=== PATIENT | female | born 1950 | race Caucasian/White ===

== ENCOUNTER 2016-07-29 14:16 | Inpatient (IN) | payer BC, OTHER ==
[~2016-07-29] VITALS: Ht 162.6 cm; Wt 59.1 kg
[~2016-07-29 14:16] MED LIST: ALEN70TA4 PO; ASPI81TA28 PO; BUTACAP7 PO; CALC-214 PO; CALC-354 PO; CYAN10005 PO; DTRSR5 PO; ESCI1TAB10 PO; FLAX100025 PO; MULT1TAB22 PO; PRLSR20 PO
--- NOTE | 2016-07-29 16:18 | DIAGNOSTIC IMAGING REPORT ---
CHEST ONE VIEW PORTABLE CLINICAL HISTORY: Altered mental status. Syncope. Weakness. COMPARISON STUDY: 01/19/2016 FINDINGS: The cardiac and mediastinal contours are normal. There is no evidence of focal pulmonary consolidation. There is no evidence of failure. No pleural effusions are visualized.[ There is a 14 mm opacity within the left mid to lower lung zone. This is quite dense despite its small size and is therefore felt to be either postinflammatory, or related to a healing rib fracture. IMPRESSION: No active disease in the chest. Electronically signed by: Terry Iverson M.D. 07/29/2016 4:17 PM Dictated Date/Time: 07/29/2016 4:16 PM
[2016-07-29] MEDS ORDERED: DENO60SO INJ (16:23)
[2016-07-29 16:30] LABS: EOS % 1.1 %; HEMATOCRIT 36.2 % (37-47); IG% 0.5 %; LYMPH % 11.1 %; LYMPH ABS # 1.07 K/uL (1.2-3.4); MEAN CELL VOLUME 63.7 fL (80-100); MEAN CORPUSCULAR HEMOGLOBIN 19.4 pg (25-34); MEAN CORPUSCULAR HGB CONC 30.4 g/dl (32-36); MEAN PLATELET VOLUME 9.4 fL (7.4-10.4); MONO % 2.8 %; NEUT % 83.5 %; PLATELET COUNT 439 K/uL (130-400); RED BLOOD COUNT 5.68 M/uL (4.2-5.4); WHITE BLOOD COUNT 9.65 K/uL (4.8-10.8)
[2016-07-29] MEDS ORDERED: CETI10TA84 PO (16:32)
[2016-07-29] MEDS ORDERED: CALC150C PO ×2 (16:32)
[2016-07-29] MEDS ORDERED: ATV5X PO (16:32)
[2016-07-29] MEDS ORDERED: IBUP-1450 PO (16:32)
[2016-07-29] MEDS ORDERED: OXYB15TA PO (16:32)
[2016-07-29] MEDS ORDERED: CHOL100027 PO (16:32)
[2016-07-29] MEDS ORDERED: MAGN250T3 PO (16:32)
[2016-07-29 16:49] LABS: ALT/SGPT 24 U/L (12-78); AST/SGOT 20 U/L (15-37); BLOOD UREA NITROGEN 14 mg/dl (7-18); CALCIUM 8.4 mg/dl (8.5-10.1); CARBON DIOXIDE 28 mmol/L (21-32); CHLORIDE 100 mmol/L (98-107); CREATININE 0.97 mg/dl (0.60-1.20); GLUCOSE 91 mg/dl (70-99); MAGNESIUM 2.4 mg/dl (1.8-2.4); POTASSIUM 4.2 mmol/L (3.5-5.1); SODIUM 136 mmol/L (136-145)
[2016-07-29 16:51] LABS: ANISOCYTOSIS PRESENT; COMPLETE YES; GIANT PLATELETS 1+; OVALOCYTES 1+; SPHEROCYTE 1+
[2016-07-29 16:57] LABS: ALKALINE PHOSPHATASE 64 U/L (45-117)
--- NOTE | 2016-07-29 17:13 | EMERGENCY ROOM VISIT NOTE ---
History Report prepared by Pedro: Nevaeh Mcneal Under the Supervision of: Dr. Jerman White D.O. First contact with patient: 15:49 Chief Complaint: SYNCOPE (NEAR SYNCOPE) Stated Complaint: NEAR SYNCOPE, WEAKNESS, DIZZY Nursing Triage Summary: Triage note: pt ambulatory to triage. Pt reports for the past 4 weeks she has had episodes of near syncope. pt reports "i get dizzy and my heart races." History of Present Illness The patient is a 65 year old female who presents to the Emergency Room with complaints of worsening dizziness beginning a few weeks prior to arrival. The patient states that she has been on Intron A injections for a condition she has and was taken off due to having dizziness episodes. The patient states that she was recently put back on the injections and since then as been experiencing the same dizziness and lightheaded episodes. She notes that she has up to 10 of these episodes a day. The patient notes that during these episodes she feels weak, palpations, and like she is about to have a syncopal episode. Patient also notes worsening weakness with activity recently. 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 Review of Systems See HPI for pertinent positives & negatives. A total of 10 systems reviewed and were otherwise negative. Past Medical & Surgical Medical Problems: (1) Closed right hip fracture (2) Depressive disorder (3) GERD (gastroesophageal reflux disease) (4) PRESYNCOPE, HEART BLOCK (5) SYNCOPE,ANEMIA, (6) T12 compression fracture Surgical Problems: (1) History of appendectomy (2) History of fracture of right hip (3) History of hysterectomy Family History No pertinent family history Social History Smoking Status: Never Smoker Drug Use: none Marital Status: Housing Status: lives with family Occupation Status: retired Current/Historical Medications Scheduled Aspirin (Aspirin Ec), 81 MG PO DAILY Ekvrsghacv-Xowifkz-Wuharcfs (Butal/Asa/Caff), 1 TAB PO PRN UD Calcium Citrate (James-Citrate), 600 MG PO QAM Calcium Citrate (James-Citrate), 300 MG PO QPM Cholecalciferol (Vitamin D 1000 Unit), 1,000 INTER.UNIT PO DAILY Denosumab (Prolia), 60 MG INJ [id number] Escitalopram Oxalate (Lexapro), 20 MG PO QPM Flaxseed (Linseed) (Flax Seed Oil), 1 CAP PO DAILY Magnesium (Magnesium 250 mg), 250 MG PO DAILY Multiple Vitamins W/ Minerals (One Daily For Women), 1 TAB PO DAILY Omeprazole (Prilosec), 20 MG PO DAILY Oxybutynin Chloride (Oxybutynin Chloride Er), 15 MG PO DAILY Scheduled PRN Cetirizine (Zyrtec), 10 MG PO DAILY PRN for ALLERGIC REACTION Ibuprofen (Motrin), 600 MG PO Q6H PRN for Pain Lorazepam (Lorazepam), 0.5 MG PO BID PRN for Anxiety Allergies Coded Allergies: Codeine (Verified Adverse Reaction, Intermediate, nausea, 02/12/16) Erythromycin (Verified Adverse Reaction, Intermediate, nausea, 02/12/16) Physical Exam Vital Signs Date Time Temp Pulse Resp B/P Pulse Ox O2 Delivery O2 Flow Rate FiO2 07/29/16 17:22 45 18 147/65 99 Room Air 07/29/16 16:19 82 07/29/16 15:45 71 18 160/84 98 Room Air 07/29/16 15:41 98 Room Air 07/29/16 14:21 36.5 89 18 168/83 98 Room Air Physical Exam CONSTITUTIONAL/VITAL SIGNS: Reviewed / noted above. GENERAL: Non-toxic in appearance. INTEGUMENTARY: Warm, dry, and [place]. HEAD: Normocephalic. EYES: without scleral icterus or trauma. ENT/OROPHARYNX: clear and moist. LYMPHADENOPATHY/NECK: Is supple without lymphadenopathy or meningismus. RESPIRATORY: Lungs clear and equal. CARDIOVASCULAR: Regular rate and rhythm. GI/ABDOMEN: Soft and nontender. No organomegaly or pulsatile mass. No rebound or guarding. Normal bowel sounds. EXTREMITIES: Warm and well perfused. BACK: No CVA tenderness. NEUROLOGICAL: Intact without focal deficits. PSYCHIATRIC: normal affect. MUSCULOSKELETAL: Normally developed with good muscle tone. Medical Decision & Procedures ER Provider Diagnostic Interpretation: X ray results and stated below per my interpretation and radiology interpretation. CHEST ONE VIEW PORTABLE CLINICAL HISTORY: Altered mental status. Syncope. Weakness. COMPARISON STUDY: 01/19/2016 FINDINGS: The cardiac and mediastinal contours are normal. There is no evidence of focal pulmonary consolidation. There is no evidence of failure. No pleural effusions are visualized.[ There is a 14 mm opacity within the left mid to lower lung zone. This is quite dense despite its small size and is therefore felt to be either postinflammatory, or related to a healing rib fracture. IMPRESSION: No active disease in the chest. Electronically signed by: Terry Iverson M.D. 07/29/2016 4:17 PM Dictated Date/Time: 07/29/2016 4:16 PM Laboratory Results 07/29/16 16:21 Red Blood Count 5.68, Mean Corpuscular Volume 63.7, Mean Corpuscular Hemoglobin 19.4, Mean Corpuscular Hemoglobin Concent 30.4, Mean Platelet Volume 9.4, Neutrophils (%) (Auto) 83.5, Lymphocytes (%) (Auto) 11.1, Monocytes (%) (Auto) 2.8, Eosinophils (%) (Auto) 1.1, Basophils (%) (Auto) 1.0, Neutrophils # (Auto) 8.05, Lymphocytes # (Auto) 1.07, Monocytes # (Auto) 0.27, Eosinophils # (Auto) 0.11, Basophils # (Auto) 0.10 07/29/16 16:21 Test 07/29/16 16:21 07/29/16 17:04 White Blood Count 9.65 K/uL (4.8-10.8) Red Blood Count 5.68 M/uL (4.2-5.4) Hemoglobin 11.0 g/dL (12.0-16.0) Hematocrit 36.2 % (37-47) Mean Corpuscular Volume 63.7 fL (80-100) Mean Corpuscular Hemoglobin 19.4 pg (25-34) Mean Corpuscular Hemoglobin Concent 30.4 g/dl (32-36) Platelet Count 439 K/uL (130-400) Mean Platelet Volume 9.4 fL (7.4-10.4) Neutrophils (%) (Auto) 83.5 % Lymphocytes (%) (Auto) 11.1 % Monocytes (%) (Auto) 2.8 % Eosinophils (%) (Auto) 1.1 % Basophils (%) (Auto) 1.0 % Neutrophils # (Auto) 8.05 K/uL (1.4-6.5) Lymphocytes # (Auto) 1.07 K/uL (1.2-3.4) Monocytes # (Auto) 0.27 K/uL (0.11-0.59) Eosinophils # (Auto) 0.11 K/uL (0-0.5) Basophils # (Auto) 0.10 K/uL (0-0.2) RDW Standard Deviation 50.5 fL (36.4-46.3) RDW Coefficient of Variation 22.1 % (11.5-14.5) Immature Granulocyte % (Auto) 0.5 % Immature Granulocyte # (Auto) 0.05 K/uL (0.00-0.02) Giant Platelets 1+ Anisocytosis PRESENT Spherocytes 1+ Ovalocytes 1+ Anion Gap 8.0 mmol/L (3-11) Est Creatinine Clear Calc Drug Dose 49.3 ml/min Estimated GFR () 70.5 Estimated GFR (Non- 60.9 BUN/Creatinine Ratio 14.0 (10-20) Calcium Level 8.4 mg/dl (8.5-10.1) Magnesium Level 2.4 mg/dl (1.8-2.4) Total Bilirubin 0.2 mg/dl (0.2-1) Direct Bilirubin < 0.1 mg/dl (0-0.2) Aspartate Amino Transf (AST/SGOT) 20 U/L (15-37) Alanine Aminotransferase (ALT/SGPT) 24 U/L (12-78) Alkaline Phosphatase 64 U/L (45-117) Total Creatine Kinase 48 U/L (26-192) Creatine Kinase MB < 0.5 ng/ml (0.5-3.6) Creatine Kinase MB Ratio (0-3.0) Troponin I < 0.015 ng/ml (0-0.045) Total Protein 7.7 gm/dl (6.4-8.2) Albumin 3.9 gm/dl (3.4-5.0) Lipase 126 U/L (73-393) Thyroid Stimulating Hormone (TSH) 4.950 uIu/ml (0.300-4.500) Prothrombin Time 11.7 SECONDS (9.0-12.0) Prothromb Time International Ratio 1.1 (0.9-1.1) Activated Partial Thromboplast Time 30.3 SECONDS (21.0-31.0) Partial Thromboplastin Ratio 1.2 Lyme Disease IgM Antibody NEG (NEG) Laboratory results as stated above per my review. ECG Indication: other (dizziness) Rate (beats per minute): 76 Rhythm: normal sinus Findings: no acute ischemic change, no ectopy ED Course 154: Previous medical records were reviewed. The patient was evaluated in room B10. A complete history and physical examination was performed. 1617: Discussed the patient's case with Dr. Salinas. The patient will be evaluated for further treatment and disposition. []: On reevaluation, the patient is hemodynamically stable. I discussed the results and findings with her. She verbalized agreement of the treatment plan. I spoke with Dr. Salinas of the [facility]. The patient will be evaluated for further management and care. Medical Decision Differential includes acute cardiac dysrhythmia, microinfarction, CVA, TIA, dehydration, anemia, electrolyte disturbance, seizure, trauma, intracranial bleeding, acute vascular catastrophe, thoracic aortic dissection, PE, abdominal aortic aneurysm rupture, ectopic rupture. The patient is a 65 year old female who presents to the ED with complaints of dizziness. The patient has a history of polycythemia vera. She gets interferon twice a week. He reports dizziness off and on for the past couple of weeks. It is worsening for the past couple of days. Yesterday she had multiple episodes and today she had multiple episodes as well. She reports up to 8 episodes today. She had one in the emergency department. She states that she suddenly feels weak, lightheaded and feels like her breathing is difficult and her heart pounds. The patient states that her last episode was here around 154. Review of that monitor lead reveals third degree heart block/ventricular standstill for 3 seconds. There was 3 P waves without QRS complexes. The patient was symptomatic during this. She states that she had the same symptoms although this was one of the last significant episodes that she has had through the day. The patient has no other complaints. Her physical exam was normal. Vital signs are stable. Chest x-ray did not show acute disease. An EKG shows a normal sinus rhythm at a rate of 76. Complete metabolic panel was unremarkable. CBC is normal. TSH is slightly elevated. Lyme was negative. The patient's symptoms are likely related to ventricular standstill or third degree heart block. Pacer pads were placed on the patient. She had a number of episodes of arrhythmia during her stay but did not require pacing. The patient will be seen by the PCP and evaluated as an inpatient for further care. Consults Time Called: 161 Consulting Physician: Dr. Rita Gallagher Returned Call: [phone] Discussed the patient's case. The patient will be evaluated for further treatment and disposition. Impression Primary Impression: Third degree heart block Scribe Attestation The scribe's documentation has been prepared under my direction and personally reviewed by me in its entirety. I confirm that the note above accurately reflects all work, treatment, procedures, and medical decision making performed by me. Departure Information Dispostion Being Evaluated By Hospitalist Referrals Maicol Acosta M.D. (PCP)
[2016-07-29 17:25] LABS: INR 1.1 (0.9-1.1); PARTIAL THROMBOPLASTIN RATIO 1.2; PROTHROMBIN TIME (PATIENT) 11.7 SECONDS (9.0-12.0)
[2016-07-29] MEDS ORDERED: LORAZEPAM 0.5 MG TAB PO PRN (17:30)
[2016-07-29] MEDS ORDERED: CETIRIZINE HCL 10 MG TAB PO PRN (17:30)
[2016-07-29 19:50] VITALS: O2SAT 96
--- NOTE | 2016-07-29 20:34 | CARDIOLOGY CONSULTATION ---
DATE OF CONSULTATION: 07/29/2016 CHIEF COMPLAINT: Syncope. HISTORY OF PRESENT ILLNESS: Mrs. Alice Ruiz is a 65-year-old woman with a longstanding history of unexplained syncope. The patient first reported symptoms last summer which is approximately 8 months ago. Initially, these symptoms were fairly infrequent and brief in nature but did involve actual syncope. The episodes tended to occur while at rest and did not involve additional symptoms or sense of prodrome. It was unclear at that time if the patient's episodes related to institution of interferon therapy for polycythemia vera and therapy was stopped without resolution of her symptoms, more recently it was reinitiated. In the past 8 months, the patient's symptoms have become progressive in nature to the point where she now appears to have multiple episodes every day of presyncope that do not appear to be precipitated by any specific activity or position. She does note that the symptoms themselves appear to be worse with activity. When she is active, she notices a sense of presyncope, weakness and dizziness that has been progressive over the past several months. Today, she presented to the Emergency Room of [facility] and was noted to have symptoms associated with transient episodes of complete heart block. In general, the patient is an active individual. She is limited by the aforementioned symptoms, but otherwise did not describe exertional chest pain. In fact, she underwent exercise echocardiography in December of last year without inducible symptoms and had a good exercise tolerance. She denies exertional chest discomfort. She denies breathing difficulties at rest or with sleep. She denies paroxysmal nocturnal dyspnea. PAST MEDICAL HISTORY: Significant for: 1. Polycythemia vera. The patient does undergo intermittent phlebotomy. She was on hydroxyurea therapy which resulted in thrombocytopenia and now has transitioned to interferon. 2. History of osteoporosis with resultant hip fracture. 3. Anxiety. PAST SURGICAL HISTORY: Includes appendectomy, cholecystectomy, hysterectomy. MEDICATIONS: Outpatient medical therapy includes the aforementioned interferon, daily aspirin, calcium supplementation, vitamin D supplementation, escitalopram, magnesium supplementation, omeprazole, and oxybutynin. MEDICAL ALLERGIES: INCLUDE NAUSEA WITH CODEINE AND ERYTHROMYCIN. FAMILY HISTORY: The patient's brother who is 3 years older, he had coronary disease in his 60s. There is a history of atrial fibrillation. No other pertinent family history. 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 She currently lives with her locally. She denies a history of tobacco abuse. She has occasional alcoholic beverage but does not drink to excess. REVIEW OF SYSTEMS: A complete 10-system review of systems was performed and the pertinent positives are noted in the history of present illness. The patient did not report any recent symptoms of fevers or chills. She has an occasional cough associated with the episodes previously mentioned, but not otherwise. She does not have rashes, but does have pruritus on occasion associated primarily with warm showers, this has been worse while she was off interferon therapy. She does not describe any recent bleeding episode. She has not described any lower extremity edema. PHYSICAL EXAMINATION: GENERAL: The patient does not appear to be in acute distress. She is a pleasant woman who is alert and oriented. Her mood and affect appeared normal. She answered all questions appropriately. VITAL SIGNS: Currently include blood pressure 168/83 with a pulse of 89. HEENT: Her sclerae are anicteric. Pupils are equal and reactive to light and accommodation. Extraocular movements were intact. NECK: Palpation of the submandibular region did not reveal any significant lymphadenopathy. The carotids are palpable bilaterally. I do not appreciate any bruits on auscultation. There is no evidence of jugular venous distention. LUNGS: Evaluation of her lungs revealed good air movement with normal respiratory effort, no use of accessory muscles. Her lung examination did not reveal any rales, wheezes, or rhonchi. HEART: Revealed her to be in a regular rhythm. I did not appreciate any significant murmurs. S1 and S2 appeared to be normal. The PMI is not markedly displaced. ABDOMEN: Soft and nontender. EXTREMITIES: She has palpable radial pulses bilaterally, they were equal in intensity. There is no evidence of cyanosis or clubbing. Evaluation of her lower extremities not reveal any significant peripheral edema. No appreciated rashes on examination today. LABORATORY AND IMAGING STUDIES: Obtained in the Emergency Room include a white cell count of 9.6, a hemoglobin of 11 and a platelet count 439. Sodium is 136, potassium is 4.2, creatinine was 0.97. Liver function tests were normal. TSH was slightly elevated at 4.9, normal being 4.5. Lyme disease titer was also negative. Stress echocardiogram was obtained on 01/27/2016. This revealed preserved left ventricular systolic function without inducible wall motion abnormalities. The patient was able to exercise up to 12 METS without symptoms. There was evidence of mild mitral regurgitation and mild aortic regurgitation, otherwise normal study. Evaluation of the patient's telemetry and a recent EKG revealed normal sinus rhythm with a transient episode of complete heart block. QRS duration is normal. There is also an incomplete right bundle branch block. ASSESSMENT AND PLAN: 1. Complete heart block. The patient has good correlation between her conduction disorder and symptoms, is likely the etiology of her symptoms for the past several months, initially there were transient. She did have a period of outpatient ambulatory monitoring, but no symptoms during that time. The etiology of her complete heart block is unclear. I do think that the mild elevation in her TSH is likely to account for these episodes. Lyme titer was also normal. She had normal exercise tolerance previously and also normal left ventricular systolic function. Curiously, her QRS duration is normal, which makes Infra-Hisian disease less likely. Her exercise-related symptoms; however, would be concerning for Infra-Hisian disease. Based on the information collected today, I think it is reasonable to recommend a pacemaker for symptomatic nonreversible AV node disease. I did discuss the procedure with the patient in the presence of her including the risks associated with implantation and she is agreeable at this point, we will plan on proceeding tomorrow.
[2016-07-29] MEDS: ESCITALOPRAM OXALATE 20 MG TAB PO SCH (20:56)
[2016-07-29 21:41] VITALS: BP 139/79; PULSE 75; TEMP 36.5; Ht 162.6 cm; Wt 59.1 kg
--- NOTE | 2016-07-29 22:39 | HISTORY & PHYSICAL EXAMINATION ---
DATE OF ADMISSION: 07/29/2016 HISTORY OF PRESENT ILLNESS: A 65-year-old female admitted through the Emergency Room with presyncopal episodes, which have been frequently [id number] and evidence of heart block. HISTORY OF PRESENT ILLNESS: The patient, with polycythemia vera, gastroesophageal reflux, osteoporosis with history of vertebral compression fracture, has been complaining of recurrent episodes of syncope and presyncope. The first one happened in December of 2015. She has had multiple episodes, mostly presyncopal. She was hospitalized on 01/27/2016. She had a cardiac evaluation. She was on a monitor. Did not show any arrhythmias. She had a stress test and echocardiogram, which were unremarkable. She also had a neurology evaluation and no definite etiology for her episodes was determined. The patient continued to have recurrent episodes of presyncope. On many occasions, she described that her heart was pounding. Over the last couple of weeks, these episodes have become more frequent. She did not have a true syncopal episode, but she definitely did have presyncope. She felt like passing out on multiple occasions. The patient came to the Emergency Room today. While she was on the monitor, she had heart block with pauses up to 3 seconds. I saw the patient in the Emergency Room and she was admitted for further treatment. PAST MEDICAL HISTORY: 1. Polycythemia vera diagnosed about 20 years ago. She had multiple phlebotomies in the past, but she is on interferon. 2. Osteoporosis. 3. History of vertebral compression fractures. 4. Appendectomy at age 12. 5. Vaginal hysterectomy for fibroids in 1998. 6. Right hip fracture after a fall in 2016, required surgery. SOCIAL HISTORY: She is , has 2 children. No smoking. Occasional wine. Decaffeinated coffee. She is retired since 2011. 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 FAMILY HISTORY: Her mother had a stroke. Also, had atrial fibrillation. Her father at age 64, had a myocardial infarction. One brother had at age 53, had prostate cancer. She had a total of 3 brothers and 2 sisters. One daughter at age 35 of widespread metastatic breast cancer. ALLERGIES: 1. CODEINE. 2. ERYTHROMYCIN. MEDICATIONS ON ADMISSION: Were all as noted on her home medication list. REVIEW OF SYSTEMS: She denied any headache. She has been complaining of recurrent episodes of generalized weakness and feeling lightheaded, like passing out. Denied any earache, sore throat or neck pain. Denied any chest pain. She does get short of breath with these episodes that she experienced. No abdominal pain, no nausea, no vomiting. No problem with her bowel movements. She has had urinary incontinence and urgency in the past. She is on oxybutynin. She does have recurrent back pain. No ankle edema. PHYSICAL EXAMINATION: GENERAL: Well developed, in no acute distress. VITAL SIGNS: On arrival to the Emergency Room, her blood pressure was 168/83, pulse 89, respiration 18, temperature 36.5, oxygen saturation 98% on room air. SKIN: Warm and dry. No rash. HEENT: No mucosal abnormalities. NECK: Supple. No adenopathy, no thyromegaly. No JVD. Normal carotid pulses. No bruit. HEART: Regular heart sounds. No evident murmur, rub, or gallop. LUNGS: Clear. ABDOMEN: Soft, nontender. BACK: No spinal tenderness. EXTREMITIES: No edema, clubbing or cyanosis. Good pulses. Surgical scar of the right hip. NEUROLOGIC: She is alert and oriented without deficit. LABORATORY TESTS: WBC count 9650, hemoglobin 11, hematocrit 36.2, MCV 62.7, MCH 19.4, platelet count 439,000. Prothrombin time 11.7, INR 1.1, PTT 30.3. Sodium 136, potassium 4.2, chloride 100, CO2 28, BUN 14, creatinine 0.97, glucose 91, calcium 8.4, magnesium 2.4, total bilirubin 0.2, AST 20, ALT 24, alkaline phosphatase 64, total CK 48, troponin I less than 0.015, total protein 7.7, albumin 3.9, lipase 126. Her TSH was minimally elevated to 4.950. Her chest x-ray showed no evidence of any active disease in her chest. Her electrocardiogram showed a sinus rhythm. Her rhythm strip showed multiple episodes of heart block with pauses up to 3 seconds. ASSESSMENT: 1. Presyncopal episode. 2. Heart block. 3. Polycythemia vera. 4. Osteoporosis. 5. Gastroesophageal reflux. 6. Depression. 7. Anxiety. PLAN: The patient was admitted to PCU with telemetry. Resuscitation level 1. Laboratory tests were ordered. Cardiology consultation was requested. The patient will be monitored tonight. The intent is for her to have a permanent pacemaker placed tomorrow by Dr. Rodríguez. Most likely, that is the cause of her syncopal episodes and presyncopal episodes that she has been having since December.
[2016-07-29 23:08] VITALS: BP 136/70; PULSE 72; TEMP 36.6; O2SAT 95
[2016-07-30] VITALS (14 sets, daily range): BP systolic 114–166; BP diastolic 43–81; PULSE 44–99; TEMP 36.4–36.9; O2SAT 94–96
[2016-07-30] MEDS ORDERED: CEFAZOLIN 1000MG/55 ML D5W IV SCH (06:00)
[2016-07-30] MEDS: LEVOTHYROXINE 50 MCG TAB PO SCH (06:14)
--- NOTE | 2016-07-30 09:04 | Clinical Documentation Query ---
Dr. KARINA ZHENG [facility] : CLINICAL DOCUMENTATION QUERY Patient is a 65 year old female admitted for evaluation and recurrent episodes of syncope and presyncope. Documentation includes "heart block" not otherwise specified. Consider clarification as suggested below as this impacts ICD-10 code assignment. Thank you. In your clinical opinion is this patient being managed for: (x ) Complete/Third degree atrioventricular block ( ) Other explanation of clinical findings (Please Explain) ( ) Unable to determine (Please Define) ( ) Need to Discuss ( ) Not Agree The medical record reflects the following clinical findings, treatment, and risk factors. Clinical Indicators: As above Treatment: Telemetry, cardiology consultation, permanent pacemaker Risk Factors: Age Please clarify and document your clinical opinion in the progress notes and discharge summary. Terms such as "probable", "suspected", "likely", "questionable", "possible", or "still to be ruled out" are acceptable. IF IN AGREEMENT, YOU MUST DOCUMENT ABOVE DIAGNOSTIC STATEMENT IN DAILY PROGRESS NOTES AND DISCHARGE SUMMARY. This document is not part of the patient's record. Thank You, Jm Monreal, RN [phone]
[2016-07-30] MEDS ORDERED: LACTATED RINGER'S 1000ML 1,000 ML IV ONE (11:16)
--- NOTE | 2016-07-30 11:25 | Procedure Note ---
Pre-Mod Sedation Assessment General Date of Moderate Sedation: Jul 30, 2016. Vital Signs: Vital Signs Past 12 Hours Date Time Temp Pulse Resp B/P Pulse Ox O2 Delivery O2 Flow Rate FiO2 07/30/16 07:46 36.7 80 18 114/73 96 Room Air 07/30/16 04:00 Room Air 07/30/16 04:00 36.6 74 18 116/70 95 Room Air 07/30/16 00:01 Room Air Review Cardiovascular: no murmur, + bradycardia Abdomen: non tender Lungs: lungs clear Airway Class: II Pre-Sedation Airway Assessment Oral Cavity: WNL Able to Visualize Vocal Cords: No Short Thick Neck: No Hx of Sleep Apnea: No Smoking Status: Never Smoker Mallampati Classification: Class II ASA Classification: Class II Procedure Planning Contraindications-for Mod Sed: None Yes Notes The planned sedation has been discussed with the patient and consent obtained. I have identified the patient, determined the appropriateness of sedation and have assessed the patient immediately prior to the procedure. All medicine(s) and interventions are by my order.
[2016-07-30] MEDS: ACETAMINOPHEN 325 MG TAB PO PRN ×2 (12:34→20:46)
[2016-07-30] MEDS ORDERED: MIDAZOLAM HCL 5 MG/ML 1 ML VIAL ONE (14:25)
[2016-07-30] MEDS ORDERED: FENTANYL CITRATE INJ 50 MCG/1 ML 2 ML VIAL ONE ×2 (14:26→15:18)
[2016-07-30] MEDS ORDERED: BUPIVACAINE 0.5 % 5 MG/1 ML MPF 30ML VIAL ONE (14:29)
[2016-07-30] MEDS ORDERED: OXYCODONE/ACETAMINOPHEN 5-325 TAB PO PRN (16:15)
[2016-07-30] MEDS ORDERED: ACETAMINOPHEN 325 MG TAB PO PRN (16:15)
[2016-07-30] MEDS: CEROVITE ADV FORMULA TAB PO SCH (16:48)
[2016-07-30] MEDS: PANTOprazole SOD 40 MG TAB PO SCH (16:48)
[2016-07-30] MEDS: ASPIRIN 81 MG ECTAB PO SCH (16:48)
[2016-07-30] MEDS: CHOLECALCIFEROL 1000 INTER.UNIT TAB PO SCH (16:48)
[2016-07-30] MEDS: CEFAZOLIN IV 1,000 MG in DEXTROSE 5% 50ML 50 ML IV SCH (17:48)
--- NOTE | 2016-07-30 18:08 | Cardiology Procedure Brief Nt ---
Preliminary Cardiology Note Procedure Date Jul 30, 2016. Pre-Procedure Diagnosis heart block Post-Procedure Diagnosis heart block Procedure(s) Performed placement of dual chamber Medtronic pacemaker College Director Aneudy Estimated Blood Loss 10cc Medication(s) Versed 5mg, fentanyl 125 mcg Fluids (cc crystalloids) 450cc Complication(s) None Disposition PCU
--- NOTE | 2016-07-30 18:13 | Procedure Note ---
Post-Mod Sedation Assessment General Date of Moderate Sedation Jul 30, 2016. Vital Signs: Vital Signs Past 12 Hours Date Time Temp Pulse Resp B/P Pulse Ox O2 Delivery O2 Flow Rate FiO2 07/30/16 16:20 Room Air 07/30/16 16:20 36.4 75 22 135/80 94 Room Air 07/30/16 16:00 75 24 128/78 94 Room Air 07/30/16 15:50 62 24 129/80 95 Room Air 07/30/16 11:27 36.9 44 18 130/67 96 Room Air 07/30/16 08:00 Room Air 07/30/16 07:46 36.7 80 18 114/73 96 Room Air Review - Discharge Criteria Vital Signs Stable: Yes Alert/Oriented/Conversant: Yes Returned to Baseline Mental St: Yes Nausea Absent/Minimal: Yes Pain/Discomfort/Absent/Minimal: Yes Normal/Baseline Respirations: Yes Active Bleeding?: No Pt Received D/C Instructions: N/A Prescriptions Given: None
[2016-07-30] MEDS ORDERED: ONDANSETRON INJ 8 MG in DEXTROSE 5% 50ML 50 ML IV PRN (18:45)
[2016-07-30] MEDS: ESCITALOPRAM OXALATE 20 MG TAB PO SCH (20:46)
[2016-07-31] MEDS: CEFAZOLIN IV 1,000 MG in DEXTROSE 5% 50ML 50 ML IV SCH ×2 (00:14→08:40)
--- NOTE | 2016-07-31 00:51 | OPERATIVE REPORT ---
DATE OF OPERATION: 07/30/2016 PACEMAKER IMPLANTATION REPORT PROCEDURE PERFORMED: Implantation of dual chamber pacemaker. STAFF INDUCTION COORDINATION POWER ENGINEER: Dr. Nahum Amado. INDICATION: Mrs. Alice Ruiz is a 65-year-old woman who presented 1 day prior to [facility] with symptomatic heart block. The patient had been experiencing symptoms of presyncope for some time and at the time of her presentation she was noted to have evidence of complete heart block which was transient and associated with her symptoms, and as such she was felt to be a good candidate for permanent pacemaker due to symptomatic nonreversible AV node dysfunction. Dual chamber device was selected as the patient was currently in sinus rhythm and wished to maintain AV synchrony. PROCEDURE IN DETAIL: The patient was informed of risks, benefits and alternatives to the intended procedure. She understood such and wished to proceed. She was taken to the electrophysiology suite in a fasting state. A preoperative antibiotic had been administered. The patient was monitored electrocardiographically throughout today's procedure and conscious sedation was administered per protocol. The left pectoral area was prepped and draped in usual sterile fashion. This area was anesthetized using subcutaneous administration of Xylocaine and Marcaine solution. An incision was made, dissection carried down the prepectoralis fascia using sharp dissection. Electrocautery was also employed for dissection as well as for hemostasis. A device pocket was fashioned in the tissues above the pectoralis muscle. Subsequent to this, left axillary vein was accessed twice using modified Seldinger technique. Initial access was done urgently as the patient did develop complete heart block with asystole during the procedure. A second access was performed after the initial passage of the ventricular pacing lead. Leads were advanced under fluoroscopic guidance to their respective chambers, this included right atrial and left ventricular leads. Adequate sensing and threshold parameters were obtained prior to active fixation of these leads to the endocardial surface. The proximal portion of the leads was then sutured to the prepectoral fascia using nonabsorbable suture. Device pocket was irrigated with an antibiotic solution. The leads were then attached to device, device and leads were then placed in the pocket, and the pocket was closed in 3 layers of absorbable suture. Steri-Strips and sterile dressing were applied. The device was tested noninvasively prior to concluding the procedure. The patient tolerated the procedure well. There were no immediate complications. EQUIPMENT USED: New pulse generator, executive vice president of sales [email or web address], model #A2DR01, serial #[id number]. Right atrial lead, executive vice president of sales Medtronic, model #5076, serial #[id number]. Right ventricular lead, executive vice president of sales Medtronic, model #5076, serial #[id number]. MEASURED DATA: 1. Right atrial lead, P-waves measured 2.1 millivolts, pacing threshold is 0.25 volts at 0.4 milliseconds with a pacing impedance of 513 ohms. 2. Left ventricular lead, R-waves measured 8.3 millivolts, pacing threshold is 0.75 volts at 0.4 milliseconds with a pacing impedance of 627 ohms. IMPRESSION: Successful implantation of dual chamber permanent pacemaker. PLAN: The patient will be monitored in the romero overnight. Additional dose of antibiotics will be administered. A chest x-ray and re-interrogation of the device will be performed in the morning. Should all parameters be adequate and the patient is feeling well, she will be considered for discharge at that time. I attest to the content of the Intraoperative Record and any orders documented therein. Any exceptions are noted below. REFUGIO
--- NOTE | 2016-07-31 00:51 | PROGRESS NOTE ---
DATE: 07/30/2016 A 65-year-old female, admitted with multiple presyncopal episodes. Their frequency and duration have been getting worse. In the Emergency Room, she had documented complete heart block. The patient was admitted to PCU with telemetry. Cardiology consultation was requested from Dr. Rodríguez and Dr. Amado. The patient was monitored through the night. She has had multiple episodes of heart block, as long as 7 seconds. This afternoon, the patient had a pacemaker implanted by Dr. Amado. The procedure was well tolerated. After the procedure, she was feeling slight nausea. She had no headache. No dizziness. No chest pain. No shortness of breath. No abdominal pain. PHYSICAL EXAMINATION: GENERAL: Well-developed, in no distress. VITAL SIGNS: Blood pressure 145/77, pulse 77, respirations 22 and pulse oximetry is at 94% on room air. SKIN: Warm and dry. No rash. HEENT: She wears glasses. Otherwise unremarkable. NECK: No JVD. No adenopathy. HEART: Regular heart sounds. CHEST: Pacemaker in place, left side. Dressing in place. ABDOMEN: Soft and benign. EXTREMITIES: No edema, clubbing or cyanosis. ASSESSMENT: 1. Complete heart block. 2. Status post implant of pacemaker. 3. Polycythemia vera. PLAN: 1. The procedure was well tolerated. She is doing quite well. 2. Her condition will be monitored. 3. Her pacemaker will be checked in the morning. 4. If her condition is stable, there is a possibility that she may be able to go home tomorrow.
[2016-07-31] MEDS: ACETAMINOPHEN 325 MG TAB PO PRN (03:27)
[2016-07-31 03:45] VITALS: BP 133/77; PULSE 72; TEMP 36.6; O2SAT 95
[2016-07-31] MEDS: LEVOTHYROXINE 50 MCG TAB PO SCH (05:59)
[2016-07-31] MEDS ORDERED: CEFAZOLIN SOD 1000MG/55 ML D5W IV SCH (06:00)
--- NOTE | 2016-07-31 07:33 | DIAGNOSTIC IMAGING REPORT ---
CHEST 2 VIEWS ROUTINE CLINICAL HISTORY: EXACT TIME ORDERED Evaluate for pneumothorax and lead placement dyspnea COMPARISON STUDY: 07/29/2016 FINDINGS: Bipolar cardiac pacemaker with leads in good position. No evidence pneumothorax. Lungs are considered clear. Old left-sided rib fracture. IMPRESSION: Bipolar cardiac pacemaker with leads in good position. No evidence pneumothorax. Electronically signed by: Alli Ling M.D. 07/31/2016 7:32 AM Dictated Date/Time: 07/31/2016 7:31 AM
[2016-07-31 07:36] VITALS: BP 150/79; PULSE 88; TEMP 36.5; O2SAT 96
[2016-07-31] MEDS ORDERED: SYN50 PO (07:54)
--- NOTE | 2016-07-31 07:57 | Discharge Instructions ---
Discharge Instructions Admission Reason for Admission: Presyncope, Heart Block Discharge Discharge Diagnosis / Problem: COMPLETE HEART BLOCK Discharge Goals Goal(s): Improve function Activity Recommendations Activity Limitations: resume your previous activity . Instructions / Follow-Up Instructions / Follow-Up DR LEONARDO IN ONE WEEK DR BULLARD SCHEDULED Current Hospital Diet Patient's current hospital diet: Regular Diet Discharge Diet Recommended Diet: Regular Diet Pending Studies Studies pending at discharge: no Medical Emergencies . Who to Call and When: Medical Emergencies: If at any time you feel your situation is an emergency, please call 911 immediately. . Non-Emergent Contact Non-Emergency issues call your: Primary Care Provider . . "Provider Documentation" section prepared by Maicol Bullard. VTE Core Measure Inpt VTE Proph given/why not?: Treatment not indicated
[2016-07-31] MEDS: CEROVITE ADV FORMULA TAB PO SCH (09:09)
[2016-07-31] MEDS: PANTOprazole SOD 40 MG TAB PO SCH (09:09)
[2016-07-31] MEDS: CHOLECALCIFEROL 1000 INTER.UNIT TAB PO SCH (09:09)
[2016-07-31] MEDS: ASPIRIN 81 MG ECTAB PO SCH (09:09)
[2016-07-31 09:15] VITALS: BP 150/79; PULSE 88; TEMP 36.5; O2SAT 96
--- NOTE | 2016-07-31 13:48 | CARDIOLOGY PROGRESS NOTE ---
DATE: 07/31/2016 This morning Mrs. Alice Ruiz is alert and oriented. She is feeling well, sitting up in bed. She states that she overall simply feels weak and slightly anxious but has minimal discomfort at the operative site for her pacemaker implant yesterday. PHYSICAL EXAMINATION: VITAL SIGNS: Include a blood pressure 133/77 with pulse of 72. Evaluation of her pacemaker implant site revealed very minor swelling without evidence of hematoma, no drainage from the operative site. No significant erythema, only mild tenderness on palpation. Review of her chest x-ray reveals good lead placement without evidence of pneumothorax. I performed routine interrogation of her device that revealed normal parameters. No sensing of R-waves due to her heart block. ASSESSMENT AND PLAN: 1. Successful implantation of dual chamber permanent pacemaker without obvious complications. At this point, the patient will be discharged home with instructions to keep the wound dry for 1 week's time and also to follow up next week in the clinic. She is to refrain from raising her left arm above her shoulder or behind her neck for up to 6 weeks. 2. Complete heart block. The patient had complete heart block of unclear etiology. At some point, once her pacemaker has healed, it would be advisable to consider MRI scanning for possible infiltrative cardiomyopathy such as sarcoidosis. 3. Syncope, this is related to complete heart block and should be resolved currently with implantation of her pacemaker.
--- NOTE | 2016-07-31 20:28 | PROGRESS NOTE ---
DATE: 07/31/2016 A 65-year-old female, with multiple problems includin. Complete heart block. 2. Syncopal and presyncopal episodes secondary to #1. 3. Newly diagnosed hypothyroidism. 4. Polycythemia vera. 5. Dyspepsia and gastroesophageal reflux. 6. Depression. The patient was admitted. She was seen in cardiology consultation by Dr. Amado. Yesterday, she had a pacemaker implanted by Dr. Amado. The procedure was well-tolerated. Overall, she is doing well. She is still complaining of feeling tired and nervous. She denied any headache or dizziness. No chest pain, no shortness of breath. No abdominal pain, no nausea, no vomiting. No problem with her bowel movements or urination. No pain in her back or extremities. PHYSICAL EXAMINATION: GENERAL: Well-developed, in no distress. VITAL SIGNS: Blood pressure 150/79, pulse 88, respirations 18, temperature 36.5 and oxygen saturation 96% on room air. SKIN: Warm and dry. No rash. HEENT: No mucosal abnormality. NECK: No JVD, no adenopathy. HEART: Regular heart sounds. LUNGS: Clear. ABDOMEN: Soft and benign. BACK: No spinal tenderness. EXTREMITIES: No edema, clubbing or cyanosis. ASSESSMENT: 1. Complete heart block. 2. Recurrent syncope and presyncope secondary to #1. 3. Polycythemia vera. 4. Newly diagnosed hypothyroidism. 5. Depression. 6. Gastroesophageal reflux. 7. Fatigue. PLAN: 1. Overall, her condition has improved. Her pacemaker was checked this morning by Dr. Amado and everything is functioning well. 2. The patient was discharged home today. She will follow up in cardiology in one week. She already had an appointment scheduled with me in the office and will maintain the same appointment.
--- NOTE | 2016-08-10 18:00 | DISCHARGE SUMMARY ---
DISCHARGE DIAGNOSES: 1. Complete heart block. 2. Multiple presyncopal episodes. 3. Polycythemia vera. 4. Dyspepsia. 5. Anxiety and depression. 6. Osteoporosis. 7. Newly detected mild hypothyroidism. DISCHARGE MEDICATIONS: Included: 1. Levothyroxine 50 mcg daily. 2. Aspirin 81 mg daily. 3. Fiorinal 1 tablet as needed for her migraines. 4. Calcium citrate 600 mg daily. 5. Zyrtec 10 mg daily when needed. 6. Vitamin D 1000 international units daily. 7. Prolia 60 mg injection every 6 months. 8. Lexapro 20 mg daily. 9. Flaxseed 1 capsule daily. 10. Ibuprofen 600 mg every 6 hours as needed. 11. Lorazepam 0.5 mg twice a day as needed for anxiety. 12. Magnesium 250 mg daily. 13. Multivitamin 1 daily. 14. Omeprazole 20 mg daily. 15. Oxybutynin chloride 15 mg daily. CONSULTATIONS: Dr. Nahum Amado in cardiology. PROCEDURE: Placement of bipolar permanent pacemaker. HISTORY OF PRESENT ILLNESS: Mrs. Ruiz is a 65-year-old female admitted through the Emergency Room with presyncopal episode and documented episodes of heart block. The patient with multiple medical problems as noted above. She has had a syncopal episode requiring admission in December of 2015. All her workup was completely unremarkable from a cardiac and neurological status. She never manifested any rhythm issues. She was continued to have presyncopal episodes. She was brought to the Emergency Room. While being evaluated, she presented with multiple episodes of heart block in the Emergency Room. She was admitted for further treatment. PAST MEDICAL HISTORY, SOCIAL HISTORY AND FAMILY HISTORY: Were all as noted. ALLERGIES: 1. CODEINE. 2. ERYTHROMYCIN. MEDICATIONS ON ADMISSION: Were all as noted on her home medication list. PHYSICAL EXAMINATION AND ADMISSION LABORATORY TESTS: Were all as noted. HOSPITAL COURSE: The patient was admitted to PCU with telemetry. Resuscitation level 1. Laboratory tests were ordered. Cardiology consultation was requested. She was seen by Dr. Amado and Dr. Rodríguez. The plan was to proceed with a pacemaker. The patient was admitted. During the night she did present with multiple episodes of heart block, some of them lasted about 7 seconds. She did not have any syncope, but with these episodes of heart block she did become symptomatic with lightheadedness and dizziness and presyncope. On 07/30/2016 the patient had implantation of dual chamber pacemaker by Dr. Amado. The procedure was well tolerated. Postoperatively, she was completely asymptomatic. On 07/31/2016 the patient was discharged home. Medications as noted above. She was to follow up with Dr. Amado. She already had an appointment scheduled with me in the office and she was to maintain the same appointment. REFUGIO
== END 2016-07-31 09:43 | disposition home or self-care (01) | DRG 244 ==
LOC: ENRESERVDT → ENRESERVTM → C.EDB 14:19 → C.2T 17:29
PROVIDERS: ADMIT Internal Medicine; ATTEND Internal Medicine
PROC: 02HK3JZ Insertion of Pacemaker Lead into Right Ventricle, Percutaneous Approach (ICD-10-PCS; 2016-07-30)
PROC: 02H63JZ Insertion of Pacemaker Lead into Right Atrium, Percutaneous Approach (ICD-10-PCS; 2016-07-30)
PROC: 0JH606Z Insertion of Pacemaker, Dual Chamber into Chest Subcutaneous Tissue and Fascia, Open Approach (ICD-10-PCS; principal; 2016-07-30 14:28)
DX: I44.2 Atrioventricular block, complete (principal); D45 Polycythemia vera; K21.9 Gastro-esophageal reflux disease without esophagitis; M81.0 Age-related osteoporosis without current pathological fracture; Z90.49 Acquired absence of other specified parts of digestive tract; Z90.710 Acquired absence of both cervix and uterus; Z82.49 Family history of ischemic heart disease and other diseases of the circulatory system; Z82.3 Family history of stroke; Z80.42 Family history of malignant neoplasm of prostate; Z80.3 Family history of malignant neoplasm of breast; Z88.5 Allergy status to narcotic agent; Z88.1 Allergy status to other antibiotic agents; F32.9 Major depressive disorder, single episode, unspecified; F41.9 Anxiety disorder, unspecified; R00.1 Bradycardia, unspecified; E03.9 Hypothyroidism, unspecified; R55 Syncope and collapse

== ENCOUNTER 2016-11-02 06:16 | Emergency (ER) | payer BC, OTHER ==
[~2016-11-02] VITALS: Ht 162.6 cm; Wt 62.2 kg
[~2016-11-02 06:16] MED LIST changes: -ALEN70TA4 PO; +ATV5X PO; -CALC-214 PO; -CALC-354 PO; +CALC150C PO; +CETI10TA84 PO; +CHOL100027 PO; -CYAN10005 PO; +DENO60SO INJ; -DTRSR5 PO; +IBUP-1450 PO; +MAGN250T3 PO; +OXYB15TA PO; +SYN50 PO
[2016-11-02 06:22] VITALS: TEMP 36.7; Ht 162.6 cm; Wt 62.2 kg
[2016-11-02] MEDS ORDERED: KETOROLAC TROMETHAMINE 30 MG/ML VIAL IV STA (06:38)
[2016-11-02] MEDS ORDERED: SODIUM CHLORIDE 0.9% 500ML 500 ML IV STA (06:38)
[2016-11-02] MEDS ORDERED: ATR25 PO (06:52)
[2016-11-02 07:04] LABS: BASO % 0.6 %; BASO ABS # 0.07 K/uL (0-0.2); EOS % 1.2 %; HEMATOCRIT 33.2 % (37-47); IG% 0.5 %; LYMPH % 6.7 %; LYMPH ABS # 0.83 K/uL (1.2-3.4); MEAN CORPUSCULAR HEMOGLOBIN 18.4 pg (25-34); MEAN CORPUSCULAR HGB CONC 30.7 g/dl (32-36); MONO % 5.2 %; NEUT % 85.8 %; PLATELET COUNT 410 K/uL (130-400); RED BLOOD COUNT 5.53 M/uL (4.2-5.4); WHITE BLOOD COUNT 12.32 K/uL (4.8-10.8)
[2016-11-02 07:22] LABS: BLOOD UREA NITROGEN 12 mg/dl (7-18); BUN/CREATININE RATIO 15.5 (10-20); CARBON DIOXIDE 27 mmol/L (21-32); CHLORIDE 96 mmol/L (98-107); GLUCOSE 85 mg/dl (70-99); POTASSIUM 3.8 mmol/L (3.5-5.1); SODIUM 131 mmol/L (136-145)
[2016-11-02 07:27] LABS: ANISOCYTOSIS PRESENT; COMPLETE YES; HYPOCHROMIA PRESENT; MICROCYTOSIS PRESENT; OVALOCYTES 1+
--- NOTE | 2016-11-02 08:03 | DIAGNOSTIC IMAGING REPORT ---
SINGLE VIEW CHEST CLINICAL HISTORY: Atypical chest pain. FINDINGS: An AP, portable, upright chest radiograph is compared to study dated 07/31/2016 and correlated with chest CT dated 01/27/2016. The examination is degraded by portable technique and patient rotation. A 2-lead cardiac pacemaker is unchanged in position and partially obscures the left upper chest. The heart is top normal for projection. The pulmonary vasculature is noncongested. Chronic interstitial thickening is unchanged. No airspace consolidation or large pleural effusion is identified. No pneumothorax is seen. The skeletal structures are osteopenic. There is a healed left-sided rib fracture. IMPRESSION: 1. Cardiac pacemaker. There is no radiographic evidence of congestive failure. 2. No airspace consolidation or pleural effusion is identified. Electronically signed by: Ty Demarco M.D. 11/02/2016 8:01 AM Dictated Date/Time: 11/02/2016 8:00 AM
--- NOTE | 2016-11-02 08:34 | DIAGNOSTIC IMAGING REPORT ---
THORACIC SPINE 3 VIEWS CLINICAL HISTORY: Thoracic back pain. FINDINGS: AP, lateral, and swimmer's views of the thoracic spine are correlated with chest CT dated 01/19/2016. The skeletal structures are osteopenic. There is no radiographic evidence of acute fracture or malalignment. Vertebral body height and alignment are maintained throughout the thoracic spine. A moderate chronic compression deformity of L1 is similar to previous. The transverse processes and pedicles are grossly intact on the frontal view. There is mild S-shaped thoracolumbar scoliosis. Mild degenerative disc space narrowing is seen at several levels. The imaged lung parenchyma appears clear. Cardiomegaly and cardiac pacemaker are observed. IMPRESSION: 1. No acute bony abnormality is seen involving the thoracic spine. 2. Osteopenia, a chronic compression deformity of L1, and mild scoliosis as above. Electronically signed by: Ty Demarco M.D. 11/02/2016 8:32 AM Dictated Date/Time: 11/02/2016 8:30 AM
[2016-11-02 08:50] VITALS: BP 129/63; PULSE 73; O2SAT 97
--- NOTE | 2016-11-02 10:02 | EMERGENCY ROOM VISIT NOTE ---
History Report prepared by Pedro: Conrado Lawrence Under the Supervision of: Dr. José Luis Batres D.O. First contact with patient: 06:30 Chief Complaint: BACK PAIN Stated Complaint: MIDDLE BACK PAIN,SHARP PAIN WHEN BREATHING,PACE MA History of Present Illness The patient is a 66 year old female who presents to the Emergency Room with complaints of persistent back pain with breathing that started 2 days ago. She says that the pain is more towards the left side of her back, and it has started to radiate into under her left breast which has been present greater than 8 hours. She says that without breathing, twisting, turning, or bending, the pain is not present. The patient describes the pain as sharp. She says that she has never had back pain this bad before, but did have similar pain a couple years ago when she had a stress fracture. She denies any recent falls or trauma. The patient also denies nausea, vomiting, new shortness of breath, coughing up blood, pain or burning with urination, or calf swelling. She is not on any blood thinners. The patient denies any recent trips or recent surgeries outside pacemaker. She is a non-smoker. The patient notes that she has a pacemaker for heart block. Denies any hypertension, hyperlipidemia, CAD, or smoking. Source of History: patient Onset: 2 days ago Position: back Quality: sharp Timing: other (persistent) Modifying Factors (Worsening): breathing, movement Associated Symptoms: + chest pain (under left breast), No cough, No SOB (new ), No nausea, No vomiting, No urinary symptoms Note: Associated symptoms; Denies calf swelling. Review of Systems See HPI for pertinent positives & negatives. A total of 10 systems reviewed and were otherwise negative. Past Medical & Surgical Medical Problems: (1) Closed right hip fracture (2) Depressive disorder (3) GERD (gastroesophageal reflux disease) (4) PRESYNCOPE, HEART BLOCK (5) SYNCOPE,ANEMIA, (6) T12 compression fracture Surgical Problems: (1) History of appendectomy (2) History of fracture of right hip (3) History of hysterectomy Family History No pertinent family history Social History Smoking Status: Never Smoker Drug Use: none Marital Status: Housing Status: lives with family Occupation Status: retired Current/Historical Medications Scheduled Aspirin (Aspirin Ec), 81 MG PO DAILY Ybgwwdfoer-Fcyxldh-Wxndziqx (Butal/Asa/Caff), 1 TAB PO PRN UD Calcium Citrate (James-Citrate), 600 MG PO QAM Cetirizine (Zyrtec), 20 MG PO DAILY Cholecalciferol (Vitamin D 1000 Unit), 1,000 INTER.UNIT PO DAILY Denosumab (Prolia), 60 MG INJ [id number] Escitalopram Oxalate (Lexapro), 20 MG PO QPM Flaxseed (Linseed) (Flax Seed Oil), 1 CAP PO DAILY Hydroxyzine HCl (Hydroxyzine HCl), 25 MG PO HS Levothyroxine Sodium (Synthroid), 50 MCG PO DAILYBB Magnesium (Magnesium 250 mg), 250 MG PO DAILY Multiple Vitamins W/ Minerals (One Daily For Women), 1 TAB PO DAILY Omeprazole (Prilosec), 20 MG PO DAILY Oxybutynin Chloride (Oxybutynin Chloride Er), 15 MG PO DAILY Scheduled PRN Ibuprofen (Motrin), 600 MG PO Q6H PRN for Pain Lorazepam (Lorazepam), 0.5 MG PO BID PRN for Anxiety Allergies Coded Allergies: Codeine (Verified Adverse Reaction, Intermediate, nausea, 11/02/16) Erythromycin (Verified Adverse Reaction, Intermediate, nausea, 11/02/16) Physical Exam Vital Signs Date Time Temp Pulse Resp B/P (MAP) Pulse Ox O2 Delivery O2 Flow Rate FiO2 11/02/16 08:50 73 18 129/63 97 11/02/16 07:45 73 18 124/67 93 Room Air 11/02/16 06:22 36.7 88 18 122/65 95 Room Air Physical Exam GENERAL: sitting up in bed, alert, well appearing, well nourished, no distress, non-toxic EYE EXAM: normal conjunctiva OROPHARYNX: no exudate, no erythema, lips, buccal mucosa, and tongue normal and mucous membranes are moist NECK: supple, no nuchal rigidity, no adenopathy, non-tender LUNGS: Clear to auscultation. Normal chest wall mechanics HEART: Systolic ejection murmur. S1 normal and S2 normal CHEST: Slight reproducible tenderness along left axilla, ribs 5 through 4. Pacemaker located in left upper chest. ABDOMEN: abdomen soft, non-tender, normo-active bowel sounds, no masses, no rebound or guarding. BACK: Mild acute reproducible tenderness in left upper thoracic region. SKIN: no rashes and no bruising UPPER EXTREMITIES: upper extremities are grossly normal. LOWER EXTREMITIES: No pitting edema. NEURO EXAM: Normal sensorium, cranial nerves II-XII grossly intact, normal speech, no gross weakness of arms, no gross weakness of legs. Medical Decision & Procedures ER Provider Diagnostic Interpretation: X-ray results as stated below per my review and the radiologist's interpretation : SINGLE VIEW CHEST CLINICAL HISTORY: Atypical chest pain. FINDINGS: An AP, portable, upright chest radiograph is compared to study dated 07/31/2016 and correlated with chest CT dated 01/27/2016. The examination is degraded by portable technique and patient rotation. A 2-lead cardiac pacemaker is unchanged in position and partially obscures the left upper chest. The heart is top normal for projection. The pulmonary vasculature is noncongested. Chronic interstitial thickening is unchanged. No airspace consolidation or large pleural effusion is identified. No pneumothorax is seen. The skeletal structures are osteopenic. There is a healed left-sided rib fracture. IMPRESSION: 1. Cardiac pacemaker. There is no radiographic evidence of congestive failure. 2. No airspace consolidation or pleural effusion is identified. Electronically signed by: Ty Demarco M.D. 11/02/2016 8:01 AM Dictated Date/Time: 11/02/2016 8:00 AM THORACIC SPINE 3 VIEWS CLINICAL HISTORY: Thoracic back pain. FINDINGS: AP, lateral, and swimmer's views of the thoracic spine are correlated with chest CT dated 01/19/2016. The skeletal structures are osteopenic. There is no radiographic evidence of acute fracture or malalignment. Vertebral body height and alignment are maintained throughout the thoracic spine. A moderate chronic compression deformity of L1 is similar to previous. The transverse processes and pedicles are grossly intact on the frontal view. There is mild S-shaped thoracolumbar scoliosis. Mild degenerative disc space narrowing is seen at several levels. The imaged lung parenchyma appears clear. Cardiomegaly and cardiac pacemaker are observed. IMPRESSION: 1. No acute bony abnormality is seen involving the thoracic spine. 2. Osteopenia, a chronic compression deformity of L1, and mild scoliosis as above. Electronically signed by: Ty Demarco M.D. 11/02/2016 8:32 AM Dictated Date/Time: 11/02/2016 8:30 AM Laboratory Results 11/02/16 06:45 Red Blood Count 5.53, Mean Corpuscular Volume 60.0, Mean Corpuscular Hemoglobin 18.4, Mean Corpuscular Hemoglobin Concent 30.7, Neutrophils (%) (Auto) 85.8, Lymphocytes (%) (Auto) 6.7, Monocytes (%) (Auto) 5.2, Eosinophils (%) (Auto) 1.2 , Basophils (%) (Auto) 0.6, Neutrophils # (Auto) 10.57, Lymphocytes # (Auto) 0.83, Monocytes # (Auto) 0.64, Eosinophils # (Auto) 0.15, Basophils # (Auto) 0.07 11/02/16 06:45 Test 11/02/16 06:45 White Blood Count 12.32 K/uL (4.8-10.8) Red Blood Count 5.53 M/uL (4.2-5.4) Hemoglobin 10.2 g/dL (12.0-16.0) Hematocrit 33.2 % (37-47) Mean Corpuscular Volume 60.0 fL (80-100) Mean Corpuscular Hemoglobin 18.4 pg (25-34) Mean Corpuscular Hemoglobin Concent 30.7 g/dl (32-36) Platelet Count 410 K/uL (130-400) Neutrophils (%) (Auto) 85.8 % Lymphocytes (%) (Auto) 6.7 % Monocytes (%) (Auto) 5.2 % Eosinophils (%) (Auto) 1.2 % Basophils (%) (Auto) 0.6 % Neutrophils # (Auto) 10.57 K/uL (1.4-6.5) Lymphocytes # (Auto) 0.83 K/uL (1.2-3.4) Monocytes # (Auto) 0.64 K/uL (0.11-0.59) Eosinophils # (Auto) 0.15 K/uL (0-0.5) Basophils # (Auto) 0.07 K/uL (0-0.2) RDW Standard Deviation 42.4 fL (36.4-46.3) RDW Coefficient of Variation 19.8 % (11.5-14.5) Immature Granulocyte % (Auto) 0.5 % Immature Granulocyte # (Auto) 0.06 K/uL (0.00-0.02) Hypochromasia PRESENT Anisocytosis PRESENT Microcytosis PRESENT Ovalocytes 1+ D-Dimer 410 ug/L FEU (0-500) Anion Gap 8.0 mmol/L (3-11) Est Creatinine Clear Calc Drug Dose 59.0 ml/min Estimated GFR () 88.4 Estimated GFR (Non- 76.3 BUN/Creatinine Ratio 15.5 (10-20) Calcium Level 8.0 mg/dl (8.5-10.1) Troponin I < 0.015 ng/ml (0-0.045) Laboratory results per my review. Medications Administered Medications (Trade) Dose Ordered Sig/[facility] Route Start Time Stop Time Status Last Admin Dose Admin Ketorolac Tromethamine (Toradol Inj) 30 mg NOW STAT IV 11/02/16 06:38 11/02/16 06:40 DC 11/02/16 07:01 30 MG Sodium Chloride 500 ml @ 999 mls/hr Q31M STAT IV 11/02/16 06:38 11/02/16 07:08 DC 11/02/16 07:01 999 MLS/HR ED Course ED COURSE: Vital signs were reviewed and showed normal vitals. The patients medical record was reviewed The above diagnostic studies were performed and reviewed. ED treatments and interventions as stated above. 0632: The patient was evaluated in room A12B. A complete history and physical examination was performed. 0638: Ordered NSS 500 ml @ 999 mls/hr IV, Toradol Inj 30 mg IV. 0755: I reevaluated the patient and she is feeling better with the Toradol. 0837: Upon reevaluation, the patient is resting comfortably. She told me that she was doing exercises the night before for her shoulders. I discussed my findings with the patient and she understands and agrees with the treatment plan. Based on the patients age, coexisting illnesses, exam and lab findings the decision to treat as an outpatient was made. The patient remained stable while under my care. The patient appeared well at the time of discharge. Medical Decision Differential diagnoses includes but is not limited to acute coronary syndrome, myocardial infarction, pericarditis, pulmonary embolus, aortic dissection, pneumonia, pneumothorax, musculoskeletal, shingles, esophageal. Medication Reconciliation: I attest that I have personally reviewed the patient' s current medication list. Blood pressure screening: Patient was found to have normal blood pressure on screening and does not require follow-up. Patient is a 66-year-old female who presents the ER for a pleuritic back pain located just left of midline. She notes that the pain is now wrapping around to under her left breast. Pain is only present with breathing, twisting turning and bending. It is reproducible on exam. She denies any shortness of breath, arm or jaw pain, diaphoresis or exertional symptoms. Chest x-ray was unremarkable. EKG shows no obvious ischemia. Troponin was negative with pain that has been greater than 8 hours. D-dimer was negative as well. I do favor this is muscle skeletal based on her exam. She had a slight leukocytosis 12, 000. She does not have a productive cough and nothing to suggest that this is infectious. I favor that this is likely secondary to pain. Just prior to his pain starting she was stretching and was pushing both arms against a doorway favor that this is likely a muscle sprain secondary to this. Recommended Tylenol and Motrin and following up with her primary care doctor. Discussed with Pt concerning signs and symptoms to watch out for. Pt was instructed to follow up with their PCP and discussed with the patient their option to return to the ED at anytime for persistent or worsening symptoms. The appropriate anticipatory guidance and out-patient management, including indications for return to the emergency department, were explained at length to the patient and understood. Impression Primary Impression: Chest pain Scribe Attestation The scribe's documentation has been prepared under my direction and personally reviewed by me in its entirety. I confirm that the note above accurately reflects all work, treatment, procedures, and medical decision making performed by me. Departure Information Dispostion Home / Self-Care Referrals Maicol Acosta M.D. (PCP) Forms HOME CARE DOCUMENTATION FORM, IMPORTANT VISIT INFORMATION Patient Instructions ED Chest Pain Atypical Unkn Cause, My [facility] Additional Instructions Please follow up with your primary care doctor with in the next 24 hours. Any worsening of your symptoms, please return to the ED immediately. This includes shortness of breath, arm pain, jaw pain, passing out, worsening of pain, or any other concerning signs or symptoms from your standpoint. Please take Motrin or Tylenol as needed for pain. Problem Qualifiers Primary Impression: Chest pain Chest pain type: chest pain on breathing Qualified Codes: R07.1 - Chest pain on breathing
[2016-11-14] MEDS ORDERED: TPRSR25 PO (08:02)
[2016-11-14] MEDS ORDERED: CZR25 PO (08:02)
[2016-11-14] MEDS ORDERED: AMOX500T PO (08:05)
[2016-11-14] MEDS ORDERED: FURO20TA PO (08:05)
[2016-11-14] MEDS ORDERED: POTA10CA28 PO (08:05)
== END 2016-11-02 08:51 | disposition home or self-care (01) ==
LOC: C.EDB 06:17 → C.EDA 08:51
DX: R07.1 Chest pain on breathing (principal); M54.9 Dorsalgia, unspecified; R01.1 Cardiac murmur, unspecified; F32.9 Major depressive disorder, single episode, unspecified; K21.9 Gastro-esophageal reflux disease without esophagitis; Z79.82 Long term (current) use of aspirin; Z79.899 Other long term (current) drug therapy; Z87.828 Personal history of other (healed) physical injury and trauma; Z95.0 Presence of cardiac pacemaker

== ENCOUNTER 2016-11-07 11:01 | Inpatient (IN) | payer BC, OTHER ==
[~2016-11-07] VITALS: Ht 165.1 cm; Wt 59.7 kg
[~2016-11-07 11:01] MED LIST changes: +ATR25 PO
[2016-11-07] MEDS ORDERED: SODIUM CHLORIDE 0.9% 1000ML 1,000 ML IV ONE (12:06)
[2016-11-07] MEDS ORDERED: SODIUM CHLORIDE 0.9% 1000ML 1,000 ML IV STA (12:06)
--- NOTE | 2016-11-07 12:14 | EMERGENCY ROOM VISIT NOTE ---
History Report prepared by Pedro: Liane Sandoval Under the Supervision of: Dr. Jm Perez M.D. 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 She currently rates her discomfort as a 3/10 in severity. The patient's notes that the patient has been increasingly confused over the last four days. He reports that the patient has tried leaving their house several times and was always unsure where she was going. The patient's notes that the patient has been increasingly fatigued and has been quick to doze off. He reports that the patient has had persistent diarrhea over the last several days. The patient associates shortness of breath with her symptoms today. She denies any chest pain, abdominal pain, urinary symptoms, hematochezia, or melena. The patient's reports that the patient has had a decrease in her motor skills and has been weak. The patient denies any recent fall or head trauma. She notes a history of anemia and denies being on any blood thinners. The patient's reports that the patient was evaluated in the emergency department Thursday for pain under her left breast, but attributes that to her physical therapy. The patient denies any tobacco or alcohol use. Source of History: patient, spouse/significant other () Onset: four days Position: other (global) Symptom Intensity: 3/10 Quality: other (confusion) Timing: other (persistent) Associated Symptoms: + SOB, + diarrhea, + fatigue, + weakness, No chest pain , No abdominal pain, No melena, No hematochezia, No urinary symptoms Review of Systems See HPI for pertinent positives & negatives. A total of 10 systems reviewed and were otherwise negative. Past Medical & Surgical Medical Problems: (1) Closed right hip fracture (2) Depressive disorder (3) GERD (gastroesophageal reflux disease) (4) PNEUMONIA. ELEV.TROPO (5) PRESYNCOPE, HEART BLOCK (6) SYNCOPE,ANEMIA, (7) T12 compression fracture Surgical Problems: (1) History of appendectomy (2) History of fracture of right hip (3) History of hysterectomy Old medical records were reviewed. Nurse's notes were reviewed and I agree with. Family History No pertinent family history Social History Smoking Status: Never Smoker Drug Use: none Marital Status: Housing Status: lives with family Occupation Status: retired Current/Historical Medications Scheduled Aspirin (Aspirin Ec), 81 MG PO DAILY Cjrczkfjbl-Ahgkudd-Igzbasbm (Butal/Asa/Caff), 1 TAB PO PRN UD Calcium Citrate (James-Citrate), 600 MG PO QAM Cetirizine (Zyrtec), 20 MG PO DAILY Cholecalciferol (Vitamin D 1000 Unit), 1,000 INTER.UNIT PO DAILY Denosumab (Prolia), 60 MG INJ [id number] Escitalopram Oxalate (Lexapro), 20 MG PO QPM Flaxseed (Linseed) (Flax Seed Oil), 1 CAP PO DAILY Hydroxyzine HCl (Hydroxyzine HCl), 25 MG PO HS Ketorolac Tromethamine (Ketorolac Tromethamine), 10 MG PO Q6 Levothyroxine Sodium (Synthroid), 50 MCG PO DAILYBB Magnesium (Magnesium 250 mg), 250 MG PO DAILY Multiple Vitamins W/ Minerals (One Daily For Women), 1 TAB PO DAILY Omeprazole (Prilosec), 20 MG PO DAILY Oxybutynin Chloride (Oxybutynin Chloride Er), 15 MG PO DAILY Scheduled PRN Ibuprofen (Motrin), 600 MG PO Q6H PRN for Pain Lorazepam (Lorazepam), 0.5 MG PO BID PRN for Anxiety Allergies Coded Allergies: Codeine (Verified Adverse Reaction, Intermediate, nausea, 11/07/16) Erythromycin (Verified Adverse Reaction, Intermediate, nausea, 11/07/16) Physical Exam Vital Signs Date Time Temp Pulse Resp B/P (MAP) Pulse Ox O2 Delivery O2 Flow Rate FiO2 11/07/16 14:02 98 24 133/78 11/07/16 12:54 101 20 118/62 91 Nasal Cannula 2.0 11/07/16 12:08 93 11/07/16 12:01 91 Nasal Cannula 2.0 11/07/16 11:53 95 28 134/64 88 Room Air 11/07/16 11:15 36.3 98 18 130/67 93 Room Air Physical Exam General: Well developed well nourished non-ill appearing older female, in no acute distress, breathing comfortably on room air. Normal speech HEENT: Normal cephalic atraumatic. Pupils are equal round and reactive to light. Extraocular movements are intact. Oropharynx is pink with moist mucous membranes. No swelling of the mouth lips or tongue. Neck: Supple with a midline trachea. No meningeal signs or stiffness, no JVD or bruits. No Stridor. Chest: Clear to auscultation bilaterally. No wheezes or rhonchi. No increased work of breathing. Heart: regular rate and rhythm. Abdomen: Soft nontender, nondistended without rebound guarding or rigidity. Extremities: No cyanosis clubbing or edema. No calf tenderness or assymetry Spine/Back. Non tender to palpation. No CVA tenderness Skin: Good turgor without rashes. Neurologic exam: Patient is alert to person and place, but not date. Answers questions appropriately, but somewhat slow. Motor and sensation are intact and symmetrical throughout. Medical Decision & Procedures ER Provider Diagnostic Interpretation: Radiology results as stated below per my review and radiologist interpretation: CHEST ONE VIEW PORTABLE CLINICAL HISTORY: Chest pain. Confusion. COMPARISON STUDY: Chest radiograph November 02, 2016. FINDINGS: A dual lead left pacemaker is unchanged in position. Cardiomegaly is noted. There is no pneumothorax. There are small bilateral pleural effusions which have developed since prior exam. Diffuse interstitial thickening has developed. Multifocal left lung airspace opacity has also developed. There is mild right lower lung opacity. IMPRESSION: 1. Interval development of interstitial thickening consistent with pulmonary edema with small bilateral pleural effusions. 2. Interval development of multifocal left lung consolidation and right basilar opacity. This favors pneumonia although asymmetric edema could appear similar. Electronically signed by: Phan Ram M.D. 11/07/2016 1:02 PM Dictated Date/Time: 11/07/2016 1:[address] SCAN OF THE BRAIN WITHOUT IV CONTRAST CLINICAL HISTORY: Change in mental status. COMPARISON STUDY: CT of the brain dated 01/27/2016. TECHNIQUE: Unenhanced axial CT scan of the brain is performed from the vertex to the skull base. The skull base was scanned twice due to motion artifact. CT DOSE: 992.15 mGy.cm FINDINGS: Brain parenchyma: There are age-related involutional changes noting mild subcortical and periventricular microangiopathic change. There is no hemorrhage, mass effect, or evidence of acute territorial ischemia by CT criteria. Tavarez-white matter is preserved. No extra-axial fluid collection is seen. Ventricles, sulci, cisterns: Prominent secondary to involutional change. Intracranial vasculature: There is atherosclerotic calcification of the cavernous carotid and vertebral arteries. Calvarium: Unremarkable. Sinuses and mastoids: The visualized paranasal sinuses are clear. The mastoid air cells are well pneumatized. Orbits: The bony orbits are grossly intact. IMPRESSION: There is no hemorrhage, mass effect, or evidence of acute territorial ischemia by CT criteria. Electronically signed by: Ty Demarco M.D. 11/07/2016 1:51 PM Dictated Date/Time: 11/07/2016 1:49 PM Laboratory Results 11/07/16 12:25 Red Blood Count 4.99, Mean Corpuscular Volume 57.1, Mean Corpuscular Hemoglobin 17.8, Mean Corpuscular Hemoglobin Concent 31.2, Neutrophils (%) (Auto) 91.2, Lymphocytes (%) (Auto) 2.6, Monocytes (%) (Auto) 5.2, Eosinophils (%) (Auto) 0.1 , Basophils (%) (Auto) 0.1, Neutrophils # (Auto) 13.97, Lymphocytes # (Auto) 0.40, Monocytes # (Auto) 0.80, Eosinophils # (Auto) 0.01, Basophils # (Auto) 0.01 11/07/16 12:25 Test 11/07/16 12:25 11/07/16 12:40 11/07/16 12:46 11/07/16 14:05 White Blood Count 15.31 K/uL (4.8-10.8) Red Blood Count 4.99 M/uL (4.2-5.4) Hemoglobin 8.9 g/dL (12.0-16.0) Hematocrit 28.5 % (37-47) Mean Corpuscular Volume 57.1 fL (80-100) Mean Corpuscular Hemoglobin 17.8 pg (25-34) Mean Corpuscular Hemoglobin Concent 31.2 g/dl (32-36) Platelet Count 403 K/uL (130-400) Neutrophils (%) (Auto) 91.2 % Lymphocytes (%) (Auto) 2.6 % Monocytes (%) (Auto) 5.2 % Eosinophils (%) (Auto) 0.1 % Basophils (%) (Auto) 0.1 % Neutrophils # (Auto) 13.97 K/uL (1.4-6.5) Lymphocytes # (Auto) 0.40 K/uL (1.2-3.4) Monocytes # (Auto) 0.80 K/uL (0.11-0.59) Eosinophils # (Auto) 0.01 K/uL (0-0.5) Basophils # (Auto) 0.01 K/uL (0-0.2) RDW Standard Deviation 41.4 fL (36.4-46.3) RDW Coefficient of Variation 20.2 % (11.5-14.5) Immature Granulocyte % (Auto) 0.8 % Immature Granulocyte # (Auto) 0.12 K/uL (0.00-0.02) Large Platelets 2+ Ovalocytes 1+ Anion Gap 13.0 mmol/L (3-11) Est Creatinine Clear Calc Drug Dose 58.5 ml/min Estimated GFR () 83.4 Estimated GFR (Non- 71.9 BUN/Creatinine Ratio 15.8 (10-20) Osmolality 253 mOsm/kg (280-300) Calcium Level 7.9 mg/dl (8.5-10.1) Total Bilirubin 0.6 mg/dl (0.2-1) Direct Bilirubin 0.1 mg/dl (0-0.2) Aspartate Amino Transf (AST/SGOT) 37 U/L (15-37) Alanine Aminotransferase (ALT/SGPT) 36 U/L (12-78) Alkaline Phosphatase 93 U/L (45-117) Total Protein 7.5 gm/dl (6.4-8.2) Albumin 3.0 gm/dl (3.4-5.0) Lipase 71 U/L (73-393) Thyroid Stimulating Hormone (TSH) 1.480 uIu/ml (0.300-4.500) Thyroxine (T4) 6.6 mcg/dl (4.5-10.9) Bedside Lactic Acid Venous 1.48 mmol/L (0.90-1.70) Bedside Troponin I 0.050 ng/ml (0-0.045) Urine Color DK YELLOW Urine Appearance TURBID (CLEAR) Urine pH 6.0 (4.5-7.5) Urine Specific Norman 1.028 (1.000-1.030) Urine Protein 3+ (NEG) Urine Glucose (UA) NEG (NEG) Urine Ketones 1+ (NEG) Urine Occult Blood 1+ (NEG) Urine Nitrite NEG (NEG) Urine Bilirubin NEG (NEG) Urine Urobilinogen NEG (NEG) Urine Leukocyte Esterase TRACE (NEG) Urine WBC (Auto) 5-10 /hpf (0-5) Urine RBC (Auto) 5-10 /hpf (0-4) Urine Hyaline Casts (Auto) 10-30 /lpf (0-5) Urine Epithelial Cells (Auto) >30 /lpf (0-5) Urine Bacteria (Auto) 2+ (NEG) Urine Renal Epithelial Cells 5-10 /lpf (0-5) Urine Osmolality 674 mOms/kg (500-800) Urine Random Sodium 7 mEq/L Laboratory studies as stated above per my review. Medications Administered Medications (Trade) Dose Ordered Sig/Camila Route Start Time Stop Time Status Last Admin Dose Admin Sodium Chloride 1,000 ml @ 999 mls/hr Q1H1M STAT IV 11/07/16 12:06 11/07/16 13:06 DC 11/07/16 12:54 999 MLS/HR Sodium Chloride 1,000 ml @ 150 mls/hr Q6H40M ONCE IV 11/07/16 12:06 11/07/16 16:10 DC 11/07/16 14:02 150 MLS/HR Cefepime HCl 2000 mg/Dextrose 112.5 ml @ 225 mls/hr NOW STAT IV 11/07/16 13:23 11/07/16 13:52 DC 11/07/16 14:01 225 MLS/HR ECG Indication: altered mental status Rate (beats per minute): 93 Rhythm: other (ventricular paced) Findings: no acute ischemic change, no ectopy Comparison ECG Date: 11/02/16 Change: no significant change ED Course 1156: Past medical records reviewed. The patient was evaluated in room C1B, and a complete history and physical examination were performed. 1206: Ordered Sodium Chloride 1000 ml @ 150 mls/hr IV, Sodium Chloride 1000 ml @ 999 mls/hr IV. 1323: Ordered Cefepime HCl 2000 mg/Dextrose 112.5 ml @ 225 mls/hr IV. 1411: I discussed the patients case with Dr. Salinas, Internal Medicine. He is going to evaluate the patient for further treatment. 1433: I reevaluated the patient and she is doing well. I discussed the treatment plan with the patient and I discussed the exam findings. She verbalized complete understanding and agreement. She is going to be evaluated for further treatment. Medical Decision Differentials include, but are not limited to; sepsis, intracranial process, electrolyte or metabolic abnormality, anemia, pulmonary process, UTI. Medication Reconciliation: I attest that I have personally reviewed the patient' s current medication list. Blood pressure Screening: Patient was found to have normal blood pressure on screening and does not require follow-up. This patient comes in as described above. She was placed room C1. She has been feeling weak and has had some confusion and just not acting like herself for the last several days. She was seen here or some rib pain several days ago as well. On exam, she sleepy but arousable and answers questions appropriately. She is alert to person place but not date. She is afebrile here. She has had a little bit of a cough. IV access established and she was gently hydrated with a IV liter normal saline while she was here. Chest x-ray suggests that she could have some congestive changes as well as pneumonia. In light of this, I did stop her hourly rate and I do not want to get too much fluid. Her white count was also elevated at 15. Her urinalysis is possibly suggestive of a UTI as well. Blood and urine cultures have been ordered. EKG shows a paced rhythm but no definite ischemic changes. Her troponin is mildly elevated. CAT scan of her head is unremarkable. I think she does have a pneumonia with congestive heart failure component. She has been normotensive but could also have him sepsis component as well. I have discussed with our emergency department pharmacist who recommended we give her IV cefepime. This was ordered. MRSA nasal swab was also ordered. I did discuss case Dr. Luh Carpenter, her primary care physician he is going to admit her for further treatment and evaluation. Consults Time Called: 1405 Consulting Physician: Dr. Salinas, Internal Medicine Returned Call: [phone] I discussed the patients case with Dr. Salinas, Internal Medicine. He is going to evaluate the patient for further treatment. Impression Primary Impression: Pneumonia Additional Impressions: CHF (congestive heart failure) Altered mental status Scribe Attestation The scribe's documentation has been prepared under my direction and personally reviewed by me in its entirety. I confirm that the note above accurately reflects all work, treatment, procedures, and medical decision making performed by me. Departure Information Dispostion Being Evaluated By Hospitalist Referrals Maicol Acosta M.D. (PCP) Problem Qualifiers
[2016-11-07] MEDS ORDERED: TRD10 PO (12:16)
[2016-11-07 12:48] LABS: BASO % 0.1 %; BASO ABS # 0.01 K/uL (0-0.2); EOS % 0.1 %; HEMATOCRIT 28.5 % (37-47); IG% 0.8 %; LYMPH % 2.6 %; MEAN CELL VOLUME 57.1 fL (80-100); MEAN CORPUSCULAR HEMOGLOBIN 17.8 pg (25-34); MEAN CORPUSCULAR HGB CONC 31.2 g/dl (32-36); MONO % 5.2 %; NEUT % 91.2 %; PLATELET COUNT 403 K/uL (130-400); RED BLOOD COUNT 4.99 M/uL (4.2-5.4); WHITE BLOOD COUNT 15.31 K/uL (4.8-10.8)
--- NOTE | 2016-11-07 13:04 | DIAGNOSTIC IMAGING REPORT ---
CHEST ONE VIEW PORTABLE CLINICAL HISTORY: Chest pain. Confusion. COMPARISON STUDY: Chest radiograph November 02, 2016. FINDINGS: A dual lead left pacemaker is unchanged in position. Cardiomegaly is noted. There is no pneumothorax. There are small bilateral pleural effusions which have developed since prior exam. Diffuse interstitial thickening has developed. Multifocal left lung airspace opacity has also developed. There is mild right lower lung opacity. IMPRESSION: 1. Interval development of interstitial thickening consistent with pulmonary edema with small bilateral pleural effusions. 2. Interval development of multifocal left lung consolidation and right basilar opacity. This favors pneumonia although asymmetric edema could appear similar. Electronically signed by: Phan Ram M.D. 11/07/2016 1:02 PM Dictated Date/Time: 11/07/2016 1:00 PM
[2016-11-07 13:12] LABS: COMPLETE YES; LARGE PLATELETS 2+; OVALOCYTES 1+
[2016-11-07 13:17] LABS: CKMB/CK RATIO 1.5 (0-3.0); THYROID STIMULATING HORMONE 1.48 uIu/ml (0.300-4.500)
[2016-11-07] MEDS ORDERED: CEFEPIME IV 2000 MG in DEXTROSE 5% 100ML IV STA (13:23)
[2016-11-07 13:42] LABS: BUN/CREATININE RATIO 15.8 (10-20); CALCIUM 7.9 mg/dl (8.5-10.1); CREATININE 0.84 mg/dl (0.60-1.20); POTASSIUM 3.7 mmol/L (3.5-5.1)
--- NOTE | 2016-11-07 13:53 | DIAGNOSTIC IMAGING REPORT ---
CT SCAN OF THE BRAIN WITHOUT IV CONTRAST CLINICAL HISTORY: Change in mental status. COMPARISON STUDY: CT of the brain dated 01/27/2016. TECHNIQUE: Unenhanced axial CT scan of the brain is performed from the vertex to the skull base. The skull base was scanned twice due to motion artifact. CT DOSE: 992.15 mGy.cm FINDINGS: Brain parenchyma: There are age-related involutional changes noting mild subcortical and periventricular microangiopathic change. There is no hemorrhage, mass effect, or evidence of acute territorial ischemia by CT criteria. Tavarez-white matter is preserved. No extra-axial fluid collection is seen. Ventricles, sulci, cisterns: Prominent secondary to involutional change. Intracranial vasculature: There is atherosclerotic calcification of the cavernous carotid and vertebral arteries. Calvarium: Unremarkable. Sinuses and mastoids: The visualized paranasal sinuses are clear. The mastoid air cells are well pneumatized. Orbits: The bony orbits are grossly intact. IMPRESSION: There is no hemorrhage, mass effect, or evidence of acute territorial ischemia by CT criteria. Electronically signed by: Ty Demarco M.D. 11/07/2016 1:51 PM Dictated Date/Time: 11/07/2016 1:49 PM
[2016-11-07] MEDS ORDERED: CEFTRIAXONE SOD INJ 2,000 MG in DEXTROSE 5% 50ML 50 ML IV SCH (16:00)
[2016-11-07] MEDS: SODIUM CHLORIDE 0.9% 1000ML 1,000 ML IV SCH (16:37)
[2016-11-07] MEDS: AZITHROMYCIN IV 500 MG in DEXTROSE 5% 250ML 250 ML IV SCH (16:39)
[2016-11-07 16:52] VITALS: BP 123/71; PULSE 93; TEMP 37.7; O2SAT 91; Ht 165.1 cm; Wt 59.7 kg
[2016-11-07 17:26] LABS: URINE APPEARANCE TURBID (CLEAR); URINE BILIRUBIN NEG (NEG); URINE COLOR DK YELLOW; URINE EPITHELIAL CELL AUTO >30 /lpf (0-5); URINE NITRITE NEG (NEG); URINE SPECIFIC GRAVITY 1.028 (1.000-1.030); UROBILINOGEN NEG (NEG)
[2016-11-07 17:28] LABS: MANUAL MICROSCOPIC REQUIRED? NO; REVIEW REQ? YES
[2016-11-07 18:24] LABS: CKMB/CK RATIO 1.3 (0-3.0)
[2016-11-07 19:19] VITALS: BP 116/71; PULSE 93; TEMP 38.2; O2SAT 92
[2016-11-07] MEDS: LEVALBUTEROL 1.25MG/3ML NEB INH SCH (19:26)
[2016-11-07 19:27] VITALS: PULSE 88; O2SAT 92
[2016-11-07] MEDS: ACETAMINOPHEN 325 MG TAB PO PRN (19:38)
[2016-11-07] MEDS: ESCITALOPRAM OXALATE 20 MG TAB PO SCH (19:39)
[2016-11-07 21:01] VITALS: TEMP 36.8
[2016-11-07 23:55] VITALS: BP 99/63; PULSE 88; TEMP 36.6; O2SAT 91
[2016-11-08] VITALS (15 sets, daily range): BP systolic 106–129; BP diastolic 66–76; PULSE 70–92; TEMP 36.4–37.3; O2SAT 91–95
[2016-11-08] MEDS: ACETAMINOPHEN 325 MG TAB PO PRN ×2 (00:54→16:22)
[2016-11-08 01:17] LABS: CKMB/CK RATIO 1.8 (0-3.0)
[2016-11-08] MEDS: LEVALBUTEROL 1.25MG/3ML NEB INH SCH ×4 (01:52→19:23)
--- NOTE | 2016-11-08 02:49 | HISTORY & PHYSICAL EXAMINATION ---
DATE OF ADMISSION: 11/07/2016 CHIEF COMPLAINT: A 66-year-old female admitted with bilateral pneumonia. HISTORY OF PRESENT ILLNESS: The patient with multiple medical problems including history of complete heart block requiring permanent pacemaker in July of this year, polycythemia vera, gastroesophageal reflux, osteoporosis, history of compression fracture of L1, anxiety and depression. The patient was evaluated in the Emergency Room by Dr. Perez today. She has had multiple problems including feeling weak and tired. Her thought that she was getting forgetful. She was complaining of headache. Denied any fever. She does have what she calls cold spells. Denied any dizziness. No lightheadedness. Denied any chest pain. She has been complaining of shortness of breath. Complaining of cough for about a week. No sputum, no hemoptysis. She has been feeling nauseous. She had an episode of vomiting yesterday. She has had recurrent diarrhea. No blood in her stool. Denied any urinary problem. She was complaining of pain in her upper back. No pain in her extremities. The patient was evaluated in the Emergency Room on 11/02/2016. She was complaining of pain in her chest and back. All her evaluation was unremarkable. Her chest x-ray at that time was completely unremarkable. She was sent home. As noted, the patient was evaluated in the Emergency Room. Her chest x-ray was markedly abnormal. She was hypoxic. She was admitted for further treatment. PAST MEDICAL HISTORY: 1. Complete heart block. She presented in July 2016 with recurrent presyncopal episode. She had a dual-chamber pacemaker placed. 2. Polycythemia vera. Diagnosed approximately 20 years ago. She has had multiple phlebotomies in the past. She also had treatment with interferon for many years. She has not been taking any medication for her polycythemia vera for many months now, since about December 2015. She is anemic. Her workup has been unremarkable for any evidence of GI bleed. When she was hospitalized in 2016 she had GI evaluation. She has had a colonoscopy and an EGD. There has been no evidence of any source of bleeding. 3. Osteoporosis. Longstanding. 4. History of vertebral compression fracture of L1. 5. Appendectomy at age 12. 6. Vaginal hysterectomy for fibroids in 1998. 7. Fracture, right hip in 2016 after a fall requiring surgery. 8. Anxiety and depression. Longstanding. SOCIAL HISTORY: She is . She has 2 children. No smoking. Very occasional wine. No excessive coffee, tea or soft drinks. 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 FAMILY HISTORY: Her mother is 94. She is living with her. She had a stroke in the past. She also had atrial fibrillation. Her father at age 64, had a myocardial infarction. One brother at age 63, had prostate cancer. She had a total of 3 brothers and 2 sisters. Her daughter at age 35 of widespread metastatic breast cancer. ALLERGIES: 1. CODEINE (GI INTOLERANCE). 2. ERYTHROMYCIN (GI INTOLERANCE). REVIEW OF SYSTEMS: Mostly as noted above. PHYSICAL EXAMINATION: GENERAL: Well developed, in no acute distress. Her recorded weight is 62.8 kg, height 165.1 cm, BMI 23. VITAL SIGNS: On arrival to the Emergency Room, her temperature was 36.3, blood pressure 130/67, pulse 96, respirations 18, temperature 93% on room air. Another time her oxygen saturation was 88% on room air. SKIN: Warm and dry. No rash. HEENT: No mucosal abnormality in her nose, mouth or throat. Ears were normal. NECK: Supple. Nontender. No lymph node or thyroid enlargement. No JVD. Normal carotid pulses. No carotid bruit. CHEST: Pacemaker chamber in place. HEART: Regular heart sounds without any murmur, rub or gallop. LUNGS: She does have evidence of bilateral wheezing. Rales both sides, more pronounced on the left side. AXILLA: No adenopathy. ABDOMEN: Soft, nontender. No organomegaly. No masses. BACK: No spinal or CVA tenderness. EXTREMITIES: No edema, clubbing, or cyanosis. No joint or muscle tenderness. hip scar from prior surgery. Good pulses. NEUROLOGIC: She is alert and oriented. There is no evidence of any lateralized deficit. LABORATORY TESTS: WBC count 15,310, hemoglobin 8.9, hematocrit 28.5, platelet count 403,000. Sodium 123, potassium 3.9, chloride 87, CO2 of 23, BUN 13, creatinine 0.84, glucose 135, calcium 7.9, total bilirubin 0.6, direct bilirubin 0.1, AST 37, ALT 36, alkaline phosphatase 93, total CK 219, MB fraction 3.3, troponin 0.050. Total protein 7.5, albumin 3.0. Lipase 71. TSH 1.48, T4 of 6.6. Her urinalysis showed a specific gravity of 1.028, total protein 3+, ketones 1+, blood 1+, trace leukocyte esterase, 5-10 WBCs, 5-10 RBCs, 10-30 hyaline casts, over 30 epithelial cells. Her chest x-ray compared to the prior chest x-ray from 11/02/2016 showed interval development of interstitial thickening with bilateral pleural effusions. Also, she developed multifocal left lung consolidation. Her electrocardiogram showed paced rhythm. ASSESSMENT: 1. Bilateral pneumonia. 2. Hyponatremia. 3. Anemia. 4. Polycythemia vera. 5. Permanent pacemaker. 6. Dyspepsia. 7. Osteoporosis. 8. Anxiety and depression. 9. Gastroesophageal reflux. 10. Elevated troponin I. PLAN: The patient was admitted to PCU with telemetry. Resuscitation level 1. Laboratory tests were ordered. Cardiac isoenzymes and serial electrocardiograms were ordered. An echocardiogram was ordered. The patient was started on IV fluids with normal saline solution. Started on IV Rocephin and Zithromax. All her cultures were done in the Emergency Room. Additional evaluation will be undertaken regarding her anemia. She has not been taking any medication for her polycythemia vera for many months now. She remains anemic. She denied any evidence of bleeding. She has had a GI evaluation with EGD and colonoscopy. The plan at this time is to complete her lab tests. Check her echocardiogram. Continue IV antibiotics. Monitor her chest x-ray and her respiratory status. She was also given Xopenex high flow treatments.
[2016-11-08] MEDS: SODIUM CHLORIDE 0.9% 1000ML 1,000 ML IV SCH (04:38)
[2016-11-08] MEDS: LEVOTHYROXINE 50 MCG TAB PO SCH (05:55)
[2016-11-08] MEDS ORDERED: COSYNTROPIN INJ 0.25 MCG in SYRINGE 4 ML IV SCH (06:00)
[2016-11-08] MEDS ORDERED: PERFLUTREN LIPID MICROSPHERE (DEFINITY) IV ONE (06:59)
[2016-11-08] MEDS: ASPIRIN 81 MG ECTAB PO SCH (07:41)
[2016-11-08] MEDS: CHOLECALCIFEROL 1000 INTER.UNIT TAB PO SCH (07:41)
[2016-11-08 07:55] LABS: BASO % 0.1 %; BASO ABS # 0.01 K/uL (0-0.2); IG% 0.6 %; LYMPH % 5.7 %; LYMPH ABS # 0.61 K/uL (1.2-3.4); MEAN CELL VOLUME 57.9 fL (80-100); MEAN CORPUSCULAR HEMOGLOBIN 18.2 pg (25-34); MEAN CORPUSCULAR HGB CONC 31.4 g/dl (32-36); NEUT % 88.6 %; PLATELET COUNT 351 K/uL (130-400); RED BLOOD COUNT 4.84 M/uL (4.2-5.4); WHITE BLOOD COUNT 10.79 K/uL (4.8-10.8)
[2016-11-08 08:22] LABS: CREATININE 0.7 mg/dl (0.60-1.20); MAGNESIUM 2.1 mg/dl (1.8-2.4); POTASSIUM 3.5 mmol/L (3.5-5.1)
[2016-11-08 08:36] LABS: COMPLETE YES; ECHINOCYTES 1+; OVALOCYTES 1+
[2016-11-08 08:38] LABS: CKMB/CK RATIO 1.8 (0-3.0)
[2016-11-08 09:02] LABS: CALCIUM 7.7 mg/dl (8.5-10.1)
[2016-11-08] MEDS ORDERED: POTASSIUM CHLORIDE 10 MEQ TABCR PO STA (10:33)
[2016-11-08] MEDS ORDERED: FUROSEMIDE INJ 20 MG in SYRINGE 0 ML IV ONE (10:34)
--- NOTE | 2016-11-08 11:17 | DIAGNOSTIC IMAGING REPORT ---
CHEST 2 VIEWS ROUTINE CLINICAL HISTORY: Pneumonia. COMPARISON STUDY: Chest radiograph November 07, 2016. FINDINGS: A dual lead left subclavian pacemaker is unchanged in position. There are small bilateral pleural effusions. Asymmetric left lung airspace opacity has slightly improved. There is pulmonary vascular congestion with suspected mild pulmonary edema. There are several old left rib fractures. IMPRESSION: 1. Persistent, but slightly improved, asymmetric left upper lobe airspace opacity which favors pneumonia. Asymmetric pulmonary edema is considered less likely. 2. Pulmonary vascular congestion with suspected mild pulmonary edema. 3. Small bilateral pleural effusions. Electronically signed by: Phan Ram M.D. 11/08/2016 11:16 AM Dictated Date/Time: 11/08/2016 11:14 AM
[2016-11-08 12:13] LABS: IMMATURE RETIC FRACTION 10.7 % (3.0-15.9); RETHE 16.8 PG (28.2-36.6)
[2016-11-08 12:56] LABS: FERRITIN 226.8 ng/ml (8.0-388.0)
--- NOTE | 2016-11-08 13:30 | ECHOCARDIOGRAM REPORT ---
*NOTICE TO RECEIVING [employer] [employer] This information is strictly Confidential and protected under [place] law. [place] law prohibits you from making any further disclosure of this information unless further disclosure is expressly permitted by the written consent of the person to whom it pertains or is authorized by law. A general authorization for the release of medical or other information is not sufficient for this purpose. Hospital accepts no responsibility if the information is made available to any other person, INCLUDING THE PATIENT. Interpretation Summary * Name: HAI JYO Study Date: 11/08/2016 06:25 AM BP: 107/68 mmHg * Patient Location: [facility]\S\N286\S\2 HR: 77 * : 1950 (M/d/yyyy) Gender: Female Height: 65 in * Age: 66 yrs Ethnicity: CA Weight: 138 lb * Ordering Physician: Maicol Acosta * Referring Physician: Self, Referred * Performed By: Elin Rouse RDCS * * Reason For Study: Troponin elevation * BSA: 1.7 m2 * -- Conclusions -- * Left ventricular systolic function is normal. * No regional wall motion abnormalities noted. * There is mild to moderate mitral regurgitation. * There is moderate tricuspid regurgitation. * Right ventricular systolic pressure is normal. * Compared to a study from 2016, there is minimal change Procedure Details * A complete two-dimensional transthoracic echocardiogram was performed (2D, M-mode, Doppler and color flow Doppler). * A contrast injection of Definity was performed to improve assessment of LV function. * Contrast was injected into an intravenous site in the left arm. * One vial of Definity ultrasound contrast was diluted in normal saline to a total volume of 10 ml. A total of '2' ml of solution was administered during imaging. * Lot # [id number] of Definity utilized for procedure. * Expiration date DEC 16. * The attending nurse who injected the contrast agent was Rafael Bazzi RN. Left Ventricle * The left ventricle is normal in size. * There is normal left ventricular wall thickness. * Ejection Fraction = 55-60%. * Left ventricular systolic function is normal. * Normal diastolic function * No regional wall motion abnormalities noted. Right Ventricle * The right ventricle is normal in size and function. * There is a pacemaker lead in the right ventricle. Atria * The left atrial size is normal. * Right atrial size is normal. * There is a catheter/pacemaker lead seen in the right atrium. Mitral Valve * The mitral valve is grossly normal. * There is mild to moderate mitral regurgitation. Tricuspid Valve * The tricuspid valve is not well visualized, but is grossly normal. * There is moderate tricuspid regurgitation. * Right ventricular systolic pressure is normal. Aortic Valve * Aortic valve sclerosis mild, without significant aortic valvular stenosis. * No hemodynamically significant valvular aortic stenosis. * There is no significant aortic regurgitation. Pericardium/Pleural * There is no pericardial effusion. Great Vessels * The inferior vena cava is mildly dilated. MMode 2D Measurements and Calculations IVSd 0.96 cm LVIDd 4.4 cm LVIDs 2.9 cm LVPWd 0.82 cm IVS/LVPW 1.2 FS 32.9 % EDV(Teich) 86.6 ml ESV(Teich) 33.3 ml EF(Teich) 61.6 % EDV(cubed) 83.9 ml ESV(cubed) 25.4 ml EF(cubed) 69.7 % LV mass(C)d 125.5 grams LV mass(C)dI 74.3 grams/m\S\2 CO(Teich) 4.3 l/min CI(Teich) 2.6 l/min/m\S\2 SV(Teich) 53.3 ml SI(Teich) 31.6 ml/m\S\2 CO(cubed) 4.7 l/min CI(cubed) 2.8 l/min/m\S\2 SV(cubed) 58.5 ml SI(cubed) 34.6 ml/m\S\2 Ao root diam 3.1 cm Ao root area 7.5 cm\S\2 ACS 1.5 cm LA dimension 3.2 cm asc Aorta Diam 3.5 cm LA/Ao 1.0 LVOT diam 1.7 cm LVOT area 2.2 cm\S\2 LVAd ap4 26.2 cm\S\2 LVLd ap4 7.2 cm EDV(MOD-sp4) 78.0 ml LVAs ap4 14.9 cm\S\2 LVLs ap4 5.9 cm ESV(MOD-sp4) 30.5 ml EF(MOD-sp4) 60.9 % LVAd ap2 26.9 cm\S\2 LVLd ap2 6.5 cm EDV(MOD-sp2) 90.3 ml LVAs ap2 14.3 cm\S\2 LVLs ap2 5.6 cm ESV(MOD-sp2) 29.7 ml EF(MOD-sp2) 67.1 % CO(MOD-sp4) 3.8 l/min CI(MOD-sp4) 2.3 l/min/m\S\2 SV(MOD-sp4) 47.5 ml SI(MOD-sp4) 28.1 ml/m\S\2 CO(MOD-sp2) 4.9 l/min CI(MOD-sp2) 2.9 l/min/m\S\2 SV(MOD-sp2) 60.6 ml SI(MOD-sp2) 35.9 ml/m\S\2 Doppler Measurements and Calculations MV E max eugenio 108.2 cm/sec MV A max eugenio 96.0 cm/sec MV E/A 1.1 MV dec time 0.18 sec Ao V2 max 128.6 cm/sec Ao max PG 6.6 mmHg Ao max PG (full) 1.3 mmHg MEY(V,A) 1.9 cm\S\2 MEY(V,D) 1.9 cm\S\2 LV V1 max PG 5.3 mmHg LV V1 max 115.4 cm/sec MR max eugenio 496.2 cm/sec MR max PG 98.5 mmHg MR mean eugenio 381.6 cm/sec MR mean PG 66.2 mmHg MR VTI 153.2 cm PA V2 max 88.2 cm/sec PA max PG 3.1 mmHg PA acc slope 1289.9 cm/sec\S\2 PA acc time 0.04 sec TR max eugenio 229.7 cm/sec PA pr(Accel) 61.6 mmHg
[2016-11-08] MEDS: CEFTRIAXONE SOD INJ 2,000 MG in DEXTROSE 5% 50ML 50 ML IV SCH (16:14)
[2016-11-08] MEDS: AZITHROMYCIN IV 500 MG in DEXTROSE 5% 250ML 250 ML IV SCH (16:14)
[2016-11-08] MEDS ORDERED: NURSING VERBAL MED ORDER ONE (16:15)
[2016-11-08] MEDS ORDERED: COUGH DROP (SUGAR FREE) LOZ 24 LOZ/1 BOX PO PRN (16:30)
[2016-11-08 18:27] LABS: BASO % 0.1 %; BASO ABS # 0.01 K/uL (0-0.2); IG% 0.5 %; LYMPH % 5.1 %; LYMPH ABS # 0.59 K/uL (1.2-3.4); MEAN CELL VOLUME 56.6 fL (80-100); MEAN CORPUSCULAR HEMOGLOBIN 17.9 pg (25-34); MEAN CORPUSCULAR HGB CONC 31.6 g/dl (32-36); MONO % 4.9 %; NEUT % 89.4 %; PLATELET COUNT 335 K/uL (130-400); RED BLOOD COUNT 4.42 M/uL (4.2-5.4); WHITE BLOOD COUNT 11.49 K/uL (4.8-10.8)
[2016-11-08 18:45] LABS: BUN/CREATININE RATIO 15.9 (10-20); CALCIUM 6.7 mg/dl (8.5-10.1); CREATININE 0.79 mg/dl (0.60-1.20); POTASSIUM 3.7 mmol/L (3.5-5.1)
--- NOTE | 2016-11-08 19:04 | PROGRESS NOTE ---
DATE: 11/08/2016 PROBLEMS: A 66-year-old female admitted with multiple problems includin. Pneumonia. 2. History of heart block requiring permanent pacemaker. 3. Polycythemia vera, which has been treated for over 20 years, but has not received any treatment for the last 10 months approximately 4. Progressive anemia with microcytic hypochromic indices without evidence of blood loss. 5. Prior GI evaluation for her anemia including EGD and colonoscopy which were negative. 6. Anxiety and depression. 7. Osteoporosis. 8. Dyspepsia. SUBJECTIVE: The patient was admitted. Cultures were done. She was started on IV antibiotics with Rocephin and Zithromax. She was given high flow treatments with Xopenex. The patient remains afebrile. She denied any headache. No dizziness, no lightheadedness. Denied any chest pain. She is dyspneic, especially with activity when she got out of bed to go to the bathroom and come back. Minimal cough. No production of any sputum. No hemoptysis. Denied any abdominal pain, no nausea, no vomiting. She has had multiple bowel movements. Her stool is loose. Also having some diarrhea. Did not notice any blood in her stool. No urinary problem. She does have recurrent back pain. No ankle edema. PHYSICAL EXAMINATION: GENERAL: Well developed in no distress. VITAL SIGNS: Blood pressure 110/66, pulse 84, respirations 20, temperature 36.8, oxygen saturation 93% on 4 liter oxygen by nasal cannula. SKIN: Warm and dry. No rash. HEENT: No evidence of any mucosal abnormalities. NECK: No adenopathy, no thyromegaly. She does have prominent jugular veins while she is in bed elevated to 30 degrees. HEART: Regular heart sounds. LUNGS: Minimal wheezing bilaterally. Rales both lung reynolds. ABDOMEN: Soft, nontender. BACK: No spinal tenderness. EXTREMITIES: No edema, clubbing, or cyanosis. TODAYS LABORATORY TESTS: WBC count 10,790, hemoglobin 8.8, hematocrit 28%, platelet count 351,000. Sodium 123, potassium 3.5, chloride 90, CO2 of 23, BUN 11, creatinine 0.7, glucose 110, calcium 7.7, magnesium 2.1, total CK 272, MB fraction 4.9, troponin I 0.066. Because of her anemia, additional blood tests were obtained today including serum iron which was 16. Her ferritin level was 226.8. Her TIBC was 240. B12 of 1237 and folate 23.23. Other tests are still pending. ASSESSMENT: 1. Bilateral pneumonia. 2. Suspected congestive heart failure. 3. Progressive microcytic hypochromic anemia without evidence of any GI blood loss or any source of blood loss. 4. Hyponatremia. 5. Polycythemia vera. Not receiving any treatment. 6. Osteoporosis. 7. Permanent pacemaker for heart block. 8. Anxiety and depression. PLAN: 1. Discontinued her IV fluid. 2. Gave her 1 dose of Lasix 20 mg IV. 3. Continue evaluation for her anemia. 4. Continue the same IV antibiotics. 5. The main concern is about her progressive anemia even though she is not receiving any treatment for her polycythemia vera for a long time now. Her hemoglobin is down to 8.8. She does have significant microcytic hypochromic indices but without any evidence of any blood loss. Obviously with a longstanding history of polycythemia vera and the long-term treatment the possibility of myelofibrosis needs to be considered. 6. I will request a hematology consultation. The patient does see Dr. Bernard Hall for her hematology followup. I expect that she may very well need a bone marrow aspiration and biopsy. EDUARDD
[2016-11-08] MEDS ORDERED: FUROSEMIDE INJ 20 MG in SYRINGE 0 ML IV SCH (19:45)
[2016-11-08 20:45] LABS: COMPLETE YES; DOHLE BODIES OCCASIONAL; MICROCYTOSIS PRESENT; OVALOCYTES 1+; VACUOLIZATION 1+
[2016-11-08] MEDS: POTASSIUM CHLORIDE 20 MEQ TABCR PO SCH (20:48)
[2016-11-08] MEDS: ESCITALOPRAM OXALATE 20 MG TAB PO SCH (20:48)
[2016-11-09] VITALS (41 sets, daily range): BP systolic 86–171; BP diastolic 61–97; PULSE 73–109; TEMP 36.5–37; O2SAT 79–96
[2016-11-09] MEDS: LEVALBUTEROL 1.25MG/3ML NEB INH SCH ×4 (02:10→19:33)
[2016-11-09] MEDS: LEVOTHYROXINE 50 MCG TAB PO SCH (06:30)
[2016-11-09 06:54] LABS: HEMATOCRIT 31.3 % (37-47); MEAN CORPUSCULAR HEMOGLOBIN 20.5 pg (25-34); MEAN CORPUSCULAR HGB CONC 33.5 g/dl (32-36); PLATELET COUNT 367 K/uL (130-400); RED BLOOD COUNT 5.13 M/uL (4.2-5.4); WHITE BLOOD COUNT 10.31 K/uL (4.8-10.8)
[2016-11-09 06:56] LABS: MICROCYTOSIS PRESENT
[2016-11-09 06:57] LABS: HYPOCHROMIA PRESENT
[2016-11-09 06:58] LABS: ANISOCYTOSIS PRESENT; BASO % 0.3 %; BASO ABS # 0.03 K/uL (0-0.2); COMPLETE YES; EOS % 0.5 %; HYPOCHROMIA PRESENT; IG% 0.8 %; LYMPH % 5.9 %; LYMPH ABS # 0.61 K/uL (1.2-3.4); MICROCYTOSIS PRESENT; NEUT % 87.5 %; POIKILOCYTOSIS PRESENT; VACUOLIZATION 1+
[2016-11-09 07:07] LABS: BUN/CREATININE RATIO 18.7 (10-20); CALCIUM 6.8 mg/dl (8.5-10.1); CREATININE 0.54 mg/dl (0.60-1.20); POTASSIUM 3.6 mmol/L (3.5-5.1)
[2016-11-09] MEDS: ASPIRIN 81 MG ECTAB PO SCH (08:01)
[2016-11-09] MEDS: CHOLECALCIFEROL 1000 INTER.UNIT TAB PO SCH (08:01)
[2016-11-09] MEDS: POTASSIUM CHLORIDE 20 MEQ TABCR PO SCH ×2 (08:02→21:34)
[2016-11-09] MEDS ORDERED: ALUMINUM/MAGNESIUM/SIMETH (MAALOX MAX) 30 ML UDC PO PRN (08:15)
[2016-11-09] MEDS: ONDANSETRON INJ 2 MG/ML 2 ML VIAL IV PRN (08:16)
[2016-11-09] MEDS ORDERED: ALUMINUM/MAGNESIUM SUSP 30 ML UDC ONE (09:07)
[2016-11-09] MEDS: PANTOprazole SOD 40 MG TAB PO SCH ×2 (09:11→09:22)
[2016-11-09] MEDS ORDERED: ZOLPIDEM TARTRATE 5 MG TAB PO PRN (09:15)
[2016-11-09] MEDS ORDERED: BENZONATATE 100MG CAP PO PRN (09:15)
[2016-11-09] MEDS: LORAZEPAM 0.5 MG TAB PO PRN ×2 (09:20→17:14)
[2016-11-09] MEDS: DIPHENOXYLATE/ATROPINE 2.5/0.025MG TAB PO PRN (09:37)
[2016-11-09] MEDS ORDERED: OPTIRAY 320 IV PRN (10:45)
[2016-11-09] MEDS ORDERED: FUROSEMIDE 40 MG/4 ML VIAL ONE (10:57)
[2016-11-09] MEDS ORDERED: NURSING VERBAL MED ORDER ONE (11:00)
--- NOTE | 2016-11-09 11:21 | DIAGNOSTIC IMAGING REPORT ---
CHEST ONE VIEW PORTABLE CLINICAL HISTORY: SOB COMPARISON STUDY: 11/08/2016 FINDINGS: The cardiac and mediastinal contours remain stable. There is persistent pulmonary edema with asymmetric left lung airspace opacities. While likely representing asymmetric edema, a superimposed pneumonia cannot be excluded with certainty. There are small bilateral pleural effusions. There is a left subclavian dual-chamber central pacemaker present.[ IMPRESSION: Persistent asymmetric pulmonary edema pattern. Persistent small bilateral pleural effusions. Electronically signed by: Terry Iverson M.D. 11/09/2016 11:19 AM Dictated Date/Time: 11/09/2016 11:18 AM
[2016-11-09] MEDS ORDERED: FUROSEMIDE 10 MG/ML 10 ML VIAL ONE (11:45)
[2016-11-09 12:13] LABS: INR 1.2 (0.9-1.1); PARTIAL THROMBOPLASTIN RATIO 1.2; PROTHROMBIN TIME (PATIENT) 13.3 SECONDS (9.0-12.0)
[2016-11-09 12:18] LABS: ANISOCYTOSIS PRESENT; BASO % 0.3 %; BASO ABS # 0.09 K/uL (0-0.2); COMPLETE YES; EOS % 0.5 %; HEMATOCRIT 39.1 % (37-47); HYPOCHROMIA PRESENT; IG% 1.9 %; LYMPH ABS # 1.58 K/uL (1.2-3.4); MEAN CELL VOLUME 61.3 fL (80-100); MEAN CORPUSCULAR HEMOGLOBIN 19.4 pg (25-34); MEAN CORPUSCULAR HGB CONC 31.7 g/dl (32-36); MICROCYTOSIS PRESENT; MONO % 5.4 %; NEUT % 85.9 %; PLATELET COUNT 690 K/uL (130-400); POIKILOCYTOSIS PRESENT; RED BLOOD COUNT 6.38 M/uL (4.2-5.4); VACUOLIZATION 1+; WHITE BLOOD COUNT 26.31 K/uL (4.8-10.8)
[2016-11-09 12:26] LABS: BUN/CREATININE RATIO 14.7 (10-20); CALCIUM 7.2 mg/dl (8.5-10.1); CREATININE 0.69 mg/dl (0.60-1.20); MAGNESIUM 2.6 mg/dl (1.8-2.4); POTASSIUM 3.7 mmol/L (3.5-5.1)
[2016-11-09 12:30] LABS: ALB/GLOB RATIO 0.6 (0.9-2); CKMB/CK RATIO 2.1 (0-3.0)
--- NOTE | 2016-11-09 12:58 | Critical Care Consultation ---
Critical Care Consultation Date of Consultation: Nov 09, 2016. Attending Physician: Maicol Acosta M.D. Reason for Consultation: Flash pulmonary edema History of Present Illness Patient is a 66-year-old female who presented yesterday to the emergency department for feeling weak and confused with a sat last several days. It was noted she was a alert to person but not to date, chest x-ray at that time was reported to have congestive changes as well as pneumonia per the emergency department read. She was admitted to the hospital the primary diagnosis of pneumonia. She was started on Rocephin and Zithromax. Cardiac enzymes EKG and echocardiogram were ordered. I reviewed yesterday's echocardiography report. Of note there were no regional wall abnormalities mild to moderate mitral regurg moderate tricuspid regurg right ventricular systolic pressure was normal. She was doing well until approximately 11:00 this morning when she became profoundly hypoxic requiring nonrebreather to maintain an oxygen saturation of 90%. She was transferred to the ICU for further evaluation and stabilization. Performed a limited bedside echo which revealed a type the profile of her bilateral chest, and revealed global hypokinesis of the mid and inferior segments globally with preservation of the wall motion of the basilar segments, most consistent with stress-induced cardiomyopathy. She was placed on noninvasive ventilation and had immediate improvement in her oxygen saturation and improvement in her wall motion abnormalities of the mid and inferior segments globally of the left ventricle. Globally Past Medical/Surgical History PAST MEDICAL HISTORY: 1. Complete heart block. She presented in July 2016 with recurrent presyncopal episode. She had a dual-chamber pacemaker placed. 2. Polycythemia vera. Diagnosed approximately 20 years ago. She has had multiple phlebotomies in the past. She also had treatment with interferon for many years. She has not been taking any medication for her polycythemia vera for many months now, since about December 2015. She is anemic. Her workup has been unremarkable for any evidence of GI bleed. When she was hospitalized in 2016 she had GI evaluation. She has had a colonoscopy and an EGD. There has been no evidence of any source of bleeding. 3. Osteoporosis. Longstanding. 4. History of vertebral compression fracture of L1. 5. Appendectomy at age 12. 6. Vaginal hysterectomy for fibroids in 1998. 7. Fracture, right hip in 2016 after a fall requiring surgery. 8. Anxiety and depression. Longstanding. Family History No pertinent family history Social History Smoking Status: Never Smoker Drug Use: none Marital Status: Housing Status: lives with family Occupation Status: retired Allergies Coded Allergies: Codeine (Verified Adverse Reaction, Intermediate, nausea, 11/07/16) Erythromycin (Verified Adverse Reaction, Intermediate, nausea, 11/07/16) Home Medications Scheduled Aspirin (Aspirin Ec), 81 MG PO DAILY Pxpvnlsaej-Oaakjts-Rrelthdw (Butal/Asa/Caff), 1 TAB PO PRN UD Calcium Citrate (James-Citrate), 600 MG PO QAM Cetirizine (Zyrtec), 20 MG PO DAILY Cholecalciferol (Vitamin D 1000 Unit), 1,000 INTER.UNIT PO DAILY Denosumab (Prolia), 60 MG INJ [id number] Escitalopram Oxalate (Lexapro), 20 MG PO QPM Flaxseed (Linseed) (Flax Seed Oil), 1 CAP PO DAILY Hydroxyzine HCl (Hydroxyzine HCl), 25 MG PO HS Ketorolac Tromethamine (Ketorolac Tromethamine), 10 MG PO Q6 Levothyroxine Sodium (Synthroid), 50 MCG PO DAILYBB Magnesium (Magnesium 250 mg), 250 MG PO DAILY Multiple Vitamins W/ Minerals (One Daily For Women), 1 TAB PO DAILY Omeprazole (Prilosec), 20 MG PO DAILY Oxybutynin Chloride (Oxybutynin Chloride Er), 15 MG PO DAILY Scheduled PRN Ibuprofen (Motrin), 600 MG PO Q6H PRN for Pain Lorazepam (Lorazepam), 0.5 MG PO BID PRN for Anxiety Current Inpatient Medications Current Inpatient Medications Medications (Trade) Dose Ordered Sig/Camila Route Start Time Stop Time Status Last Admin Dose Admin Acetaminophen (Tylenol Tab) 650 mg Q4H PRN PO 11/07/16 14:45 12/07/16 14:44 11/08/16 16:22 650 MG Ondansetron HCl (Zofran Inj) 4 mg Q6H PRN IV 11/07/16 14:45 12/07/16 14:44 11/09/16 08:16 4 MG Aspirin (Ecotrin Tab) 81 mg DAILY PO 11/08/16 09:00 12/08/16 08:59 11/09/16 08:01 81 MG Cholecalciferol (Vitamin D Tab) 1,000 inter.unit DAILY PO 11/08/16 09:00 12/08/16 08:59 11/09/16 08:01 1,000 INTER.UNIT Escitalopram Oxalate (Lexapro Tab) 20 mg QPM PO 11/07/16 21:00 12/07/16 20:59 11/08/16 20:48 20 MG Levothyroxine Sodium (Synthroid Tab) 50 mcg DAILYBB PO 11/08/16 06:30 12/08/16 06:59 11/08/16 05:55 50 MCG Ceftriaxone Sodium 2000 mg/ Dextrose 70 ml @ 100 mls/hr Q24H IV 11/08/16 16:00 11/14/16 15:59 11/08/16 16:14 100 MLS/HR Azithromycin 500 mg/Dextrose 255 ml @ 125 mls/hr Q24H IV 11/07/16 17:00 11/14/16 16:59 11/08/16 16:14 125 MLS/HR Levalbuterol (Xopenex 1.25MG/ 3ML Neb) 1.25 mg Q6R INH 11/07/16 21:00 12/07/16 20:59 11/09/16 07:01 1.25 MG Potassium Chloride (Klor-Con Tab) 20 meq BID PO 11/08/16 21:00 12/08/16 20:59 11/09/16 08:02 20 MEQ Menthol (Nice Tobias) 1 tobias PRN PRN PO 11/08/16 16:30 12/08/16 16:29 11/08/16 16:22 24 TOBIAS Pantoprazole Sodium (Protonix Tab) 40 mg QAM PO 11/09/16 09:00 12/09/16 08:59 11/09/16 09:22 40 MG Al Hydrox/Mg Hydrox/Simethicone (Maalox Max Susp) 30 ml Q6H PRN PO 11/09/16 08:15 12/09/16 08:14 Diphenoxylate HCl/ Atropine (Lomotil Tab) 1 tab Q4H PRN PO 11/09/16 09:15 12/09/16 09:14 11/09/16 09:37 1 TAB Lorazepam (Ativan Tab) 0.5 mg Q6H PRN PO 11/09/16 09:15 12/09/16 09:14 11/09/16 09:20 0.5 MG Zolpidem Tartrate (Ambien Tab) 5 mg HS PRN PO 11/09/16 09:15 12/09/16 09:14 Benzonatate (Tessalon Perles Cap) 100 mg Q6H PRN PO 11/09/16 09:15 12/09/16 09:14 11/09/16 09:37 100 MG Ioversol (Optiray 320) 125 ml UD PRN IV 11/09/16 10:45 11/13/16 10:44 Review of Systems Review of systems is limited to the acuity of the patient's medical condition. Respiratory: + shortness of breath, + dyspnea on exertion, No cough, No sputum , No wheezing, No dyspnea at rest Cardiovascular: No chest pain, No orthopnea, No PND, No edema, No claudication , No palpitations Physical Exam Date Time Temp Pulse Resp B/P (MAP) Pulse Ox O2 Delivery O2 Flow Rate FiO2 11/09/16 12:07 85 92 65 11/09/16 11:38 36.7 100 20 88 15.0 11/09/16 11:03 88 Non-Rebreather 15.0 11/09/16 11:02 36.7 100 20 171/96 (121) 79 Nasal Cannula 6.0 11/09/16 08:21 36.7 90 20 132/74 (93) 90 11/09/16 08:00 Nasal Cannula 3.0 11/09/16 07:01 81 16 92 Nasal Cannula 2.5 11/09/16 04:01 Nasal Cannula 3.0 11/09/16 04:00 37.0 82 20 127/72 (90) 91 Nasal Cannula 3.0 11/09/16 03:00 37.0 82 20 127/72 91 3.0 11/09/16 02:10 80 16 95 Nasal Cannula 3.0 11/09/16 01:59 79 20 129/79 95 11/09/16 00:53 74 16 118/73 95 3.0 11/09/16 00:24 37.0 77 20 115/73 96 11/09/16 00:17 36.7 78 20 114/71 (85) 95 3.0 11/09/16 00:08 36.5 73 20 115/74 94 3.0 11/09/16 00:02 Nasal Cannula 3.0 11/08/16 23:14 37.0 77 18 118/74 95 3.0 11/08/16 22:15 36.8 83 18 112/72 94 11/08/16 21:15 36.7 80 20 106/68 95 3.0 11/08/16 20:45 36.4 70 20 115/71 93 3.0 11/08/16 20:30 36.6 84 20 129/76 94 3.0 11/08/16 20:22 36.5 82 18 122/76 (91) 93 Nasal Cannula 3.0 11/08/16 20:10 36.5 91 18 122/76 93 2.0 11/08/16 20:00 Nasal Cannula 4.0 11/08/16 19:23 84 16 92 Nasal Cannula 3.0 11/08/16 16:00 Nasal Cannula 4.0 11/08/16 15:31 36.9 84 18 115/71 (86) 92 Nasal Cannula 3.0 11/08/16 13:55 92 18 91 Nasal Cannula 3.0 General Appearance: uncomfortable, severe distress Head: normocephalic, atraumatic Eyes: PERRLA, EOMI Respiratory: accessory muscle use, rales, rhonchi Cardiovasular: regular rate/rhythm, normal peripheral pulses, ectopy noted ( occasional extrasystoles) Abdomen: non tender Genitourinary - Female: external genitalia normal (Fraga present) Upper Extremities: no edema Neuro: alert, oriented x 3 Laboratory Results Last 24 Hours Test 11/08/16 18:12 11/08/16 20:41 11/09/16 06:08 11/09/16 11:34 White Blood Count 11.49 K/uL 10.31 K/uL Red Blood Count 4.42 M/uL 5.13 M/uL Hemoglobin 7.9 g/dL 10.5 g/dL Hematocrit 25.0 % 31.3 % Mean Corpuscular Volume 56.6 fL 61.0 fL Mean Corpuscular Hemoglobin 17.9 pg 20.5 pg Mean Corpuscular Hemoglobin Concent 31.6 g/dl 33.5 g/dl Platelet Count 335 K/uL 367 K/uL Neutrophils (%) (Auto) 89.4 % 87.5 % Lymphocytes (%) (Auto) 5.1 % 5.9 % Monocytes (%) (Auto) 4.9 % 5.0 % Eosinophils (%) (Auto) 0.0 % 0.5 % Basophils (%) (Auto) 0.1 % 0.3 % Neutrophils # (Auto) 10.27 K/uL 9.02 K/uL Lymphocytes # (Auto) 0.59 K/uL 0.61 K/uL Monocytes # (Auto) 0.56 K/uL 0.52 K/uL Eosinophils # (Auto) 0.00 K/uL 0.05 K/uL Basophils # (Auto) 0.01 K/uL 0.03 K/uL RDW Standard Deviation 42.2 fL 54.9 fL RDW Coefficient of Variation 20.6 % 25.4 % Immature Granulocyte % (Auto) 0.5 % 0.8 % Immature Granulocyte # (Auto) 0.06 K/uL 0.08 K/uL Toxic Vacuolation 1+ 1+ Dohle Bodies OCCASIONAL Microcytosis PRESENT PRESENT Ovalocytes 1+ Sodium Level 126 mmol/L 127 mmol/L Potassium Level 3.7 mmol/L 3.6 mmol/L Chloride Level 93 mmol/L 92 mmol/L Carbon Dioxide Level 21 mmol/L 23 mmol/L Anion Gap 12.0 mmol/L 12.0 mmol/L Blood Urea Nitrogen 13 mg/dl 10 mg/dl Creatinine 0.79 mg/dl 0.54 mg/dl Est Creatinine Clear Calc Drug Dose 62.2 ml/min 91.0 ml/min Estimated GFR () 89.8 113.2 Estimated GFR (Non- 77.5 97.6 BUN/Creatinine Ratio 15.9 18.7 Random Glucose 132 mg/dl 107 mg/dl Calcium Level 6.7 mg/dl 6.8 mg/dl Lactate Dehydrogenase 328 U/L Hypochromasia PRESENT Poikilocytosis PRESENT Anisocytosis PRESENT Creatine Kinase MB Ratio Test 11/09/16 11:53 Diagnostic Results I have reviewed the echocardiography report I reviewed the chest x-ray images as well as the report for and and . I reviewed an EKG dated 11/07/2016: Atrial sensed ventricular paced rhythm abnormal EKG. I have reviewed her laboratory data: Hyponatremia hypocalcemia Osmolality initially decreased, hypoalbuminemia Thyroid function is within normal limits, normal Court results to him test Urine osmolality was 674, random sodium was 7, 2+ bacteria and UA stool occult blood negative Assessment & Plan (1) Hyponatremia with decreased serum osmolality (2) Volume overload (3) Stress-induced cardiomyopathy (4) Pneumonia (5) CHF (congestive heart failure) Neuro: Altered mental status appears to have resolved Cardiovascular: Stress-induced cardiomyopathy * Noninvasive positive pressure ventilation * [place] diuretic use * Limited echo ordered Complete heart block * Status post dual-chamber pacemaker Respiratory: * Acute hypoxic respiratory failure * Continue noninvasive ventilation * Pneumonia, community-acquired * Continue antibiotics Abdomen: * Nothing by mouth while on noninvasive ventilation * Takes Prilosec, on Protonix due to formulary * Transaminitis, acute * I suspect this is likely secondary to acute congestive heart failure * Given polycythemia vera and theoretical concern for thrombosis will order complete abdominal ultrasound * Will also check acute hepatitis panel, * This may warrant additional testing in 3-6 months given recent blood transfusion. Renal: * Hyponatremia * Appears to be hypervolemic hyponatremia * Cortisol stim test and thyroid functions normal * Goal diuresis 1-2 L negative Infectious disease: * Will convert Zithromax to Levaquin for synergism against strep pneumoniae, ordered to start this evening at 1707 normal a Zithromax dose, will do 5 more days of Levaquin therapy. * I have reviewed the urine culture results, 3 types of organisms present, currently on antibiotics and Levaquin cover will cover most urinary pathogens * Stool cultures remain negative for pulmonary pathogens as well as a negative C. difficile toxin * Blood cultures no growth to date versus screen negative * Unable to obtain respiratory sputum culture at this time Endocrine: * Random blood sugars within normal limits. Hematology: * Polycythemia vera * Now with the anemia has not been treated with hydroxyurea for the past 8 month per report from Dr. Manuel Koch, concern for myelofibrosis * Reticulocyte count below normal * Would not transfuse unless hemoglobin below 7 * Will order transfusion reaction panel * Platelets within normal limits, will start Lovenox prophylaxis 40 daily in the morning with additional dose today CODE STATUS: Full code Surrogate decision maker: Patient's I have personally spent 50 minutes of critical care time in the direct management of this patient. This is a life/limb threatening event. This includes time spent evaluating patient, direct bedside care, chart review, placing orders, interpretation of diagnostic studies, discussion with consultants, patient, and family members, as well as other required patient management activities. This time is exclusive of all separately billable procedures, and teaching time and separate from and in addition to any other critical care service time.
[2016-11-09] MEDS ORDERED: POTASSIUM CHLORIDE 10 MEQ TABCR PO STA (13:14)
--- NOTE | 2016-11-09 13:14 | Procedure Note ---
Procedure Note Date of Service Nov 09, 2016. Procedure Note Critical Care Medicine Point of Care Bedside Ultrasound Procedure: Limited Bedside Lung Ultrasound Procedure Date: 11/09/2016 Indication: Flash pulmonary edema Attending: Jose De Jesus Alvarez DO Resident/Physician [place]: None Organs Examined: Lung BLUE point (upper), BLUE point (lower), Phrenic Point (axillary), PLAPS point ( posterior) A lines visualized: n, Hemithorax: bi B lines visualized: y, Hemithorax:bi Lung Sliding: y, Hemithorax: bi Impression: Flash pulmonary edema Plan: Diuretics and noninvasive ventilation Images obtained are saved for permanent record Procedure: Limited Transthoracic Echocardiogram Indication: Flash pulmonary edema Organs Examined: Heart Pericardial fluid: Absent Right ventricle size: Normal LV Contractility: Hypokinesis of the apex and mid segments globally, preservation of contractility of nasal or segments globally RV Contractility: Normal Mechanically ventilated breaths: No Hemodynamic Status: 120/80, hr 80's Impression: Apical hypokinesis consistent with Stress induced cardiomyopathy Plan: Formal echocardiography in consultation with Dr. Amado Images obtained are saved for permanent record
[2016-11-09] MEDS ORDERED: ENOXAPARIN 40 MG/0.4 ML SYR SQ ONE (13:30)
--- NOTE | 2016-11-09 13:40 | PROGRESS NOTE ---
DATE: 11/09/2016 A 66-year-old female, admitted with multiple medical problems includin. Bilateral pneumonia. 2. Congestive heart failure. 3. History of heart block requiring permanent pacemaker. 4. Polycythemia vera. 5. Suspected myelofibrosis. 6. Severe anemia, microcytic, hypochromic without evidence of any blood loss. 7. Osteoporosis. 8. Gastroesophageal reflux. 9. Anxiety and depression. The patient was admitted. Cultures were done. She was started on IV antibiotics. Rocephin and Zithromax. She was given high-flow treatments. Yesterday her hemoglobin was down to 7.9. She received 2 units of packed RBCs during the night. The patient is acutely ill. She was feeling weak and tired. I saw her early this morning. She was resting. She had no headache. No dizziness. She had no chest pain. She was not dyspneic. She was on oxygen by nasal cannula. She was feeling nauseous. She did receive Zofran. She denied any vomiting. She was having diarrhea. Her C. diff was negative. Her stool culture is still pending. She was feeling anxious. She denied any pain in her back or extremities. Shortly after I left her this morning, the nurse called stating that she acutely decompensated. She was markedly congested. She was having severe dyspnea and tachypnea. Her oxygen flow had to be increased and she was placed on a non-rebreather mask. Her oxygen saturation dropped prior to that the upper 70%. A chest x-ray was done showing acute interstitial edema. She was given one dose of IV Lasix. I came back and saw the patient. She was acutely ill. She was markedly dyspneic, tachypneic and diaphoretic. She already has received IV Lasix. The patient was transferred to ICU. PHYSICAL EXAMINATION: GENERAL: Well-developed, in acute distress. VITAL SIGNS: Her blood pressure at the time of the decompensation was 171/96 with a pulse of 100, respirations 20, temperature 36.6 and oxygen saturation was 79% on 6 liters by nasal cannula; then 88% on 15% non-rebreather mask. SKIN: Warm and dry. Markedly diaphoretic. HEENT: No mucosal abnormality. NECK: Prominent jugular veins. No adenopathy, no thyromegaly. HEART: Heart sounds were masked by severe, loud respiratory sounds with wheezing, rhonchi and rales. ABDOMEN: Soft, nontender. EXTREMITIES: No edema, clubbing or cyanosis. LABORATORY TESTS: Which were done early this morning at 6:08 showed sodium of 127, potassium 3.6, chloride 92, CO2 23, BUN 10, creatinine 0.54, glucose 107 and calcium 6.8. WBC count 10,310, hemoglobin 10.5, hematocrit 31.3. Her indices remain microcytic, hypochromic. Platelet count was 367,000. As noted, all her cultures so far have been negative including the blood culture. The urine culture is showing 3 types of organisms. Her MRSA screen was negative. Her stool culture was negative. Her C. diff was negative. Chest x-ray was repeated at the time she was having decompensation and did show evidence of diffuse bilateral interstitial edema. ASSESSMENT: 1. Acute respiratory failure. 2. Acute pulmonary edema. 3. Pneumonia. 4. Polycythemia vera. 5. Anemia. 6. Suspected myelofibrosis. 7. Permanent pacemaker for complete heart block. PLAN: 1. As noted, patient was transferred to ICU. I spoke with . He saw the patient immediately when she arrived to ICU. He did an echocardiogram. Even though she had an echocardiogram done yesterday and was quite unremarkable with normal left ventricular and right ventricular function, but the echocardiogram that he did on an emergency basis at bedside showed evidence of significant hypokinesis. He suspected that she developed acute cardiomyopathy related to her infection and possibly sepsis, but as he was doing the test at bedside he started noticing improvement once her condition started to improve. He changed her to BiPAP. The patient became much more comfortable. Her oxygen saturations increased to 94%. She received one dose of IV Lasix prior to her transfer to the ICU. A Fraga catheter was placed. Drain 150 mL. I gave her a second dose of IV Lasix 80 mg once she arrived to the intensive care unit. 2. As noted, her condition started to improve rapidly. Multiple laboratory tests were repeated after transfer. Her WBC count was 26,310, hemoglobin 12.4, hematocrit 39.1 and platelet count 690,000. Sodium 127, potassium 3.7, chloride 92, CO2 21, BUN 10, creatinine 0.69, glucose 192, calcium 7.2, magnesium 2.6, total bilirubin 0.6. Her AST was up to 106, ALT 114, alkaline phosphatase 149. Total CK 351, MB fraction 7.2, troponin I 0.12, total protein 7.5 and albumin 2.7. 3. As noted, she is on BiPAP. She is saturating adequately. Her condition will be closely monitored. 4. A stat echocardiogram was ordered. 5. I spoke with Dr. Amado. He will see her in cardiology consultation. 6. We will continue her medications. Her condition will be closely monitored. We will be repeating her chest x-ray in the morning. Also, we will continue monitoring her laboratory tests. 7. I did speak with her who came in and explained to him her situation.
--- NOTE | 2016-11-09 14:36 | DIAGNOSTIC IMAGING REPORT ---
ABDOMEN COMPLETE (US) CLINICAL HISTORY: Transaminitis. Evaluate for Budd-Chiari. COMPARISON STUDY: 08/14/2015 FINDINGS: The pancreas appears sonographically normal. There is a right pleural effusion. No focal hepatic masses are visualized. There is no ductal dilatation. There is trace ascites. Common bile duct measures 3 mm. The gallbladder appears sonographically normal. There is mild splenomegaly. Spleen measures 14.6 cm. No splenic masses are visualized. The right kidney measures 10.4 cm in length. The left kidney measures 10.4 cm in length. No renal masses are visualized. There is no hydronephrosis. A left pleural effusion is also visualized. There is no evidence of abdominal aortic dilatation. The IVC appears patent. The portal vein appears patent. IMPRESSION: 1. Ultrasonographically normal liver, gallbladder, pancreas, and kidneys 2. Mild splenomegaly 3. Bilateral pleural effusions 4. Trace ascites 5. No evidence of IVC or portal vein thrombus. Electronically signed by: Terry Iverson M.D. 11/09/2016 2:34 PM Dictated Date/Time: 11/09/2016 2:31 PM
--- NOTE | 2016-11-09 14:41 | ECHOCARDIOGRAM REPORT ---
*NOTICE TO RECEIVING REPUBLICAN AGENCY This information is strictly Confidential and protected under [place] law. [place] law prohibits you from making any further disclosure of this information unless further disclosure is expressly permitted by the written consent of the person to whom it pertains or is authorized by law. A general authorization for the release of medical or other information is not sufficient for this purpose. Hospital accepts no responsibility if the information is made available to any other person, INCLUDING THE PATIENT. Interpretation Summary * Name: HAI JOY Study Date: 11/09/2016 12:29 PM BP: 171/96 mmHg * Patient Location: [facility] HR: 85 * : 1950 (M/d/yyyy) Gender: Female Height: 65 in * Age: 66 yrs Ethnicity: [place] Weight: 144 lb * Ordering Physician: Jm Alvarez DO * Performed By: Elin Rouse RDCS * * Reason For Study: Stress induced cardiomyopathy * BSA: 1.7 m2 * -- Conclusions -- * Limited views were obtained. * Left ventricular systolic function is moderately reduced. * There are regional wall motion abnormalities as specified. * Wall motion is consistent with stress-cardiomyopathy (Takotsubo) * Compared to a study performed one day ago, there has been a notable change in the LV function and wall motion. Procedure Details * A two-dimensional transthoracic echocardiogram with pulsed and continuous Doppler was performed. * A contrast injection of Definity was performed to improve assessment of LV function. * Contrast was injected into an intravenous site in the left arm. * One vial of Definity ultrasound contrast was diluted in normal saline to a total volume of 10 ml. A total of '3' ml of solution was administered during imaging. * Lot # [id number] of Definity utilized for procedure. * Expiration date 1 NOV 16. * The attending nurse who injected the contrast agent was Carina Holley RN. * Limited views were obtained. Left Ventricle * Ejection Fraction = 35-40%. * Left ventricular systolic function is moderately reduced. * There are regional wall motion abnormalities as specified. * Wall motion is consistent with stress-cardiomyopathy (Takotsubo) Right Ventricle * There is a pacemaker lead in the right ventricle. MMode 2D Measurements and Calculations IVSd 0.72 cm LVIDd 4.1 cm LVIDs 2.0 cm LVPWd 0.63 cm IVS/LVPW 1.1 FS 51.3 % EDV(Teich) 76.1 ml ESV(Teich) 13.0 ml EF(Teich) 82.9 % EDV(cubed) 71.2 ml ESV(cubed) 8.2 ml EF(cubed) 88.4 % LV mass(C)d 78.9 grams LV mass(C)dI 45.9 grams/m\S\2 SV(Teich) 63.1 ml SI(Teich) 36.7 ml/m\S\2 SV(cubed) 63.0 ml SI(cubed) 36.6 ml/m\S\2 LVAd ap4 28.2 cm\S\2 LVLd ap4 7.6 cm EDV(MOD-sp4) 84.8 ml EDV(sp4-el) 89.5 ml LVAs ap4 18.5 cm\S\2 LVLs ap4 6.5 cm ESV(MOD-sp4) 42.6 ml ESV(sp4-el) 44.9 ml EF(MOD-sp4) 49.8 % EF(sp4-el) 49.8 % LVAd ap2 28.4 cm\S\2 LVLd ap2 7.2 cm EDV(MOD-sp2) 93.9 ml EDV(sp2-el) 95.4 ml LVAs ap2 17.4 cm\S\2 LVLs ap2 5.8 cm ESV(MOD-sp2) 43.0 ml ESV(sp2-el) 44.3 ml EF(MOD-sp2) 54.2 % EF(sp2-el) 53.5 % LVLd %diff -5.19 % EDV(MOD-bp) 92.5 ml LVLs %diff -12.32 % ESV(MOD-bp) 45.1 ml EF(MOD-bp) 51.2 % SV(MOD-sp4) 42.2 ml SI(MOD-sp4) 24.5 ml/m\S\2 SV(MOD-sp2) 50.9 ml SI(MOD-sp2) 29.6 ml/m\S\2 SV(MOD-bp) 47.4 ml SI(MOD-bp) 27.5 ml/m\S\2 SV(sp4-el) 44.6 ml SI(sp4-el) 25.9 ml/m\S\2 SV(sp2-el) 51.0 ml SI(sp2-el) 29.7 ml/m\S\2 Doppler Measurements and Calculations TR max eugenio 285.0 cm/sec
[2016-11-09] MEDS: CEFTRIAXONE SOD INJ 2,000 MG in DEXTROSE 5% 50ML 50 ML IV SCH (15:35)
--- NOTE | 2016-11-09 16:08 | CARDIOLOGY CONSULTATION ---
DATE OF CONSULTATION: 11/09/2016 REFERRING PHYSICIAN: Dr. Velasquez. CHIEF COMPLAINT: Dyspnea. HISTORY OF PRESENT ILLNESS: Mrs. Alice Ruiz is a 66-year-old woman known to me previously for episodes of presyncope in the setting of complete heart block. On prior admission, the patient did undergo dual chamber pacemaker implantation for the symptoms. According to the patient, her and the other physicians positions as well as her medical record, she primarily was having some symptoms of confusion over several days leading up to her admission. She does report some progressive dyspnea in that period of time. The patient was evaluated in the Emergency Room twice over the past week, initially her evaluation was unremarkable, but on her second presentation, there was evidence of pulmonary vascular congestion as well as a possible pneumonia. The patient was subsequently admitted to [facility] for treatment. Based on her symptoms of dyspnea and notable anemia, the patient underwent a transfusion this morning and subsequent to the transfusion developed acute shortness of breath. The patient was noted by the nursing staff to be tachypneic and hypoxic in this setting. The patient was transferred urgently to the intensive care unit where bypass therapy and diuresis was initiated, this resulted in stabilization of the patient. Leading up to her admission, the patient did complain of rare and fleeting episodes of less chest discomfort. These were not sustained in duration and did not radiate to other portions of the body. The patient in the hospital, has been feeling somewhat weak and fatigued. These symptoms are present prior to admission. At the time of the interview, the patient states that she still has an element of mild dyspnea but improved. She did not any symptoms of chest discomfort associated with her acute episode today and she has no chest discomfort currently. She denies any sense of palpitations. She has not been experiencing episodes of dizziness, presyncope or syncope recently. PAST MEDICAL HISTORY: Significant for: 1. The aforementioned complete heart block status post dual-chamber [employer] pacemaker implantation. 2. Polycythemia vera, currently without treatment. 3. Anemia of unclear etiology. 4. Compression fractures. 5. Anxiety and depression. PAST SURGICAL HISTORY: Significant for appendectomy, hysterectomy, and right hip fracture. OUTPATIENT MEDICAL REGIMEN: Consisted of aspirin, escitalopram, denosumab, hydroxyzine, levothyroxine, omeprazole, oxybutynin and some supplements. MEDICAL ALLERGIES: INCLUDE CODEINE AND ERYTHROMYCIN. SOCIAL HISTORY: The patient currently lives with her locally. She denies any history of smoking or significant alcohol use. 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 FAMILY HISTORY: Not significant for premature coronary artery disease. There is a history of cancer in the family. REVIEW OF SYSTEMS: A complete review of systems was performed and the pertinent positives noted in the history of present illness. The remainder being negative. Being into the admission, the patient denied symptoms of fevers, but she did report chills, no rigors per se. She has a cough that appears to be nonproductive and infrequent. PHYSICAL EXAMINATION: GENERAL: The patient does not appear to be in any acute distress, although somewhat retired. She was alert. She was oriented. She was using BIPAP. She answered all questions appropriately. CURRENT VITAL SIGNS: Include a blood pressure of 171/96 with a pulse of 100. HEENT: Sclerae are anicteric. Pupils equal, reactive to light and accommodation. Extraocular movements were intact. NECK: Palpation of submandibular region did not reveal any significant lymphadenopathy. The carotids are palpable bilaterally. I do not appreciate any bruits on auscultation. There was approximately 1 cm jugular venous distention. Thyroid was not enlarged. LUNGS: Auscultation of her lungs revealed diffuse crackles throughout both lung reynolds. CARDIAC: Revealed her to be in a regular rhythm. There was a holosystolic murmur appreciated. PMI did not appear to be markedly displaced on palpation. The patient had a well-healed pacemaker implant on the left upper chest area. ABDOMEN: Soft and nontender. EXTREMITIES: Evaluation of both wrists revealed radial pulses that were equal in intensity without evidence of cyanosis or clubbing. Evaluation of her lower extremities did not reveal any significant peripheral edema. SKIN: I do not appreciate any rashes on exam today. NEUROLOGIC: Revealed cranial managed to be intact. LABORATORY STUDIES: Obtained recently include a white cell count of 26,000, a hemoglobin of 12, a platelet count of 690. Chemistry profile revealed sodium 127, potassium of 3.7, BUN was 10 and creatinine was 0.69. Serial cardiac biomarkers have been obtained since patient's admission which were generally in the 0.09 to 0.13 range, total creatinine kinase has been measured at approximately 300 throughout her admission. IMAGING DATA: An echocardiogram was performed yesterday which revealed the patient had preserved left ventricular systolic function. There was mild to moderate mitral regurgitation with normal pulmonary pressures. This is appeared to be unchanged from examination performed in 2016. The patient initially had an EKG the time of admission which revealed sinus rhythm with a paced ventricular rhythm. Currently, EKG revealed sinus rhythm with a normal conduction. She has confuse T-wave inversions throughout the precordium and a prolonged QT interval. ASSESSMENT AND PLAN: 1. Acute decompensated left ventricular systolic failure: I reviewed the patient's bedside echo just performed suggests a stress-induced cardiomyopathy, based primarily on the appearance of the left ventricle. The patient did have an echocardiogram performed yesterday and today's evaluation is markedly different. This coincides with her acute decompensation. The patient at this point is being treated for supportively with diuresis and bypass therapy. She did have a flash pulmonary edema and will need to undergo supportive treatment in this fashion, in the short term. 2. Stress-induced cardiomyopathy: The patient did not have symptoms of chest discomfort associated with her acute decompensation, but does have echocardiogram findings, EKG findings and a clinical syndrome consistent with a development of stress-induced cardiomyopathy. In the short term, diuresis with bypass therapy should effective in reducing of pulmonary vascular congestion. Otherwise, once again treatment is supportive with standard use LEX inhibition and beta blockade to affect recovery of the left ventricle. Given the absence of chest discomfort, I do not feel that urgent coronary angiography is warranted. We will monitor her biomarkers; however, this is a fairly characteristic case of stress cardiomyopathy and at this point, I would not plan on coronary angiography. Since the mechanism of her cardiomyopathy does not involve in acute coronary syndrome, there is no role for heparinization, currently. 3. Complete heart block: The patient has normally functioning dual chamber permanent pacemaker, currently conducting 1:1 fashion from the atrium to the ventricle. 4. Valvular heart disease: The patient has an element of mitral regurgitation which should not have contributed to today's current episode. This can be followed longitudinally. 5. Possible pneumonia: Patient currently being treated for pneumonia as well as pulmonary vascular congestion. 6. Confusion: The patient has an element of hyponatremia which may be contributing to some of her recent mental status changes. This will need to be watched cautiously in the setting of aggressive diuresis.
[2016-11-09] MEDS: LEVOFLOXACIN / D5W 750 MG in PREMIXED IN D5W 150 ML IV SCH (16:27)
[2016-11-09] MEDS ORDERED: DEXTROSE 50% 50 ML SYR IV PRN (16:30)
[2016-11-09] MEDS ORDERED: GLUCOSE 10 TABS/TUBE PO PRN (16:30)
[2016-11-09] MEDS ORDERED: GLUCAGON FOR INJ 1 MG VIAL SQ PRN (16:30)
[2016-11-09] MEDS ORDERED: BUMETANIDE IV 10 MG in DEXTROSE 5% 50ML 10 ML IV SCH (16:30)
[2016-11-09] MEDS ORDERED: GLUCOSE 40% GEL 15 GM TUBE PO PRN (16:30)
--- NOTE | 2016-11-09 18:19 | Hematology/Oncology Prog Note ---
Hematology/Onc Progress Note Date of Service Nov 09, 2016. Subjective 66-year-old female who has longstanding history of polycythemia vera (diagnosed in 1997), earlier she could not tolerate hydroxyurea therapy (she had significant drop in the platelet count over 2 weeks duration of hydroxyurea therapy at that time in 1999), was on interferon therapy and doing phlebotomy if she complained of increasing itching related to the polycythemia vera. For the last 8 to 10 months she is off the interferon therapy. Bone marrow examination done in July, showed hypercellular bone marrow with increased bone marrow fibrosis, no increased plasma cells noted, SPEP was negative for monoclonal protein. Other medical problem: -complete heart block, S/P permanent pacemaker placement in July,. -GERD, osteoporosis, history of L1 compression fracture. -anxiety and depression. Blood workup done earlier this year: -WBC 8700, H&H of 12.7/41, MCV 61, Platelet count of for 21,000 (06/09/2016). -Ferritin level--> 8.5 (06/09/2016) -WBC 6800, H&H of 12.6/40, MCV 60, Platelet count of 385,000 (07/10/2016) She complained of increasing itching, she had a phlebotomy x1 on 07/15/2016. -WBC 8900, H&H of 10.5/35, MCV 62, Platelet count of 417,000. (09/10/2016) She continue to have some itching, she was seen by crna started her on Zyrtec and the hydroxyzine with improvement of the itching noted. She came to [facility] ER on 11/07/2016 for some increasing shortness of breath, coughing for the last one week, some forgetfulness noted by her , headache present, nausea present, vomited, no bleeding from any sites. When she came to the ER, she was hypoxic, chest x-ray done on 11/07/2016 showed interval development of interstitial thickening consistent pulmonary edema with bilateral pleural effusions interval development of multifocal left lung consultation and right basilar opacity favoring pneumonia. Blood workup as follows: -WBC 98953, H&H of 8.9/28.5, MCV 57, Platelet count of 403,000. (11/07/2016). -hemoglobin level dropped down to around 7.9 g/dL on the following day, did not have any new bleeding from any sites. -she received 2 units of PRBC on 11/08/2017 and she completed last blood transfusion on 11/09/2016 in clothes model around 3:00 a.m. - hemoglobin improved to around 10.5 g/dL after 2 units of PRBC. Normal white blood cell count, normal platelet count. - Reticulocyte hemoglobin content--> 16.8 which is on the lower side. - BUN/Creat: 13/0.8, normal liver function test on admission (11/07/2016). - CPK level was slightly on the higher side around 2018 on admission, increased to around 351 over the 2 days with slightly elevated troponin level noted - Vitamin B12--> 1237, Folic acid--> 23.3, serum iron 16, TIBC 240, Ferritin level 226 (11/08/2016) - AST 107, ALT 114, alkaline phosphatase 149, Total bilirubin: 0.6 (11/09/2016) -Pro-BNP--> 19,663 (11/09/2016) -Normal PT and PTT. -SPEP--> pending. -stool for occult blood were negative (11/08/2016) About 8 hours after the blood transfusion, she had increasing shortness of breath, she was found to have acute pulmonary edema and then transferred to ICU , I saw her in the ICU. She received 40 mg of Lasix earlier and then 80 mg of Lasix around noontime today, receiving BiPAP, O2 saturation around 92-95%, receiving Levaquin and cefuroxime antibiotic, -ultrasound of the abdomen done for evaluation of elevated liver function test on 11/09/2016 showed mild splenomegaly but normal liver, no IVC of portal vein thrombosis noted. On exam: - Alert and oriented x3, thin build woman, slightly in distress, receiving oxygen therapy. - HEENT: no icterus, mild pallor noted, Throat: Normal. - Neck: No palpable cervical lymphadenopathy. - Chest: clear to auscultation. - Abdomen: soft, nontender, no hepatomegaly, no splenomegaly. - No focal neuro deficit. - Extremities: no finger clubbing, no leg edema. -WBC 99315, H&H of 10.2/33, Platelet count of 410,000 (11/02/2016). -WBC 53839, H&H of 12.4/39, MCV 61, Platelet count of 609,000 (11/09/2016). ASSESSMENT AND PLAN: 66-year-old female, who has longstanding history of polycythemia vera, she had significant thrombocytopenia when she was on hydroxyurea therapy which she received for about 2 weeks only, then she received interferon therapy but it was discontinued about 8 to 10 months back, required a permanent pacemaker placement in July, for complete heart block, having intermittent phlebotomy for the symptomatic treatment of itching, last phlebotomy was done in July,. Her blood workup before that showed hemoglobin level around 12 g/dL, microcytosis noted at that time. After phlebotomy blood workup done in August, showed hemoglobin level was around 10.5 g/dL. Now she is admitted Hospital for increasing shortness of breath, cough some confusion status, found to have bilateral pneumonia and early signs of congestive heart failure, hemoglobin level dropped down to around 7.9 g/dL, received 2 units of PRBC, about 8 hours after the completion of the blood transfusion, she had pulmonary edema and then transferred to ICU, hemoglobin level increased on 10.5--> 12.4 g/dL before the development of pulmonary edema, received vigorous diuretic therapy with improvement of the pulmonary symptoms, hemodynamically she has remained stable. Persistent microcytosis noted. No bleeding from any sites. When she was seen at [facility] ER on 11/02/2016 for pulmonary symptoms, hemoglobin level was around 10.2 g/dL, within 1 week dropped down to around 8 g/dL the absence of bleeding from any sites, I think that could be because of some dilutional effect (she had possible signs of congestive heart failure when she came to ER on 11/07/2016) and now with sudden rise in the hematocrit, may have pushed her in congestive heart failure. No evidence of iron deficiency noted in the recent the blood workup, normal B12 level, normal Folic acid level noted. Would like to continue with the current medical management for congestive heart failure and pneumonia. Would like to consider for bone marrow examination in the near future once she is stabilized well. Thanks for the consultation. Dr. Bernard Hall Hem/Onc (This note was completed using the dictation program Fluency Direct. As such, there may be misspellings, word substitutions, or other variations that should not change the essence of the clinical content of this encounter note. If there is need for further clarification, please direct questions to the provider listed above.) Vital Signs Vital Signs Past 12 Hours Date Time Temp Pulse Resp B/P (MAP) Pulse Ox O2 Delivery O2 Flow Rate FiO2 11/09/16 18:00 96 20 112/72 (85) 95 BiPAP 60 11/09/16 16:00 92 BiPAP 60 11/09/16 16:00 97 22 140/97 (111) 92 BiPAP 60 11/09/16 14:24 60 11/09/16 14:14 97 24 95 BiPAP/CPAP 65 11/09/16 14:00 109 24 118/78 (91) 95 BiPAP 60 11/09/16 12:07 85 92 65 11/09/16 12:00 BiPAP 65 11/09/16 11:38 36.7 100 20 88 15.0 11/09/16 11:03 88 Non-Rebreather 15.0 11/09/16 11:02 36.7 100 20 171/96 (121) 79 Nasal Cannula 6.0 11/09/16 08:21 36.7 90 20 132/74 (93) 90 11/09/16 08:00 Nasal Cannula 3.0 11/09/16 07:01 81 16 92 Nasal Cannula 2.5
[2016-11-09 18:44] LABS: BASO % 0.1 %; BASO ABS # 0.02 K/uL (0-0.2); EOS % 0.1 %; IG% 1.3 %; LYMPH % 3.5 %; MEAN CELL VOLUME 60.8 fL (80-100); MEAN CORPUSCULAR HEMOGLOBIN 20.2 pg (25-34); MEAN CORPUSCULAR HGB CONC 33.2 g/dl (32-36); MONO % 4.8 %; NEUT % 90.2 %; PLATELET COUNT 410 K/uL (130-400); RED BLOOD COUNT 5.59 M/uL (4.2-5.4); WHITE BLOOD COUNT 17.19 K/uL (4.8-10.8)
[2016-11-09 19:05] LABS: BUN/CREATININE RATIO 13.9 (10-20); CALCIUM 6.8 mg/dl (8.5-10.1); CREATININE 0.72 mg/dl (0.60-1.20); POTASSIUM 4.2 mmol/L (3.5-5.1)
[2016-11-09 19:14] LABS: ACANTHOCYTES 1+; ANISOCYTOSIS PRESENT; COMPLETE YES; OVALOCYTES 1+; POIKILOCYTOSIS PRESENT; POLYCHROMASIA 1+; SCHISTOCYTES 1+; SPHEROCYTE 1+
[2016-11-09 19:17] LABS: IMMUNOGLOBULN M 85.5 mg/dL (40-230)
[2016-11-09] MEDS ORDERED: DexMEDEtomidine IV DRIP IV STA (19:35)
[2016-11-09] MEDS ORDERED: DexMEDEtomidine HCL IV 200 MCG in SODIUM CHLORIDE 0.9% 50ML 48 ML IV PRN (20:00)
[2016-11-09] MEDS: INSULIN ASPART 100 UNITS/ML 3 ML PEN SC SCH (21:00)
[2016-11-09] MEDS: ESCITALOPRAM OXALATE 20 MG TAB PO SCH (21:35)
[2016-11-09] MEDS: MAGNESIUM OXIDE 400 MG TAB PO SCH (21:35)
[2016-11-09] MEDS: LISINOPRIL 2.5 MG TAB PO SCH (21:36)
[2016-11-10] VITALS (40 sets, daily range): BP systolic 79–118; BP diastolic 50–75; PULSE 68–148; TEMP 36.4–36.6; O2SAT 90–97
[2016-11-10] MEDS ORDERED: BUMETANIDE IV 10 MG in DEXTROSE 5% 50ML 10 ML IV PRN (02:15)
[2016-11-10] MEDS: LEVALBUTEROL 1.25MG/3ML NEB INH SCH ×4 (02:19→19:15)
[2016-11-10 05:55] LABS: BASO % 0.2 %; BASO ABS # 0.02 K/uL (0-0.2); EOS % 0.4 %; HEMATOCRIT 30.9 % (37-47); IG% 0.7 %; LYMPH % 7.7 %; LYMPH ABS # 0.88 K/uL (1.2-3.4); MEAN CELL VOLUME 62.3 fL (80-100); MEAN CORPUSCULAR HEMOGLOBIN 21.2 pg (25-34); PLATELET COUNT 342 K/uL (130-400); RED BLOOD COUNT 4.96 M/uL (4.2-5.4); WHITE BLOOD COUNT 11.39 K/uL (4.8-10.8)
[2016-11-10] MEDS: LEVOTHYROXINE 50 MCG TAB PO SCH (06:00)
[2016-11-10 06:25] LABS: ANISOCYTOSIS PRESENT; COMPLETE YES; MICROCYTOSIS PRESENT; OVALOCYTES 1+; POIKILOCYTOSIS PRESENT; SCHISTOCYTES OCCASIONAL; VACUOLIZATION 1+
[2016-11-10 06:32] LABS: BUN/CREATININE RATIO 15.6 (10-20); CALCIUM 6.3 mg/dl (8.5-10.1); CREATININE 0.81 mg/dl (0.60-1.20); MAGNESIUM 2.3 mg/dl (1.8-2.4)
[2016-11-10] MEDS: INSULIN ASPART 100 UNITS/ML 3 ML PEN SC SCH ×4 (06:45→20:01)
[2016-11-10 07:05] LABS: ESTIMATED AVERAGE GLUCOSE 123 mg/dl; HA1C FLAG Normal (Normal)
--- NOTE | 2016-11-10 07:10 | DIAGNOSTIC IMAGING REPORT ---
CHEST ONE VIEW PORTABLE CLINICAL HISTORY: flash pulm edema dyspnea COMPARISON STUDY: 11/09/2016 FINDINGS: Findings of persistent pulmonary edema. Small bilateral pleural effusions unchanged. Prominent bipolar cardiac pacemaker. IMPRESSION: Pulmonary edema unchanged from the prior study. Electronically signed by: Alli Ling M.D. 11/10/2016 7:09 AM Dictated Date/Time: 11/10/2016 7:08 AM
[2016-11-10 08:08] LABS: CKMB/CK RATIO 2.2 (0-3.0)
[2016-11-10] MEDS: LISINOPRIL 2.5 MG TAB PO SCH (09:00)
[2016-11-10] MEDS ORDERED: BISACODYL 10 MG SUPP PR STA (09:34)
[2016-11-10] MEDS: DIPHENOXYLATE/ATROPINE 2.5/0.025MG TAB PO PRN (09:37)
[2016-11-10] MEDS: POTASSIUM CHLORIDE 20 MEQ TABCR PO SCH ×2 (09:38→22:19)
[2016-11-10] MEDS: ASPIRIN 81 MG ECTAB PO SCH (09:38)
[2016-11-10] MEDS: CHOLECALCIFEROL 1000 INTER.UNIT TAB PO SCH (09:39)
[2016-11-10] MEDS: ENOXAPARIN 40 MG/0.4 ML SYR SQ SCH (09:40)
[2016-11-10] MEDS: PANTOprazole SOD 40 MG TAB PO SCH (09:42)
[2016-11-10] MEDS ORDERED: POLYETHYLENE (MIRALAX) 17 GM PACK PO PRN (09:55)
--- NOTE | 2016-11-10 10:06 | Critical Care Progress Note ---
Critical Care Progress Note Date of Service Nov 10, 2016. ICU Day ICU Day Number: [address] Pretty Cordoba Subjective Notes that "I feel tayler of crappy" Notes some generalized aches a this time Was on BiPAP overnight, was getting slightly distress on it, but tolerated otherwise No other acute issues overnight Objective Constitutional: Vital signs as above were reviewed. Eyes: Pupils equal, round, and reactive to light. Extraocular muscles are intact. No proptosis. No photophobia. ENT: Mucous membranes are moist. Oropharynx is clear. No sinus tenderness. TMs are clear bilaterally. Cardiovascular: Heart with a regular rate and rhythm. Pulses are palpable and symmetric in all 4 extremities. No pedal edema appreciated. Respiratory: Lungs clear to auscultation bilaterally. No wheezes present. Bibasilar crackles along posterior lung reynolds GI: Abdomen soft, nontender, nondistended. Normal active bowel sounds. No abdominal hernias appreciated. No rebound. No guarding. : No CVA tenderness appreciated. Musculoskeletal: No midline cervical or vertebral tenderness. No gross deformities. No bony tenderness. No calf swelling or tenderness. Integumentary: Warm, dry, no rashes appreciated. Neurological: Patient awake, alert, and oriented x 3. Cranial nerves two through 12 grossly intact. Motor 5 out of 5 strength bilateral upper and lower extremities. Lymph: No cervical lymphadenopathy appreciated. Current SOFA Score SOFA Score Response (Comments) Value Platelets (x10) > 150 0 Bilirubin (mg/dL) < 1.2 0 Covina Coma Score 15 0 Level of Hypotension MAP less than 70 1 Creatinine (mg/dL) < 1.2 0 Total 1 Assessment & Plan (1) Altered mental status (2) Stress-induced cardiomyopathy (3) Elevated troponin (4) Complete heart block (5) Community acquired pneumonia (6) Depressive disorder (7) Osteoporosis (8) Hyponatremia (9) Hypophosphatemia (10) Hypothyroidism (11) GERD (gastroesophageal reflux disease) (12) T12 compression fracture Our plan for her is as follows: NEUROLOGICAL - GCS: 15 - RASS: 0 Discontinued Precedex this morning Altered Mental Status - Likely 2/2 Hypoxia from CHF vs Pneumonia - Will hold D/C Ambien and Ativan to prevent medication-related delirium Depression - Continue Lexapro - Pain regimen: Tylenol CARDIAC - BP: Maintaining borderline MAP 65-70, without vasopressor support History of Complete Heart Block - Dual Chamber pacemaker in place - Stable Stress-Induced Cardiomyopathy/Takatsubo Cardiomyopathy - EF 55-60 on admission 10/09 --> Decreased to 35-40% on repeat echo 11/09 - [place] [address] [place] [address] today; follow daily Needs intermitted BiPAP during the day - Continue Bumex infusion Goal net negative today Diuresed yesterday for net - 900 ml - Continue I/O and daily weights - Fluid restrict to 1500 ml daily in the acute setting - Repeat Echocardiogram per cardiology - ACEi and Beta-brian contra-indicated due to hypotension; Lisinopril will be placed on hold - Cardiology recommendations appreciated Elevated Troponin - Elevated between 0.1 and 0.2; no complaints suggestive of active ischemia - Likely 2/2 supply-demand mismatch in the setting of hypoxia +/- superimposing pneumonia - Trend daily RESPIRATORY - Need for BiPAP to help with forward flow - No known Hx of chronic pulmonary disease Goal oxygen saturation > 94% Will require intermitted BiPAP during the day; BiPAP can be taken off at meals - Incentive Spirometry Community Acquired PNA - As noted in ID GASTROINTESTINAL - Diet: Patient off Precedex and mentating well Will attempt to feed today, regular diet with 1500 ml fluid restriction - GI Prophylaxis: Protonix 40 mg PO daily - Bowel regimen: Nursing notes multiple episodes of diarrhea Reviewed EMR, no BMs charted; will hold off on bowel regimen at this time Lomotil for diarrhea C.diff on 11/08 was negative RENAL//ENDOCRINE - Fluid Balance Cumulative down -300 ml 24 hour total - 900 ml - 24-hour UO: maintaining adequate UO > 0.5 ml/kg/hr - Cr: 0.81 - Electrolytes: Hyponatremia: 128 today, improved from 123 on admission; patient appears to be autocorrecting IVF administration contra-indicated at this time due to volume overloaded status Will start PO NeutraPhos 250 QID; follow daily BMP Hypophosphatemia: NeutraPhos 250 - BSG: No history of DM; HbA1c 10/07; will do AC/HS checks SSI HEMATOLOGY/INFECTIOUS DISEASE - Tmax: 37.0, afebrile WBC: 11 today, trending down - Hb/Hct 10/30 Improved from Hb 8 on admission Community Acquired Pneumonia - Antibiotics: Rocephin and Levaquin Day 4 Abx started on 11/07/2016 - Negative blood cultures from 11/07/2016 - DVT Prophylaxis: Lovenox SCD LINES/IV ACCESS - 20 G in left arm - 20 G in left wrist CODE STATUS - Full Code DISPOSITION - OT/PT: ordered - Continued ICU monitoring for acute hypoxia Resident Physician Supervision Note: I interviewed and examined the patient. Discussed with Dr. Conklin and agree with findings and plan as documented in the note. Any exceptions or clarifications are listed here: The patient's care was discussed in detail on multidisciplinary rounds and I have also reviewed the VS, I/O, notes, meds, labs, micro, imaging and other reports. She is improving on the bumex gtt and is tolerating time off the bipap. Her appetite is poor and I have added nutritional supplements. Continue antibiotics and replete phos. ICS when not on bipap. PT/OT. Documented By: Pretty Cordoba Consults & Procedures Consultants: Cardiology Procedures: Echocardiograms on: 11/08 11/09 Data Medications: Current Inpatient Medications Medications (Trade) Dose Ordered Sig/Camila Route Start Time Stop Time Status Last Admin Dose Admin Acetaminophen (Tylenol Tab) 650 mg Q4H PRN PO 11/07/16 14:45 12/07/16 14:44 11/08/16 16:22 650 MG Ondansetron HCl (Zofran Inj) 4 mg Q6H PRN IV 11/07/16 14:45 12/07/16 14:44 11/09/16 08:16 4 MG Aspirin (Ecotrin Tab) 81 mg DAILY PO 11/08/16 09:00 12/08/16 08:59 11/09/16 08:01 81 MG Cholecalciferol (Vitamin D Tab) 1,000 inter.unit DAILY PO 11/08/16 09:00 12/08/16 08:59 11/09/16 08:01 1,000 INTER.UNIT Escitalopram Oxalate (Lexapro Tab) 20 mg QPM PO 11/07/16 21:00 12/07/16 20:59 11/09/16 21:35 20 MG Levothyroxine Sodium (Synthroid Tab) 50 mcg DAILYBB PO 11/08/16 06:30 12/08/16 06:59 11/08/16 05:55 50 MCG Ceftriaxone Sodium 2000 mg/ Dextrose 70 ml @ 100 mls/hr Q24H IV 11/08/16 16:00 11/14/16 15:59 11/09/16 15:35 100 MLS/HR Levalbuterol (Xopenex 1.25MG/ 3ML Neb) 1.25 mg Q6R INH 11/07/16 21:00 12/07/16 20:59 11/10/16 07:07 1.25 MG Potassium Chloride (Klor-Con Tab) 20 meq BID PO 11/08/16 21:00 12/08/16 20:59 11/09/16 21:34 20 MEQ Menthol (Nice Tobias) 1 tobias PRN PRN PO 11/08/16 16:30 12/08/16 16:29 11/08/16 16:22 24 TOBIAS Pantoprazole Sodium (Protonix Tab) 40 mg QAM PO 11/09/16 09:00 12/09/16 08:59 11/09/16 09:22 40 MG Al Hydrox/Mg Hydrox/Simethicone (Maalox Max Susp) 30 ml Q6H PRN PO 11/09/16 08:15 12/09/16 08:14 Diphenoxylate HCl/ Atropine (Lomotil Tab) 1 tab Q4H PRN PO 11/09/16 09:15 12/09/16 09:14 11/09/16 09:37 1 TAB Lorazepam (Ativan Tab) 0.5 mg Q6H PRN PO 11/09/16 09:15 12/09/16 09:14 11/09/16 17:14 0.5 MG Zolpidem Tartrate (Ambien Tab) 5 mg HS PRN PO 11/09/16 09:15 12/09/16 09:14 Benzonatate (Tessalon Perles Cap) 100 mg Q6H PRN PO 11/09/16 09:15 12/09/16 09:14 11/09/16 09:37 100 MG Ioversol (Optiray 320) 125 ml UD PRN IV 11/09/16 10:45 11/13/16 10:44 Levofloxacin 750 mg/Prmx 150 ml @ 100 mls/hr Q24H IV 11/09/16 17:00 11/13/16 18:29 11/09/16 16:27 100 MLS/HR Magnesium Oxide (Mag-Ox Tab) 400 mg QPM PO 11/09/16 21:00 12/09/16 20:59 11/09/16 21:35 400 MG Enoxaparin Sodium (Lovenox Inj) 40 mg QAM SQ 11/10/16 09:00 12/10/16 08:59 Insulin Aspart (novoLOG ASPART) SLIDING SCALE If C... ACHS SC 11/09/16 21:00 12/09/16 20:59 Glucose (Glucose 40% Gel) 15-30 GRAMS 15 GRAMS... UD PRN PO 11/09/16 16:30 12/09/16 16:29 Glucose (Glucose Chew Tab) 4-8 Tablets 4 Tabl... UD PRN PO 11/09/16 16:30 12/09/16 16:29 Dextrose (Dextrose 50% 50ML Syringe) 25-50ML OF 50% DW IV FOR... UD PRN IV 11/09/16 16:30 12/09/16 16:29 Glucagon (Glucagon Inj) 1 mg UD PRN SQ 11/09/16 16:30 12/09/16 16:29 Lisinopril (Zestril Tab) 2.5 mg BID PO 11/09/16 21:00 12/09/16 20:59 11/09/16 21:36 2.5 MG Dexmedetomidine HCl 200 mcg/ Sodium Chloride 50 ml @ 0 mls/hr Q0M PRN IV 11/09/16 20:00 11/13/16 19:59 11/09/16 20:19 0.4 MLS/HR Bumetanide 10 mg/ Dextrose 50 ml @ 0 mls/hr Q0M PRN IV 11/10/16 02:15 12/10/16 02:14 Vital Signs: Date Time Temp Pulse Resp B/P (MAP) Pulse Ox O2 Delivery O2 Flow Rate FiO2 11/10/16 08:00 Nasal Cannula 3.0 11/10/16 08:00 36.4 81 20 97/63 (74) 94 Nasal Cannula 3.0 11/10/16 07:09 71 97 40 11/10/16 07:07 71 17 97 BiPAP/CPAP 40 11/10/16 04:58 70 97 50 11/10/16 04:52 93 BiPAP 15.0 55 11/10/16 04:46 72 19 92/54 (67) 11/10/16 04:31 68 18 89/58 (68) 95 11/10/16 04:16 72 18 85/56 (66) 95 11/10/16 04:01 73 18 85/56 (66) 11/10/16 03:46 78 19 87/57 (67) 11/10/16 03:31 75 18 86/50 (62) 95 11/10/16 03:16 82 22 83/61 (68) 11/10/16 03:01 77 17 79/50 (60) 11/10/16 02:31 76 19 85/59 (68) 11/10/16 02:20 72 96 55 11/10/16 02:16 75 17 90/62 (71) 11/10/16 02:01 80 21 93/65 (74) 11/10/16 01:46 144 18 84/61 (69) 11/10/16 01:31 77 20 83/58 (66) 11/10/16 01:16 148 18 87/56 (66) 11/10/16 01:01 78 17 79/60 (66) 94 11/10/16 00:56 93 BiPAP 15.0 55 11/10/16 00:46 78 18 82/58 (66) 11/10/16 00:31 74 19 83/59 (67) 11/10/16 00:16 74 18 87/58 (68) 11/10/16 00:01 77 19 87/60 (69) 96 11/09/16 23:46 80 20 90/65 (73) 11/09/16 23:31 78 19 86/61 (69) 11/09/16 23:16 79 19 93/62 (72) 94 11/09/16 23:01 80 19 92/65 (74) 95 11/09/16 22:56 88 94 55 11/09/16 22:46 93 18 100/72 (81) 92 11/09/16 22:31 81 18 92/63 (73) 93 11/09/16 22:16 84 18 90/62 (71) 11/09/16 21:46 85 20 98/65 (76) 11/09/16 21:31 87 18 97/62 (74) 11/09/16 21:16 94 19 101/68 (79) 96 11/09/16 21:01 93 21 99/70 (80) 95 11/09/16 20:46 80 21 92/63 (73) 11/09/16 20:31 76 20 100/70 (80) 11/09/16 20:16 73 21 99/72 (81) 82 11/09/16 20:09 93 BiPAP 15.0 55 11/09/16 20:01 99 21 115/81 (92) 96 11/09/16 19:46 105 23 126/83 (97) 90 11/09/16 19:34 109 93 55 11/09/16 19:33 109 28 93 BiPAP/CPAP 55 11/09/16 19:31 100 18 127/80 (96) 94 11/09/16 19:16 101 20 114/81 (92) 91 11/09/16 19:01 91 20 104/69 (81) 11/09/16 18:00 96 20 112/72 (85) 95 BiPAP 60 11/09/16 16:00 92 BiPAP 60 11/09/16 16:00 97 22 140/97 (111) 92 BiPAP 60 11/09/16 14:24 60 11/09/16 14:14 97 24 95 BiPAP/CPAP 65 11/09/16 14:00 109 24 118/78 (91) 95 BiPAP 60 11/09/16 12:07 85 92 65 11/09/16 12:00 BiPAP 65 11/09/16 11:38 36.7 100 20 88 15.0 11/09/16 11:03 88 Non-Rebreather 15.0 11/09/16 11:02 36.7 100 20 171/96 (121) 79 Nasal Cannula 6.0 Laboratory Results: Last 24 Hours Test 11/09/16 11:53 11/09/16 13:00 11/09/16 13:36 11/09/16 18:28 White Blood Count 26.31 K/uL 17.19 K/uL Red Blood Count 6.38 M/uL 5.59 M/uL Hemoglobin 12.4 g/dL 11.3 g/dL Hematocrit 39.1 % 34.0 % Mean Corpuscular Volume 61.3 fL 60.8 fL Mean Corpuscular Hemoglobin 19.4 pg 20.2 pg Mean Corpuscular Hemoglobin Concent 31.7 g/dl 33.2 g/dl Platelet Count 690 K/uL 410 K/uL Neutrophils (%) (Auto) 85.9 % 90.2 % Lymphocytes (%) (Auto) 6.0 % 3.5 % Monocytes (%) (Auto) 5.4 % 4.8 % Eosinophils (%) (Auto) 0.5 % 0.1 % Basophils (%) (Auto) 0.3 % 0.1 % Neutrophils # (Auto) 22.58 K/uL 15.50 K/uL Lymphocytes # (Auto) 1.58 K/uL 0.60 K/uL Monocytes # (Auto) 1.43 K/uL 0.83 K/uL Eosinophils # (Auto) 0.14 K/uL 0.01 K/uL Basophils # (Auto) 0.09 K/uL 0.02 K/uL RDW Standard Deviation 55.9 fL 54.1 fL RDW Coefficient of Variation 25.7 % 25.2 % Immature Granulocyte % (Auto) 1.9 % 1.3 % Immature Granulocyte # (Auto) 0.49 K/uL 0.23 K/uL Toxic Vacuolation 1+ Hypochromasia PRESENT Poikilocytosis PRESENT PRESENT Anisocytosis PRESENT PRESENT Microcytosis PRESENT Prothrombin Time 13.3 SECONDS Prothromb Time International Ratio 1.2 Activated Partial Thromboplast Time 29.9 SECONDS Partial Thromboplastin Ratio 1.2 Sodium Level 127 mmol/L 125 mmol/L Potassium Level 3.7 mmol/L 4.2 mmol/L Chloride Level 92 mmol/L 91 mmol/L Carbon Dioxide Level 21 mmol/L 25 mmol/L Anion Gap 14.0 mmol/L 9.0 mmol/L Blood Urea Nitrogen 10 mg/dl 10 mg/dl Creatinine 0.69 mg/dl 0.72 mg/dl Est Creatinine Clear Calc Drug Dose 71.2 ml/min 68.2 ml/min Estimated GFR () 104.4 100.4 Estimated GFR (Non- 90.1 86.7 BUN/Creatinine Ratio 14.7 13.9 Random Glucose 192 mg/dl 126 mg/dl Calcium Level 7.2 mg/dl 6.8 mg/dl Magnesium Level 2.6 mg/dl Total Bilirubin 0.6 mg/dl Aspartate Amino Transf (AST/SGOT) 107 U/L Alanine Aminotransferase (ALT/SGPT) 114 U/L Alkaline Phosphatase 149 U/L Total Creatine Kinase 351 U/L Creatine Kinase MB 7.2 ng/ml Creatine Kinase MB Ratio 2.1 Troponin I 0.122 ng/ml Total Protein 7.5 gm/dl Albumin 2.7 gm/dl Globulin 4.8 gm/dl Albumin/Globulin Ratio 0.6 Urine Occult Blood 1+ Urine RBC (Auto) 0-4 /hpf Pro-B-Type Natriuretic Peptide 84012 pg/ml Hepatitis B Surface Antigen NEG Hepatitis C Antibody NEG Polychromasia 1+ Spherocytes 1+ Ovalocytes 1+ Acanthocytes 1+ Schistocytes 1+ Immunoglobulin G 1040.0 mg/dL Immunoglobulin A 373.0 mg/dL Immunoglobulin M 85.5 mg/dL Test 11/09/16 21:32 11/10/16 05:29 Bedside Glucose 113 mg/dl White Blood Count 11.39 K/uL Red Blood Count 4.96 M/uL Hemoglobin 10.5 g/dL Hematocrit 30.9 % Mean Corpuscular Volume 62.3 fL Mean Corpuscular Hemoglobin 21.2 pg Mean Corpuscular Hemoglobin Concent 34.0 g/dl Platelet Count 342 K/uL Neutrophils (%) (Auto) 86.0 % Lymphocytes (%) (Auto) 7.7 % Monocytes (%) (Auto) 5.0 % Eosinophils (%) (Auto) 0.4 % Basophils (%) (Auto) 0.2 % Neutrophils # (Auto) 9.79 K/uL Lymphocytes # (Auto) 0.88 K/uL Monocytes # (Auto) 0.57 K/uL Eosinophils # (Auto) 0.05 K/uL Basophils # (Auto) 0.02 K/uL RDW Standard Deviation 56.3 fL RDW Coefficient of Variation 25.5 % Immature Granulocyte % (Auto) 0.7 % Immature Granulocyte # (Auto) 0.08 K/uL Toxic Vacuolation 1+ Poikilocytosis PRESENT Anisocytosis PRESENT Microcytosis PRESENT Ovalocytes 1+ Schistocytes OCCASIONAL Sodium Level 128 mmol/L Potassium Level 4.0 mmol/L Chloride Level 91 mmol/L Carbon Dioxide Level 30 mmol/L Anion Gap 7.0 mmol/L Blood Urea Nitrogen 13 mg/dl Creatinine 0.81 mg/dl Est Creatinine Clear Calc Drug Dose 60.6 ml/min Estimated GFR () 87.1 Estimated GFR (Non- 75.2 BUN/Creatinine Ratio 15.6 Random Glucose 96 mg/dl Estimated Average Glucose 123 mg/dl Hemoglobin A1c 5.9 % Calcium Level 6.3 mg/dl Phosphorus Level 2.0 mg/dl Magnesium Level 2.3 mg/dl Total Bilirubin 0.4 mg/dl Direct Bilirubin 0.2 mg/dl Aspartate Amino Transf (AST/SGOT) 43 U/L Alanine Aminotransferase (ALT/SGPT) 75 U/L Alkaline Phosphatase 107 U/L Total Creatine Kinase 219 U/L Creatine Kinase MB 4.8 ng/ml Creatine Kinase MB Ratio 2.2 Troponin I 0.206 ng/ml Pro-B-Type Natriuretic Peptide 53389 pg/ml Total Protein 6.4 gm/dl Albumin 2.3 gm/dl
--- NOTE | 2016-11-10 10:58 | CARDIOLOGY PROGRESS NOTE ---
DATE: 11/10/2016 SUBJECTIVE: This morning, Ms. Ruiz claims to be feeling somewhat better. She is lying in bed with some supplemental oxygen but claims to be feeling comfortable with respective breathing. She has an occasional cough. She has some overall body aches that she believes is due to some mobility, but no specific pain. PHYSICAL EXAMINATION: GENERAL: She was alert and oriented. Mood and affect appeared normal. She answered all questions appropriately. VITAL SIGNS: Include blood pressure of 97/63 with pulse of 81. LUNGS: Auscultation of her lungs revealed diffuse crackles primarily in the left upper lung field with reduced breath sounds in the bases bilaterally. CARDIAC: Revealed her to be in a regular rhythm, but I did not appreciate any murmurs on exam. LABORATORY STUDIES: Today included a sodium 128, potassium of 4.0, BUN was 13, creatinine was 0.81. Cardiac troponin was drawn this morning, which was 0.2. Total CK was 219. N-terminal ProBNP was 25,000. Albumin was 2.3. White cell count was 11, hemoglobin was 10, and platelet count was 342. ASSESSMENT AND PLAN: 1. Acute decompensated left ventricular systolic failure: The patient diuresed somewhat yesterday, but not in a dramatic fashion based on her I's and O's. She was started on Bumex infusion, which appears to be produced more robust diuresis. This should be continued as she is likely still has an element of significant pulmonary vascular congestion. In some circumstances nitroglycerin infusion could also be used to reduce pulmonary vascular congestion but given her hypotension, this is currently contraindicated. In the setting of hypotension and tachycardia, use of Phenylephrine is also of efficacious for stress cardiomyopathy, as occasional the patients will developed an element of dynamic outflow tract instructions. I think Phenylephrine will be the drug of choice should she require some form of pressure support. 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 Generally speaking, treatment is supportive only. LEX inhibition would be optimal; however, given her current hypotension, it is contraindicated. Beta blockers also play a role, but are currently contraindicated. We will need to monitor her progress and have medical therapy as she tolerates. 3. Complete heart block: The patient has normally functioning dual-chamber permanent pacemaker. She occasionally conducts on her own, so her heart block is transient.
[2016-11-10] MEDS: BOOST PLUS VANILLA PO SCH ×4 (12:12→17:21)
[2016-11-10] MEDS: POT PHOSPHATE MONOBASIC W/ SOD TAB PO SCH ×3 (12:13→22:19)
[2016-11-10] MEDS: CEFTRIAXONE SOD INJ 2,000 MG in DEXTROSE 5% 50ML 50 ML IV SCH (17:19)
[2016-11-10] MEDS: LEVOFLOXACIN / D5W 750 MG in PREMIXED IN D5W 150 ML IV SCH (18:13)
[2016-11-10 18:35] LABS: BUN/CREATININE RATIO 18.1 (10-20); CALCIUM 6.6 mg/dl (8.5-10.1); CREATININE 0.94 mg/dl (0.60-1.20); POTASSIUM 3.1 mmol/L (3.5-5.1)
[2016-11-10] MEDS: ONDANSETRON INJ 2 MG/ML 2 ML VIAL IV PRN (18:54)
[2016-11-10] MEDS ORDERED: POTASSIUM CHLR 20 MEQ / WTR 20 MEQ in PREMIXED WATER 100 ML IV SCH (19:00)
[2016-11-10] MEDS: POTASSIUM CHLR 10MEQ / WTR IV SCH ×3 (20:02→23:48)
[2016-11-10] MEDS ORDERED: NURSING VERBAL MED ORDER ONE (21:30)
[2016-11-10] MEDS: ESCITALOPRAM OXALATE 20 MG TAB PO SCH (22:19)
[2016-11-10] MEDS: LORAZEPAM 0.5 MG TAB PO PRN (22:19)
[2016-11-10] MEDS: MAGNESIUM OXIDE 400 MG TAB PO SCH (22:19)
--- NOTE | 2016-11-10 23:48 | PROGRESS NOTE ---
DATE: 11/10/2016 A 66-year-old female, admitted with bilateral pneumonia. She also had congestive heart failure. The patient has polycythemia vera, which has been treated for over 20 years. She was also markedly anemic with her hemoglobin down as far as 7.9. She did receive 2 units of packed RBCs. The patient presented with acute pulmonary edema. Her initial evaluation showed evidence of a stress cardiomyopathy which was thought to be the etiology of her decompensation. She does have pneumonia. She also has had multiple other medical problems and that is most likely what precipitated the event. The patient was transferred to ICU because of her respiratory failure. She was placed on a BiPAP. She was also diuresed; initially with IV Lasix, then she was placed on continuous infusion of Bumex. Her condition has markedly improved. Her dyspnea has resolved. Her vital signs remain stable. She was diuresing very well. She was changed and taken off the BiPAP. She is on nasal cannula and she seems to be tolerating that very well. She is feeling weak and tired. She has no headache. No dizziness. No chest pain, no shortness of breath. She is resting comfortably. No abdominal pain, no nausea, no vomiting. She does have a Fraga catheter in place. She is complaining of generalized aches and pains. PHYSICAL EXAMINATION: GENERAL: Well-developed, in no acute distress. She seems to be resting quite comfortably this afternoon. VITAL SIGNS: Blood pressure 115/66, pulse 87, respirations 20, temperature 36.5 and oxygen saturation 92% on 5 liters oxygen by nasal cannula. SKIN: Warm and dry. No rash. HEENT: Oxygen cannula is in place. NECK: No JVD. No adenopathy. HEART: Regular heart sounds. LUNGS: Scattered rales. ABDOMEN: Soft and nontender. EXTREMITIES: No edema, clubbing or cyanosis. TODAY'S LABORATORY TESTS: WBC count 11,390. Her hemoglobin was 10.5, which has remained stable since the transfusion of 2 units of packed RBCs, hematocrit 30.9. She continues to have microcytic hypochromic indices. Her platelet count was 342,000. Sodium 128, potassium 4.0, chloride 91, CO2 30, BUN 13, creatinine 0.81, glucose 96, calcium 6.3, phosphorus 2.0, magnesium 2.3, total bilirubin 0.4, AST 43, ALT 75, alkaline phosphatase 107. Her ProBNP was 25,372, total protein 6.4 and albumin 2.3. Her chest x-ray continued to show changes consistent with her pulmonary edema, but clinically she is much improved. ASSESSMENT: 1. Stress cardiomyopathy with acute pulmonary edema. 2. Bilateral pneumonia. 3. Polycythemia vera. 4. Anemia. 5. Suspected myelofibrosis. 6. Hyponatremia. PLAN: 1. Continuing her diuresis. 2. As noted, her oxygenation has much improved and she is more tolerating her nasal cannula. 3. Continue monitoring her electrolytes and correct what needs to be corrected. 4. The patient is continued to be seen in cardiology by Dr. Amado. 5. I spoke with Dr. Hall this morning. He did see Mrs. Ruiz yesterday evening. Once her condition is stable, he is planning on doing a bone marrow aspiration and biopsy, possibly after her discharge to try to delineate exactly what is happening as far as her polycythemia vera and the etiology of her severe anemia.
[2016-11-11] VITALS (15 sets, daily range): BP systolic 101–137; BP diastolic 65–74; PULSE 82–91; TEMP 36.3–36.8; O2SAT 95–98
[2016-11-11] MEDS: POTASSIUM CHLR 10MEQ / WTR IV SCH ×3 (01:54→06:18)
[2016-11-11] MEDS: LEVALBUTEROL 1.25MG/3ML NEB INH SCH ×4 (02:13→19:05)
[2016-11-11] MEDS: LEVOTHYROXINE 50 MCG TAB PO SCH (05:39)
[2016-11-11 06:05] LABS: BASO % 0.5 %; BASO ABS # 0.05 K/uL (0-0.2); EOS % 1.5 %; IG% 0.9 %; LYMPH % 10.7 %; LYMPH ABS # 1.09 K/uL (1.2-3.4); MEAN CELL VOLUME 62.7 fL (80-100); MEAN CORPUSCULAR HEMOGLOBIN 20.5 pg (25-34); MEAN CORPUSCULAR HGB CONC 32.6 g/dl (32-36); MONO % 5.7 %; NEUT % 80.7 %; PLATELET COUNT 441 K/uL (130-400); RED BLOOD COUNT 5.42 M/uL (4.2-5.4); WHITE BLOOD COUNT 10.22 K/uL (4.8-10.8)
[2016-11-11 06:29] LABS: ANISOCYTOSIS PRESENT; COMPLETE YES; MICROCYTOSIS PRESENT; OVALOCYTES 1+
[2016-11-11 06:33] LABS: BUN/CREATININE RATIO 24.5 (10-20); CREATININE 0.7 mg/dl (0.60-1.20); MAGNESIUM 2.2 mg/dl (1.8-2.4); POTASSIUM 3.9 mmol/L (3.5-5.1)
[2016-11-11 06:41] LABS: ALB/GLOB RATIO 0.5 (0.9-2); PHOSPHORUS 1.7 mg/dl (2.5-4.9)
[2016-11-11] MEDS: INSULIN ASPART 100 UNITS/ML 3 ML PEN SC SCH ×4 (06:45→20:59)
--- NOTE | 2016-11-11 07:21 | DIAGNOSTIC IMAGING REPORT ---
CHEST ONE VIEW PORTABLE CLINICAL HISTORY: monitor CHF progression pulmonary edema COMPARISON STUDY: 11/10/2016 FINDINGS: Stable to slightly improved components of congestive failure and/or pulmonary edema. Slight improvement in visibility of the left lateral cardiac margin. Persistent small left pleural effusion. IMPRESSION: Stable to slightly improved components of pulmonary edema and/or congestive failure. Electronically signed by: Alli Ling M.D. 11/11/2016 7:19 AM Dictated Date/Time: 11/11/2016 7:17 AM
[2016-11-11] MEDS: ASPIRIN 81 MG ECTAB PO SCH (08:17)
[2016-11-11] MEDS: BOOST PLUS VANILLA PO SCH ×4 (08:18→11:27)
[2016-11-11] MEDS: POTASSIUM CHLORIDE PWD 20 MEQ PACK PO SCH ×2 (08:18→21:11)
[2016-11-11] MEDS: DIPHENOXYLATE/ATROPINE 2.5/0.025MG TAB PO PRN (08:19)
[2016-11-11] MEDS: ENOXAPARIN 40 MG/0.4 ML SYR SQ SCH (08:19)
[2016-11-11] MEDS: CHOLECALCIFEROL 1000 INTER.UNIT TAB PO SCH (08:19)
[2016-11-11] MEDS: PANTOprazole SOD 40 MG TAB PO SCH (08:19)
[2016-11-11] MEDS: POT PHOSPHATE MONOBASIC W/ SOD TAB PO SCH ×4 (08:20→21:06)
[2016-11-11] MEDS ORDERED: SODIUM PHOSPHATE 3 MMOL/1 ML INFUSION IV STA (08:51)
[2016-11-11] MEDS ORDERED: POLYETHYLENE (MIRALAX) 17 GM PACK PO SCH (09:00)
[2016-11-11] MEDS: LORAZEPAM 0.5 MG TAB PO PRN (09:26)
[2016-11-11] MEDS: LISINOPRIL 2.5 MG TAB PO SCH (09:27)
[2016-11-11] MEDS ORDERED: BUMETANIDE IV 2 MG in SYRINGE 0 ML IV ONE ×2 (09:30→19:00)
[2016-11-11] MEDS ORDERED: SODIUM PHOSPHATE INJ 21 MMOL in SODIUM CHLORIDE 0.9% 500ML 500 ML IV ONE (09:30)
--- NOTE | 2016-11-11 09:48 | Critical Care Progress Note ---
Critical Care Progress Note Date of Service Nov 11, 2016. ICU Day ICU Day Number: [address] Pretty Cordoba Subjective Notes that she still feel "crappy" Denies any pain overnight Feels breathing is slightly improved. Denies coughing or feeling wheezy. No chest pain overnight. No palpitations, no lightheadedness or dizziness Wondering if she can have maurer catheter removed Objective Constitutional: Vital signs as above were reviewed. Eyes: Pupils equal, round, and reactive to light. Extraocular muscles are intact. No proptosis. No photophobia. ENT: Mucous membranes are moist. Oropharynx is clear. No sinus tenderness. TMs are clear bilaterally. No appreciable JVD Cardiovascular: Heart with a regular rate and rhythm. Pulses are palpable and symmetric in all 4 extremities. No pedal edema appreciated. Respiratory: Lungs clear to auscultation bilaterally. No wheezes present. Bibasilar crackles along posterior lung reynolds. Unchanged from prior examination GI: Abdomen soft, nontender, nondistended. Normal active bowel sounds. No abdominal hernias appreciated. No rebound. No guarding. : No CVA tenderness appreciated. Musculoskeletal: No midline cervical or vertebral tenderness. No gross deformities. No bony tenderness. No calf swelling or tenderness. Integumentary: Warm, dry, no rashes appreciated. Neurological: Patient awake, alert, and oriented x 3. GCS 15 CAM-ICU negative Lymph: No cervical lymphadenopathy appreciated. Current SOFA Score SOFA Score Response (Comments) Value Platelets (x10) > 150 0 Bilirubin (mg/dL) < 1.2 0 Bradley Coma Score 15 0 Level of Hypotension No Hypotension 0 Creatinine (mg/dL) < 1.2 0 Total 0 Previous SOFA Scores 1 on 11/10/2016 Assessment & Plan (1) Altered mental status (2) Stress-induced cardiomyopathy (3) Elevated troponin (4) Complete heart block (5) Community acquired pneumonia (6) Depressive disorder (7) Osteoporosis (8) Hyponatremia (9) Hypophosphatemia (10) Hypothyroidism (11) GERD (gastroesophageal reflux disease) (12) T12 compression fracture (13) Polycythemia vera Our plan for her is as follows: NEUROLOGICAL - GCS: 15 - CAM-ICU negative Altered Mental Status - Resolved, currently mentating at baseline Depression - Continue Lexapro Anxiety: Ativan 0.5 mg PRN started overnight; no anxiety currently Pain regimen: Tylenol CARDIAC - BP: MAP 80s Improved yesterday to 110-120s systolic History of Complete Heart Block - Dual Chamber pacemaker in place - Stable Stress-Induced Cardiomyopathy/Takatsubo Cardiomyopathy - EF 55-60 on admission 10/09 --> Decreased to 35-40% on repeat echo 11/09 [place] [address] [address] today; can stop monitoring - 3 L diuresis yesterday; Bumex infusion discontinued - Patient remains congested on clinical examination and repeat chest x-ray Bumex 2 mg IV this morning; re-evaluate fluid balance in the afternoon to determine if she needs additional diuresis today Goal balance: Negative 1L over the next 24 hours - Fluid restrict 1500 ml - Strict I/O and daily weights - Repeat Echocardiogram at discretion of cardiology - Start Lisinopril 2.5 today; if BP stable, can try low dose Beta Amaya tomorrow - Cardiology recommendations appreciated Elevated Troponin - Downtrending to 0.068 today; no complaints suggestive of active ischemia - Due to supply/demand mismatch RESPIRATORY - BiPAP yesterday; on NC since overnight period - - No known Hx of chronic pulmonary disease Goal oxygen saturation > 94% Will require intermitted BiPAP during the day; BiPAP can be taken off at meals - Incentive Spirometry Community Acquired PNA - As noted in ID - Xopenex PRN GASTROINTESTINAL - Diet: Regular diet, 1500 ml fluid restriction - GI Prophylaxis: Protonix 40 mg PO daily - Bowel regimen: 2 BM yesterday RENAL//ENDOCRINE - Fluid Balance Cumulatively - 1.7 L 24 hour balance - 3.0 L - Pending diuresis volume this morning; will aim to D/C Maurer catheter this afternoon if patient can ambulate well to bedside commode - Cr: 0.7, stable - Electrolytes: Hyponatremia: 129 today and stable, improved from 123 on admission Continue NeutraPhos 250 QID; follow daily BMP 21 mmol NaPhos IV today Hypophosphatemia: NeutraPhos 250 1.7 21 mmol NaPhos IV today Hypocalcemia: Ionized calcium with afternoon BMP 20 mEq KPhos ordered by primary team; will help offset hypokalemia from diuresis Repeat BMP in the afternoon given ongoing diuresis and electrolyte abnormalities above - BSG: No history of DM; HbA1c 5.9; will do AC/HS checks SSI HEMATOLOGY/INFECTIOUS DISEASE - Tmax: 36.8 afebrile overnight WBC: 10, slightly improved today - Hb/Hct 11/34 Improved from Hb 8 on admission History of Polycythemia Vera - Seen by hematology at this admission; recommendations appreciated; recommend continuing to treat acute cardiopulmonary issues Community Acquired Pneumonia - Antibiotics: Rocephin and Levaquin Day 5 Patient will require today 7 day course of IV Abx - Negative blood cultures from 11/07/2016 - DVT Prophylaxis: Lovenox SCD LINES/IV ACCESS - 20 G in left arm - 20 G in left wrist CODE STATUS - Full Code DISPOSITION - OT/PT: ordered - Stable for transfer to Telemetry unit; will discuss and signout to primary team. Resident Physician Supervision Note/Pet Adoption Counselor I interviewed and examined the patient. VS, I/O, notes, meds, labs, micro, imaging and other reports reviewed and her care was discussed in detail on multidisciplinary rounds today. Care also Discussed with Dr. Conklin and agree with findings and plan as documented in the note. Any exceptions or clarifications are listed here: She feels a little better today and has been off Bipap since last night, tolerating 2LNC, and doing 1liter on incentive spirometry. Lung sounds improved and CXR with ongoing pulmonary edema. Acute hypoxemic respiratory failure is improved. She can use Bipap PRN and will continue Bumex intermittently. May be able to D/C maurer later today depending on her diuresis. BP improved and Lisinopril started for stress induced cardiomyopathy. Continue abx for total of 7 days for CAP. Poor appetite and vomited the Boost last night - dietary will work with her to try to find a suitable alternative for low volume nutritional support. Heme/Onc plan for BM biopsy once recovered from this illness. Labs pending. Many thanks to all services for assistance in her care. She is stable for transfer to telemetry. Please call with any questions or concerns. Documented By: Pretty Cordoba Consults & Procedures Consultants: Cardiology Procedures: Echocardiograms on: 11/08 11/09 Data Medications: Current Inpatient Medications Medications (Trade) Dose Ordered Sig/Camila Route Start Time Stop Time Status Last Admin Dose Admin Acetaminophen (Tylenol Tab) 650 mg Q4H PRN PO 11/07/16 14:45 12/07/16 14:44 11/08/16 16:22 650 MG Ondansetron HCl (Zofran Inj) 4 mg Q6H PRN IV 11/07/16 14:45 12/07/16 14:44 11/10/16 18:54 4 MG Aspirin (Ecotrin Tab) 81 mg DAILY PO 11/08/16 09:00 12/08/16 08:59 11/11/16 08:17 81 MG Cholecalciferol (Vitamin D Tab) 1,000 inter.unit DAILY PO 11/08/16 09:00 12/08/16 08:59 11/11/16 08:19 1,000 INTER.UNIT Escitalopram Oxalate (Lexapro Tab) 20 mg QPM PO 11/07/16 21:00 12/07/16 20:59 11/10/16 22:19 20 MG Levothyroxine Sodium (Synthroid Tab) 50 mcg DAILYBB PO 11/08/16 06:30 12/08/16 06:59 11/08/16 05:55 50 MCG Ceftriaxone Sodium 2000 mg/ Dextrose 70 ml @ 100 mls/hr Q24H IV 11/08/16 16:00 11/14/16 15:59 11/10/16 17:19 100 MLS/HR Levalbuterol (Xopenex 1.25MG/ 3ML Neb) 1.25 mg Q6R INH 11/07/16 21:00 12/07/16 20:59 11/11/16 07:11 1.25 MG Menthol (Nice Tobias) 1 tobias PRN PRN PO 11/08/16 16:30 12/08/16 16:29 11/08/16 16:22 24 TOBIAS Pantoprazole Sodium (Protonix Tab) 40 mg QAM PO 11/09/16 09:00 12/09/16 08:59 11/11/16 08:19 40 MG Al Hydrox/Mg Hydrox/Simethicone (Maalox Max Susp) 30 ml Q6H PRN PO 11/09/16 08:15 12/09/16 08:14 Diphenoxylate HCl/ Atropine (Lomotil Tab) 1 tab Q4H PRN PO 11/09/16 09:15 12/09/16 09:14 11/11/16 08:19 1 TAB Benzonatate (Tessalon Perles Cap) 100 mg Q6H PRN PO 11/09/16 09:15 12/09/16 09:14 11/09/16 09:37 100 MG Ioversol (Optiray 320) 125 ml UD PRN IV 11/09/16 10:45 11/13/16 10:44 Levofloxacin 750 mg/Prmx 150 ml @ 100 mls/hr Q24H IV 11/09/16 17:00 11/13/16 18:29 11/10/16 18:13 100 MLS/HR Magnesium Oxide (Mag-Ox Tab) 400 mg QPM PO 11/09/16 21:00 12/09/16 20:59 11/10/16 22:19 400 MG Enoxaparin Sodium (Lovenox Inj) 40 mg QAM SQ 11/10/16 09:00 12/10/16 08:59 11/11/16 08:19 40 MG Insulin Aspart (novoLOG ASPART) SLIDING SCALE If C... ACHS SC 11/09/16 21:00 12/09/16 20:59 Glucose (Glucose 40% Gel) 15-30 GRAMS 15 GRAMS... UD PRN PO 11/09/16 16:30 12/09/16 16:29 Glucose (Glucose Chew Tab) 4-8 Tablets 4 Tabl... UD PRN PO 11/09/16 16:30 12/09/16 16:29 Dextrose (Dextrose 50% 50ML Syringe) 25-50ML OF 50% DW IV FOR... UD PRN IV 11/09/16 16:30 12/09/16 16:29 Glucagon (Glucagon Inj) 1 mg UD PRN SQ 11/09/16 16:30 12/09/16 16:29 Polyethylene (Miralax Powder Packet) 17 gm DAILY PRN PO 11/10/16 09:55 12/11/16 08:59 Potassium/ Phosphorus/Sodium (Phospha 250 Neutral 155-852-130 Mg) 1 tab QID PO 11/10/16 13:00 12/10/16 12:59 11/11/16 08:20 1 TAB Enteral Nutritional Formula (Boost Plus Vanilla) 1 can TIDM PO 11/10/16 11:30 12/10/16 11:29 11/11/16 08:18 1 CAN Lorazepam (Ativan Tab) 0.5 mg BID PRN PO 11/10/16 21:30 12/10/16 21:29 11/11/16 09:26 0.5 MG Potassium Chloride (Klor-Con Pwd) 20 meq BID PO 11/11/16 09:00 12/11/16 08:59 11/11/16 08:18 20 MEQ Bumetanide 2 mg/ Syringe 8 ml @ 4 mls/min NOW ONCE IV 11/11/16 09:30 11/11/16 09:31 Lisinopril (Zestril Tab) 2.5 mg DAILY PO 11/11/16 09:15 12/09/16 09:14 11/11/16 09:27 2.5 MG Sodium Phosphate 21 mmol/Sodium Chloride 507 ml @ 140 mls/hr TODAY@0930 ONCE IV 11/11/16 09:30 11/11/16 13:07 Vital Signs: Date Time Temp Pulse Resp B/P (MAP) Pulse Ox O2 Delivery O2 Flow Rate FiO2 11/11/16 08:00 Nasal Cannula 2.0 11/11/16 08:00 36.8 91 23 125/71 (89) 97 Nasal Cannula 2.0 11/11/16 07:11 84 20 95 Nasal Cannula 4.0 11/11/16 06:00 84 18 120/73 (89) 96 Nasal Cannula 2.0 11/11/16 04:00 Nasal Cannula 3.0 11/11/16 04:00 36.8 82 17 110/70 (83) 95 Nasal Cannula 3.0 11/11/16 02:13 86 20 97 Nasal Cannula 4.0 11/11/16 02:00 83 16 106/65 (79) 97 Nasal Cannula 3.0 11/10/16 23:59 36.6 84 20 113/75 (88) 96 Nasal Cannula 4.0 11/10/16 23:59 Nasal Cannula 4.0 11/10/16 22:01 87 19 112/68 (83) 94 11/10/16 22:00 84 16 90 11/10/16 21:01 88 23 113/69 (84) 93 11/10/16 21:00 88 22 94 11/10/16 20:01 98 27 118/68 (85) 92 11/10/16 20:00 36.5 87 20 110/54 (72) 93 Nasal Cannula 5.0 11/10/16 20:00 98 27 91 11/10/16 20:00 Nasal Cannula 5.0 11/10/16 19:15 88 16 94 Nasal Cannula 5.0 11/10/16 19:01 90 24 110/67 (81) 11/10/16 19:00 89 17 92 11/10/16 16:00 Nasal Cannula 5.0 11/10/16 16:00 36.5 87 20 115/66 (82) 92 Nasal Cannula 5.0 11/10/16 14:12 88 24 96 BiPAP/CPAP 40 11/10/16 13:44 86 92 40 11/10/16 12:00 Nasal Cannula 5.0 11/10/16 12:00 36.5 94 26 113/69 (84) 94 Nasal Cannula 5.0 Laboratory Results: Last 24 Hours Test 11/10/16 11:12 11/10/16 16:32 11/10/16 18:00 11/10/16 20:00 Bedside Glucose 96 mg/dl 103 mg/dl 136 mg/dl Sodium Level 129 mmol/L Potassium Level 3.1 mmol/L Chloride Level 87 mmol/L Carbon Dioxide Level 30 mmol/L Anion Gap 12.0 mmol/L Blood Urea Nitrogen 17 mg/dl Creatinine 0.94 mg/dl Est Creatinine Clear Calc Drug Dose 52.3 ml/min Estimated GFR () 72.8 Estimated GFR (Non- 62.8 BUN/Creatinine Ratio 18.1 Random Glucose 137 mg/dl Calcium Level 6.6 mg/dl Test 11/11/16 05:22 11/11/16 06:20 11/11/16 08:09 White Blood Count 10.22 K/uL Red Blood Count 5.42 M/uL Hemoglobin 11.1 g/dL Hematocrit 34.0 % Mean Corpuscular Volume 62.7 fL Mean Corpuscular Hemoglobin 20.5 pg Mean Corpuscular Hemoglobin Concent 32.6 g/dl Platelet Count 441 K/uL Neutrophils (%) (Auto) 80.7 % Lymphocytes (%) (Auto) 10.7 % Monocytes (%) (Auto) 5.7 % Eosinophils (%) (Auto) 1.5 % Basophils (%) (Auto) 0.5 % Neutrophils # (Auto) 8.26 K/uL Lymphocytes # (Auto) 1.09 K/uL Monocytes # (Auto) 0.58 K/uL Eosinophils # (Auto) 0.15 K/uL Basophils # (Auto) 0.05 K/uL RDW Standard Deviation 58.3 fL RDW Coefficient of Variation 26.3 % Immature Granulocyte % (Auto) 0.9 % Immature Granulocyte # (Auto) 0.09 K/uL Anisocytosis PRESENT Microcytosis PRESENT Ovalocytes 1+ Sodium Level 129 mmol/L Potassium Level 3.9 mmol/L Chloride Level 90 mmol/L Carbon Dioxide Level 31 mmol/L Anion Gap 8.0 mmol/L Blood Urea Nitrogen 17 mg/dl Creatinine 0.70 mg/dl Est Creatinine Clear Calc Drug Dose 70.2 ml/min Estimated GFR () 103.9 Estimated GFR (Non- 89.7 BUN/Creatinine Ratio 24.5 Random Glucose 98 mg/dl Calcium Level 6.0 mg/dl Phosphorus Level 1.7 mg/dl Magnesium Level 2.2 mg/dl Total Bilirubin 0.4 mg/dl Aspartate Amino Transf (AST/SGOT) 85 U/L Alanine Aminotransferase (ALT/SGPT) 114 U/L Alkaline Phosphatase 118 U/L Troponin I 0.068 ng/ml Pro-B-Type Natriuretic Peptide 36757 pg/ml Total Protein 6.5 gm/dl Albumin 2.3 gm/dl Globulin 4.2 gm/dl Albumin/Globulin Ratio 0.5 Bedside Glucose 109 mg/dl
--- NOTE | 2016-11-11 09:53 | CARDIOLOGY PROGRESS NOTE ---
DATE: 11/11/2016 DATE: 11/11/2016. SUBJECTIVE: This morning Mrs. Ruiz claims to be feeling much better. She states that her breathing is much improved. She is quite comfortable sitting in a chair. She has not ambulated around the room much, but feels good out of bed. She denies significant pain. She denies any sense of palpitations. She has not had any dizziness. PHYSICAL EXAMINATION: GENERAL: She was alert and oriented, mood and affect appeared normal. She answered all questions appropriately. CURRENT VITAL SIGNS: Include blood pressure 125/71 with pulse 91. LUNGS: Auscultation of her lungs revealed reduced breath sounds in the bases bilaterally and more so on the right but the apices appear to be clear and I do not appreciate any rales on exam. There was no expiratory wheezing. CARDIAC EXAMINATION: Revealed her to be in a regular rhythm without murmur. EXTREMITIES: Evaluation of lower extremities did not reveal any significant peripheral edema. LABORATORY STUDIES: Today included a white cell count of 10, hemoglobin of 11.1 and a platelet count of 441. Sodium is 129, potassium is 3.9, BUN was 17, creatinine was 0.7 and N-terminal ProBNP was 11,631. Single view chest x-ray was also obtained which revealed some interval improvement in the pulmonary edema pattern. IMPRESSIONS: 1. Acute decompensated left ventricular systolic failure: The patient has stress cardiomyopathy and flash pulmonary edema. She diuresed quite aggressively yesterday on Bumex infusion. Symptomatically and clinically she is much improved. The intention is to discontinue the infusion and continue intravenous administration of bumetanide for continued effect. 2. Stress cardiomyopathy: The patient did not have significant chest pain and her cardiac biomarkers do not rise significantly during this episode. However, her echocardiogram and EKG findings are all consistent with this diagnosis. At this point the care is supportive and primary objective was reduction in her pulmonary vascular congestion which is being affected by her diuresis. Low dose lisinopril and initiation of beta blockade would be indicated when she is hemodynamically stable. 3. Complete heart block: The patient had a dual chamber permanent pacemaker implanted for complete heart block. She occasionally manifests 1:1 conduction. Normal device function at this point. [facility]
[2016-11-11] MEDS: ONDANSETRON INJ 2 MG/ML 2 ML VIAL IV PRN (10:16)
[2016-11-11] MEDS: CEFTRIAXONE SOD INJ 2,000 MG in DEXTROSE 5% 50ML 50 ML IV SCH (15:53)
[2016-11-11 16:37] LABS: BUN/CREATININE RATIO 18.1 (10-20); CALCIUM 6.2 mg/dl (8.5-10.1); CREATININE 0.77 mg/dl (0.60-1.20); MAGNESIUM 2.3 mg/dl (1.8-2.4); POTASSIUM 3.9 mmol/L (3.5-5.1)
[2016-11-11] MEDS: BOOST VANILLA PUDDING CUP PO SCH (16:45)
[2016-11-11] MEDS: LEVOFLOXACIN / D5W 750 MG in PREMIXED IN D5W 150 ML IV SCH (16:57)
[2016-11-11] MEDS ORDERED: POTASSIUM CHLR 10 MEQ / WTR 10 MEQ in PREMIXED WATER 100 ML IV ONE (17:00)
[2016-11-11] MEDS ORDERED: POTASSIUM CHLORIDE 10 MEQ TABCR PO ONE (17:00)
[2016-11-11 17:07] LABS: PHOSPHORUS 3.5 mg/dl (2.5-4.9)
[2016-11-11] MEDS: ESCITALOPRAM OXALATE 20 MG TAB PO SCH (21:06)
[2016-11-11] MEDS: MAGNESIUM OXIDE 400 MG TAB PO SCH (21:06)
[2016-11-11 21:53] LABS: ALBUMIN 2.8 G/DL (3.8-4.8); TOTAL PROTEIN 6.3 G/DL (6.2-8.3)
--- NOTE | 2016-11-11 22:55 | Hematology/Oncology Prog Note ---
Hematology/Onc Progress Note Date of Service Nov 11, 2016. Subjective I saw her bedside at about 6:00 p.m., she was sitting quite comfortably in the bed, receiving nasal cannula supplemental oxygen at 2 L/min, hemodynamically has remained stable, significant improvement of the shortness of breath noted, no new increasing chest pain, no new itching, no bleeding from any sites. No fever. Reviewed her blood workup done in the last 48 hours, stable hemoglobin level noted around 11 g/dL, white blood cell count around 10,000, platelet count is around 441,000. Stable kidney function test with serum creatinine level is around 0.7. Pro-BNP dropped down to around 11,000. For hematological point of view, she is stable, will see her as an outpatient following discharge and then will decide about further workup in the form of bone marrow in the next few weeks. Vital Signs Vital Signs Past 12 Hours Date Time Temp Pulse Resp B/P (MAP) Pulse Ox O2 Delivery O2 Flow Rate FiO2 11/11/16 20:12 36.5 84 18 106/68 (81) 96 Nasal Cannula 2.0 Humidified Oxygen 11/11/16 19:06 87 16 96 Nasal Cannula 2.0 11/11/16 16:21 36.8 87 18 101/67 (78) 98 Nasal Cannula 2.0 Mask 11/11/16 16:00 Room Air 11/11/16 15:46 82 96 11/11/16 14:29 82 20 95 Nasal Cannula 4.0 11/11/16 13:30 36.3 87 19 102/66 (78) 95 Nasal Cannula 2.0 11/11/16 12:00 90 27 115/68 (84) 97 Nasal Cannula 2.0 11/11/16 12:00 Nasal Cannula 2.0
--- NOTE | 2016-11-11 23:47 | PROGRESS NOTE ---
DATE: 11/11/2016 A 66-year-old female, admitted with bilateral pneumonia; more pronounced on the left side. Her medical problems also include polycythemia vera, treated for about 20 years. She was also markedly anemic, her hemoglobin came down as low as 7.9 and she required two units of packed RBCs transfusion. The patient presented with an acute respiratory failure and flash pulmonary edema. She was transferred to ICU. She was placed on a BiPAP. She was diuresed first with Lasix and then with Bumex. She had good response. An echocardiogram was done at bedside and subsequently a complete echo was done which showed evidence of stress cardiomyopathy. The patient remains afebrile. All her cultures have been negative. Her condition improved. Her oxygenation also improved. Her acute congestive heart failure is resolving. She denied any headache. No dizziness. She is feeling weak and tired. No chest pain, no shortness of breath. No abdominal pain, no nausea, no vomiting. She had a Fraga catheter, that was removed today. She is voiding without any problem. PHYSICAL EXAMINATION: GENERAL: Well-developed, in no distress. VITAL SIGNS: Blood pressure 125/71, pulse 91, respirations 23, temperature 36.8 and oxygen saturation 97% on two liters oxygen by nasal cannula. SKIN: Warm and dry. No rash. HEENT: Oxygen cannula in place. No mucosal abnormality. NECK: No JVD. No adenopathy. HEART: Regular heart sounds. LUNGS: Bilateral rales, markedly improved though. ABDOMEN: Soft and nontender. BACK: No spinal tenderness. EXTREMITIES: No edema, clubbing or cyanosis. TODAY'S LABORATORY TESTS: WBC count 10,220, hemoglobin 11.1, hematocrit 34% and platelet count 441,000. Sodium 129, potassium 3.9, chloride 90, CO2 31, BUN 17, creatinine 0.7, glucose 98, calcium 6.0, phosphorus 1.7, magnesium 2.2, total bilirubin 0.4, AST 85, ALT 114, alkaline phosphatase 118. Troponin I 0.068. ProBNP 11,631. Total protein 6.5, albumin 2.3 and globulin 4.2. Her chest x-ray continued to show interstitial abnormalities. There was some improvement noted in the pulmonary edema pattern and congestive heart failure. ASSESSMENT: 1. Bilateral pneumonia. 2. Stress cardiomyopathy. 3. Acute congestive heart failure. 4. Polycythemia vera. 5. Anemia. PLAN: 1. The patient was continued on her medications, continuing to be diuresed with IV Bumex. 2. Her condition has markedly improved. 3. She was transferred to PCU with telemetry. 4. Physical and occupational therapy. 5. Continue monitoring her laboratory tests. 6. Continue her IV antibiotics.
[2016-11-12] VITALS (13 sets, daily range): BP systolic 104–128; BP diastolic 64–80; PULSE 78–86; TEMP 36.4–37; O2SAT 93–97
[2016-11-12] MEDS: LEVALBUTEROL 1.25MG/3ML NEB INH SCH ×4 (01:57→19:25)
[2016-11-12 05:46] LABS: BASO % 0.7 %; BASO ABS # 0.08 K/uL (0-0.2); EOS % 2.1 %; HEMATOCRIT 36.9 % (37-47); IG% 1.8 %; LYMPH % 10.9 %; LYMPH ABS # 1.17 K/uL (1.2-3.4); MEAN CORPUSCULAR HEMOGLOBIN 19.8 pg (25-34); MEAN CORPUSCULAR HGB CONC 31.4 g/dl (32-36); MONO % 4.2 %; NEUT % 80.3 %; PLATELET COUNT 464 K/uL (130-400); RED BLOOD COUNT 5.86 M/uL (4.2-5.4); WHITE BLOOD COUNT 10.75 K/uL (4.8-10.8)
[2016-11-12 06:16] LABS: BUN/CREATININE RATIO 18.9 (10-20); CALCIUM 6.1 mg/dl (8.5-10.1); CREATININE 0.67 mg/dl (0.60-1.20); MAGNESIUM 2.2 mg/dl (1.8-2.4); POTASSIUM 4.2 mmol/L (3.5-5.1)
[2016-11-12 06:20] LABS: ALB/GLOB RATIO 0.5 (0.9-2); PHOSPHORUS 2.8 mg/dl (2.5-4.9)
[2016-11-12 06:40] LABS: ANISOCYTOSIS PRESENT; COMPLETE YES; MICROCYTOSIS PRESENT; OVALOCYTES 1+; VACUOLIZATION 2+
[2016-11-12] MEDS ORDERED: BUMETANIDE IV 2 MG in SYRINGE 0 ML IV STA (06:43)
[2016-11-12] MEDS: INSULIN ASPART 100 UNITS/ML 3 ML PEN SC SCH ×4 (07:00→20:39)
--- NOTE | 2016-11-12 07:57 | DIAGNOSTIC IMAGING REPORT ---
CHEST ONE VIEW PORTABLE CLINICAL HISTORY: Congestive heart failure. COMPARISON STUDY: Chest radiograph November 11, 2016. FINDINGS: A dual lead left subclavian pacemaker is in place. Cardiomediastinal silhouette is stable. Bilateral pleural effusions, likely small to moderate, are unchanged. Diffuse interstitial thickening with bilateral airspace opacities, greater within the left lung, are again noted. Slight improvement is noted since prior exam. IMPRESSION: 1. Persistent, but slightly improved, pulmonary edema. 2. Persistent bilateral pleural effusions and associated bilateral opacities. Electronically signed by: Phan Ram M.D. 11/12/2016 7:56 AM Dictated Date/Time: 11/12/2016 7:53 AM
[2016-11-12] MEDS: BOOST VANILLA PUDDING CUP PO SCH ×3 (08:18→16:12)
[2016-11-12] MEDS: ASPIRIN 81 MG ECTAB PO SCH (08:19)
[2016-11-12] MEDS: POTASSIUM CHLORIDE PWD 20 MEQ PACK PO SCH ×2 (08:19→20:38)
[2016-11-12] MEDS: CHOLECALCIFEROL 1000 INTER.UNIT TAB PO SCH (08:19)
[2016-11-12] MEDS: LISINOPRIL 2.5 MG TAB PO SCH (08:20)
[2016-11-12] MEDS: POT PHOSPHATE MONOBASIC W/ SOD TAB PO SCH ×4 (08:20→20:38)
[2016-11-12] MEDS: ENOXAPARIN 40 MG/0.4 ML SYR SQ SCH (08:21)
[2016-11-12] MEDS: LEVOTHYROXINE 50 MCG TAB PO SCH (08:21)
[2016-11-12] MEDS: PANTOprazole SOD 40 MG TAB PO SCH (08:22)
--- NOTE | 2016-11-12 13:54 | CARDIOLOGY PROGRESS NOTE ---
DATE: 11/12/2016 DATE: 11/12/2016. SUBJECTIVE: This morning Mrs. Ruiz claims to be feeling well. She states that her breathing is normal and she was ambulatory around her room last night. She denies any orthopnea currently. She has no symptoms of chest pain, no sense of palpitations. PHYSICAL EXAMINATION: GENERAL: She was alert and oriented, mood and affect appeared normal. She answered all questions appropriately. CURRENT VITAL SIGNS: Include blood pressure 128/80 with a pulse of 85. LUNGS: Auscultation of lungs reveal them to generally be clear with some slightly reduced breath sounds at the bases bilaterally but no expiratory wheezing and no rales. CARDIAC EXAMINATION: Revealed her to be in a regular rhythm without murmur. EXTREMITIES: There is no evidence of peripheral edema. LABORATORY STUDIES: Obtained today included sodium 132, potassium of 4.2, BUN was 13, creatinine was 0.67. White cell count 10.7, hemoglobin was 11.6, platelet count was 464. ASSESSMENT AND PLAN: 1. Pulmonary edema: The patient's symptoms are much improved. Her examination is also improved. Her oxygenation is much better. She did affect a good diuresis yesterday. Her x-ray suggests persistent pulmonary vascular congestion and would seem reasonable to keep on a small dose of diuretic currently in order to affect a net negative output of perhaps 500 mL to 1 liters a day. 2. Stress cardiomyopathy: The patient was started on LEX inhibition. She appears to be tolerating this well. Ideally she should be on a beta brian as well but would seem reasonable to reassess her LV function tomorrow to see if there has been some improvement prior to starting another medication. 3. Complete heart block: Normally functioning permanent pacemaker.
[2016-11-12] MEDS: CEFTRIAXONE SOD INJ 2,000 MG in DEXTROSE 5% 50ML 50 ML IV SCH (16:14)
[2016-11-12] MEDS: LEVOFLOXACIN / D5W 750 MG in PREMIXED IN D5W 150 ML IV SCH (17:03)
[2016-11-12] MEDS: LORAZEPAM 0.5 MG TAB PO PRN (17:07)
[2016-11-12] MEDS: MAGNESIUM OXIDE 400 MG TAB PO SCH (20:38)
[2016-11-12] MEDS: ESCITALOPRAM OXALATE 20 MG TAB PO SCH (20:38)
[2016-11-12] MEDS: ACETAMINOPHEN 325 MG TAB PO PRN (21:29)
[2016-11-13] VITALS (10 sets, daily range): BP systolic 116–130; BP diastolic 66–76; PULSE 72–87; TEMP 36.4–36.8; O2SAT 93–97
--- NOTE | 2016-11-13 01:28 | PROGRESS NOTE ---
DATE: 11/12/2016 A 66-year-old female admitted with bilateral pneumonia. She also had congestive heart failure. She acutely presented with flash pulmonary edema and was diagnosed with stress cardiomyopathy. She had acute respiratory failure. She was transferred to ICU. She was placed on a BiPAP. She was diuresed with IV Bumex. Her condition improved. Her congestive heart failure, started to resolve. She remained afebrile. She was transferred back to PCU yesterday. The patient had a restful night. She denied any headache or dizziness or lightheadedness. She denied any chest pain. No shortness of breath. Her oxygenation has markedly improved, and she is not requiring oxygen all the time. Denied any abdominal pain, no nausea, no vomiting. No problem urinating. No ankle edema. PHYSICAL EXAMINATION: GENERAL: Well developed, in no distress. VITAL SIGNS: Blood pressure 124/74, pulse 86, respiration 22, temperature 36.5, oxygen saturation 95% on 1 L oxygen by nasal cannula. SKIN: Warm and dry. No rash. HEENT: No evidence of any mucosal abnormality. NECK: No JVD. No adenopathy. HEART: Regular heart sounds. LUNGS: Bilateral rales. ABDOMEN: Soft, nontender. EXTREMITIES: No edema, clubbing or cyanosis. LABORATORY DATA: Today's laboratory test, WBC count 10,750, hemoglobin 11.6, hematocrit 36.9, platelet count 464,000. Sodium 132, potassium 4.2, chloride 95, CO2 28, BUN 13, creatinine 0.67, glucose 104, calcium 6.1, phosphorus 2.8, magnesium 2.2. Total bilirubin 0.3, AST 47, ALT 92, alkaline phosphatase 110. Total protein 6.6, albumin 2.3. Chest x-ray showed improvement in the congestive heart failure pattern. ASSESSMENT: 1. Bilateral pneumonia. 2. Congestive heart failure. 3. Stress cardiomyopathy. 4. Polycythemia vera. 5. Anemia, required blood transfusion. 6. Permanent pacemaker. PLAN: 1. Continuing her medications. 2. She was given additional dose of Bumex 2 mg IV. 3. Continue monitoring her laboratory tests. 4. She is tolerating it the lisinopril. 5. Dr. Amado ordered another echocardiogram to be done tomorrow. We will assess her function and decide on starting a beta brian. 6. Out of bed and she has been ambulating.
[2016-11-13] MEDS: LEVALBUTEROL 1.25MG/3ML NEB INH SCH ×4 (01:55→19:06)
[2016-11-13 05:36] LABS: BASO % 0.7 %; BASO ABS # 0.08 K/uL (0-0.2); EOS % 2.3 %; HEMATOCRIT 37.5 % (37-47); IG% 1.6 %; LYMPH % 12.2 %; LYMPH ABS # 1.37 K/uL (1.2-3.4); MEAN CELL VOLUME 64.4 fL (80-100); MEAN CORPUSCULAR HEMOGLOBIN 20.6 pg (25-34); MEAN PLATELET VOLUME 9.4 fL (7.4-10.4); MONO % 4.6 %; NEUT % 78.6 %; PLATELET COUNT 459 K/uL (130-400); RED BLOOD COUNT 5.82 M/uL (4.2-5.4); WHITE BLOOD COUNT 11.23 K/uL (4.8-10.8)
[2016-11-13] MEDS: LEVOTHYROXINE 50 MCG TAB PO SCH ×2 (06:00→06:39)
[2016-11-13 06:05] LABS: ANISOCYTOSIS PRESENT; COMPLETE YES; MICROCYTOSIS PRESENT
[2016-11-13 06:11] LABS: BUN/CREATININE RATIO 17.5 (10-20); CALCIUM 6.6 mg/dl (8.5-10.1); CREATININE 0.62 mg/dl (0.60-1.20); MAGNESIUM 2.3 mg/dl (1.8-2.4); POTASSIUM 3.9 mmol/L (3.5-5.1)
[2016-11-13 06:14] LABS: ALB/GLOB RATIO 0.6 (0.9-2); PHOSPHORUS 3.2 mg/dl (2.5-4.9)
[2016-11-13] MEDS: BOOST VANILLA PUDDING CUP PO SCH ×3 (07:30→16:45)
[2016-11-13] MEDS: INSULIN ASPART 100 UNITS/ML 3 ML PEN SC SCH ×4 (07:56→21:00)
[2016-11-13] MEDS: CHOLECALCIFEROL 1000 INTER.UNIT TAB PO SCH (07:58)
[2016-11-13] MEDS: POT PHOSPHATE MONOBASIC W/ SOD TAB PO SCH ×4 (07:59→21:30)
[2016-11-13] MEDS: ASPIRIN 81 MG ECTAB PO SCH (07:59)
[2016-11-13] MEDS: PANTOprazole SOD 40 MG TAB PO SCH (07:59)
[2016-11-13] MEDS: POTASSIUM CHLORIDE PWD 20 MEQ PACK PO SCH ×3 (08:00→21:00)
[2016-11-13] MEDS: ENOXAPARIN 40 MG/0.4 ML SYR SQ SCH (08:00)
--- NOTE | 2016-11-13 08:05 | ECHOCARDIOGRAM REPORT ---
*NOTICE TO RECEIVING [employer] This information is strictly Confidential and protected under [place] law. [place] law prohibits you from making any further disclosure of this information unless further disclosure is expressly permitted by the written consent of the person to whom it pertains or is authorized by law. A general authorization for the release of medical or other information is not sufficient for this purpose. Hospital accepts no responsibility if the information is made available to any other person, INCLUDING THE PATIENT. Interpretation Summary * Name: HAI JOY Study Date: 11/13/2016 06:30 AM BP: 128/80 mmHg * Patient Location: 209 HR: 85 * : 1950 (M/d/yyyy) Gender: Female Height: 65 in * Age: 66 yrs Ethnicity: [place] Weight: 130 lb * Ordering Physician: Christopher. Amado MD * Performed By: Kaia Garces * * Reason For Study: EVALUATE LV FUNCTION * BSA: 1.6 m2 * -- Conclusions -- * There are regional wall motion abnormalities as specified. * Moderate size left pleural effusion. * Compared to a study from 4 dyas ago, there has been little change. Procedure Details * The study was technically limited. Left Ventricle * Ejection Fraction = 35-40%. * There are regional wall motion abnormalities as specified. * Normal motion of the basal segments with akinesis of most of the apex. Pericardium/Pleural * There is no pericardial effusion. * Moderate size left pleural effusion. MMode 2D Measurements and Calculations IVSd 1.2 cm IVSs 1.6 cm LVIDd 4.0 cm LVIDs 2.9 cm LVPWd 1.0 cm LVPWs 1.4 cm IVS/LVPW 1.2 FS 26.5 % EDV(Teich) 69.2 ml ESV(Teich) 33.0 ml EF(Teich) 52.4 % EDV(cubed) 63.1 ml ESV(cubed) 25.1 ml EF(cubed) 60.2 % % IVS thick 35.5 % % LVPW thick 42.3 % LV mass(C)d 146.5 grams LV mass(C)dI 88.9 grams/m\S\2 LV mass(C)s 159.9 grams LV mass(C)sI 97.1 grams/m\S\2 SV(Teich) 36.2 ml SI(Teich) 22.0 ml/m\S\2 SV(cubed) 38.0 ml SI(cubed) 23.1 ml/m\S\2 LA dimension 3.0 cm LVAd ap4 27.0 cm\S\2 LVLd ap4 7.6 cm EDV(MOD-sp4) 79.2 ml EDV(sp4-el) 81.9 ml LVAs ap4 17.2 cm\S\2 LVLs ap4 6.5 cm ESV(MOD-sp4) 37.7 ml ESV(sp4-el) 38.4 ml EF(MOD-sp4) 52.4 % EF(sp4-el) 53.2 % LVAd ap2 24.9 cm\S\2 LVLd ap2 7.3 cm EDV(MOD-sp2) 69.6 ml EDV(sp2-el) 72.2 ml LVAs ap2 16.4 cm\S\2 LVLs ap2 6.3 cm ESV(MOD-sp2) 34.6 ml ESV(sp2-el) 36.1 ml EF(MOD-sp2) 50.3 % EF(sp2-el) 50.0 % LVLd %diff -3.66 % EDV(MOD-bp) 73.2 ml LVLs %diff -3.27 % ESV(MOD-bp) 35.8 ml EF(MOD-bp) 51.1 % SV(MOD-sp4) 41.5 ml SI(MOD-sp4) 25.2 ml/m\S\2 SV(MOD-sp2) 35.0 ml SI(MOD-sp2) 21.3 ml/m\S\2 SV(MOD-bp) 37.4 ml SI(MOD-bp) 22.7 ml/m\S\2 SV(sp4-el) 43.6 ml SI(sp4-el) 26.4 ml/m\S\2 SV(sp2-el) 36.1 ml SI(sp2-el) 21.9 ml/m\S\2
[2016-11-13] MEDS: LOSARTAN POTASSIUM 25 MG TAB PO SCH (08:24)
[2016-11-13] MEDS: METOPROLOL SUCC 25MG EXT REL TAB PO SCH (08:24)
--- NOTE | 2016-11-13 09:12 | DIAGNOSTIC IMAGING REPORT ---
CHEST ONE VIEW PORTABLE HISTORY: Congestive heart failure. Follow-up. Short of breath. COMPARISON: Chest 11/12/2016. FINDINGS: No pneumothorax. Small bilateral pleural effusions. Mild pulmonary edema has slightly improved. The heart is normal in size. Left-sided dual-chamber pacemaker. Left basilar densities have also improved. IMPRESSION: 1. Interval improvement in the pulmonary edema and left basilar airspace opacities. 2. Small bilateral pleural effusions persist. Electronically signed by: Doug Campbell M.D. 11/13/2016 9:10 AM Dictated Date/Time: 11/13/2016 9:09 AM
[2016-11-13] MEDS ORDERED: BUMETANIDE IV 2 MG in SYRINGE 0 ML IV ONE (09:30)
--- NOTE | 2016-11-13 09:38 | CARDIOLOGY PROGRESS NOTE ---
DATE: 11/13/2016 SUBJECTIVE: This morning, Ms. Ruiz claims to be feeling quite well. She states that her strength is improving. She is able to ambulate without significant dyspnea. She did not report notable orthopnea. She has no symptoms of chest discomfort, but some minor generalized aches and pains. She does complain of a nonproductive cough. PHYSICAL EXAMINATION: GENERAL: She is alert and oriented. Her mood and affect appeared normal and she answered all questions appropriately. VITAL SIGNS: Her current vital signs include a blood pressure 130/74 with a pulse of 80. HEENT: Her sclerae are anicteric. LUNGS: Auscultation of her lungs revealed good aeration without crackles. There were some reduced breath sounds, primarily on the left side, but also the right base. CARDIAC EXAMINATION: Revealed her to be in a regular rhythm. LABORATORY STUDIES: Today, included a sodium of 131, a potassium of 3.9, BUN was 11, creatinine was 0.62. Repeat limited echocardiogram performed this morning revealed persistent LV dysfunction. This is relatively unchanged from 4 days ago. ASSESSMENT AND PLAN: 1. Congestive heart failure: This is secondary to stress cardiomyopathy. Symptomatically and clinically, she is much improved. She had a good diuresis over the past 2 days and would likely benefit from a single oral daily dose of diuretic to maintain euvolemia. 2. Stress cardiomyopathy: The patient is on LEX inhibitor, which may be causing a cough. It seems reasonable to switch her to an ARB. Based on the persistent nature of her cardiomyopathy, we will also initiate beta-brian therapy. 3. Complete heart block. The patient continues to have intact conduction at this time. Review of her telemetry suggests atrial fibrillation or flutter, but an EKG performed at this time revealed normal sinus rhythm. I can interrogate her pacemaker later today to see if there was any true atrial arrhythmia.
[2016-11-13] MEDS: CEFTRIAXONE SOD INJ 2,000 MG in DEXTROSE 5% 50ML 50 ML IV SCH (15:39)
[2016-11-13] MEDS: LEVOFLOXACIN / D5W 750 MG in PREMIXED IN D5W 150 ML IV SCH (16:55)
[2016-11-13] MEDS: LORAZEPAM 0.5 MG TAB PO PRN (19:45)
[2016-11-13] MEDS: ACETAMINOPHEN 325 MG TAB PO PRN (19:46)
[2016-11-13] MEDS: MAGNESIUM OXIDE 400 MG TAB PO SCH (21:29)
[2016-11-13] MEDS: ESCITALOPRAM OXALATE 20 MG TAB PO SCH (21:29)
--- NOTE | 2016-11-14 01:21 | PROGRESS NOTE ---
DATE: 11/13/2016 A 66-year-old female admitted with evidence of bilateral pneumonia. She has polycythemia vera. Also has severe anemia, which required transfusion. The patient presented with acute flash pulmonary edema. She was transferred to ICU. Her workup revealed evidence of stress cardiomyopathy. She was diuresed with IV Lasix. She was placed on BiPAP. Her condition improved. She diuresed very well. Her congestive heart failure is resolved. She denied any headache or dizziness. No chest pain, no shortness of breath. No abdominal pain, no nausea, no vomiting. No problem urinating. No pain in her back or extremities. PHYSICAL EXAMINATION: GENERAL: Well developed, in no distress. VITAL SIGNS: Blood pressure 130/74, pulse 80, respiration 18, temperature 36.4, oxygen saturation 96% on room air. SKIN: Warm and dry. No rash. HEENT: No mucosal abnormality. NECK: No JVD. HEART: Regular heart sounds. No evident murmur, rub, or gallop. LUNGS: Minimal basilar rales. ABDOMEN: Soft, nontender. BACK: No spinal tenderness. EXTREMITIES: No edema, clubbing, or cyanosis. LABORATORY TESTS: WBC count 11,230; hemoglobin 12, hematocrit 37.5, platelet count 455,000. Sodium 131, potassium 3.9, chloride 96, CO2 30, BUN 11, creatinine 0.62, glucose 103, calcium 6.6, phosphorus 3.2, magnesium 2.3, total bilirubin 0.4, AST 41, ALT 75, alkaline phosphatase 108, total protein 6.6, albumin 2.4. ASSESSMENT: 1. Bilateral pneumonia. Improved. 2. Stress cardiomyopathy. 3. Congestive heart failure. Acute. Secondary to her stress cardiomyopathy. 4. Polycythemia vera. 5. Anemia, requiring transfusion. PLAN: 1. Continuing with diuresis with IV Bumex. 2. An echocardiogram was repeated this morning. She still has evidence of reduced left ventricular ejection fraction. 3. She was complaining of cough. Changed her from lisinopril to Losartan. 4. Metoprolol succinate was added at 25 mg daily. 5. Continue monitoring her condition.
[2016-11-14] MEDS: LEVALBUTEROL 1.25MG/3ML NEB INH SCH ×2 (01:40→07:05)
[2016-11-14 04:01] VITALS: BP 123/70; PULSE 74; TEMP 36.6; O2SAT 94
[2016-11-14 06:25] LABS: BASO % 0.8 %; BASO ABS # 0.09 K/uL (0-0.2); EOS % 1.8 %; HEMATOCRIT 39.7 % (37-47); LYMPH % 11.1 %; LYMPH ABS # 1.24 K/uL (1.2-3.4); MEAN CELL VOLUME 64.3 fL (80-100); MEAN CORPUSCULAR HEMOGLOBIN 20.4 pg (25-34); MEAN CORPUSCULAR HGB CONC 31.7 g/dl (32-36); NEUT % 78.3 %; PLATELET COUNT 444 K/uL (130-400); RED BLOOD COUNT 6.17 M/uL (4.2-5.4); WHITE BLOOD COUNT 11.22 K/uL (4.8-10.8)
[2016-11-14 07:00] LABS: HYPOCHROMIA PRESENT; OVALOCYTES 1+
[2016-11-14 07:01] LABS: COMPLETE YES; HYPERSEGMENTED POLYS 1+; HYPOCHROMIA PRESENT; MICROCYTOSIS PRESENT; OVALOCYTES 1+; POLYCHROMASIA 1+; SCHISTOCYTES 1+; SPHEROCYTE 1+
[2016-11-14 07:01] LABS: SPHEROCYTE 1+
[2016-11-14 07:05] VITALS: PULSE 84; O2SAT 94
[2016-11-14] MEDS: BOOST VANILLA PUDDING CUP PO SCH (07:30)
--- NOTE | 2016-11-14 07:39 | DIAGNOSTIC IMAGING REPORT ---
CHEST ONE VIEW PORTABLE CLINICAL HISTORY: CHF COMPARISON STUDY: 11/13/2016 FINDINGS: The cardiac images all contours remain stable. There is a left subclavian dual-chamber central venous pacemaker. There are bilateral pleural effusions left greater than right. There are associated left basilar airspace opacities. There is been further improvement in the previous described prevascular congestion.[ IMPRESSION: Resolving pulmonary vascular congestion. Persistent bilateral pleural effusions left greater than right with associated left basilar airspace opacities Electronically signed by: Terry Iverson M.D. 11/14/2016 7:38 AM Dictated Date/Time: 11/14/2016 7:37 AM
[2016-11-14 07:54] VITALS: BP 137/75; PULSE 80; TEMP 36.8; O2SAT 95
[2016-11-14] MEDS ORDERED: CZR25 PO (08:02)
[2016-11-14] MEDS ORDERED: TPRSR25 PO (08:02)
[2016-11-14] MEDS ORDERED: FURO20TA PO (08:05)
[2016-11-14] MEDS ORDERED: AMOX500T PO (08:05)
[2016-11-14] MEDS ORDERED: POTA10CA28 PO (08:05)
--- NOTE | 2016-11-14 08:11 | Discharge Instructions ---
Discharge Instructions Date of Service Nov 14, 2016. Admission Reason for Admission: BILATERAL PNEUMONIA CONGESTIVE HEART FAILURE STRESS CARDIOMYOPATHY POLYCYTHEMIA VERA ANEMIA DYSPEPSIA Discharge Discharge Diagnosis / Problem: STRESS CARDIOMYOPATHY. CONGESTIVE HEART FAILURE. PNEUMONIA.ANEMIA. POLCYTHE Discharge Goals Goal(s): Decrease discomfort, Improve function, Increase independence, Improve disease control, Improve nutritional status Activity Recommendations Activity Limitations: as noted below (AVOID EXERTION. GRADUAL INCREASE IN ACTIVITY) . Instructions / Follow-Up Instructions / Follow-Up DR BULLARD IN ONE WEEK DR LEONARDO. CALL FOR APPOINTMENT IN 7-[address] LOBO Current Hospital Diet Patient's current hospital diet: Regular Diet Discharge Diet Recommended Diet: AHA Diet (Heart Healthy) Pending Studies Studies pending at discharge: no Laboratory Results Hemoglobin A1c Test 11/10/16 05:29 Range/Units Estimated Average Glucose 123 mg/dl Hemoglobin A1c 5.9 H 4.5-5.6 % Medical Emergencies . Who to Call and When: Medical Emergencies: If at any time you feel your situation is an emergency, please call 911 immediately. . Non-Emergent Contact Non-Emergency issues call your: Primary Care Provider . . "Provider Documentation" section prepared by Maicol Bullard. . VTE Core Measure Inpt VTE Proph given/why not?: Treatment not indicated
[2016-11-14] MEDS: INSULIN ASPART 100 UNITS/ML 3 ML PEN SC SCH (08:39)
[2016-11-14] MEDS: CHOLECALCIFEROL 1000 INTER.UNIT TAB PO SCH (08:42)
[2016-11-14] MEDS: POT PHOSPHATE MONOBASIC W/ SOD TAB PO SCH (08:42)
[2016-11-14] MEDS: PANTOprazole SOD 40 MG TAB PO SCH (08:42)
[2016-11-14] MEDS: METOPROLOL SUCC 25MG EXT REL TAB PO SCH (08:43)
[2016-11-14] MEDS: POTASSIUM CHLORIDE PWD 20 MEQ PACK PO SCH ×2 (08:43→08:44)
[2016-11-14] MEDS: ASPIRIN 81 MG ECTAB PO SCH (08:43)
[2016-11-14] MEDS: ENOXAPARIN 40 MG/0.4 ML SYR SQ SCH (08:44)
[2016-11-14 08:50] VITALS: BP 137/75; PULSE 80; TEMP 36.8; O2SAT 95
[2016-11-14] MEDS: LOSARTAN POTASSIUM 25 MG TAB PO SCH (09:01)
[2016-11-14 10:22] LABS: ALB/GLOB RATIO 0.6 (0.9-2); BUN/CREATININE RATIO 14.2 (10-20); CREATININE 0.69 mg/dl (0.60-1.20); POTASSIUM 4.2 mmol/L (3.5-5.1)
[2016-11-14 10:27] LABS: CALCIUM 8.1 mg/dl (8.5-10.1)
--- NOTE | 2016-11-15 01:57 | PROGRESS NOTE ---
DATE: 11/14/2016 A 66-year-old female admitted with bilateral pneumonia and congestive heart failure. She presented with acute pulmonary edema secondary to stress cardiomyopathy. She also has polycythemia vera. She was markedly anemic and did require transfusion. Her condition improved. She continued to have reduced left ventricular ejection fraction. Her congestive heart failure resolved. She denied any fever or chills. No headache, no dizziness. No chest pain, no shortness of breath. No cough. No abdominal pain, no nausea, no vomiting. No ankle edema. PHYSICAL EXAMINATION: GENERAL: Well developed, in no distress. VITAL SIGNS: Blood pressure 137/75, pulse 80, respiration 18, temperature 36.8, oxygen saturation 95% on room air. SKIN: Warm and dry. No rash. HEENT: No mucosal abnormality. NECK: No adenopathy. No JVD. HEART: Regular heart sounds. LUNGS: Clear. ABDOMEN: Soft, nontender. BACK: No spinal tenderness. EXTREMITIES: No edema, clubbing or cyanosis. TODAY'S LABORATORY TESTS: WBC count 11,220, hemoglobin 12.6, hematocrit 39.7, platelet count 444,000. Sodium 132, potassium 4.2, chloride 96, CO2 of 28, BUN 10, creatinine 0.69, glucose 102, calcium 8.1, total bilirubin 0.4, AST 49, ALT 76, alkaline phosphatase 115, total protein 6.9, albumin 2.7. Her chest x-ray showed resolution of the congestive heart failure. ASSESSMENT: 1. Stress cardiomyopathy. 2. Acute congestive heart failure. 3. Bilateral pneumonia. 4. Polycythemia vera. 5. Anemia. PLAN: 1. Overall, her condition has markedly improved. 2. She already has been started on losartan 25 mg daily and metoprolol succinate 25 mg daily. 3. Continue her other medications unchanged. 4. She was discharged home. 5. Follow up in the office next week. We will recheck her laboratory test at that time including her CBC and PRP. She will follow up with Dr. Amado in cardiology and Dr. Hall in hematology/oncology.
--- NOTE | 2016-11-23 16:52 | DISCHARGE SUMMARY ---
DISCHARGE DIAGNOSES: 1. Stress cardiomyopathy. 2. Acute congestive heart failure secondary to her stress cardiomyopathy. 3. Bilateral pneumonia. 4. Polycythemia vera. 5. Anemia. 6. Depression. 7. Dyspepsia. 8. Osteoporosis. DISCHARGE MEDICATIONS: Included: 1. Augmentin 500 mg 3 times a day for 5 days. 2. Furosemide 40 mg daily. 3. Losartan 25 mg daily. 4. Metoprolol succinate 25 mg daily. 5. Potassium chloride 10 mEq twice a day. 6. Aspirin 81 mg daily. 7. Calcium citrate 600 mg daily. 8. Zyrtec 20 mg daily. 9. Vitamin D 1000 International Units daily. 10. Prolia 60 mg injection every 6 months. 11. Lexapro 20 mg daily. 12. Flaxseed 1 capsule daily. 13. Hydroxyzine 25 mg at bedtime. 14. Lorazepam 0.5 mg daily. 15. Magnesium 250 mg daily. 16. Multivitamin 1 daily. 17. Oxybutynin extended release 15 mg daily. 18. Omeprazole 20 mg daily. CONSULTATIONS: 1. Dr. Bernard Hall in hematology/oncology. 2. Dr. Nahum Amado in cardiology. 3. Dr. Jm Alvarez in intensive medicine. HISTORY OF PRESENT ILLNESS: A 66-year-old female admitted with bilateral pneumonia. The patient with multiple medical problems including history of complete heart block requiring permanent pacemaker in July of this year, polycythemia vera, gastroesophageal reflux, osteoporosis, depression, history of compression fracture of L1, anxiety, and anemia requiring transfusion. The patient was seen in the Emergency Room by Dr. Perez. She had multiple problems including feeling weak and tired. Her also thought that she was getting forgetful. She was also complaining of headache. She denied any fever. She did complain of what she calls cold spells. She denied any dizziness or lightheadedness. No chest pain. She has been complaining of shortness of breath. Complaining of cough for about a week prior to her admission. She had an episode of vomiting the day prior to her admission. She had recurrent diarrhea. No urinary problem. She was also complaining of pain in her upper back. The patient was evaluated in the Emergency Room on 11/02/2016 and she was complaining of chest and back pain. Her evaluation was unremarkable. Her chest x-ray at that time was normal. She was sent home. As noted, patient was evaluated in the Emergency Room by Dr. Perez. Her chest x-ray was markedly abnormal. She was hypoxic. She was admitted for further treatment. PAST MEDICAL HISTORY, SOCIAL HISTORY AND FAMILY HISTORY: All as noted. ALLERGIES: 1. CODEINE (GI INTOLERANCE). 2. ERYTHROMYCIN (GI intolerance). MEDICATIONS ON ADMISSION: All as noted. PHYSICAL EXAMINATION AND ADMISSION LABORATORY TESTS: All as noted. HOSPITAL COURSE: The patient was admitted to PCU with telemetry. Resuscitation level 1. All her laboratory tests were ordered. Cultures were ordered. She was started on IV Rocephin and Zithromax. She was also noted to be anemic. Additional tests were ordered. She has had recent evaluation from a GI standpoint looking for any evidence of blood loss and she had a colonoscopy and EGD, which were unremarkable. She was also given Xopenex high flow treatments. Her condition remained stable initially. She did not have any fever or any chills. She did not present with any additional symptoms as far as any sputum or any hemoptysis. There was also suspicion that she may have an element of congestive heart failure. She was also given IV Lasix. Her anemia became severe. She was transfused 2 units of packed RBCs. On 11/09/2016, she presented with an acute respiratory failure. She also presented with acute pulmonary edema. She was transferred to ICU. She was seen by Dr. Alvarez. He performed a bedside echocardiogram. The findings were quite significant with markedly diffuse hypokinesis. She was diagnosed with a stress cardiomyopathy. She was placed on a BiPAP. Also given IV Lasix and subsequently she was given IV Bumex. She was also seen in cardiology consultation by Dr. Amado. Her congestive heart failure started to resolve. She remained afebrile. She was continued on IV antibiotics and IV Bumex. Her activity was increased. She was placed back on oxygen by nasal cannula. She was tolerating that with good oxygenation. The patient was transferred back to PCU with telemetry. As noted, the patient was seen in cardiology by Dr. Amado. Recommendation to add metoprolol succinate and also add lisinopril which was added initially, but she was having increased cough and we switched her from lisinopril to losartan. She was also continued on low dose diuretic. Her condition improved. Her congestive heart failure resolved. Her chest x-ray showed marked improvement. She was ambulating. The patient was discharged home. Follow up in the office. Repeat chest x-ray. Follow up with Dr. Amado. Repeat echocardiogram in the future. Also, follow up with Dr. Hall with anticipation of further evaluation of the fact that she has polycythemia vera and she became severely anemic without evidence of any blood loss.
== END 2016-11-14 09:07 | disposition home or self-care (01) | DRG 193 ==
LOC: C.EDB 11:03 → C.MED 14:51 → ENRESERV 15:11 → C.MSICU 11-09 11:36 → ENRESERV 11-11 12:14 → C.2E 11-11 13:25
PROVIDERS: ADMIT Internal Medicine; ATTEND Internal Medicine
DX: J18.9 Pneumonia, unspecified organism (principal); J96.01 Acute respiratory failure with hypoxia; J81.0 Acute pulmonary edema; I50.21 Acute systolic (congestive) heart failure; I44.2 Atrioventricular block, complete; E87.1 Hypo-osmolality and hyponatremia; I51.81 Takotsubo syndrome; D45 Polycythemia vera; K21.9 Gastro-esophageal reflux disease without esophagitis; F41.9 Anxiety disorder, unspecified; F32.9 Major depressive disorder, single episode, unspecified; R19.7 Diarrhea, unspecified; D64.9 Anemia, unspecified; Z79.82 Long term (current) use of aspirin; Z79.899 Other long term (current) drug therapy; Z95.0 Presence of cardiac pacemaker; Z82.3 Family history of stroke

== ENCOUNTER → 2016-11-19 | Outpatient (CLI) | payer BC ==
[~2016-11-19] MED LIST changes: +AMOX500T PO; +CZR25 PO; +FURO20TA PO; -IBUP-1450 PO; +POTA10CA28 PO; -SYN50 PO; +TPRSR25 PO
[2016-11-19 13:17] LABS: BASO % 0.7 %; BASO ABS # 0.08 K/uL (0-0.2); EOS % 1.6 %; HEMATOCRIT 42.6 % (37-47); IG% 1.6 %; LYMPH % 14.9 %; LYMPH ABS # 1.73 K/uL (1.2-3.4); MEAN CELL VOLUME 68.7 fL (80-100); MEAN CORPUSCULAR HEMOGLOBIN 21.5 pg (25-34); MEAN CORPUSCULAR HGB CONC 31.2 g/dl (32-36); MONO % 3.3 %; NEUT % 77.9 %; PLATELET COUNT 384 K/uL (130-400); WHITE BLOOD COUNT 11.58 K/uL (4.8-10.8)
[2016-11-19 13:57] LABS: ANISOCYTOSIS PRESENT; COMPLETE YES; MICROCYTOSIS PRESENT; OVALOCYTES 1+; SPHEROCYTE 1+
[2016-11-19 14:02] LABS: BLOOD UREA NITROGEN 17 mg/dl (7-18); BUN/CREATININE RATIO 17.8 (10-20); CARBON DIOXIDE 28 mmol/L (21-32); CHLORIDE 97 mmol/L (98-107); CREATININE 0.93 mg/dl (0.60-1.20); GLUCOSE 86 mg/dl (70-99); POTASSIUM 4.6 mmol/L (3.5-5.1); SODIUM 134 mmol/L (136-145)
[2016-11-19 14:08] LABS: CALCIUM 9.4 mg/dl (8.5-10.1)
== END | disposition home or self-care (01) ==
LOC: C.LABSPEC 12:29
PROVIDERS: ATTEND Internal Medicine
DX: I50.9 Heart failure, unspecified (principal); E87.6 Hypokalemia; D45 Polycythemia vera

== ENCOUNTER → 2017-01-01 | Outpatient (CLI) | payer BC ==
[~2017-01-01] MED LIST changes: -AMOX500T PO; -POTA10CA28 PO
== END | disposition home or self-care (01) ==
LOC: C.MAMM 08:51
PROVIDERS: ATTEND Physician Assistant
DX: M81.0 Age-related osteoporosis without current pathological fracture (principal); M85.852 Other specified disorders of bone density and structure, left thigh

== ENCOUNTER → 2017-01-02 | Outpatient (CLI) | payer BC | END | disposition home or self-care (01) | LOC: C.LABSPEC 16:36 | PROVIDERS: ATTEND Internal Medicine | DX: Z12.11 Encounter for screening for malignant neoplasm of colon (principal) ==

== ENCOUNTER → 2017-05-07 | Outpatient (CLI) | payer BC | END | disposition home or self-care (01) | LOC: C.LABSPEC 15:28 | PROVIDERS: ATTEND Internal Medicine | DX: R21 Rash and other nonspecific skin eruption (principal) ==

== ENCOUNTER → 2017-05-12 | Outpatient (CLI) | payer BC | END | disposition home or self-care (01) | LOC: C.LABSPEC 14:54 | PROVIDERS: ATTEND Internal Medicine | DX: N39.0 Urinary tract infection, site not specified (principal) ==

== ENCOUNTER → 2017-06-02 | Outpatient (CLI) | payer BC ==
--- NOTE | 2017-06-03 14:59 | MAMMOGRAPHY REPORT ---
BILATERAL DIGITAL SCREENING MAMMOGRAM TOMOSYNTHESIS WITH CAD: 06/02/2017 CLINICAL HISTORY: Routine screening. Patient has no complaints. TECHNIQUE: Breast tomosynthesis in addition to standard 2D mammography was performed. Current study was also evaluated with a Computer Aided Detection (CAD) system. COMPARISON: Comparison is made to exams dated: 05/22/2016 mammogram, 05/21/2015 mammogram, 4 mammogram, 05/17/2013 mammogram, 04/26/2012 mammogram, and 04/21/2011 mammogram - [facility]. BREAST COMPOSITION: There are scattered areas of fibroglandular density in both breasts. FINDINGS: The parenchymal pattern is unchanged. No developing mass, architectural distortion or clus ter of suspicious microcalcifications is seen in either breast. IMPRESSION: ACR BI-RADS CATEGORY 2: BENIGN There is no mammographic evidence of malignancy. A 1 year screening mammogram is recommended. The pa tient will receive written notification of the results. Approximately 10% of breast cancers are not detected with mammography. A negative mammographic report should not delay biopsy if a clinically suggestive mass is present. Sloane Paredes M.D. 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
== END | disposition home or self-care (01) ==
LOC: ENRESERV 11-09 11:19 → CANRESERV 11-09 11:19 → CANBEDREQ 11-09 11:24 → C.MAMM 11:38
PROVIDERS: ATTEND Internal Medicine
DX: Z12.31 Encounter for screening mammogram for malignant neoplasm of breast (principal)

== ENCOUNTER 2021-09-24 12:05 | Observation (INO) ==
[2021-09-24] MEDS ORDERED: WATER, STERILE FOR INJ 10 ML VIAL ONE (12:24)
[2021-09-24] MEDS ORDERED: VANCOMYCIN HCL 1000MG/20ML VIAL ONE ×2 (12:24→14:25)
[2021-09-24] MEDS ORDERED: LIDOCAINE 1% LOCAL 20 ML VIAL ONE ×3 (12:24→15:14)
[2021-09-24] MEDS ORDERED: BACITRACIN OINT 0.9 GM PKT ONE ×2 (12:27→15:13)
[2021-09-24] MEDS ORDERED: MIDAZOLAM HCL 5 MG/ML 1 ML VIAL ONE (12:32)
[2021-09-24] MEDS ORDERED: fentaNYL citrate 100 MCG/2 ML VIAL ONE (12:32)
[2021-09-24] MEDS ORDERED: ceFAZolin 330 MG/ML 1 GM VIAL ONE ×2 (12:33→14:03)
--- NOTE | 2021-09-24 12:53 | History & Physical Bridge Note ---
Date of Service September 24, 2021 History & Physical Bridge Note I have examined the patient, reviewed the History & Physical and in the interval since the performance of the History & Physical I have noted the following changes of clinical significance: no changes noted. I reviewed the indications, procedure, risks and alternatives with the patient, answered all questions. Consent obtained. Patient understands and agrees to the procedure. I also reviewed the risks and use of sedation, patient understands and consent obtained.
--- NOTE | 2021-09-24 12:55 | Pre Anesthesia Assessment ---
Date of Service September 24, 2021 Pre Sedation Assessment Vital Signs Temp Pulse Resp BP Pulse Ox 09/24/21 12:19 36.7 C 64 17 131/58 L 98 Cardiovascular RRR, no murmur, no edema Respiratory normal respiratory effort, lungs clear to auscultation Pre-Sedation Airway Assessment Smoking Status: Never smoker Hx Sleep Apnea: No Short, Thick Neck: Yes Thyromental Distance: > or= 3.5 Finger Breadths Oral Cavity: + WNL Mallampati Class: II ASA: ASA3 NPO Status Date of Last Intake of Fluids: 09/23/21 Time of Last Intake of Fluids: 21:30 Date of Last Intake of Solid Food: 09/23/21 Time of Last Intake of Solid Foods: 21:30 Procedure Planning Contraindications for Sedation: none Current Medications Reviewed: Yes Notes The planned sedation has been discussed with the patient. Informed Consent was obtained. I have identified the patient, determined the appropriateness of sedation and have assessed the patient immediately prior to the procedure. All medicine(s) and interventions are by my order.
[2021-09-24] MEDS ORDERED: ACETAMINOPHEN W/CODEINE #3 1 TAB PO PRN (16:01)
--- NOTE | 2021-09-24 16:01 | Electrophysiology Report ---
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 Dye was injected the left arm IV site to opacify the left subclavian vein. The subclavian vein was identified and found to be tortuous but it appeared passable at least to the midline. The left side was therefore prepped and draped in the standard sterile manner. The pacemaker on the left side was in line with the vein, therefore a small area superior to the pacemaker was anesthetized with local anesthetic and left axillary venipuncture was performed by percutaneous technique and a guidewire placed through the the vein into the area of the junction of the subclavian vein and the superior vena cava. At that point the guidewire could not be advanced, a small incision (about 2 cm) was made at the venipuncture site and carried down to the pectoralis fashion and a 7 Slov[place] Medtronic lead introducer was placed over the guidewire into the left subclavian vein. Dye was injected via the introducer and the vein was found to be occluded at the junction with the superior vena cava on the right side, the superior vena cava filled via collateral flow from that point and there was no access. At this point an IV was placed on the right side and her right sided venogram was performed and the right subclavian vein was found to be free and without obstruction and communicated with the superior vena cava. The left pacemaker site was therefore covered with a sterile drape and the right side was prepped and draped in the standard sterile manner for a right-sided pacemaker implantation. The right prepectoral region was anesthetized with 1% lidocaine local anesthetic and right axillary venipuncture was performed by percutaneous technique and a guidewire placed through the right subclavian vein into the superior vena cava. The area was further infiltrated with 1% lidocaine local anesthetic and a 5 cm incision was made parallel to the right clavicle and 2 cm below it and carried down to the anterior pectoralis fascia. A pacemaker pocket was formed by blunt dissection anterior to the pectoralis fascia and a vancomycin-soaked sponge was placed in the pocket. An 8 Slov[place] Med[employer]onic lead introducer was placed over the guidewire into the right subclavian vein, the dilator and guidewire were removed and a bipolar active fixation steroid tipped ventricular lead was advanced through the introducer into the superior vena cava. A guidewire was placed through the introducer and the introducer was stripped from the lead and guidewire. Another 8 [place] Medtronic lead introducer was placed over the guidewire into the right subclavian vein, the dilator and guidewire were removed and a bipolar active fixation steroid tipped atrial lead was advanced through the introducer into the superior vena cava. A guidewire was placed back through the introducer and the introducer was stripped from the lead and guidewire. Using a curved stylette the ventricular lead was advanced through the right ventricular outflow tract into the pulmonary artery and then using a straight stylette was positioned in the right ventricular apex. The screw was extended fixing the lead in position. Pacing and sensing thresholds were evaluated in bipolar configuration and are recorded on the implant data sheet. Using a curved stylette the atrial lead was positioned in the region of the atrial appendage and the screw extended fixing the lead in position. Pacing and sensing thresholds were evaluated in bipolar configuration and are recorded on the implant data sheet. Once the leads were in position they were attached to the anterior pectoralis fascia using 2 sutures of 2-0 silk around each lead collar. The vancomycin- soaked sponge was removed from the pocket, hemostasis was obtained, the pacemak er was attached to the leads and placed in the pocket with the leads coiled beneath it. The incision was closed with a running double subcutaneous closure of 3-0 Vicryl absorbable suture, followed by running subcuticular skin closure of 4-0 Vicryl absorbable suture. The left-sided pacemaker site was uncovered and the area infiltrated with lidocaine local anesthetic along the pacemaker implantation scar. An incision was made through the scar and carried down to the pacemaker generator, the generator was dissected free of tissue and explanted. It was removed from the leads and the atrial and ventricular leads were capped and placed back in the incision. The pacemaker pocket was infiltrated with vancomycin solution, the incision was closed with a running double subcutaneous closure of 3-0 Vicryl absorbable suture followed by running subcuticular skin closure of 4-0 Vicryl absorbable suture. Bacitracin ointment was placed on both incisions and dressings applied. [facility] [place] Electrophysiology codes Indication for Procedure (1) Pacemaker lead failure: Pacing Procedure 1: Pacin Insert/Replace Pacer A & V Procedure 2: Pacin Removal Pacer genererator Miscellaneous Procedures Procedure 1: EP Miscellaneous: 39201 Contrast injection for venography Procedure 2: EP Miscellaneous: 31536-54 Vengraphy, extremity PG Moderate Sedation Codes Moderate Sedation Codes Procedure 1: Sedation/Anesthesia: 76629 Mod Sedation by the same physician;Init15 Min Child Age 5 & Up Procedure 2: Sedation/Anesthesia: 98682 Mod Sedation by the same physician; Ea Adqizinfok20 Minutes
[2021-09-24] MEDS ORDERED: LORazepam 0.5 MG TAB PO PRN (16:03)
--- NOTE | 2021-09-24 17:04 | Post Anesthesia Assessment ---
Date of Service September 24, 2021 Post Sedation Assessment Vital Signs Temp Pulse Resp BP Pulse Ox 09/24/21 16:31 60 16 124/77 96 09/24/21 16:16 36.3 C L 60 16 121/73 95 09/24/21 16:05 62 16 144/73 H 95 09/24/21 15:50 62 16 116/59 L 95 09/24/21 12:19 36.7 C 64 17 131/58 L 98 Recovery Score Activity: Moves 4 extremities Respiration: Deep Breath/Cough Circulation: +/-20% PreAnes Value Consciousness: Fully Awake Oxygen Saturation: > 92% On Room Air Post Anesthesia Score: 10 Discharge Sedation Level of Care: Fast Track Phase II Post Sedation Plan On clinical assessment, the patient appears to have tolerated the sedation without complications. Patient is recovering as anticipated. Patient will continue to be monitored by nursing and may be discharged when sedation discharge criteria are met per below protocol. Upon Completions of procedure up to 15 minutes continue every 5 minute vital signs and the P.A.R. score; then discharge to a Phase I or Fast Track to Phase II per the following guidelines: * Discharge Patient to appropriate Phase II area if PAR is 8 or greater or return to pre- procedure baseline. The post - procedure orders will be as di rected. * If PAR score is less than 8 or not return to pre-procedure baseline then patient will follow Phase I monitoring till PAR is reached for Phase II. The Phase I may be done in procedure room or may call to secure a Phase I area. * If naloxone or flumazenil are used for reversal, hold in Phase I for continued monitoring from when last reversal dose was given for a minimum of 60 minutes or longer pending the nurse and/or physician discretion of patient condition before discharge to Phase II. Please call the Sedation Physician to re-evaluate and complete post-note for discharge to Phase II area. Do NOT discharge from procedure sedation or Phase 1 until post- sedation evaluation note is complete by procedure /sedation MD Sedation Discharge Instructions to be given to the patient at discharge to home.
[2021-09-24] MEDS: ACETAMINOPHEN 325 MG TAB PO PRN ×2 (17:40→22:18)
[2021-09-24] MEDS: CALCIUM CARBONATE 1250MG TAB PO SCH (21:33)
[2021-09-25] MEDS: ACETAMINOPHEN 325 MG TAB PO PRN (04:22)
[2021-09-25] MEDS ORDERED: ASPIRIN 81 MG ECTAB PO SCH (09:00)
[2021-09-25] MEDS ORDERED: OXYBUTYNIN CHLORIDE XL 5 MG TABCR PO SCH (09:00)
[2021-09-25] MEDS ORDERED: ESCITALOPRAM OXALATE 20 MG TAB PO SCH (09:00)
[2021-09-25] MEDS ORDERED: METOPROLOL SUCC 25MG EXT REL TAB PO SCH (09:00)
[2021-09-25] MEDS ORDERED: LOSARTAN POTASSIUM 25 MG TAB PO SCH (09:00)
[2021-09-25] MEDS ORDERED: CETIRIZINE HCL 10 MG TABLET PO SCH (09:00)
[2021-09-25] MEDS ORDERED: MULTIVITAMIN TAB PO SCH (09:00)
[2021-09-25] MEDS ORDERED: PANTOprazole 40 MG TAB PO SCH (09:00)
[2021-09-25] MEDS ORDERED: NON-FORMULARY MEDICATION (Flaxseed Oil 1,000 mg capsule) PO SCH (09:00)
[2021-09-25] MEDS ORDERED: MAGNESIUM OXIDE 400 MG TAB PO SCH (09:00)
[2021-09-25] MEDS ORDERED: CHOLECALCIFEROL 1,000 UNITS 25 MCG TAB PO SCH (09:00)
--- NOTE | 2021-09-25 09:09 | XRay Report ---
XR chest 2V PA/lateral CLINICAL HISTORY: EXACT TIME ORDERED Evaluate for pneumothorax. Status post pacemaker insertion. TECHNIQUE: 2 views of the chest were obtained. Comparison: Comparison is made to chest radiograph 11/14/2016 FINDINGS: Dual lead pacemaker is seen. Pacemaker leads are seen terminating in the left upper chest. The cardiomediastinal silhouette is nor mal. The lungs are clear. No evidence of pleural effusion or pneumothorax. IMPRESSION: Status post placement of new pacemaker leads without evidence of pneumothorax. ACT 112: Negative or not required by law. Electronically signed by: Lewis Delacruz M.D. 09/25/2021 9:07 AM
[2021-09-25] MEDS: CALCIUM CARBONATE 1250MG TAB PO SCH (09:50)
--- NOTE | 2021-09-25 10:12 | Electrocardiogram Report ---
Test Reason : Blood Pressure : / mmHG Vent. Rate : 061 BPM Atrial Rate : 061 BPM P-R Int : 186 ms QRS Dur : 148 ms QT Int : 488 ms P-R-T Axes : 097 -38 -53 degrees QTc Int : 491 ms AV dual-paced rhythm Abnormal ECG When compared with ECG of 13-NOV-2016 07:21, Electronic ventricular pacemaker has replaced Sinus rhythm Vent. rate has decreased BY 32 BPM Confirmed by Magdaleno Back ([id number]) on 09/25/2021 10:12:02 AM Referred By: Simon Rodríguez Confirmed By:Magdaleno Back
--- NOTE | 2021-09-25 10:18 | Cardiology Progress Note ---
Date of Service September 25, 2021 Assessment & Plan (1) Status post placement of cardiac pacemaker: Plan: 1. Postop day #1: She is doing well postop day #1, her incisions on both sides look good without significant bleeding or swelling, lead position looks good and pacemaker characteristics are adequate. She has no pneumothorax. She is stable for discharge today. Admission and Anticipated Discharge Date Admission Date: September 24, 2021 Subjective She is feeling well today other than some minor incisional discomfort. Physical Exam Physical Exam: Both the left and right pacemaker incision sites are clean and dry without significant erythema or bleeding. No swelling or significant tenderness. Results & Data ([facility]) Vital Signs (Past 12 Hours) Vital Signs Temp Pulse Pulse Resp BP BP Pulse Ox 09/25/21 07:36 36.3 C L 66 18 112/72 95 09/25/21 03:57 36.4 C L 61 18 115/71 95 09/24/21 23:49 36.6 C 61 18 110/66 95 09/24/21 22:18 68 Diagnostic Findings Telemetry: Normal pacemaker operation Chest x-ray: Good lead position, no pneumothorax Pacemaker evaluation: Proper pacemaker function. PG Care Time/CCT Total # of Minutes Spent Total Time Spent with Patient: Total time spent is greater than 50% in coordination of care (as documented) at patient's floor/unit and/or counseling patient: Coding Level of Care Code 05717 Post Operative Follow-Up Diagnoses Status post placement of cardiac pacemaker Z95.0 CPT Codes Dual Lead Pacemaker System - 76120 ([id number])
--- NOTE | 2021-10-09 13:40 | Discharge Summary ---
Date of Service October 09, 2021 Admission HPI Per Admitting Provider This is a 71-year-old woman with a history of stress-induced cardiomyopathy and a history of complete heart block. She had a dual-chamber pacemaker implanted on July 30, 2016. She tested positive for Covid on May 02, 2020. She has no palpitations, lightheadedness or dizziness. Her pacing threshold as well as her ventricular lead impedance (in both unipolar and bipolar configuration) had increased starting around January 2021. Her lead threshold has remained high and has been gradually rising recently and at least for the time being is probably acceptable. We should revise the system relatively soon, and since the device is approaching replacement time we would probably replace the device as well. With the COVID-19 pandemic we had put off this procedure for some time but we should plan on doing it in the near future. An echocardiogram done May 29, 2021 shows normal left ventricular systolic function with ejection fraction of 55 to 60% with only mild mitral regurgitation. With ongoing lead issues and her device approaching replacement time she is brought to the hospital for lead revision and pacemaker replacement. Admission Exam (Per Admitting) Constitutional Constitutional: Alert, cooperative and in no distress. HEENT: Unremarkable Neck: No jugular venous distention, carotid pulses are normal and equal bi laterally without bruits. Pulmonary: Clear to auscultation bilaterally. Cardiac: Regular rhythm with no murmur, gallop or rub. Abdomen: Soft, nontender with normal bowel sounds. Extremities: No edema. Distal pulses intact. Neurologic: No focal findings. Gait is steady. Skin: The device site is well-healed without erythema, swelling or tenderness. No rash, ecchymoses or petechiae. Discharge Data Procedures Performed Operation Date: 09/24/21 13:00 Actual Procedures s Venogram, Bilateral(Bilateral) - Simon Rodríguez MD p Pacer with A/V Leads (Dual) - Simon Rodríguez MD s Pacer Removal - Simon Rodríguez MD Hospital Course (1) Status post placement of cardiac pacemaker: She was brought to the laboratory and venography demonstrated the left subclavian vein to be patent although somewhat tortuous, therefore access was obtained on the side however the guidewire could not be passed all the way to the right atrium. Another venogram was done at the midline and the vessel was found to be occluded on the right side around the juncture of the right superior vena cava. Access was therefore not possible from the left. A right subclavian venogram was patent therefore a new system was placed on the right with an atrial and ventricular lead. The pacemaker was removed from the left side and the leads were capped and left in position. She did well overnight, the new system was working well and she is stable for discharge. Coding Level of Care Code None Diagnoses Status post placement of cardiac pacemaker Z95.0
== END 2021-09-25 12:06 | disposition home or self-care (01) ==
LOC: 2S 12:05 → EP 12:05

== ENCOUNTER 2021-10-04 15:01 | Inpatient (IN) ==
--- NOTE | 2021-10-04 15:36 | Emergency Department Note ---
Impression & Plan SOB (shortness of breath), Anemia, Weakness, CHF (congestive heart failure), History of pacemaker ED Provider Note NAME: HAI JOY AGE: 71 SEX: F : 1950 ARRIVES VIA: Ambulance INFORMANT: [Patient] ED PROVIDER(S): [Ty Desir MD] CHIEF COMPLAINT: Weakness, shortness of breath HISTORY OF PRESENT ILLNESS: The patient is a 71-year-old female presents to the ED with complaints of shortness of breath and weakness that have been ongoing for about a week. Her symptoms are mostly with any exertion. The patient had a pacemaker placed on 24 September, she states that she was told the pacemaker is working well. 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 She was told that she was fluid overloaded and started on Lasix. Her Lasix yesterday was increased to 80 mg. She feels more weak and more short of breath today and presents to the ED. There has been no fever although, she was sweating today for some reason. No chest pain other than the soreness at the insertion area for her pacemaker. She has not had cough. She does admit that she is not sleeping well, she is not sure why. The patient was given a new medication about a week ago for her polycythemia. She wonders if this medication is responsible for her symptoms. The med is given to her every 2 weeks--she plans on holding the next dose. REVIEW OF SYSTEMS: See HPI for pertinent positives and negatives. A total of ten systems were reviewed and were otherwise negative. PMHx/PSHx: See Below SOCIAL HISTORY: See Below. PHYSICAL EXAM: GENERAL: Patient is in no acute distress. HEENT: No acute trauma, normocephalic atraumatic, mucous membranes moist, no nasal congestion, no scleral icterus. NECK: No stridor, no adenopathy, no meningismus, trachea is midline. LUNGS: Crackles at both bases, no wheezing. No respiratory distress. Chest: She has a contusion across the bilateral chest wall from her recent surgical procedures, no signs of erythema to suggest infection. HEART: Without murmurs gallops or rubs, regular rate and rhythm. ABDOMEN: Soft, nontender, bowel sounds positive, no hernias, no peritonitis. EXTREMITIES: No cyanosis or edema, full range of motion of all the joints without pain or difficulty, no signs for acute trauma. NEUROLOGIC: Oriented x 3, no acute motor or sensory deficits, no focal weakness. SKIN: No rash, no jaundice, no diaphoresis. Pale. Rectal: Brown stool, heme-negative. DIFFERENTIAL DIAGNOSIS: Infection, UTI, CHF, dehydration, metabolic abnormality, hypo/hyperglycemia, electrolyte disturbance, anemia, hypoxia, cardiac sources, intracerebral event, toxicologic issues, stroke, TIA, as well as other pathologies. EMERGENCY DEPARTMENT COURSE/PROCEDURES: ECG: Indication was shortness of breath. The ECG shows a ventricular pacemaker with what looks like an underlying atrial flutter. The rate is 64. There is no ST elevation, no PVCs. The QTC is 497. Continuous Cardiac Monitoring: An order was placed for continuous cardiac monitoring. The monitor shows a rate of 71 with a ventricular pacemaker. MEDICAL DECISION MAKING: There is no leukocytosis. The patient is anemic with a hemoglobin of 8.7. I did perform a rectal exam, stool was brown and heme-negative. Platelet count was normal. Sodium was a bit low but the patient has run a lower sodium before. No renal failure. Lactic acid level was not elevated making sepsis less likely. No worrisome liver enzyme elevation. BNP was elevated consistent with fluid overload. The patient did not show any findings to suggest thyroid dysfunction. Lyme disease testing was negative. COVID, influenza and RSV testing was negative. Chest film did not show pneumonia. The chest film did show CHF with pleural effusions noted. ECG showed a functioning ventricular pacemaker with underlying atrial flutter. Patient was given IV Lasix, 80 mg. She received IV Pepcid. The patient presents short of breath and weak. She just had a pacemaker placed. She is in heart failure which is not responding to outpatient treatment. She appears to be anemic and may in fact be in need of a blood transfusion. At this point, a hospital stay is warranted. I spoke with the patient, I talked to the case supervisor. The on-call hospitalist was consulted. Past Med/Surg History Medical History Depressive disorder GERD (gastroesophageal reflux disease) History of back problems Hyponatremia Hypothyroidism Migraine T12 compression fracture Surgical History H/O colonoscopy (~2015) H/O: hysterectomy No pertinent past surgical history S/P appendectomy Family History Mother Breast cancer Hypertension Stroke Daughter Breast cancer Brother Cancer Diabetes Hypertension Heart disease Father Heart disease Sister Hypertension Other No pertinent family history Social History Smoking Status: Never smoker Hx Alcohol Use: Yes Alcohol type: wine Hx Substance Use: No Preferred Language: Japanese Communication Ability: [facility] Representative Required: No Beliefs That Will Affect Care: None Current Living Situation: Spouse Feels Safe at Home: Yes Safety Concerns: Feels Safe At This Time Assistive Devices: Glasses Assistive Devices Comment: b/l hearing aides but left at home Allergies Allergies Allergy/AdvReac Type Severity Reaction Status Date / Time codeine AdvReac Intermediate nausea Verified 10/04/21 16:49 erythromycin base AdvReac Intermediate nausea Verified 10/04/21 16:49 Home Meds Home Medications Medication Instructions Recorded Confirmed calcium [calcium citrate] 1 tab PO BID 03/10/19 10/04/21 escitalopram oxalate 20 mg tablet 20 mg PO DAILY tab 03/10/19 10/04/21 flaxseed oil 1,000 mg capsule 1,000 mg PO DAILY cap 03/10/19 10/04/21 lorazepam 0.5 mg tablet 0.5 mg PO DAILY PRN tab 03/10/19 10/04/21 magnesium 250 mg tablet 250 mg PO DAILY 03/10/19 10/04/21 metoprolol succinate 25 mg 25 mg PO DAILY tab 03/10/19 10/04/21 tablet,extended release 24 hr multivitamin [Multivitamins FC] 1 tab PO DAILY 03/10/19 10/04/21 omeprazole magnesium 10 mg oral 10 mg PO DAILY 10/24/20 10/04/21 suspension,delayed release (Prilosec) losartan 25 mg tablet 12.5 mg PO DAILY #90 tab 05/17/21 10/04/21 oxybutynin chloride 15 mg 15 mg PO DAILY 05/17/21 10/04/21 tablet,extended release 24 hr aspirin 81 mg tablet,delayed 81 mg PO DAILY 10/04/21 10/04/21 release furosemide 40 mg tablet 80 mg PO DAILY 10/04/21 10/04/21 Previous Rx's Medication Instructions Recorded potassium chloride 10 mEq 10 meq PO DAILY #30 cap 10/02/21 capsule,extended release Results & Data (ED) Vital Signs Vital Signs - 24 hr 10/04/21 15:01 10/04/21 15:17 10/04/21 15:30 Temperature 36.5 C Temperature Source Oral Pulse Rate 71 60 62 Pulse Rate from SpO2 Sensor 60 60 Respiratory Rate 18 27 H 22 Blood Pressure 101/53 L 104/57 L Blood Pressure Mean 69 72 Pulse Oximetry 98 93 94 Oxygen Delivery Method Room Air Sepsis Recent Fever Within 48 Hours No Sepsis New/Unexplained Change in Mental Status No Sepsis Action Taken by Nursing No Action Required 10/04/21 16:00 10/04/21 16:30 10/04/21 17:00 Temperature Temperature Source Pulse Rate 60 60 62 Pulse Rate from SpO2 Sensor 61 60 62 Respiratory Rate 24 24 20 Blood Pressure 112/59 L Blood Pressure Mean 76 Pulse Oximetry 93 93 95 Oxygen Delivery Method Sepsis Recent Fever Within 48 Hours Sepsis New/Unexplained Change in Mental Status Sepsis Action Taken by Nursing 10/04/21 17:30 10/04/21 18:00 Temperature Temperature Source Pulse Rate 60 62 Pulse Rate from SpO2 Sensor 62 Respiratory Rate 25 H 26 H Blood Pressure 111/59 L Blood Pressure Mean 76 Pulse Oximetry 95 96 Oxygen Delivery Method Sepsis Recent Fever Within 48 Hours Sepsis New/Unexplained Change in Mental Status Sepsis Action Taken by [facility] Medications Current Medication List: was personally reviewed by me Laboratory Data Attestation: I reviewed the patient's lab results. Result diagrams: 10/04/21 15:53 10/04/21 15:53 Lab Results 10/04/21 10/04/21 10/04/21 Range/Units 15:53 15:53 15:53 WBC 9.30 (4.8-10.8) K/uL RBC 3.22 L (4.2-5.4) M/uL Hgb 8.7 L (12.0-16.0) g/dL Hct 26.2 L (37-47) % MCV 81.4 (80-100) fL MCH 27.0 (25-34) pg MCHC 33.2 (32-36) g/dL RDW Std Deviation 59.1 H (36.4-46.3) fL RDW Coeff of Yumiko 19.7 H (11.5-14.5) % Plt Count 319 (130-400) K/uL MPV 10.4 (7.4-10.4) fL Immature Gran % (Auto) 2.2 % Neut % (Auto) 78.9 % Lymph % (Auto) 8.5 % Wayne % (Auto) 8.4 % Eos % (Auto) 0.6 % Baso % (Auto) 1.4 % Neut # (Auto) 7.34 H (1.4-6.5) K/uL Lymph # (Auto) 0.79 L (1.2-3.4) K/uL Wayne # (Auto) 0.78 H (0.11-0.59) K/uL Eos # (Auto) 0.06 (0-0.5) K/uL Baso # (Auto) 0.13 (0-0.2) K/uL Immature Gran # (Auto) 0.20 H (0.00-0.02) K/uL Absolute Nucleated RBC 0.05 H (0-0) K/uL Nucleated RBC % (auto) 0.6 % Sodium 129 L (136-145) mmol/L Potassium 3.9 (3.5-5.1) mmol/L Chloride 97 L (98-107) mmol/L Carbon Dioxide 23 (21-32) mmol/L Anion Gap 9 (3-11) BUN 18 (6-23) mg/dl Creatinine 0.79 (0.6-1.2) mg/dl Est Cr Clr Drug Dosing 61.9 ml/min Est GFR ( Amer) 86.7 ml/min Est GFR (Non-Af Amer) 74.8 ml/min BUN/Creatinine Ratio 22.8 H (10-20) Glucose 119 H (70-99(Fasting)) mg/dl Lactate (0.4-2.0) mmol/L Calcium 8.5 (8.5-10.1) mg/dl Magnesium 2.0 (1.7-2.4) mg/dl Iron (35-150) mcg/dl TIBC (250-450) mcg/dl Unsaturated IBC (155-355) mcg/dl Transferrin % Sat (15-50) % Total Bilirubin 0.7 (0.2-1.0) mg/dl AST 23 (13-39) U/L ALT 18 (7-52) U/L Alkaline Phosphatase 76 (34-104) U/L Troponin I High Sens 9.1 (0-14) pg/ml B-Natriuretic Peptide (0-100) pg/ml Total Protein 7.2 (6.0-8.3) gm/dl Albumin 3.7 (3.4-5.0) gm/dl Globulin 3.5 (2.5-4.0) gm/dl Albumin/Globulin Ratio 1.1 (0.9-2) TSH (0.300-4.500) uIu/ml Lyme Disease IgG Ab (Negative) Lyme Disease IgM Ab (Negative) SARS-CoV-2 (PCR) (Negative) Influenza Type A (PCR) (Neg) Influenza Type B (PCR) (Neg) RSV (RT-PCR) (Neg) 10/04/21 10/04/21 10/04/21 Range/Units 15:53 15:53 15:53 WBC (4.8-10.8) K/uL RBC (4.2-5.4) M/uL Hgb (12.0-16.0) g/dL Hct (37-47) % MCV (80-100) fL MCH (25-34) pg MCHC (32-36) g/dL RDW Std Deviation (36.4-46.3) fL RDW Coeff of Yumiko (11.5-14.5) % Plt Count (130-400) K/uL MPV (7.4-10.4) fL Immature Gran % (Auto) % Neut % (Auto) % Lymph % (Auto) % Wayne % (Auto) % Eos % (Auto) % Baso % (Auto) % Neut # (Auto) (1.4-6.5) K/uL Lymph # (Auto) (1.2-3.4) K/uL Wayne # (Auto) (0.11-0.59) K/uL Eos # (Auto) (0-0.5) K/uL Baso # (Auto) (0-0.2) K/uL Immature Gran # (Auto) (0.00-0.02) K/uL Absolute Nucleated RBC (0-0) K/uL Nucleated RBC % (auto) % Sodium (136-145) mmol/L Potassium (3.5-5.1) mmol/L Chloride (98-107) mmol/L Carbon Dioxide (21-32) mmol/L Anion Gap (3-11) BUN (6-23) mg/dl Creatinine (0.6-1.2) mg/dl Est Cr Clr Drug Dosing ml/min Est GFR ( Amer) ml/min Est GFR (Non-Af Amer) ml/min BUN/Creatinine Ratio (10-20) Glucose (70-99(Fasting)) mg/dl Lactate 1.0 (0.4-2.0) mmol/L Calcium (8.5-10.1) mg/dl Magnesium (1.7-2.4) mg/dl Iron (35-150) mcg/dl TIBC (250-450) mcg/dl Unsaturated IBC (155-355) mcg/dl Transferrin % Sat (15-50) % Total Bilirubin (0.2-1.0) mg/dl AST (13-39) U/L ALT (7-52) U/L Alkaline Phosphatase (34-104) U/L Troponin I High Sens (0-14) pg/ml B-Natriuretic Peptide 779 H (0-100) pg/ml Total Protein (6.0-8.3) gm/dl Albumin (3.4-5.0) gm/dl Globulin (2.5-4.0) gm/dl Albumin/Globulin Ratio (0.9-2) TSH 4.005 (0.300-4.500) uIu/ml Lyme Disease IgG Ab (Negative) Lyme Disease IgM Ab (Negative) SARS-CoV-2 (PCR) (Negative) Influenza Type A (PCR) (Neg) Influenza Type B (PCR) (Neg) RSV (RT-PCR) (Neg) 10/04/21 10/04/21 10/04/21 Range/Units 15:53 15:53 16:02 WBC (4.8-10.8) K/uL RBC (4.2-5.4) M/uL Hgb (12.0-16.0) g/dL Hct (37-47) % MCV (80-100) fL MCH (25-34) pg MCHC (32-36) g/dL RDW Std Deviation (36.4-46.3) fL RDW Coeff of Yumiko (11.5-14.5) % Plt Count (130-400) K/uL MPV (7.4-10.4) fL Immature Gran % (Auto) % Neut % (Auto) % Lymph % (Auto) % Wayne % (Auto) % Eos % (Auto) % Baso % (Auto) % Neut # (Auto) (1.4-6.5) K/uL Lymph # (Auto) (1.2-3.4) K/uL Wayne # (Auto) (0.11-0.59) K/uL Eos # (Auto) (0-0.5) K/uL Baso # (Auto) (0-0.2) K/uL Immature Gran # (Auto) (0.00-0.02) K/uL Absolute Nucleated RBC (0-0) K/uL Nucleated RBC % (auto) % Sodium (136-145) mmol/L Potassium (3.5-5.1) mmol/L Chloride (98-107) mmol/L Carbon Dioxide (21-32) mmol/L Anion Gap (3-11) BUN (6-23) mg/dl Creatinine (0.6-1.2) mg/dl Est Cr Clr Drug Dosing ml/min Est GFR ( Amer) ml/min Est GFR (Non-Af Amer) ml/min BUN/Creatinine Ratio (10-20) Glucose (70-99(Fasting)) mg/dl Lactate (0.4-2.0) mmol/L Calcium (8.5-10.1) mg/dl Magnesium (1.7-2.4) mg/dl Iron 12 L (35-150) mcg/dl TIBC 227 L (250-450) mcg/dl Unsaturated IBC 215 (155-355) mcg/dl Transferrin % Sat 5 L (15-50) % Total Bilirubin (0.2-1.0) mg/dl AST (13-39) U/L ALT (7-52) U/L Alkaline Phosphatase (34-104) U/L Troponin I High Sens (0-14) pg/ml B-Natriuretic Peptide (0-100) pg/ml Total Protein (6.0-8.3) gm/dl Albumin (3.4-5.0) gm/dl Globulin (2.5-4.0) gm/dl Albumin/Globulin Ratio (0.9-2) TSH (0.300-4.500) uIu/ml Lyme Disease IgG Ab Negative (Negative) Lyme Disease IgM Ab Negative (Negative) SARS-CoV-2 (PCR) NEGATIVE (Negative) Influenza Type A (PCR) Negative (Neg) Influenza Type B (PCR) Negative (Neg) RSV (RT-PCR) Negative (Neg) Administered Medications Lorazepam (Lorazepam 0.5 Mg Tab) 0.5 mg PO DAILY PRN PRN Reason: Anxiety Stop: 11/03/21 20:08 Last Admin: 10/04/21 21:28 Dose: 0.5 mg Documented by: [id number] Discontinued Medications Furosemide (Furosemide 40 Mg/4 Ml Vial) 80 mg IV ONE ONE Stop: 10/04/21 16:56 Last Admin: 10/04/21 18:03 Dose: 80 mg Documented by: [id number] Famotidine (Pepcid 20mg Iv Push) 20 mg in 5 mls @ 2.5 mls/min IV NOW STA Stop: 10/04/21 17:02 Last Admin: 10/04/21 18:03 Dose: 2.5 mls/min Documented by: [id number] Imaging Data Radiologist's Impression: Chest X-Ray 10/04/21 15:23 XR chest 1V portable HISTORY: 71 years-old Female weakness acute weakness COMPARISON: Chest radiographs 10/02/2021 TECHNIQUE: Portable AP view of the chest FINDINGS: Cardiac silhouette is enlarged. Right subclavian pacer with previous left subclavian pacer leads again noted. Pulmonary vascular congestion with interstitial coarsening. No pneumothorax. Increased size of layering pleural effusions with progressive bibasilar consolidation. The bones appear grossly intact. IMPRESSION: 1. Cardiomegaly with pulmonary edema. 2. Increased size of the layering pleural effusions with progressive bibasilar consolidation. ACT 112: Negative or not required by law. The above report was generated using voice recognition software. It may contain grammatical, syntax or spelling errors. Electronically signed by: Tony Junior M.D. 10/04/2021 4:40 PM Discharge Plan Visit Data Chief Complaint: Weakness ED Provider: Ty Desir Discharge Problem: SOB (shortness of breath), Anemia, Weakness, CHF (congestive heart failure), History of pacemaker Patient Disposition: Admitted As Inpatient Condition: Fair Discharge Instructions Interventions: ED Discharge Assessment Last Done: 10/04/21 19:50
[2021-10-04 16:26] LABS: Albumin Globulin Ratio 1.1 (0.9-2); Albumin Level 3.7 gm/dl (3.4-5.0); BUN Creatinine Ratio 22.8 (10-20); Bilirubin,Total 0.7 mg/dl (0.2-1.0); Calcium 8.5 mg/dl (8.5-10.1); Creatinine Clr Calc Pharmacy 61.9 ml/min; Est GFR (African American) 86.7 ml/min; Est GFR (Non-African American) 74.8 ml/min; Globulin 3.5 gm/dl (2.5-4.0); Potassium 3.9 mmol/L (3.5-5.1); Total Protein 7.2 gm/dl (6.0-8.3)
[2021-10-04 16:37] LABS: Basophils # (auto) 0.13 K/uL (0-0.2); Basophils % (auto) 1.4 %; Eosinophils # (auto) 0.06 K/uL (0-0.5); Eosinophils % (auto) 0.6 %; Hematocrit (blood only) 26.2 % (37-47); Hemoglobin 8.7 g/dL (12.0-16.0); Immature Granulocytes % (auto) 2.2 %; Lymphocytes # (auto) 0.79 K/uL (1.2-3.4); Lymphocytes % (auto) 8.5 %; Mean Corpuscular Hgb Conc 33.2 g/dL (32-36); Mean Corpuscular Volume 81.4 fL (80-100); Mean Platelet Volume 10.4 fL (7.4-10.4); Monocytes # (auto) 0.78 K/uL (0.11-0.59); Monocytes % (auto) 8.4 %; Neutrophils # (auto) 7.34 K/uL (1.4-6.5); Neutrophils % (auto) 78.9 %; Nucleated RBC # (auto) 0.05 K/uL (0-0); Nucleated RBC % (auto) 0.6 %; Platelet Count 319 K/uL (130-400); RDW Coefficient of Variation 19.7 % (11.5-14.5); RDW Standard Deviation 59.1 fL (36.4-46.3); Red Blood Count 3.22 M/uL (4.2-5.4)
--- NOTE | 2021-10-04 16:42 | XRay Report ---
XR chest 1V portable HISTORY: 71 years-old Female weakness acute weakness COMPARISON: Chest radiographs 10/02/2021 TECHNIQUE: Portable AP view of the chest FINDINGS: Cardiac silhouette is enlarged. Right subclavian pacer with previous left subclavian pacer leads agai n noted. Pulmonary vascular congestion with interstitial coarsening. No pneumothorax. Increased size of layering pleural effusions with progressive bibasilar consolidation. The bones appear grossly inta ct. IMPRESSION: 1. Cardiomegaly with pulmonary edema. 2. Increased size of the layering pleural effusions with progressive bibasilar consolidation. ACT 112: Negative or not required by law. The above report was generated using voice recognition software. It may contain grammatical, syntax o r spelling errors. Electronically signed by: Tony Junior M.D. 10/04/2021 4:40 PM
[2021-10-04] MEDS ORDERED: FUROSEMIDE 40 MG/4 ML VIAL IV ONE (16:55)
[2021-10-04] MEDS ORDERED: FAMOTIDINE 20MG IV PUSH 20 MG/5 ML SYR IV STA (17:01)
[2021-10-04 17:04] LABS: Lyme Ab IgG w/WB Rflx Negative (Negative); Lyme Ab IgM w/WB Rflx Negative (Negative)
[2021-10-04 17:11] LABS: Influenza A virus by PCR Negative (Neg); Influenza B virus by PCR Negative (Neg); RSV by PCR Negative (Neg); SARS CoV2 RNA(COVID-19) InHosp NEGATIVE (Negative)
--- NOTE | 2021-10-04 17:59 | History & Physical Report ---
Date of Service October 04, 2021 Assessment & Plan (1) Atrial flutter: Plan: New onset atrial flutter noted on ECG- this is new for her- - Discussed with Dr. Rodríguez with new finding (as he did her pacer and lead exchange) as well as anticoagulating her at this time is worrisome in the fact that her HGB has down trended to 8.7- she was 11.7 on 09/22/21 - With no other evidence of blood loss- will CT scan her chest non con to better evaluate the right lung filed as effusion is more pronounced - Interrogate pacemaker- onset 04Oct2021 ~805- as this is onset date- reassuring as no chakraborty to anticoagulate - She remains with adequate ventricular fire and capture- with rate control - Mediastinum not enlarged - Her HScTNI is negative - BNP 779- she is already being diuresed- follow in morning as possible rhythm change from atrial stretch (2) Bilateral pleural effusion: Plan: As above - hemothorax vs. worsening failure secondary to atrial flutter - diurese tonight - CT non con of chest to evaluate better- procedure was done 09/22 makes this unlikely acute blood loss to chest but evaluate (3) Pericardial effusion: Plan: Remains < 1cm which is same size noted from ECHO on - Perforation vs. CHF - as above - ECHO in am - appreciate cardiology assistance - Discussed findings with radiology- appreciate radiology read and discussion. - Cardiology updated real time as well - follow as above (4) Anemia: Plan: Drop in 3 points noted from September 22- will obtain CT scan of chest as above to evaluate pericardial size as well as effusion better - She is hemodynamically stable at this time with her blood pressures in normal range - blood loss vs. hemodilution - as above without evidence of organ dysfunction - pericardial effusion not bigger - pleural effusion stable- does not appear like blood - will hold asa in the meantime - SCD for VTE prophy - Recheck HGB at 2300 and in am (5) Dyspnea: Plan: Dyspnea with fatigue- she is unsure which symptom is predominant - DDX: Anemia or CHF - She has no orthopnea and does not appear systemically fluid overloaded but with fine crackles throughout - 80mg Lasix IV already administered- follow - If no increase in HGB or lowering of HGB in am- transfuse - no pericardial rub noted on exam and no change with positioning. (6) Status post placement of cardiac pacemaker: Plan: As above- she had generator and wires changed secondary to lead malfunction - As above difficult to ascertain ventricular lead- pacemaker interrogated with leads and pacer appropriate. - remains with v fire and v capture- which correlates with contact remaining in the ventricular wall. (7) Polycythemia vera: Plan: She follows with [facility]- Dr. Hall - recently started on Bersemi- which does have side effect profile of edema, and hypertension - this has been requested to be stopped by her cardiology group and she remains off this at this time (8) Hypothyroidism: Plan: TSH 4.005 continue with synthroid (9) Hyponatremia: Plan: 127 on admission asymptomatic other than fatigue - as diuretics already given will have to follow along- if secondary to hypervolemic hyponatremia this should improve - will send serum osmo and urine osmo - (10) GERD (gastroesophageal reflux disease): Plan: Continue PPI (11) HTN (hypertension): Plan: Continue with Losartan and asa History of Present Illness Primary Care Provider: Maicol Salinas MD 71 YOF with medical history of: GERD, bilateral pleural effusions, pulmonary edema, S/P pacemaker- exchange with lead malfunction, complete heart block, Polycythemia (previously started on Bersemi (09/27/21). Patient was referred to the EMD today after being treated for the past week for concerns of increase in edema and dyspnea. She has had her Lasix dose increased from 40-60-80mg with no change in symptoms. The patient mostly feels fatigued and dyspneic when she is getting up and moving around, she also feels bloating and weight gain in her abdomen. She has no orthopnea. Patient states her symptoms started around the time she had her pacemaker generator changed out as well as when she started her Bresemi. The pacemaker generator change was on 09/25/21 and her Bresemi was started on 09/27/21. She has since stopped that medication and remains with symptoms as above. She denies any chest pain except on the site where her pacemaker and leads were inserted, no fevers, chills. She does have cough with deep inspiration. In the EMD the patient had routine labs performed to include- HScTNI, BNP, lyme, CXR and ECG. Her BNP was elevated to 779, she was noted to by hyponatremic to 129, and anemic to 8.7mg/dl. She had an ECHO performed in Office on 10/03 with EF 55-60%, mild MR, moderate TR, small pericardial effusion reported as <1cm. Her ECG appears to be atrial flutter with V-pace (which appears to be new for her), and her CXR is notable for pulmonary congestion and bilateral pleural effusions. The patient denies any change in her stools or blood in stools as well as no nausea or vomiting. She does have history of GERD as well. Her last EGD and Colonoscopy in our system is from 2015. In the EMD she was given 80mg IV Lasix just prior to evaluation with obviously no effect yet. She will be admitted to medical telemetry, follow overnight diuresing, w ill type and screen and follow her HGB level in the morning- if this is from volume status would suspect this to increase following diuresing. Will send iron studies as she is borderline microcytic. Patient COVID and Influenza tests: NEGATIVE on admission Allergies Allergy/AdvReac Type Severity Reaction Status Date / Time codeine AdvReac Intermediate nausea Verified 10/04/21 16:49 erythromycin base AdvReac Intermediate nausea Verified 10/04/21 16:49 Home Medications Medication Instructions Recorded Confirmed Type calcium [calcium citrate] 1 tab PO BID 03/10/19 10/04/21 History escitalopram oxalate 20 mg tablet 20 mg PO DAILY tab 03/10/19 10/04/21 History flaxseed oil 1,000 mg capsule 1,000 mg PO DAILY cap 03/10/19 10/04/21 History lorazepam 0.5 mg tablet 0.5 mg PO DAILY PRN tab 03/10/19 10/04/21 History magnesium 250 mg tablet 250 mg PO DAILY 03/10/19 10/04/21 History metoprolol succinate 25 mg 25 mg PO DAILY tab 03/10/19 10/04/21 History tablet,extended release 24 hr multivitamin [Multivitamins FC] 1 tab PO DAILY 03/10/19 10/04/21 History omeprazole magnesium 10 mg oral 10 mg PO DAILY 10/24/20 10/04/21 History suspension,delayed release (Prilosec) losartan 25 mg tablet 12.5 mg PO DAILY #90 tab 05/17/21 10/04/21 History oxybutynin chloride 15 mg 15 mg PO DAILY 05/17/21 10/04/21 History tablet,extended release 24 hr potassium chloride 10 mEq 10 meq PO DAILY #30 cap 10/02/21 10/04/21 Rx capsule,extended release aspirin 81 mg tablet,delayed 81 mg PO DAILY 10/04/21 10/04/21 History release furosemide 40 mg tablet 80 mg PO DAILY 10/04/21 10/04/21 History Past Med/Surg History Medical History Depressive disorder GERD (gastroesophageal reflux disease) History of back problems Hyponatremia Hypothyroidism Migraine T12 compression fracture Surgical History H/O colonoscopy (~2015) H/O: hysterectomy No pertinent past surgical history S/P appendectomy Family History Mother Breast cancer Hypertension Stroke Daughter Breast cancer Brother Cancer Diabetes Hypertension Heart disease Father Heart disease Sister Hypertension Other No pertinent family history Social History Smoking Status: Never smoker Hx Alcohol Use: Yes Alcohol type: wine Hx Substance Use: No Preferred Language: Japanese Communication Ability: Effective Contract Coordinator Required: No Beliefs That Will Affect Care: None Current Living Situation: Spouse Feels Safe at Home: Yes Safety Concerns: Feels Safe At This Time Assistive Devices: Glasses Assistive Devices Comment: b/l hearing aides but left at home Review of Systems Review of Systems: REVIEW OF SYSTEMS: Constitutional: No fever, sweats or chills Eyes: No diplopia, no worsening or blurred vision ENT: normal hearing, no trouble swallowing Respiratory: (+) cough, dyspnea at rest or on exertion, no sputum production, no congestion Cardiovascular: No chest pain, tightness or palpitations Abdomen: (+) abdominal bloating, No pain, nausea, vomiting, diarrhea or constipation Musculoskeletal: (+) right chest pain following insertion of generator, calf pain, swelling Neurologic: No weakness, numbness/tingling, or balance problems Psychiatric: No anxiety or depression Skin: No rash or itch Physical Exam Physical Exam: PHYSICAL EXAM: General: awake, alert, no apparent distress Head: Normocephalic, atraumatic ENT: PERRLA, EOMI, no pharyngeal exudate, mucous membranes moist, conjunctiva are pale Neuro: AAO x 3, speech clear and appropriate, strength intact bilaterally 5/5, sensation intact and equal all extremities and dermatomes, no pronator drift Chest: equal rise and fall of the chest, no accessory muscle use, no heaves or thrills, scattered crackles throughout with decrease in the bases, on room air Cardiac: irregular rate and rhythm, telemetry reviewed- AV paced, skin warm dry, cap refill <3 seconds, peripheral pulses +2 no JVD, no murmur, no edema GI: NABS x 4 quadrants, soft, nontender to palpation, no rebound, guarding or tenderness : Spontaneously voiding, no pain, no CVA tenderness, Extremities: Normal inspection, no peripheral edema or erythema, calfs nontender to palpation Psych: Normal mood and affect Skin: no rash or erythema Results & Data Results & Data ([facility]) Vital Signs (Past 12 Hours) Vital Signs Temp Pulse Resp BP Pulse Ox 10/04/21 15:30 62 22 104/57 L 94 10/04/21 15:17 60 27 H 93 10/04/21 15:01 36.5 C 71 18 101/53 L 98 Laboratory Results Abnormal lab results 10/04/21 10/04/21 10/04/21 Range/Units 15:53 15:53 15:53 RBC 3.22 L (4.2-5.4) M/uL Hgb 8.7 L (12.0-16.0) g/dL Hct 26.2 L (37-47) % RDW Std Deviation 59.1 H (36.4-46.3) fL RDW Coeff of Yumiko 19.7 H (11.5-14.5) % Neut # (Auto) 7.34 H (1.4-6.5) K/uL Lymph # (Auto) 0.79 L (1.2-3.4) K/uL Sherman # (Auto) 0.78 H (0.11-0.59) K/uL Immature Gran # (Auto) 0.20 H (0.00-0.02) K/uL Absolute Nucleated RBC 0.05 H (0-0) K/uL Sodium 129 L (136-145) mmol/L Chloride 97 L (98-107) mmol/L BUN/Creatinine Ratio 22.8 H (10-20) Glucose 119 H (70-99(Fasting)) mg/dl B-Natriuretic Peptide 779 H (0-100) pg/ml Diagnostic Findings Chest X-Ray 10/04/21 15:23 XR chest 1V portable HISTORY: 71 years-old Female weakness acute weakness COMPARISON: Chest radiographs 10/02/2021 TECHNIQUE: Portable AP view of the chest FINDINGS: Cardiac silhouette is enlarged. Right subclavian pacer with previous left subclavian pacer leads again noted. Pulmonary vascular congestion with interstitial coarsening. No pneumothorax. Increased size of layering pleural effusions with progressive bibasilar consolidation. The bones appear grossly intact. IMPRESSION: 1. Cardiomegaly with pulmonary edema. 2. Increased size of the layering pleural effusions with progressive bibasilar consolidation. ACT 112: Negative or not required by law. The above report was generated using voice recognition software. It may contain grammatical, syntax or spelling errors. Electronically signed by: Tony Junior M.D. 10/04/2021 4:40 PM Chest X-Ray 10/04/21 15:23 XR chest 1V portable HISTORY: 71 years-old Female weakness acute weakness COMPARISON: Chest radiographs 10/02/2021 TECHNIQUE: Portable AP view of the chest FINDINGS: Cardiac silhouette is enlarged. Right subclavian pacer with previous left subclavian pacer leads again noted. Pulmonary vascular congestion with in terstitial coarsening. No pneumothorax. Increased size of layering pleural effusions with progressive bibasilar consolidation. The bones appear grossly intact. IMPRESSION: 1. Cardiomegaly with pulmonary edema. 2. Increased size of the layering pleural effusions with progressive bibasilar consolidation. ACT 112: Negative or not required by law. The above report was generated using voice recognition software. It may contain grammatical, syntax or spelling errors. Electronically signed by: Tony Junior M.D. 10/04/2021 4:[address] 10/04/21 18:57 CT OF THE CHEST WITHOUT IV CONTRAST CLINICAL HISTORY: Shortness of breath. Atrial flutter. Decrease in hemoglobin. Evaluate for hemothorax. COMPARISON STUDY: Chest CT January 19, 2016. Chest radiograph performed earlier today. CT DOSE: 209.10 mGycm TECHNIQUE: Axial images of the chest were obtained without IV contrast. Images were reviewed in the axial, sagittal, and coronal planes. IV contrast was not administered for this examination. Automated exposure control was utilized for the study. A dose lowering technique was utilized adhering to the principles of ALARA. FINDINGS: A dual lead right subclavian pacer is in place. Old left sided pacer leads are also place. The right ventricular lead for the new pacer projects over the wall of the right ventricle. This is shown on axial image 198 of 266. Position of the lead is difficult to assess given extensive streak artifact but this is probably within the wall of the ventricle. A small to moderate pericardial effusion is noted. Fluid is low attenuation. Small to moderate left and small right pleural effusions are also noted. Pleural fluid attenuation is low and measures near water. No pneumothorax is present. There is no thoracic lymphadenopathy. Bilateral lower lobe opacities, greater left, favor atelectasis. There is no consolidation to suggest pneumonia. Mild cardiomegaly is noted. There is extensive mitral annular calcification. There is also moderate coronary artery calcification. Old T12 compression fracture is incidentally noted. Visualized portions of the upper abdomen are unremarkable. IMPRESSION: 1. Small to moderate low-attenuation pericardial effusion. Interval placement of a dual lead right subclavian pacer. Right ventricular lead projects over the wall of the right ventricle. This is probably within the wall although exact position is difficult to assess given streak artifact and ventricular perforation would be difficult to completely exclude. Contrast-enhanced chest CT could be considered for further evaluation as indicated. Findings discussed with Davy Alfredo at time of dictation. 2. Small to moderate left and small right pleural effusions which are low attenuation. No hemothorax. Associated airspace opacities favor atelectasis. ACT 112: Negative or not required by law. Electronically signed by: Phan Ram M.D. 10/04/2021 7:49 PM Medications Administered Home Medications calcium [calcium citrate] 1 tab PO BID 03/10/19 [History Confirmed 10/04/21] escitalopram oxalate 20 mg tablet 20 mg PO DAILY tab 03/10/19 [History Confirmed 10/04/21] flaxseed oil 1,000 mg capsule 1,000 mg PO DAILY cap 03/10/19 [History Confirmed 10/04/21] lorazepam 0.5 mg tablet 0.5 mg PO DAILY PRN tab 03/10/19 [History Confirmed 10/04/21] magnesium 250 mg tablet 250 mg PO DAILY 03/10/19 [History Confirmed 10/04/21] metoprolol succinate 25 mg tablet,extended release 24 hr 25 mg PO DAILY tab 03/10/19 [History Confirmed 10/04/21] multivitamin [Multivitamins FC] 1 tab PO DAILY 03/10/19 [History Confirmed 10/04/21] omeprazole magnesium 10 mg oral suspension,delayed release (Prilosec) 10 mg PO DAILY 10/24/20 [History Confirmed 10/04/21] losartan 25 mg tablet 12.5 mg PO DAILY #90 tab 05/17/21 [History Confirmed 10/04/21] oxybutynin chloride 15 mg tablet,extended release 24 hr 15 mg PO DAILY 05/17/21 [History Confirmed 10/04/21] potassium chloride 10 mEq capsule,extended release 10 meq PO DAILY #30 cap 10/02/21 [Rx Confirmed 10/04/21] aspirin 81 mg tablet,delayed release 81 mg PO DAILY 10/04/21 [History Confirmed 10/04/21] furosemide 40 mg tablet 80 mg PO DAILY 10/04/21 [History Confirmed 10/04/21] Discontinued Medications Furosemide (Furosemide 40 Mg/4 Ml Vial) 80 mg IV ONE ONE Stop: 10/04/21 16:56 Last Admin: 10/04/21 18:03 Dose: 80 mg Documented by: [id number] Famotidine (Pepcid 20mg Iv Push) 20 mg in 5 mls @ 2.5 mls/min IV NOW STA Stop: 10/04/21 17:02 Last Admin: 10/04/21 18:03 Dose: 2.5 mls/min Documented by: [id number] ECG Additional Comments: 04-OCT-2021 15:07:38 [facility]-EDSTAT ROUTINE RETRIEVAL Ventricular-paced rhythm Abnormal ECG When compared with ECG of 24-SEP-2021 16:40, Vent. rate has increased BY 3 BPM Code Status & VTE Plan Code Status CODE: FULL VTE: SCDS, chemoprophylaxis on hold Supervising Physician Co-Signing Physician Notes Patient seen and examined at bedside. During face to face encounter, obtained a physical and history. Discussed plan of care with SINAN Alfredo, and patient. Reviewed above note and agree with it. Patient admitted with atrial flutter, continue diuresing, PG Care Time/CCT Total # of Minutes Spent Total Time Spent with Patient: Total time spent is greater than 50% in coordination of care (as documented) at patient's floor/unit and/or counseling patient: Coding Level of Care Code 69488 Initial Inpt Care Lvl 3 Diagnoses Atrial flutter I48.92 Bilateral pleural effusion J90 Dyspnea R06.00 Status post placement of cardiac pacemaker Z95.0 Polycythemia vera D45 Hypothyroidism E03.9 Hyponatremia E87.1 GERD (gastroesophageal reflux disease) K21.9 HTN (hypertension) I10 Anemia D64.9 Pericardial effusion I31.3
--- NOTE | 2021-10-04 19:52 | CT Scan Report ---
CT OF THE CHEST WITHOUT IV CONTRAST CLINICAL HISTORY: Shortness of breath. Atrial flutter. Decrease in hemoglobin. Evaluate for hemothora x. COMPARISON STUDY: Chest CT January 19, 2016. Chest radiograph performed earlier today. CT DOSE: 209.10 mGycm TECHNIQUE: Axial images of the chest were obtained without IV contrast. Images were reviewed in the axial, sagittal, and coronal planes. IV contrast was not administered for this examination. Automat ed exposure control was utilized for the study. A dose lowering technique was utilized adhering to t he principles of ALARA. FINDINGS: A dual lead right subclavian pacer is in place. Old left sided pacer leads are also place. The right ventricular lead for the new pacer projects over the wall of the right ventricle. This is shown on axial image 198 of 266. Position of the lead is difficult to assess given extensive streak a rtifact but this is probably within the wall of the ventricle. A small to moderate pericardial effusi on is noted. Fluid is low attenuation. Small to moderate left and small right pleural effusions are a lso noted. Pleural fluid attenuation is low and measures near water. No pneumothorax is present. Ther e is no thoracic lymphadenopathy. Bilateral lower lobe opacities, greater left, favor atelectasis. Th ere is no consolidation to suggest pneumonia. Mild cardiomegaly is noted. There is extensive mitral a nnular calcification. There is also moderate coronary artery calcification. Old T12 compression fract ure is incidentally noted. Visualized portions of the upper abdomen are unremarkable. IMPRESSION: 1. Small to moderate low-attenuation pericardial effusion. Interval placement of a dual lead right lopez bclavian pacer. Right ventricular lead projects over the wall of the right ventricle. This is probabl y within the wall although exact position is difficult to assess given streak artifact and ventricula r perforation would be difficult to completely exclude. Contrast-enhanced chest CT could be considere d for further evaluation as indicated. Findings discussed with Davy Alfredo at time of dictation. 2. Small to moderate left and small right pleural effusions which are low attenuation. No hemothorax. Associated airspace opacities favor atelectasis. ACT 112: Negative or not required by law. Electronically signed by: Phan Ram M.D. 10/04/2021 7:49 PM
[2021-10-04 21:11] LABS: Iron 12 mcg/dl (35-150); Total Iron Binding Cap Calc 227 mcg/dl (250-450); Transferrin (FE) Percent Satur 5 % (15-50); Unsaturated Iron Binding Cap 215 mcg/dl (155-355)
[2021-10-04] MEDS: LORazepam 0.5 MG TAB PO PRN (21:28)
--- NOTE | 2021-10-05 00:24 | Communication Note ---
Date of Service: October 05, 2021 Patient's symptoms (5/10 pleuritic chest pain, dyspnea on exertion, mild fatigue and headache) are unchanged and not worsened from earlier today. Insp crackles at bases, unchanged from admission exam. Symptoms more likely 2/2 chf exacerbation vs heart rhythm. Was in atrial flutter earlier today, but currently appears paced not in flutter low to upper 90s rate. Defer IV Lopressor at this time. Her Hb returned at 7.9, down from 8.7 this afternoon and 11.7 09/20/21. Consent in chart. With PMHx of polycythemia vera and patient reported hx of reaction from transfusion years ago, will use transfusion threshold of 7.0 and defer transfusion at this time. 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 Patient had EGD and colonoscopy during 12/2015 [facility] admission. She was on an interferon abraham-2b at the time. The scopes were done because of unexplained iron deficiency anemia (Hb 11s down from 14s six months prior) and because Hb should be elevated in polycythemia vera. No source of bleeding was found. Consider slow GI bleed. Medication side effect (Besremi (interferon abraham-2b, dose on 09/27/21)) may be contributory. Per FDA data sheet, "Anemia of grade 3 (Hgb < 8 g/dL) or greater occurred in 1% of BESREMi-treated patients." Lower suspicion for blood from pericardial (small size would not explain the Hb drop) and pleural effusion sources (does not appear to be blood per CT). 09/24/21 pacemaker revision and dilutional anemia would also insufficiently the 4 point hemoglobin drop. plan: Checking fecal occult. Checking AM labs timed at 4AM and adding hemolysis labs. 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
[2021-10-05] MEDS: ACETAMINOPHEN 325 MG TAB PO PRN ×3 (03:19→16:38)
[2021-10-05 04:14] LABS: Basophils # (auto) 0.18 K/uL (0-0.2); Basophils % (auto) 2.2 %; Eosinophils # (auto) 0.04 K/uL (0-0.5); Eosinophils % (auto) 0.5 %; Hematocrit (blood only) 24.5 % (37-47); Hemoglobin 8.1 g/dL (12.0-16.0); Immature Granulocytes # (auto) 0.19 K/uL (0.00-0.02); Immature Granulocytes % (auto) 2.3 %; Lymphocytes # (auto) 0.91 K/uL (1.2-3.4); Mean Corpuscular Hemoglobin 26.9 pg (25-34); Mean Corpuscular Hgb Conc 33.1 g/dL (32-36); Mean Corpuscular Volume 81.4 fL (80-100); Mean Platelet Volume 10.7 fL (7.4-10.4); Monocytes # (auto) 0.63 K/uL (0.11-0.59); Monocytes % (auto) 7.6 %; Neutrophils # (auto) 6.36 K/uL (1.4-6.5); Neutrophils % (auto) 76.4 %; Nucleated RBC # (auto) 0.04 K/uL (0-0); Nucleated RBC % (auto) 0.5 %; Platelet Count 257 K/uL (130-400); RDW Coefficient of Variation 19.7 % (11.5-14.5); RDW Standard Deviation 58.5 fL (36.4-46.3); Red Blood Count 3.01 M/uL (4.2-5.4); Reticulocyte % 2.6 % (0.5-2.0); Reticulocytes # 0.08 10^6/uL (0.02-0.10); White Blood Count 8.31 K/uL (4.8-10.8)
[2021-10-05 04:26] LABS: INR 1.2 (0.9-1.1); Partial Thromboplastin Ratio 1.3; Partial Thromboplastin Time 34.5 Seconds (21.0-31.0)
[2021-10-05 04:43] LABS: Ovalocytes 1+; Tear Drop Cells 1+
[2021-10-05 04:54] LABS: Albumin Level 3.5 gm/dl (3.4-5.0); Bilirubin,Total 0.7 mg/dl (0.2-1.0); Calcium 8.3 mg/dl (8.5-10.1); Creatinine Clr Calc Pharmacy 60.3 ml/min; Est GFR (African American) 90.8 ml/min; Est GFR (Non-African American) 78.4 ml/min; Globulin 3.4 gm/dl (2.5-4.0); Magnesium 1.9 mg/dl (1.7-2.4); Potassium 3.7 mmol/L (3.5-5.1); Total Protein 6.9 gm/dl (6.0-8.3)
[2021-10-05 05:11] LABS: Ferritin 277.6 ng/ml (8-388)
[2021-10-05] MEDS: ESCITALOPRAM OXALATE 20 MG TAB PO SCH (07:47)
[2021-10-05] MEDS: POTASSIUM CHLORIDE 10 MEQ TABCR PO SCH (07:47)
[2021-10-05] MEDS: LOSARTAN POTASSIUM 25 MG TAB PO SCH (07:47)
[2021-10-05] MEDS: OXYBUTYNIN CHLORIDE XL 5 MG TABCR PO SCH (07:47)
[2021-10-05] MEDS: PANTOprazole 40 MG TAB PO SCH (07:48)
[2021-10-05] MEDS: METOPROLOL SUCC 25MG EXT REL TAB PO SCH (07:48)
--- NOTE | 2021-10-05 07:54 | Electrocardiogram Report ---
Test Reason : Blood Pressure : / mmHG Vent. Rate : 064 BPM Atrial Rate : 300 BPM P-R Int : 000 ms QRS Dur : 146 ms QT Int : 482 ms P-R-T Axes : 000 -64 066 degrees QTc Int : 497 ms Ventricular-paced rhythm Unddrlying atrial fibrillation Abnormal ECG When compared with ECG of 24-SEP-2021 16:40, Vent. rate has increased BY 3 BPM Confirmed by Simon Rodríguez ([id number]) on 10/05/2021 7:54:24 AM Referred By: Confirmed By:Simon Rodríguez
[2021-10-05] MEDS ORDERED: FUROSEMIDE 80 MG TAB PO SCH (09:00)
[2021-10-05 09:09] LABS: Appearance Urine Clear (Clear); Bacteria Urine Automated Negative (Negative); Bilirubin Urine Negative (Negative); Blood Urine Negative (Negative); Color Urine Dark Yellow; Epithelial Cell Urine Auto >30 /lpf (0-5); Glucose Urine UA Negative (Negative); Ketones Urine Negative (Negative); Leukocyte Esterase Urine 2+ (Negative); Nitrite Urine Negative (Negative); Protein Urine Trace (Negative); RBC Urine Automated 0-4 /hpf (0-4); Urobilinogen Urine Negative (Negative); pH Urine 6.5 (4.5-7.5)
--- NOTE | 2021-10-05 09:44 | Hospitalist Progress Note ---
Date of Service October 05, 2021 Assessment & Plan (1) Atrial flutter: (2) Bilateral pleural effusion: (3) Pericardial effusion: (4) Status post placement of cardiac pacemaker: (5) Dyspnea: (6) Polycythemia vera: (7) Hyponatremia: (8) Hyponatremia with decreased serum osmolality: (9) GERD (gastroesophageal reflux disease): (10) HTN (hypertension): Plan: Alice is a 71 year old female w/ PmHx polycythemia vera s/p x1 dose Besremi (09/27), complete heart block s/p pacemaker, GERD admitted for concern for fluid overload and anemia. B/L Pleural Effusion/Dyspnea: - CT non-con chest w/ evidence of small to mod left and small right pleural effusion. - results of fluid overload/ ?Besremi side effect - Less likely hemothorax given slow decline in hgb, patient hemodynamically stable. - Normal EF, hyperdynamic LV - 80mg IV Lasix in ED. Repeat 80mg IV Lasix this AM. - Monitor I&O's. Atrial Flutter: - EKG on admission w/ new onset A. Flutter. Repeat EKG with paced rhythm. - Trop I negative x2, BNP 779. - On metoprolol succinate ER 25mg daily, held per BP parameters today. - Cardiology consulted. Pericardial Effusion: - Echo 10/03 w/ evidence of small pericardial effusion <1cm. - Repeat echo 10/05: pericardial effusion appears slightly smaller. - CT non-con chest w/ streak artifact around ventricular lead, difficult to ascertain if perforation. - Likely not contributing to pulmonary symptoms. Anemia: - Hgb 11.7 09/20, 8.7 on entry to hospital. - Hgb dropped to 7.9 at 23:09 then up to 8.1 at 03:49 - Iron 17 (low), TIBC 227 (low) - FOBT negative in ED. - Less likely bleed, more likely sec to Besremi. - Transfusion threshold below 7. - Repeat H&H in afternoon. S/p placement of cardiac pacemaker: - Generator and wires changed due to lead malfunction - Difficult to determine ventricular lead location due to artifact on CT. - Rhythm paced. - Cardiology aware. Hyponatremia w/ decreased serum osmolality: - Na 127, serum osm 273. - Patient hypervolemic w/ pleural effusions. . - Continue diuresis, monitoring I&O's, BMP. Polycythemia Vera: - Hgb as above. - Patient s/p Besremi 09/27. - Patient spoke with her heme/onc office, they said they would not be continuing the Besremi given side effects. - Monitor hgb Hypothyroidism: - TSH 4.005 continue with synthroid GERD: - Continue Prilosec. HTN: - Patient systolic blood pressures in 90's-100's systolic. - Hold metoprolol succinate, continue home losartan. DVT Prophylaxis: SCD's F/E/N/GI: Low sodium diet Code status: Full code Dispo: Med/Surg tele Admission and Anticipated Discharge Date Admission Date: October 04, 2021 Supervising Physician Co-Signing Physician Notes Resident Physician Supervision Note: I independently interviewed and examined the patient and verified the enciso history and physical, reviewed labs and image studies and agree with resident Dr. Jama findings and care plan. Subjective Patient saying she feels better today than when she first came in. She still has dyspnea on exertion but says that her shortness of breath at rest is better. She denies any lightheadedness or dizziness, fevers, chills, chest pain. She did have a brief moment of palpitations the other day when her heart rate was elevated but nothing today. Review of Systems Constitutional: as per Subjective / HPI Physical Exam Constitutional: WD/WN, vitals as above Eyes: PERRL, conjunctivae normal, anicteric sclerae Respiratory: Mild crackles mid to lower lung reynolds bilaterally, mildly diminished at bases. Cardiovascular: RRR, no murmur, no edema Gastrointestinal (Abdomen): normal bowel sounds, soft, nontender, no hepatosplenomegaly Results & Data Results & Data ([facility]) Vital Signs (Past 12 Hours) Vital Signs Temp Pulse Pulse Resp BP BP Pulse Ox 10/05/21 07:36 36.9 C 98 H 20 94/64 L 94 10/05/21 03:02 37.9 C H 111 H 20 100/66 90 10/05/21 00:29 103 H 10/05/21 00:00 36.9 C 112 H 20 99/54 L 93 Resident Activity Tracking Resident Involvement: Resident Care Provided Care Provided: [facility]
[2021-10-05] MEDS ORDERED: bisacodyL 5 MG TABEC PO PRN (10:54)
[2021-10-05] MEDS ORDERED: POLYETHYLENE (MIRALAX) 17 GM PACK PO PRN (10:59)
--- NOTE | 2021-10-05 11:02 | XCELERA ---
[id number]}[id number]
[2021-10-05 16:16] LABS: Hematocrit (blood only) 23.6 % (37-47); Hemoglobin 7.9 g/dL (12.0-16.0)
--- NOTE | 2021-10-05 18:32 | Cardiology Consultation ---
Date of Consultation October 05, 2021 Assessment & Plan (1) Paroxysmal atrial flutter: (2) Pericardial effusion: (3) Status post placement of cardiac pacemaker: (4) Pleural effusion: (5) Hypervolemia: (6) Anemia: (7) SOB (shortness of breath): (8) HTN (hypertension): ASSESSMENT/PLAN: 1. Paroxysmal atrial flutter/fibrillation: Atrial flutter versus coarse AFib on presenting ECG on 10/04/2021 and according to pacemaker interrogation verbal report, apparently it began on 10/04/2021. She appears to have converted and is now demonstrating atrial sensing. Anticoagulation therapy has not been initiated due to new anemia with formal workup pending. Can continue home dose of beta-brian. Given that this is a new arrhythmia for her, it could be related to Besremi, as atrial fibrillation is listed as a adverse reaction of this medication. This arrhythmia is not likely to blame for her symptoms of dyspnea with exertion as the onset began on 10/04/2021 however her symptoms have been ongoing for several days. 2. Pericardial effusion: Perhaps slightly smaller on today's echo. Possibly related to Besremi. No evidence of tamponade physiology currently. While diuresing, if becomes hypotensive and tachycardic and concern for tamponade physiology, would recommend IV fluid administration. Conservative management for now. 3. Pleural effusions: Possibly due to Besremi. Plan as above. If they do not improve with diuresis, could evaluate for possible thoracentesis, however they are not currently large. 4. Shortness of breath/dyspnea with exertion: Began several days after Besremi, which can cause hypervolemia. Pacemaker appears to be appropriately functioning per electrophysiology. She appears hypervolemic. Agree with diuresis. 5. Hypervolemia: Possibly medication reaction as noted. Agree with diuresis. Monitor for signs or symptoms of tamponade. Low-sodium diet. Consider intravenous diuretic therapy in place of p.o.. 6. Dual chamber pacemaker: Managed by electrophysiology. Appropriately functioning per report. 7. Anemia: Possibly due to adverse medication reaction (Besremi). Formal workup is still pending. No evidence of bleeding thus far. Consider GI consultation, especially if no improvement. Will defer formal workup to primary service. 8. Hypertension: Blood pressure has mostly been normotensive with mild hypotension at times. When reviewing records, this is per her usual pattern. If he issues with hypotension, can hold ARB. 9. Disposition: Please call with any other questions or concerns. She should follow-up with Dr. Rodríguez on discharge. Plan of care communicated with Dr. Marks of the primary hospitalist service. Thank you for allowing me to participate in the care of your patient. Please call for any other questions or concerns. Sincerely, Prince Sharma M.D. History of Present Illness Reason for Consultation: "New onset atrial flutter" Requesting Physician: Davy Alfredo Attending Physician: Andria Marks MD History of Present Illness Mrs. Ruiz is a very pleasant 71-year-old female with a history significant for stress-induced cardiomyopathy, complete heart block s/p dual chamber pacemaker, polycythemia vera, and GERD. Her primary automatic profile sander operator is Dr. Rodríguez. On 09/24/2021, she underwent generator change out and placement of new leads due to decreased battery life and ventricular lead failure. 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 On 09/26/2021, she received her first dose of Besremi (Ropeginterferon [id number]-2b) for polycythemia vera. Several days later, she developed significant dyspnea with exertion and weakness. She was seen in the cardiology office on 10/02/2021 and 10/03/2021 with Mr. Mariano. Her dual-chamber pacemaker was found to be functioning appropriately but she was found have bilateral pleural effusions and pericardial effusion. Lasix 60 mg daily was initiated and it was recommended that she discontinue Besremi. She was seen the following day where Lasix was further titrated to 80 mg daily as her symptoms had not improved although she had lost 1.5 lb. She was then admitted on 10/04/2021 and found to have hemoglobin as low as 7.9 when it was previously 11.7 on 09/20/2021. She was also noted to be in atrial flutter on presenting ECG. Per conversation with Dr. Rodríguez, pacemaker interrogation confirms that atrial flutter began the morning of 10/04/2021. She has been continued on p.o. Lasix while here and states that she feels slightly better from a breathing standpoint. She denies orthopnea, chest pain, edema, syncope, near-syncope, palpitations, melena, hematochezia, or hematuria. Her abdomen feels bloated. Review of systems: As above. Review of systems otherwise negative/ unremarkable. Family history: Positive for CAD. Social history: She denies tobacco or drug abuse. Occasional alcohol. She lives at home with her , Yannick. They have 1 son who lives in [place]. There daughter has . She has grandchildren. Her was present at the bedside. Allergies Allergy/AdvReac Type Severity Reaction Status Date / Time codeine AdvReac Intermediate nausea Verified 10/04/21 16:49 erythromycin base AdvReac Intermediate nausea Verified 10/04/21 16:49 Home Medications Medication Instructions Recorded Confirmed Type calcium [calcium citrate] 1 tab PO BID 03/10/19 10/04/21 History escitalopram oxalate 20 mg tablet 20 mg PO DAILY tab 03/10/19 10/04/21 History flaxseed oil 1,000 mg capsule 1,000 mg PO DAILY cap 03/10/19 10/04/21 History lorazepam 0.5 mg tablet 0.5 mg PO DAILY PRN tab 03/10/19 10/04/21 History magnesium 250 mg tablet 250 mg PO DAILY 03/10/19 10/04/21 History metoprolol succinate 25 mg 25 mg PO DAILY tab 03/10/19 10/04/21 History tablet,extended release 24 hr multivitamin [Multivitamins FC] 1 tab PO DAILY 03/10/19 10/04/21 History omeprazole magnesium 10 mg oral 10 mg PO DAILY 10/24/20 10/04/21 History suspension,delayed release (Prilosec) losartan 25 mg tablet 12.5 mg PO DAILY #90 tab 05/17/21 10/04/21 History oxybutynin chloride 15 mg 15 mg PO DAILY 05/17/21 10/04/21 History tablet,extended release 24 hr potassium chloride 10 mEq 10 meq PO DAILY #30 cap 10/02/21 10/04/21 Rx capsule,extended release aspirin 81 mg tablet,delayed 81 mg PO DAILY 10/04/21 10/04/21 History release furosemide 40 mg tablet 80 mg PO DAILY 10/04/21 10/04/21 History Patient History Medical History Complete heart block Depressive disorder GERD (gastroesophageal reflux disease) History of back problems HTN (hypertension) Hyponatremia Hypothyroidism Migraine Pericardial effusion Polycythemia vera Stress-induced cardiomyopathy T12 compression fracture Surgical History (Updated 10/05/21 @ 18:54 by Yo Sharma MD) H/O colonoscopy (~2015) H/O: hysterectomy No pertinent past surgical history S/P appendectomy Status post placement of cardiac pacemaker -- Medtronic Advisa explanted and leads capped 09/24/21. -- Right sided Medtronic Donna XT DR MRI Dual Chamber pacer implanted on 09/24/21 Family History Mother Breast cancer Hypertension Stroke Daughter Breast cancer Brother Cancer Diabetes Hypertension Heart disease Father Heart disease Sister Hypertension Other No pertinent family history Social History Smoking Status: Never smoker Hx Alcohol Use: Yes Alcohol type: wine Hx Substance Use: No Preferred Language: Spanish Communication Ability: Effective Passenger Attendant Required: No Beliefs That Will Affect Care: None Current Living Situation: Spouse Feels Safe at Home: Yes Safety Concerns: Feels Safe At This Time Assistive Devices: Glasses Assistive Devices Comment: b/l hearing aides but left at home Physical Exam Physical Exam: Gen.: No acute distress. Alert and oriented. HEENT: Anicteric sclera. Neck: Mild JVD. No bruits. Normal carotid upstrokes bilaterally. Cardiac: PMI was nondisplaced. No ventricular heave. Regular. Normal S1-S2. No murmurs, rubs, or gallops. Pulmonary: Decreased breath sounds bilaterally, with little to no lung sounds bilateral lower third lung reynolds. Crackles near the right base. Abdomen: Soft, nontender, nondistended, with normoactive bowel sounds. No bruits noted. Extremities: 2+ radial pulses bilaterally. 2+ posterior tibialis pulses bilaterally. No pitting edema or cyanosis. Psychiatric: Affect appears appropriate. Results & Data ([facility]) Vital Signs (Past 12 Hours) Vital Signs Temp Pulse Resp BP Pulse Ox 10/05/21 15:26 36.6 C 101 H 20 107/71 93 10/05/21 11:10 36.9 C 84 18 99/65 L 93 10/05/21 07:36 36.9 C 98 H 20 94/64 L 94 Intake & Output 10/03/21 10/04/21 10/05/21 10/06/21 06:59 06:59 06:59 06:59 Intake Total 725 / 725 220 / 220 Output Total 275 / 275 500 / 500 Balance 450 / 450 -280 / -280 Weight 141 lb 3.2 oz Laboratory Results Laboratory Results - last 24 hr 10/04/21 10/04/21 10/04/21 15:53 18:03 21:10 WBC RBC Hgb Hct MCV MCH MCHC RDW Std Deviation RDW Coeff of Yumiko Plt Count MPV Immature Gran % (Auto) Neut % (Auto) Lymph % (Auto) [place] % (Auto) Eos % (Auto) Baso % (Auto) Reticulocyte % (Auto) Neut # (Auto) Lymph # (Auto) [place] # (Auto) Eos # (Auto) Baso # (Auto) Reticulocyte # Immature Gran # (Auto) Absolute Nucleated RBC Nucleated RBC % (auto) Neutrophils % (Manual) Band Neutrophils % Lymphocytes % (Manual) Prolymphocyte % Reactive Lymphs % (Man) Monocytes % (Manual) Eosinophils % (Manual) Basophils % (Manual) Metamyelocytes % (Man) Myelocytes % (Man) Promyelocytes % (Man) Blast Cells % (Manual) Plasma Cell % (Manual) Other Cells % Nucleated RBC % Neutrophils # (Manual) Band Neutrophils # Total Absolute Neuts Lymphocytes # (Manual) Prolymphocyte # Reactive Lymphs # Total Abs Lymphocytes Monocytes # (Manual) Eosinophils # (Manual) Basophils # (Manual) Metamyelocytes # (Man) Myelocytes # (Manual) Promyelocytes # (Man) Blast Cells # (Man) Plasma Cell # (Manual) Other Cells # Nucleated RBCs # (Man) Hypersegmented Neuts Hyposegmented Neuts Hypogranular Neuts Large Granular Lymphs # Lrg Granular Lymphs Hairy Cells Smudge Cells Toxic Granulation Toxic Vacuolation Dohle Bodies Keren Rods Platelet Estimate Hypogranular Platelets Clumped Platelets Giant Platelets Platelet Satelliting RBC Morphology Polychromasia Hypochromasia Poikilocytosis Basophilic Stippling Anisocytosis Microcytosis Macrocytosis Spherocytes Pappenheimer Bodies Sickle Cells Target Cells Tear Drop Cells Ovalocytes Stomatocytes Douglas-Clitherall Bodies Echinocytes Acanthocytes (Spur) Rouleaux RBC Agglutinates Schistocytes RBC Morph Comment Peripher Smr Path Cons Sezary Cell PT INR APTT PTT Ratio Sodium Potassium Chloride Carbon Dioxide Anion Gap BUN Creatinine Est Cr Clr Drug Dosing Est GFR ( Amer) Est GFR (Non-Af Amer) BUN/Creatinine Ratio Glucose Osmolality 273 L Calcium Magnesium Iron 12 L TIBC 227 L Unsaturated IBC 215 Transferrin % Sat 5 L Ferritin Total Bilirubin AST ALT Alkaline Phosphatase Lactate Dehydrogenase Total Protein Albumin Globulin Albumin/Globulin Ratio Urine Color Urine Appearance Urine pH Ur Specific [place] Urine Protein Urine Glucose (UA) Urine Ketones Urine Blood Urine Nitrite Urine Bilirubin Urine Urobilinogen Ur Leukocyte Esterase Urine WBC (Auto) Urine RBC (Auto) U Hyaline Cast (Auto) U Epithel Cells (Auto) Urine Bacteria (Auto) Urine Osmolality Blood Type B Positive Antibody Screen NEGATIVE 10/04/21 10/05/21 10/05/21 23:09 03:49 03:49 WBC 8.31 RBC 3.01 L Hgb 7.9 L 8.1 L Hct 24.5 L MCV 81.4 MCH 26.9 MCHC 33.1 RDW Std Deviation 58.5 H RDW Coeff of Yumiko 19.7 H Plt Count 257 MPV 10.7 H Immature Gran % (Auto) 2.3 Neut % (Auto) 76.4 Lymph % (Auto) 11.0 [place] % (Auto) 7.6 Eos % (Auto) 0.5 Baso % (Auto) 2.2 Reticulocyte % (Auto) 2.6 H Neut # (Auto) 6.36 Lymph # (Auto) 0.91 L [place] # (Auto) 0.63 H Eos # (Auto) 0.04 Baso # (Auto) 0.18 Reticulocyte # 0.08 Immature Gran # (Auto) 0.19 H Absolute Nucleated RBC 0.04 H Nucleated RBC % (auto) 0.5 Neutrophils % (Manual) Band Neutrophils % Lymphocytes % (Manual) Prolymphocyte % Reactive Lymphs % (Man) Monocytes % (Manual) Eosinophils % (Manual) Basophils % (Manual) Metamyelocytes % (Man) Myelocytes % (Man) Promyelocytes % (Man) Blast Cells % (Manual) Plasma Cell % (Manual) Other Cells % Nucleated RBC % Neutrophils # (Manual) Band Neutrophils # Total Absolute Neuts Lymphocytes # (Manual) Prolymphocyte # Reactive Lymphs # Total Abs Lymphocytes Monocytes # (Manual) Eosinophils # (Manual) Basophils # (Manual) Metamyelocytes # (Man) Myelocytes # (Manual) Promyelocytes # (Man) Blast Cells # (Man) Plasma Cell # (Manual) Other Cells # Nucleated RBCs # (Man) Hypersegmented Neuts Hyposegmented Neuts Hypogranular Neuts Large Granular Lymphs # Lrg Granular Lymphs Hairy Cells Smudge Cells Toxic Granulation Toxic Vacuolation Dohle Bodies Keren Rods Platelet Estimate Hypogranular Platelets Clumped Platelets Giant Platelets Platelet Satelliting RBC Morphology Polychromasia Hypochromasia Poikilocytosis Basophilic Stippling Anisocytosis Microcytosis Macrocytosis Spherocytes Pappenheimer Bodies Sickle Cells Target Cells Tear Drop Cells 1+ Ovalocytes 1+ Stomatocytes Douglas-Clitherall Bodies Echinocytes Acanthocytes (Spur) Rouleaux RBC Agglutinates Schistocytes RBC Morph Comment Peripher Smr Path Cons Pending Sezary Cell PT INR APTT PTT Ratio Sodium 127 L Potassium 3.7 Chloride 95 L Carbon Dioxide 23 Anion Gap 9 BUN 19 Creatinine 0.76 Est Cr Clr Drug Dosing 60.3 Est GFR ( Amer) 90.8 Est GFR (Non-Af Amer) 78.4 BUN/Creatinine Ratio 25.0 H Glucose 119 H Osmolality Calcium 8.3 L Magnesium 1.9 Iron 17 L TIBC Unsaturated IBC Transferrin % Sat Ferritin 277.6 Total Bilirubin 0.7 AST 21 ALT 17 Alkaline Phosphatase 77 Lactate Dehydrogenase Total Protein 6.9 Albumin 3.5 Globulin 3.4 Albumin/Globulin Ratio 1.0 Urine Color Urine Appearance Urine pH Ur Specific [place] Urine Protein Urine Glucose (UA) Urine Ketones Urine Blood Urine Nitrite Urine Bilirubin Urine Urobilinogen Ur Leukocyte Esterase Urine WBC (Auto) Urine RBC (Auto) U Hyaline Cast (Auto) U Epithel Cells (Auto) Urine Bacteria (Auto) Urine Osmolality Blood Type Antibody Screen 10/05/21 10/05/21 10/05/21 03:49 03:49 03:49 WBC Cancelled RBC Cancelled Hgb Cancelled Hct Cancelled MCV Cancelled MCH Cancelled MCHC Cancelled RDW Std Deviation Cancelled RDW Coeff of Yumiko Cancelled Plt Count Cancelled MPV Cancelled Immature Gran % (Auto) Cancelled Neut % (Auto) Cancelled Lymph % (Auto) Cancelled [place] % (Auto) Cancelled Eos % (Auto) Cancelled Baso % (Auto) Cancelled Reticulocyte % (Auto) Neut # (Auto) Cancelled Lymph # (Auto) Cancelled [place] # (Auto) Cancelled Eos # (Auto) Cancelled Baso # (Auto) Cancelled Reticulocyte # Immature Gran # (Auto) Cancelled Absolute Nucleated RBC Cancelled Nucleated RBC % (auto) Cancelled Neutrophils % (Manual) Cancelled Band Neutrophils % Cancelled Lymphocytes % (Manual) Cancelled Prolymphocyte % Cancelled Reactive Lymphs % (Man) Cancelled Monocytes % (Manual) Cancelled Eosinophils % (Manual) Cancelled Basophils % (Manual) Cancelled Metamyelocytes % (Man) Cancelled Myelocytes % (Man) Cancelled Promyelocytes % (Man) Cancelled Blast Cells % (Manual) Cancelled Plasma Cell % (Manual) Cancelled Other Cells % Cancelled Nucleated RBC % Cancelled Neutrophils # (Manual) Cancelled Band Neutrophils # Cancelled Total Absolute Neuts Cancelled Lymphocytes # (Manual) Cancelled Prolymphocyte # Cancelled Reactive Lymphs # Cancelled Total Abs Lymphocytes Cancelled Monocytes # (Manual) Cancelled Eosinophils # (Manual) Cancelled Basophils # (Manual) Cancelled Metamyelocytes # (Man) Cancelled Myelocytes # (Manual) Cancelled Promyelocytes # (Man) Cancelled Blast Cells # (Man) Cancelled Plasma Cell # (Manual) Cancelled Other Cells # Cancelled Nucleated RBCs # (Man) Cancelled Hypersegmented Neuts Cancelled Hyposegmented Neuts Cancelled Hypogranular Neuts Cancelled Large Granular Lymphs Cancelled # Lrg Granular Lymphs Cancelled Hairy Cells Cancelled Smudge Cells Cancelled Toxic Granulation Cancelled Toxic Vacuolation Cancelled Dohle Bodies Cancelled Keren Rods Cancelled Platelet Estimate Cancelled Hypogranular Platelets Cancelled Clumped Platelets Cancelled Giant Platelets Cancelled Platelet Satelliting Cancelled RBC Morphology Cancelled Polychromasia Cancelled Hypochromasia Cancelled Poikilocytosis Cancelled Basophilic Stippling Cancelled Anisocytosis Cancelled Microcytosis Cancelled Macrocytosis Cancelled Spherocytes Cancelled Pappenheimer Bodies Cancelled Sickle Cells Cancelled Target Cells Cancelled Tear Drop Cells Cancelled Ovalocytes Cancelled Stomatocytes Cancelled Douglas-Clitherall Bodies Cancelled Echinocytes Cancelled Acanthocytes (Spur) Cancelled Rouleaux Cancelled RBC Agglutinates Cancelled Schistocytes Cancelled RBC Morph Comment Cancelled Peripher Smr Path Cons Sezary Cell Cancelled PT 13.0 H INR 1.2 H APTT 34.5 H PTT Ratio 1.3 Sodium Potassium Chloride Carbon Dioxide Anion Gap BUN Creatinine Est Cr Clr Drug Dosing Est GFR ( Amer) Est GFR (Non-Af Amer) BUN/Creatinine Ratio Glucose Osmolality Calcium Magnesium Iron TIBC Unsaturated IBC Transferrin % Sat Ferritin Total Bilirubin AST ALT Alkaline Phosphatase Lactate Dehydrogenase 486 H Total Protein Albumin Globulin Albumin/Globulin Ratio Urine Color Urine Appearance Urine pH Ur Specific [place] Urine Protein Urine Glucose (UA) Urine Ketones Urine Blood Urine Nitrite Urine Bilirubin Urine Urobilinogen Ur Leukocyte Esterase Urine WBC (Auto) Urine RBC (Auto) U Hyaline Cast (Auto) U Epithel Cells (Auto) Urine Bacteria (Auto) Urine Osmolality Blood Type Antibody Screen 10/05/21 10/05/21 10/05/21 08:36 08:36 15:23 WBC RBC Hgb 7.9 L Hct 23.6 L MCV MCH MCHC RDW Std Deviation RDW Coeff of Yumiko Plt Count MPV Immature Gran % (Auto) Neut % (Auto) Lymph % (Auto) [place] % (Auto) Eos % (Auto) Baso % (Auto) Reticulocyte % (Auto) Neut # (Auto) Lymph # (Auto) [place] # (Auto) Eos # (Auto) Baso # (Auto) Reticulocyte # Immature Gran # (Auto) Absolute Nucleated RBC Nucleated RBC % (auto) Neutrophils % (Manual) Band Neutrophils % Lymphocytes % (Manual) Prolymphocyte % Reactive Lymphs % (Man) Monocytes % (Manual) Eosinophils % (Manual) Basophils % (Manual) Metamyelocytes % (Man) Myelocytes % (Man) Promyelocytes % (Man) Blast Cells % (Manual) Plasma Cell % (Manual) Other Cells % Nucleated RBC % Neutrophils # (Manual) Band Neutrophils # Total Absolute Neuts Lymphocytes # (Manual) Prolymphocyte # Reactive Lymphs # Total Abs Lymphocytes Monocytes # (Manual) Eosinophils # (Manual) Basophils # (Manual) Metamyelocytes # (Man) Myelocytes # (Manual) Promyelocytes # (Man) Blast Cells # (Man) Plasma Cell # (Manual) Other Cells # Nucleated RBCs # (Man) Hypersegmented Neuts Hyposegmented Neuts Hypogranular Neuts Large Granular Lymphs # Lrg Granular Lymphs Hairy Cells Smudge Cells Toxic Granulation Toxic Vacuolation Dohle Bodies Keren Rods Platelet Estimate Hypogranular Platelets Clumped Platelets Giant Platelets Platelet Satelliting RBC Morphology Polychromasia Hypochromasia Poikilocytosis Basophilic Stippling Anisocytosis Microcytosis Macrocytosis Spherocytes Pappenheimer Bodies Sickle Cells Target Cells Tear Drop Cells Ovalocytes Stomatocytes Douglas-Clitherall Bodies Echinocytes Acanthocytes (Spur) Rouleaux RBC Agglutinates Schistocytes RBC Morph Comment Peripher Smr Path Cons Sezary Cell PT INR APTT PTT Ratio Sodium Potassium Chloride Carbon Dioxide Anion Gap BUN Creatinine Est Cr Clr Drug Dosing Est GFR ( Amer) Est GFR (Non-Af Amer) BUN/Creatinine Ratio Glucose Osmolality Calcium Magnesium Iron TIBC Unsaturated IBC Transferrin % Sat Ferritin Total Bilirubin AST ALT Alkaline Phosphatase Lactate Dehydrogenase Total Protein Albumin Globulin Albumin/Globulin Ratio Urine Color Dark Yellow Urine Appearance Clear Urine pH 6.5 Ur Specific [place] 1.020 Urine Protein Trace H Urine Glucose (UA) Negative Urine Ketones Negative Urine Blood Negative Urine Nitrite Negative Urine Bilirubin Negative Urine Urobilinogen Negative Ur Leukocyte Esterase 2+ H Urine WBC (Auto) 5-10 H Urine RBC (Auto) 0-4 U Hyaline Cast (Auto) 1-5 U Epithel Cells (Auto) >30 H Urine Bacteria (Auto) Negative Urine Osmolality 535 Blood Type Antibody Screen Diagnostic Findings Telemetry personally reviewed: Atrial sensed and ventricular paced Currently. CTAchest 10/04/2021: Small to moderate low attenuation pericardial effusion. Small to moderate left and small right pleural effusions with low fluid at tenuation. ECGs personally reviewed: ECG 10/04/2021 at 1507: Atrial flutter versus coarse AFib with ventricular pacing at 64 bpm. ECG 10/04/2021 at 10:49 p.m.: Atrial sensed ventricular paced 106 bpm. Echo 10/05/2021: Normal LV size with hyperdynamic systolic function. EF > 70%. No regional wall motion abnormalities. Mild LVH. Mild biatrial dilation. Small circumferential pericardial effusion without echocardiographic evidence of tamponade physiology. RVSP 38. Compared to previous study on 10/03/2021, pericardial effusion appears slightly smaller. Medications Administered Current Inpatient Medications Acetaminophen (Acetaminophen 325 Mg Tab) 650 mg PO Q4H PRN PRN Reason: Pain or Fever Stop: 11/03/21 20:08 Last Admin: 10/05/21 16:38 Dose: 650 mg Documented by: Bisacodyl (Bisacodyl 5 Mg Tabec) 5 mg PO HS PRN PRN Reason: Constipation Stop: 11/04/21 10:53 Escitalopram Oxalate (Escitalopram Oxalate 20 Mg Tab) 20 mg PO DAILY [facility] Stop: 11/04/21 08:59 Last Admin: 10/05/21 07:47 Dose: 20 mg Documented by: Furosemide (Furosemide 40 Mg/4 Ml Vial) 40 mg IV DAILY [facility] Stop: 11/05/21 08:59 Lorazepam (Lorazepam 0.5 Mg Tab) 0.5 mg PO DAILY PRN PRN Reason: Anxiety Stop: 11/03/21 20:08 Last Admin: 10/04/21 21:28 Dose: 0.5 mg Documented by: Losartan Potassium (Losartan Potassium 25 Mg Tab) 12.5 mg PO DAILY [facility] Stop: 11/04/21 08:59 Last Admin: 10/05/21 07:47 Dose: 12.5 mg Documented by: Metoprolol Succinate (Metoprolol Succ 25mg Ext Rel Tab) 25 mg PO DAILY [facility] Stop: 11/04/21 08:59 Last Admin: 10/05/21 07:48 Dose: Not Given Documented by: Oxybutynin Chloride (Oxybutynin Chloride Xl 5 Mg Tabcr) 15 mg PO DAILY [facility] Stop: 11/04/21 08:59 Last Admin: 10/05/21 07:47 Dose: 15 mg Documented by: Pantoprazole Sodium (Pantoprazole 40 Mg Tab) 40 mg PO DAILY [facility]; Protocol Stop: 11/04/21 08:59 Last Admin: 10/05/21 07:48 Dose: 40 mg Documented by: Polyethylene Glycol (Polyethylene (Miralax) 17 Gm Pack) 17 gm PO DAILY PRN PRN Reason: constipation Stop: 11/05/21 08:59 Last Admin: 10/05/21 16:38 Dose: 17 gm Documented by: Potassium Chloride (Potassium Chloride 10 Meq Tabcr) 10 meq PO DAILY [facility] Stop: 11/04/21 08:59 Last Admin: 10/05/21 07:47 Dose: 10 meq Documented by: PG Care Time/CCT Total # of Minutes Spent Total Time Spent with Patient: Total time spent is greater than 50% in coordination of care (as documented) at patient's floor/unit and/or counseling patient: Coding Level of Care Code 05054 Initial Inpt Care Lvl 3 Diagnoses Paroxysmal atrial flutter I48.92 Pericardial effusion I31.3 Status post placement of cardiac pacemaker Z95.0 Pleural effusion J90 Hypervolemia E87.70 Anemia D64.9 Anemia type: unspecified type SOB (shortness of breath) R06.02 HTN (hypertension) I10 (1) Anemia Anemia type: unspecified type Qualified Code(s): D64.9 - Anemia, unspecified
--- NOTE | 2021-10-06 04:17 | Communication Note ---
Date of Service: October 06, 2021 Notified by nursing of new oxygen requirement of 2L via NC to maintain O2 sats > 90%. Patient evaluated in room. States that the increased dyspnea began before going to sleep. Feels that respirations are more labored. Denies any worsening of chest pain. No other acute symptoms. Exam -- Constitutional: Awake and alert. No acute distress. Neck: Mild JVD. No bruit. Respiratory: Decreased breath sounds bilaterally. Cardiovascular: No murmurs. Regular rate. Plan: Will recheck H&H stat; Hgb increased to 8.5. Hold on further diuresis at this time. Resident Activity Tracking Resident Involvement: Resident Care Provided Care Provided: Adult Hospital Medicine
[2021-10-06 04:49] LABS: Hematocrit (blood only) 25.7 % (37-47); Hemoglobin 8.5 g/dL (12.0-16.0)
[2021-10-06 05:13] LABS: Basophils # (auto) 0.11 K/uL (0-0.2); Eosinophils # (auto) 0.08 K/uL (0-0.5); Eosinophils % (auto) 0.8 %; Immature Granulocytes # (auto) 0.25 K/uL (0.00-0.02); Immature Granulocytes % (auto) 2.4 %; Lymphocytes # (auto) 1.05 K/uL (1.2-3.4); Mean Corpuscular Hgb Conc 33.1 g/dL (32-36); Mean Platelet Volume 10.5 fL (7.4-10.4); Monocytes # (auto) 0.92 K/uL (0.11-0.59); Monocytes % (auto) 8.8 %; Nucleated RBC # (auto) 0.08 K/uL (0-0); Nucleated RBC % (auto) 0.8 %; Platelet Count 322 K/uL (130-400); RDW Coefficient of Variation 19.9 % (11.5-14.5); RDW Standard Deviation 58.6 fL (36.4-46.3); Red Blood Count 3.19 M/uL (4.2-5.4); White Blood Count 10.51 K/uL (4.8-10.8)
[2021-10-06 05:19] LABS: BUN Creatinine Ratio 23.5 (10-20); Calcium 8.3 mg/dl (8.5-10.1); Creatinine Clr Calc Pharmacy 53.9 ml/min; Est GFR (African American) 79.3 ml/min; Est GFR (Non-African American) 68.5 ml/min; Potassium 4.3 mmol/L (3.5-5.1)
[2021-10-06 05:56] LABS: Ovalocytes 1+; Polychromasia 1+; Schistocytes Occasional; Tear Drop Cells 1+
[2021-10-06 06:38] LABS: Mean Corpuscular Volume 82.6 fL (80-100)
[2021-10-06] MEDS: LOSARTAN POTASSIUM 25 MG TAB PO SCH (07:13)
[2021-10-06] MEDS: PANTOprazole 40 MG TAB PO SCH (07:13)
[2021-10-06] MEDS: OXYBUTYNIN CHLORIDE XL 5 MG TABCR PO SCH (07:13)
[2021-10-06] MEDS: POTASSIUM CHLORIDE 10 MEQ TABCR PO SCH (07:13)
[2021-10-06] MEDS: ESCITALOPRAM OXALATE 20 MG TAB PO SCH (07:14)
[2021-10-06] MEDS: METOPROLOL SUCC 25MG EXT REL TAB PO SCH (07:19)
--- NOTE | 2021-10-06 07:21 | XRay Report ---
XR chest 1V portable CLINICAL HISTORY: increasing shortness of breath COMPARISON STUDY: Chest radiograph and chest CT October 04, 2021. FINDINGS: Dual lead right subclavian pacemaker is in place. A left subclavian leads remain in place. There is no pneumothorax. [id number] bilateral pleural effusions have slightly increased. Asso ciated bibasilar opacities are noted. There is persistent pulmonary edema. Cardiomediastinal silhouet te is stable from prior chest CT and chest radiograph. IMPRESSION: Persistent pulmonary edema with slight increase in small to moderate bilateral pleural e ffusions and associated bibasilar opacities. ACT 112: Negative or not required by law. Electronically signed by: Phan Ram M.D. 10/06/2021 7:20 AM
[2021-10-06] MEDS ORDERED: FUROSEMIDE 40 MG/4 ML VIAL IV STA (07:26)
[2021-10-06] MEDS ORDERED: MAGNESIUM HYDROXIDE SUSP 30 ML UDC PO PRN (07:37)
[2021-10-06] MEDS ORDERED: FUROSEMIDE 40 MG/4 ML VIAL IV SCH (09:00)
[2021-10-06] MEDS: DOCUSATE SODIUM/SENNA 50/8.6MG TAB PO SCH (09:09)
--- NOTE | 2021-10-06 09:37 | Hospitalist Progress Note ---
Date of Service October 06, 2021 Assessment & Plan (1) Atrial flutter: (2) Bilateral pleural effusion: (3) Pericardial effusion: (4) Status post placement of cardiac pacemaker: (5) Dyspnea: (6) Polycythemia vera: (7) Hyponatremia: (8) Hyponatremia with decreased serum osmolality: (9) GERD (gastroesophageal reflux disease): (10) HTN (hypertension): Plan: Alice is a 71 year old female w/ PmHx polycythemia vera s/p x1 dose Besremi (09/27), complete heart block s/p pacemaker, GERD admitted for concern for fluid overload and anemia. B/L Pleural Effusion/Dyspnea: - CT non-con chest w/ evidence of small to mod left and small right pleural effusion. - results of fluid overload/ ?Besremi side effect - Repeat CXR this AM: persistent pulmonary edema, slight increase to bilateral pleural effusions. - Normal EF, hyperdynamic LV - 80mg IV Lasix in ED. - Cardio following - Increase lasix to 40mg IV bid. - consider thoracentesis if no improvement - limited echo in 48hrs to ensure stability. - Monitor I&O's. Atrial Flutter: - EKG on admission w/ new onset A. Flutter. Repeat EKG with paced rhythm. - Trop I negative x2, BNP 779. - On metoprolol succinate ER 25mg daily, held per BP parameters today. - Cardiology consulted. - Converted at this time, atrial sensing. - Pacemaker interrogation reveals began 10/04/21. - Possibly due to Besremi. Pericardial Effusion: - Echo 10/03 w/ evidence of small pericardial effusion <1cm. - Repeat echo 10/05: pericardial effusion appears slightly smaller. - CT non-con chest w/ streak artifact around ventricular lead, difficult to ascertain if perforation. - Likely not contributing to pulmonary symptoms. - Cardiology consulted: - No evidence of tamponade. - if hypotensive and tachycardic w/ concern for tamponade, can give IV fluid. Anemia: - Hgb 11.7 09/20, 8.7 on entry to hospital. - Hgb stable this AM at 8.5. - Iron 17 (low), TIBC 227 (low) - Stool occult blood screen negative 10/06. - Less likely bleed, more likely sec to Besremi. - Can consult GI for further workup of potential bleed vs anticoagulation. - Transfusion threshold below 7. - Repeat CBC in AM. S/p placement of cardiac pacemaker: - Generator and wires changed due to lead malfunction - Difficult to determine ventricular lead location due to artifact on CT. - Rhythm paced. - Cardiology aware. Hyponatremia w/ decreased serum osmolality: - Na 127, serum osm 273, urine osm 535. - Patient hypervolemic w/ pleural effusions. - Na 126 this AM, hopefully will go up w/ diuresis. - Continue diuresis, monitoring I&O's, BMP. Polycythemia Vera: - Hgb as above. - Patient s/p Besremi 09/27. - Patient spoke with her heme/onc office, they said they would not be continuing the Besremi given side effects. - Monitor hgb Hypothyroidism: - TSH 4.005 continue with synthroid GERD: - Continue Prilosec. HTN: - Patient systolic blood pressures in 90's-110's systolic. - Continue home metoprolol succinate ER 25mg daily, losartan 12.5mg daily. DVT Prophylaxis: SCD's F/E/N/GI: Low sodium diet Code status: Full code Dispo: Med/Surg tele Admission and Anticipated Discharge Date Admission Date: October 04, 2021 Supervising Physician Co-Signing Physician Notes Resident Physician Supervision Note: I independently interviewed and examined the patient and verified the enciso history and physical, reviewed labs and image studies and agree with resident Dr. Jama findings and care plan. Subjective Patient was seen at the bedside this morning after she had a night of feeling more short of breath and generally unwell. Patient stated she still felt worse than yesterday with her breathing when I saw her at around 6:40AM. Patient also stated she had not had a bowel movement for a while and felt that added to some of her discomfort. After talking with her she received her morning Lasix dose. When I went back to check on her at ~8:40AM she was feeling better and breathing with less effort than before. She stated she had a bowel movement in the interim. Review of Systems Constitutional: as per Subjective / HPI Physical Exam Constitutional: WD/WN, vitals as above Eyes: PERRL, conjunctivae normal, anicteric sclerae Respiratory: Clear to auscultation, mildly diminished at lung bases bilaterally. Cardiovascular: RRR, no murmur, no edema Gastrointestinal (Abdomen): normal bowel sounds, soft, nontender, no hepatosplenomegaly Results & Data Results & Data ([facility]) Vital Signs (Past 12 Hours) Vital Signs Temp Pulse Pulse Resp BP Pulse Ox 10/06/21 07:19 37.4 C 62 18 110/67 94 10/06/21 03:15 91 10/06/21 03:11 37.3 C 60 18 112/64 87 L 10/05/21 22:17 61 10/05/21 22:11 36.7 C 63 18 115/69 92
--- NOTE | 2021-10-06 16:05 | Cardiology Progress Note ---
Date of Service October 06, 2021 Assessment & Plan (1) Paroxysmal atrial flutter: (2) Pericardial effusion: (3) Status post placement of cardiac pacemaker: (4) Pleural effusion: (5) Hypervolemia: (6) Anemia: (7) SOB (shortness of breath): (8) HTN (hypertension): Plan: ASSESSMENT/PLAN: 1. Paroxysmal atrial flutter/fibrillation: Atrial flutter versus coarse AFib on presenting ECG on 10/04/2021 and according to pacemaker interrogation verbal report, apparently it began on 10/04/2021. She appears to have converted and is now demonstrating atrial sensing. Anticoagulation therapy has not been initiated due to new anemia with formal workup pending. Can continue home dose of beta-brian. Given that this is a new arrhythmia for her, it could be related to Besremi, as atrial fibrillation is listed as a adverse reaction of this medication. This arrhythmia is not likely to blame for her symptoms of dyspnea with exertion as the onset began on 10/04/2021 however her symptoms have been ongoing for several days. 2. Pericardial effusion: Perhaps slightly smaller on 10/05/2021 echo. Possibly related to Besremi? No evidence of tamponade physiology currently. While diuresing, if becomes hypotensive and tachycardic and concern for tamponade physiology, would recommend IV fluid administration. Conservative management for now. 3. Pleural effusions: Possibly due to Besremi? Plan as above. If they do not improve with diuresis, could evaluate for possible thoracentesis. 4. Shortness of breath/dyspnea with exertion: Began several days after Besremi. Pacemaker appears to be appropriately functioning per electrophysiology. She appears hypervolemic. Diurese. Also anemic which could be playing a role. 5. Hypervolemia: Possibly medication reaction vs HFpEF. Agree with diuresis. Monitor for signs or symptoms of tamponade. Low-sodium diet. Recommend Lasix 40 mg IV b.i.d.. 6. Dual chamber pacemaker: Managed by electrophysiology. Appropriately functioning per report. 7. Anemia: Possibly due to adverse medication reaction (Besremi) per primary service. Stool heme-negative. No evidence of bleeding thus far. Will defer formal workup to primary service. 8. Hypertension: Blood pressure is normal. Hold ARB for now while diuresing. 9 Hyponatremia: As per primary service. Hyponatremia has worsened. 10. Disposition: Please call with any other questions or concerns. She should follow-up with Dr. Rodríguez on discharge. Plan of care communicated with Dr. Marks of the primary hospitalist service. Admission and Anticipated Discharge Date Admission Date: October 04, 2021 Subjective Patient became short of breath overnight, admitting to orthopnea. She feels much better this afternoon. No chest pain. No further shortness of breath this afternoon. No syncope, near-syncope, palpitations, or bleeding. Review of systems: As above. She was alone in her hospital room. Physical Exam Physical Exam: Gen.: No acute distress. Alert and oriented. HEENT: Anicteric sclera. Neck: Mild JVD. Cardiac: PMI was nondisplaced. No ventricular heave. Regular. Normal S1-S2. No murmurs, rubs, or gallops. Pulmonary: Decreased breath sounds bilaterally, with little to no lung sounds bilateral lower 1/3 lung reynolds. Abdomen: Soft, nontender, nondistended, with normoactive bowel sounds. No bruits noted. Extremities: 2+ radial pulses bilaterally. 2+ posterior tibialis pulses bilaterally. No pitting edema or cyanosis. Psychiatric: Affect appears appropriate. Results & Data ([facility]) Vital Signs (Past 12 Hours) Vital Signs Temp Pulse Resp BP Pulse Ox 10/06/21 15:35 36.8 C 96 H 20 108/71 94 10/06/21 12:00 36.8 C 95 H 109/69 93 10/06/21 07:19 37.4 C 62 18 110/67 94 Intake & Output 10/04/21 10/05/21 10/06/21 10/07/21 06:59 06:59 06:59 06:59 Intake Total 725 / 725 540 / 540 150 / 150 Output Total 275 / 275 1501 / 1501 250 / 250 Balance 450 / 450 -961 / -961 -100 / -100 Weight 141 lb 3.2 oz 145 lb 4.554 oz Laboratory Results Laboratory Results - last 24 hr 10/05/21 10/06/21 10/06/21 15:23 04:32 04:32 WBC Cancelled RBC Cancelled Hgb 7.9 L Cancelled Hct 23.6 L Cancelled MCV Cancelled MCH Cancelled MCHC Cancelled RDW Std Deviation Cancelled RDW Coeff of Yumiko Cancelled Plt Count Cancelled MPV Cancelled Immature Gran % (Auto) Cancelled Neut % (Auto) Cancelled Lymph % (Auto) Cancelled [place]ome % (Auto) Cancelled Eos % (Auto) Cancelled Baso % (Auto) Cancelled Neut # (Auto) Cancelled Lymph # (Auto) Cancelled [place] # (Auto) Cancelled Eos # (Auto) Cancelled Baso # (Auto) Cancelled Immature Gran # (Auto) Cancelled Absolute Nucleated RBC Cancelled Nucleated RBC % (auto) Cancelled Neutrophils % (Manual) Cancelled Band Neutrophils % Cancelled Lymphocytes % (Manual) Cancelled Prolymphocyte % Cancelled Reactive Lymphs % (Man) Cancelled Monocytes % (Manual) Cancelled Eosinophils % (Manual) Cancelled Basophils % (Manual) Cancelled Metamyelocytes % (Man) Cancelled Myelocytes % (Man) Cancelled Promyelocytes % (Man) Cancelled Blast Cells % (Manual) Cancelled Plasma Cell % (Manual) Cancelled Other Cells % Cancelled Nucleated RBC % Cancelled Neutrophils # (Manual) Cancelled Band Neutrophils # Cancelled Total Absolute Neuts Cancelled Lymphocytes # (Manual) Cancelled Prolymphocyte # Cancelled Reactive Lymphs # Cancelled Total Abs Lymphocytes Cancelled Monocytes # (Manual) Cancelled Eosinophils # (Manual) Cancelled Basophils # (Manual) Cancelled Metamyelocytes # (Man) Cancelled Myelocytes # (Manual) Cancelled Promyelocytes # (Man) Cancelled Blast Cells # (Man) Cancelled Plasma Cell # (Manual) Cancelled Other Cells # Cancelled Nucleated RBCs # (Man) Cancelled Hypersegmented Neuts Cancelled Hyposegmented Neuts Cancelled Hypogranular Neuts Cancelled Large Granular Lymphs Cancelled # Lrg Granular Lymphs Cancelled Hairy Cells Cancelled Smudge Cells Cancelled Toxic Granulation Cancelled Toxic Vacuolation Cancelled Dohle Bodies Cancelled Keren Rods Cancelled Platelet Estimate Cancelled Hypogranular Platelets Cancelled Clumped Platelets Cancelled Giant Platelets Cancelled Platelet Satelliting Cancelled RBC Morphology Cancelled Polychromasia Cancelled Hypochromasia Cancelled Poikilocytosis Cancelled Basophilic Stippling Cancelled Anisocytosis Cancelled Microcytosis Cancelled Macrocytosis Cancelled Spherocytes Cancelled Pappenheimer Bodies Cancelled Sickle Cells Cancelled Target Cells Cancelled Tear Drop Cells Cancelled Ovalocytes Cancelled Stomatocytes Cancelled Douglas-[place] Bodies Cancelled Echinocytes Cancelled Acanthocytes (Spur) Cancelled Rouleaux Cancelled RBC Agglutinates Cancelled Schistocytes Cancelled RBC Morph Comment Cancelled Sezary Cell Cancelled Sodium 126 L Potassium 4.3 Chloride 95 L Carbon Dioxide 23 Anion Gap 8 BUN 20 Creatinine 0.85 Est Cr Clr Drug Dosing 53.9 Est GFR ( Amer) 79.3 Est GFR (Non-Af Amer) 68.5 BUN/Creatinine Ratio 23.5 H Glucose 125 H Calcium 8.3 L Stool Occult Bld Scrn 10/06/21 10/06/21 04:32 08:45 WBC 10.51 RBC 3.19 L Hgb 8.5 L Hct 25.7 L MCV 82.6 MCH 27.0 MCHC 33.1 RDW Std Deviation 58.6 H RDW Coeff of Yumiko 19.9 H Plt Count 322 MPV 10.5 H Immature Gran % (Auto) 2.4 Neut % (Auto) 77.0 Lymph % (Auto) 10.0 N[place] % (Auto) 8.8 Eos % (Auto) 0.8 Baso % (Auto) 1.0 Neut # (Auto) 8.10 H Lymph # (Auto) 1.05 L [place] # (Auto) 0.92 H Eos # (Auto) 0.08 Baso # (Auto) 0.11 Immature Gran # (Auto) 0.25 H Absolute Nucleated RBC 0.08 H Nucleated RBC % (auto) 0.8 Neutrophils % (Manual) Band Neutrophils % Lymphocytes % (Manual) Prolymphocyte % Reactive Lymphs % (Man) Monocytes % (Manual) Eosinophils % (Manual) Basophils % (Manual) Metamyelocytes % (Man) Myelocytes % (Man) Promyelocytes % (Man) Blast Cells % (Manual) Plasma Cell % (Manual) Other Cells % Nucleated RBC % Neutrophils # (Manual) Band Neutrophils # Total Absolute Neuts Lymphocytes # (Manual) Prolymphocyte # Reactive Lymphs # Total Abs Lymphocytes Monocytes # (Manual) Eosinophils # (Manual) Basophils # (Manual) Metamyelocytes # (Man) Myelocytes # (Manual) Promyelocytes # (Man) Blast Cells # (Man) Plasma Cell # (Manual) Other Cells # Nucleated RBCs # (Man) Hypersegmented Neuts Hyposegmented Neuts Hypogranular Neuts Large Granular Lymphs # Lrg Granular Lymphs Hairy Cells Smudge Cells Toxic Granulation Toxic Vacuolation Dohle Bodies Keren Rods Platelet Estimate Hypogranular Platelets Clumped Platelets Giant Platelets Platelet Satelliting RBC Morphology Polychromasia 1+ Hypochromasia Poikilocytosis Basophilic Stippling Anisocytosis Microcytosis Macrocytosis Spherocytes Pappenheimer Bodies Sickle Cells Target Cells Tear Drop Cells 1+ Ovalocytes 1+ Stomatocytes Douglas-[place] Bodies Echinocytes Acanthocytes (Spur) Rouleaux RBC Agglutinates Schistocytes Occasional RBC Morph Comment Sezary Cell Sodium Potassium Chloride Carbon Dioxide Anion Gap BUN Creatinine Est Cr Clr Drug Dosing Est GFR ( Amer) Est GFR (Non-Af Amer) BUN/Creatinine Ratio Glucose Calcium Stool Occult Bld Scrn Negative Diagnostic Findings Telemetry personally reviewed: Brief episode of tachycardia earlier this morning. Otherwise, sinus rhythm with ventricular pacing. Chest x-ray 10/06/2021: Persistent pulmonary edema with slight increase in small to moderate bilateral pleural effusions and associated bibasilar opacities. Medications Administered Current Inpatient Medications Acetaminophen (Acetaminophen 325 Mg Tab) 650 mg PO Q4H PRN PRN Reason: Pain or Fever Stop: 11/03/21 20:08 Last Admin: 10/05/21 16:38 Dose: 650 mg Documented by: Bisacodyl (Bisacodyl 5 Mg Tabec) 5 mg PO HS PRN PRN Reason: Constipation Stop: 11/04/21 10:53 Last Admin: 10/05/21 22:13 Dose: 5 mg Documented by: Escitalopram Oxalate (Escitalopram Oxalate 20 Mg Tab) 20 mg PO DAILY HALEY Stop: 11/04/21 08:59 Last Admin: 10/06/21 07:14 Dose: 20 mg Documented by: Lorazepam (Lorazepam 0.5 Mg Tab) 0.5 mg PO DAILY PRN PRN Reason: Anxiety Stop: 11/03/21 20:08 Last Admin: 10/04/21 21:28 Dose: 0.5 mg Documented by: Losartan Potassium (Losartan Potassium 25 Mg Tab) 12.5 mg PO DAILY HALEY Stop: 11/04/21 08:59 Last Admin: 10/06/21 07:13 Dose: 12.5 mg Documented by: Magnesium Hydroxide (Magnesium Hydroxide Susp 30 Ml Udc) 30 ml PO Q6H PRN PRN Reason: Constipation Stop: 11/05/21 07:36 Metoprolol Succinate (Metoprolol Succ 25mg Ext Rel Tab) 25 mg PO DAILY [facility] Stop: 11/04/21 08:59 Last Admin: 10/06/21 07:19 Dose: 25 mg Documented by: Oxybutynin Chloride (Oxybutynin Chloride Xl 5 Mg Tabcr) 15 mg PO DAILY [facility] Stop: 11/04/21 08:59 Last Admin: 10/06/21 07:13 Dose: 15 mg Documented by: Pantoprazole Sodium (Pantoprazole 40 Mg Tab) 40 mg PO DAILY [facility]; Protocol Stop: 11/04/21 08:59 Last Admin: 10/06/21 07:13 Dose: 40 mg Documented by: Polyethylene Glycol (Polyethylene (Miralax) 17 Gm Pack) 17 gm PO DAILY PRN PRN Reason: constipation Stop: 11/05/21 08:59 Last Admin: 10/05/21 16:38 Dose: 17 gm Documented by: Potassium Chloride (Potassium Chloride 10 Meq Tabcr) 10 meq PO DAILY [facility] Stop: 11/04/21 08:59 Last Admin: 10/06/21 07:13 Dose: 10 meq Documented by: Senna/Docusate Sodium (Docusate Sodium/Senna 50/8.6mg Tab) 1 tab PO QAM [facility] Stop: 11/05/21 08:59 Last Admin: 10/06/21 09:09 Dose: 1 tab Documented by: PG Care Time/CCT Total # of Minutes Spent Total Time Spent with Patient: Total time spent is greater than 50% in coordination of care (as documented) at patient's floor/unit and/or counseling patient: Coding Level of Care Code 89139 Subseq Hosp Care Lvl 3 Diagnoses Paroxysmal atrial flutter I48.92 Pericardial effusion I31.3 Status post placement of cardiac pacemaker Z95.0 Pleural effusion J90 Hypervolemia E87.70 Anemia D64.9 Anemia type: unspecified type SOB (shortness of breath) R06.02 HTN (hypertension) I10 (1) Anemia Anemia type: unspecified type Qualified Code(s): D64.9 - Anemia, unspecified
[2021-10-06] MEDS: FUROSEMIDE 40 MG/4 ML VIAL IV SCH ×2 (16:23→20:11)
[2021-10-06] MEDS ORDERED: SIMETHICONE 80 MG CHEW PO PRN (18:04)
--- NOTE | 2021-10-06 21:51 | Electrocardiogram Report ---
Test Reason : Blood Pressure : / mmHG Vent. Rate : 106 BPM Atrial Rate : 106 BPM P-R Int : 164 ms QRS Dur : 150 ms QT Int : 394 ms P-R-T Axes : 002 -55 078 degrees QTc Int : 523 ms Atrial-sensed ventricular-paced rhythm Abnormal ECG When compared with ECG of 04-OCT-2021 15:07, Vent. rate has increased BY 42 BPM Atrial fibrillation /flutter is no longer present Confirmed by Yo Sharma ([id number]) on 10/06/2021 9:50:40 PM Referred By: REFERRED SELF Confirmed By:Yo Sharma
--- NOTE | 2021-10-07 06:41 | Hospitalist Progress Note ---
Date of Service October 07, 2021 Assessment & Plan (1) Atrial flutter: (2) Bilateral pleural effusion: (3) Pericardial effusion: (4) Status post placement of cardiac pacemaker: (5) Dyspnea: (6) Polycythemia vera: (7) Hyponatremia: (8) Hyponatremia with decreased serum osmolality: (9) GERD (gastroesophageal reflux disease): (10) HTN (hypertension): Plan: Alice is a 71 year old female w/ PmHx polycythemia vera s/p x1 dose Besremi (09/27), complete heart block s/p pacemaker, GERD admitted for concern for fluid overload and anemia. B/L Pleural Effusion/Dyspnea: - CT non-con chest w/ evidence of small to mod left and small right pleural effusion. - Repeat CXR this AM: persistent pulmonary edema, slight increase to bilateral pleural effusions. - results of fluid overload/ ?Besremi side effect - Less likely hemothorax given slow decline in hgb, patient hemodynamically stable. - Normal EF, hyperdynamic LV, echo repeated today with similar/stable appearance. - 80mg IV Lasix in ED. Given 40mg IV this AM w/ good improvement of symptoms. -Lasix now 40 mg twice daily. - Monitor I&O's. Lost over 600 cc over the past 24 hours. -Goal is to wean off oxygen with possible discharge tomorrow pending continuing improvement -PT and OT consulted today. Atrial Flutter: - EKG on admission w/ new onset A. Flutter. Repeat EKG with paced rhythm. - Trop I negative x2, BNP 779. - On metoprolol succinate ER 25mg daily, held per BP parameters today. - Cardiology consulted. - Converted at this time, atrial sensing. - Pacemaker interrogation reveals began 10/04/21. - Possibly due to Besremi. Pericardial Effusion: - Echo 10/03 w/ evidence of small pericardial effusion <1cm. - Repeat echo 10/05: pericardial effusion appears slightly smaller, with repeat echo today showing stable size without tamponade physiology - CT non-con chest w/ streak artifact around ventricular lead, difficult to ascertain if perforation. - Likely not contributing to pulmonary symptoms. - Cardiology consulted: - No evidence of tamponade. - if hypotensive and tachycardic w/ concern for tamponade, can give IV fluid. Anemia: - Hgb 11.7 09/20, 8.7 on entry to hospital. - Hgb stable this AM at 8.5. - Iron 17 (low), TIBC 227 (low) - Stool occult blood screen negative 10/06. - Less likely bleed, more likely sec to Besremi. - Can consult GI for further workup of potential bleed vs anticoagulation. - Transfusion threshold below 7. - Repeat CBC in AM. S/p placement of cardiac pacemaker: - Generator and wires changed due to lead malfunction - Difficult to determine ventricular lead location due to artifact on CT. - Rhythm paced. - Cardiology aware. Hyponatremia w/ decreased serum osmolality: - Na 127, serum osm 273, urine osm 535. - Patient hypervolemic w/ pleural effusions. - Na 128 this AM, which is improvement from yesterday - Continue diuresis, monitoring I&O's, BMP, fluid restriction. Polycythemia Vera: - Hgb as above. - Patient s/p Besremi 09/27. - Patient spoke with her heme/onc office, they said they would not be continuing the Besremi given side effects. - Monitor hgb Hypothyroidism: - TSH 4.005 continue with synthroid GERD: - Continue Prilosec. HTN: - Patient systolic blood pressures in 90's-110's systolic. - Continue home metoprolol succinate ER 25mg daily, losartan 12.5mg daily. DVT Prophylaxis: SCD's F/E/N/GI: Low sodium diet, fluid restriction Code status: Full code Dispo: Med/Surg tele Admission and Anticipated Discharge Date Admission Date: October 04, 2021 Supervising Physician Co-Signing Physician Notes I personally examined the patient and verified all enciso points of history and exam, discussed case, and agree with decision making with Dr West feeling better than before, still easily fatigued w exertion but not really VARGAS now vitals noted 91-92% on ra at rest, breathing unlabored no accessory muscles good effort skin no rashes no pallor or icterus neuro no focal deficits acute diastolic CHF - doesn't give much hx of sodium intake on diet hx; possibly/probably rhythm related for acute dCHF - improving. continue to diurese, follow, wean O2, hopefully home soon aflutter - rates good, consider anticoagulation (but would wait to ensure effusions don't need tapped) otherwise as above Subjective Patient seen at bedside this morning. No acute events overnight reported. Patient reports that her breathing has improved significantly over the past 24 hours. Patient reports is the best night of sleep she has had in the past few days. Reports that she has been taking off her nasal cannula intermittently and has been feeling comfortable at rest without oxygen. Has been getting up to go to the bathroom with assistance. No new complaints at this time. Review of Systems Review of Systems: All systems reviewed & are unremarkable except as noted in HPI & below Physical Exam Constitutional: WD/WN, vitals as above Eyes: + anicteric sclerae Neck: trachea midline, no thyromegaly Respiratory: normal respiratory effort Auscultation: + crackles (At the bases bilaterally.) Cardiovascular: RRR, no murmur, no edema Vessels: no JVD Extremities: normal capillary refill Hepatojugular reflux noted. Gastrointestinal (Abdomen): normal bowel sounds, soft, nontender, no hepatosplenomegaly Musculoskeletal: Head/Neck/Chest: normocephalic and head atraumatic Skin: no rashes, warm and dry Neurologic: moves all extremities Psychiatric: A+Ox3, euthymic affect Results & Data Results & Data ([facility]) Vital Signs (Past 12 Hours) Vital Signs Temp Pulse Pulse Resp BP BP Pulse Ox 10/07/21 03:49 36.7 C 92 H 20 98/61 L 94 10/06/21 22:47 77 10/06/21 22:26 36.8 C 77 16 106/68 93 10/06/21 19:21 36.3 C L 103 H 16 115/70 96
[2021-10-07 06:49] LABS: Basophils # (auto) 0.19 K/uL (0-0.2); Basophils % (auto) 1.9 %; Eosinophils # (auto) 0.07 K/uL (0-0.5); Eosinophils % (auto) 0.7 %; Hematocrit (blood only) 25.8 % (37-47); Hemoglobin 8.5 g/dL (12.0-16.0); Immature Granulocytes # (auto) 0.36 K/uL (0.00-0.02); Immature Granulocytes % (auto) 3.6 %; Lymphocytes # (auto) 1.15 K/uL (1.2-3.4); Lymphocytes % (auto) 11.5 %; Mean Corpuscular Hemoglobin 27.4 pg (25-34); Mean Corpuscular Hgb Conc 32.9 g/dL (32-36); Mean Corpuscular Volume 83.2 fL (80-100); Mean Platelet Volume 10.9 fL (7.4-10.4); Monocytes # (auto) 0.75 K/uL (0.11-0.59); Monocytes % (auto) 7.5 %; Neutrophils # (auto) 7.51 K/uL (1.4-6.5); Neutrophils % (auto) 74.8 %; Nucleated RBC # (auto) 0.04 K/uL (0-0); Nucleated RBC % (auto) 0.4 %; Platelet Count 273 K/uL (130-400); RDW Coefficient of Variation 19.6 % (11.5-14.5); White Blood Count 10.03 K/uL (4.8-10.8)
[2021-10-07 07:11] LABS: BUN Creatinine Ratio 22.5 (10-20); Calcium 8.1 mg/dl (8.5-10.1); Creatinine Clr Calc Pharmacy 52.6 ml/min; Est GFR (African American) 85.4 ml/min; Est GFR (Non-African American) 73.7 ml/min; Potassium 3.5 mmol/L (3.5-5.1)
[2021-10-07] MEDS: POTASSIUM CHLORIDE 10 MEQ TABCR PO SCH (09:01)
[2021-10-07] MEDS: LOSARTAN POTASSIUM 25 MG TAB PO SCH (09:01)
[2021-10-07] MEDS: FUROSEMIDE 40 MG/4 ML VIAL IV SCH ×2 (09:01→20:17)
[2021-10-07] MEDS: PANTOprazole 40 MG TAB PO SCH (09:06)
[2021-10-07] MEDS: METOPROLOL SUCC 25MG EXT REL TAB PO SCH (09:06)
[2021-10-07] MEDS: ESCITALOPRAM OXALATE 20 MG TAB PO SCH (09:06)
[2021-10-07] MEDS: OXYBUTYNIN CHLORIDE XL 5 MG TABCR PO SCH (09:06)
[2021-10-07] MEDS: DOCUSATE SODIUM/SENNA 50/8.6MG TAB PO SCH (09:06)
[2021-10-07] MEDS: ACETAMINOPHEN 325 MG TAB PO PRN ×2 (09:17→19:34)
[2021-10-07] MEDS ORDERED: ENOXAPARIN INJ 40 MG/0.4 ML SYR SQ SCH (09:30)
--- NOTE | 2021-10-07 12:50 | Billing Data ---
Date of Service October 07, 2021 Coding Level of Care Code 34968 Subseq Hosp Care Lvl 3
--- NOTE | 2021-10-07 13:35 | XCELERA ---
[id number]
--- NOTE | 2021-10-07 16:48 | Cardiology Progress Note ---
Date of Service October 07, 2021 Assessment & Plan (1) Paroxysmal atrial flutter: (2) Pericardial effusion: (3) Status post placement of cardiac pacemaker: (4) Pleural effusion: (5) Hypervolemia: (6) Anemia: (7) SOB (shortness of breath): (8) HTN (hypertension): Plan: ASSESSMENT/PLAN: 1. Paroxysmal atrial flutter/fibrillation: Atrial flutter versus coarse AFib on presenting ECG on 10/04/2021 and according to pacemaker interrogation verbal report, apparently it began on 10/04/2021. Currently in AFib/flutter and asymptomatic. She has had paroxysmal episodes intermittently throughout the day. Ventricular paces while in AFib/flutter with heart rate in the 60s. Anticoagulation therapy has not been initiated due to new anemia. When concern for possible bleed subsides, would recommend anticoagulation therapy for stroke risk reduction. Can continue home dose of beta-brian. Given that this is a new arrhythmia for her, it could be related to Besremi, as atrial fibrillation is listed as a adverse reaction of this medication. This arrhythmia is not likely to blame for her symptoms of dyspnea with exertion as the onset began on 10/04/2021 however her symptoms had been ongoing for several days. 2. Pericardial effusion: Stable findings. No evidence of tamponade physiology currently. While diuresing, if becomes hypotensive and tachycardic and concern for tamponade physiology, would recommend IV fluid administration. Conservative management for now. Continue to monitor even on discharge with periodic echo. 3. Pleural effusions: Possibly due to Besremi? Plan as above. If they do not improve with diuresis, could evaluate for possible thoracentesis. 4. Shortness of breath/dyspnea with exertion: Began several days after Besremi. Pacemaker appears to be appropriately functioning per electrophysiology. Volume status has improved. Continue diuretics. Also anemic which could be playing a role. 5. Hypervolemia: Possibly medication reaction vs HFpEF. Agree with diuresis. Monitor for signs or symptoms of tamponade. Low-sodium diet. Tolerating Lasix 40 mg IV b.i.d.. 6. Dual chamber pacemaker: Managed by electrophysiology. Appropriately functioning per report. 7. Anemia: Possibly due to adverse medication reaction (Besremi) per primary service. Stool heme-negative. No evidence of bleeding thus far. Will defer formal workup to primary service. 8. Hypertension: Blood pressure mildly hypotensive at times but mostly normotensive. Will hold ARB while diuresing. 9 Hyponatremia: As per primary service. Hyponatremia improved today. 10. Disposition: Please call with any other questions or concerns. She should follow-up with Dr. Rodríguez on discharge. Plan of care communicated with Dr. Paz of the primary hospitalist service. Dr. Rodríguez will see her tomorrow. Admission and Anticipated Discharge Date Admission Date: October 04, 2021 Subjective She feels much better today. She has only minimal shortness of breath at times but otherwise denies shortness of breath. She was able to ambulate to the bathroom without dyspnea. She denies orthopnea. She still has a cough at times. She denies chest pain, syncope, near-syncope, palpitations, or bleeding. Review of systems: As above. She was alone in her hospital room. Physical Exam Physical Exam: Gen.: No acute distress. Alert and oriented. HEENT: Anicteric sclera. Neck: No appreciable JVD. Cardiac: PMI was nondisplaced. No ventricular heave. Regular. Normal S1-S2. No murmurs, rubs, or gallops. Pulmonary: Decreased breath sounds bilaterally, with reduced lung sounds bilateral lower 1/3 lung reynolds. Abdomen: Soft, nontender, nondistended, with normoactive bowel sounds. No bruits noted. Extremities: 2+ radial pulses bilaterally. 2+ posterior tibialis pulses bilaterally. No pitting edema or cyanosis. Psychiatric: Affect appears appropriate. Results & Data ([facility]) Vital Signs (Past 12 Hours) Vital Signs Temp Pulse Pulse Pulse Resp BP BP 10/07/21 15:56 36.4 C L 64 18 110/70 10/07/21 11:49 36.5 C 93 H 18 97/62 L 10/07/21 09:08 68 109/70 10/07/21 07:56 36.5 C 72 22 98/60 L 10/07/21 07:12 80 Pulse Ox 10/07/21 15:56 100 10/07/21 11:49 96 10/07/21 09:08 10/07/21 07:56 95 10/07/21 07:12 Laboratory Results Laboratory Results - last 24 hr 10/05/21 10/07/21 10/07/21 03:49 06:39 06:39 WBC 10.03 RBC 3.10 L Hgb 8.5 L Hct 25.8 L MCV 83.2 MCH 27.4 MCHC 32.9 RDW Std Deviation 60.0 H RDW Coeff of Yumiko 19.6 H Plt Count 273 MPV 10.9 H Immature Gran % (Auto) 3.6 Neut % (Auto) 74.8 Lymph % (Auto) 11.5 Starke % (Auto) 7.5 Eos % (Auto) 0.7 Baso % (Auto) 1.9 Neut # (Auto) 7.51 H Lymph # (Auto) 1.15 L Starke # (Auto) 0.75 H Eos # (Auto) 0.07 Baso # (Auto) 0.19 Immature Gran # (Auto) 0.36 H Absolute Nucleated RBC 0.04 H Nucleated RBC % (auto) 0.4 Peripher Smr Path Cons Sodium 128 L Potassium 3.5 Chloride 93 L Carbon Dioxide 27 Anion Gap 8 BUN 18 Creatinine 0.80 Est Cr Clr Drug Dosing 52.6 Est GFR ( Amer) 85.4 Est GFR (Non-Af Amer) 73.7 BUN/Creatinine Ratio 22.5 H Glucose 96 Calcium 8.1 L Diagnostic Findings Telemetry personally reviewed: Paroxysmal AFib/flutter and otherwise sinus with atrial sensing and ventricular pacing. Limited echo 10/07/2021: EF 60-65%. Stable small circumferential pericardial effusion. Medications Administered Current Inpatient Medications Acetaminophen (Acetaminophen 325 Mg Tab) 650 mg PO Q4H PRN PRN Reason: Pain or Fever Stop: 11/03/21 20:08 Last Admin: 10/07/21 09:17 Dose: 650 mg Documented by: Bisacodyl (Bisacodyl 5 Mg Tabec) 5 mg PO HS PRN PRN Reason: Constipation Stop: 11/04/21 10:53 Last Admin: 10/05/21 22:13 Dose: 5 mg Documented by: Escitalopram Oxalate (Escitalopram Oxalate 20 Mg Tab) 20 mg PO DAILY [facility]Y Stop: 11/04/21 08:59 Last Admin: 10/07/21 09:06 Dose: 20 mg Documented by: Furosemide (Furosemide 40 Mg/4 Ml Vial) 40 mg IV BID HALEY Stop: 11/05/21 16:09 Last Admin: 10/07/21 09:01 Dose: 40 mg Documented by: Lorazepam (Lorazepam 0.5 Mg Tab) 0.5 mg PO DAILY PRN PRN Reason: Anxiety Stop: 11/03/21 20:08 Last Admin: 10/04/21 21:28 Dose: 0.5 mg Documented by: Losartan Potassium (Losartan Potassium 25 Mg Tab) 12.5 mg PO DAILY [facility] Stop: 11/04/21 08:59 Last Admin: 10/07/21 09:01 Dose: 12.5 mg Documented by: Magnesium Hydroxide (Magnesium Hydroxide Susp 30 Ml Udc) 30 ml PO Q6H PRN PRN Reason: Constipation Stop: 11/05/21 07:36 Metoprolol Succinate (Metoprolol Succ 25mg Ext Rel Tab) 25 mg PO DAILY [facility] Stop: 11/04/21 08:59 Last Admin: 10/07/21 09:06 Dose: 25 mg Documented by: Oxybutynin Chloride (Oxybutynin Chloride Xl 5 Mg Tabcr) 15 mg PO DAILY [facility] Stop: 11/04/21 08:59 Last Admin: 10/07/21 09:06 Dose: 15 mg Documented by: Pantoprazole Sodium (Pantoprazole 40 Mg Tab) 40 mg PO DAILY [facility]; Protocol Stop: 11/04/21 08:59 Last Admin: 10/07/21 09:06 Dose: 40 mg Documented by: Polyethylene Glycol (Polyethylene (Miralax) 17 Gm Pack) 17 gm PO DAILY PRN PRN Reason: constipation Stop: 11/05/21 08:59 Last Admin: 10/05/21 16:38 Dose: 17 gm Documented by: Potassium Chloride (Potassium Chloride 10 Meq Tabcr) 10 meq PO DAILY [facility] Stop: 11/04/21 08:59 Last Admin: 10/07/21 09:01 Dose: 10 meq Documented by: Senna/Docusate Sodium (Docusate Sodium/Senna 50/8.6mg Tab) 1 tab PO QAM [facility] Stop: 11/05/21 08:59 Last Admin: 10/07/21 09:06 Dose: 1 tab Documented by: Simethicone (Simethicone 80 Mg Chew) 120 mg PO QID PRN PRN Reason: Bloating Stop: 11/05/21 18:03 Last Admin: 10/06/21 18:42 Dose: 120 mg Documented by: PG Care Time/CCT Total # of Minutes Spent Total Time Spent with Patient: Total time spent is greater than 50% in coordination of care (as documented) at patient's floor/unit and/or counseling patient: Coding Level of Care Code 72915 Subseq Hosp Care Lvl 3 Diagnoses Paroxysmal atrial flutter I48.92 Pericardial effusion I31.3 Status post placement of cardiac pacemaker Z95.0 Pleural effusion J90 Hypervolemia E87.70 Anemia D64.9 Anemia type: unspecified type SOB (shortness of breath) R06.02 HTN (hypertension) I10 (1) Anemia Anemia type: unspecified type Qualified Code(s): D64.9 - Anemia, unspecified
[2021-10-07] MEDS: LORazepam 0.5 MG TAB PO PRN (19:35)
[2021-10-08 07:47] LABS: Hematocrit (blood only) 24.7 % (37-47); Hemoglobin 8.1 g/dL (12.0-16.0)
[2021-10-08] MEDS: DOCUSATE SODIUM/SENNA 50/8.6MG TAB PO SCH (07:51)
[2021-10-08] MEDS: FUROSEMIDE 40 MG/4 ML VIAL IV SCH (07:51)
[2021-10-08] MEDS: ACETAMINOPHEN 325 MG TAB PO PRN (07:51)
[2021-10-08] MEDS: ESCITALOPRAM OXALATE 20 MG TAB PO SCH (07:52)
[2021-10-08] MEDS: METOPROLOL SUCC 25MG EXT REL TAB PO SCH (07:52)
[2021-10-08] MEDS: OXYBUTYNIN CHLORIDE XL 5 MG TABCR PO SCH (07:52)
[2021-10-08] MEDS: POTASSIUM CHLORIDE 10 MEQ TABCR PO SCH (07:52)
[2021-10-08] MEDS: PANTOprazole 40 MG TAB PO SCH (07:53)
[2021-10-08 08:32] LABS: Basophils # (auto) 0.16 K/uL (0-0.2); Basophils % (auto) 1.7 %; Eosinophils # (auto) 0.08 K/uL (0-0.5); Eosinophils % (auto) 0.9 %; Immature Granulocytes # (auto) 0.42 K/uL (0.00-0.02); Immature Granulocytes % (auto) 4.6 %; Lymphocytes # (auto) 1.09 K/uL (1.2-3.4); Lymphocytes % (auto) 11.8 %; Mean Corpuscular Hemoglobin 26.7 pg (25-34); Mean Platelet Volume 10.7 fL (7.4-10.4); Monocytes # (auto) 0.67 K/uL (0.11-0.59); Monocytes % (auto) 7.3 %; Neutrophils % (auto) 73.7 %; Platelet Count 261 K/uL (130-400); RDW Coefficient of Variation 19.7 % (11.5-14.5); RDW Standard Deviation 58.9 fL (36.4-46.3); Red Blood Count 3.11 M/uL (4.2-5.4); White Blood Count 9.22 K/uL (4.8-10.8)
[2021-10-08 09:34] LABS: BUN Creatinine Ratio 23.7 (10-20); Calcium 8.1 mg/dl (8.5-10.1); Creatinine Clr Calc Pharmacy 55.3 ml/min; Est GFR (African American) 90.8 ml/min; Est GFR (Non-African American) 78.4 ml/min; Mean Corpuscular Hgb Conc 32.8 g/dL (32-36); Mean Corpuscular Volume 82.3 fL (80-100); Potassium 3.8 mmol/L (3.5-5.1)
--- NOTE | 2021-10-08 12:43 | Med Student Discharge Summary ---
Date of Service October 08, 2021 Admission HPI Per Admitting Provider 71 YOF with medical history of: GERD, bilateral pleural effusions, pulmonary edema, S/P pacemaker- exchange with lead malfunction, complete heart block, Polycythemia (previously started on Bersemi (09/27/21). Patient was referred to the EMD today after being treated for the past week for concerns of increase in edema and dyspnea. She has had her Lasix dose increased from 40-60-80mg with no change in symptoms. The patient mostly feels fatigued and dyspneic when she is getting up and moving around, she also feels bloating and weight gain in her abdomen. She has no orthopnea. Patient states her symptoms started around the time she had her pacemaker generator changed out as well as when she started her Bresemi. The pacemaker generator change was on 09/25/21 and her Bresemi was started on 09/27/21. She has since stopped that medication and remains with symptoms as above. She denies any chest pain except on the site where her pacemaker and leads were inserted, no fevers, chills. She does have cough with deep inspiration. In the EMD the patient had routine labs performed to include- HScTNI, BNP, lyme, CXR and ECG. Her BNP was elevated to 779, she was noted to by hyponatremic to 129, and anemic to 8.7mg/dl. She had an ECHO performed in Office on 10/03 with EF 55-60%, mild MR, moderate TR, small pericardial effusion reported as <1cm. Her ECG appears to be atrial flutter with V-pace (which appears to be new for her), and her CXR is notable for pulmonary congestion and bilateral pleural effusions. The patient denies any change in her stools or blood in stools as well as no nausea or vomiting. She does have history of GERD as well. Her last EGD and Colonoscopy in our system is from 2016. In the EMD she was given 80mg IV Lasix just prior to evaluation with obviously no effect yet. She will be admitted to medical telemetry, follow overnight diuresing, will type and screen and follow her HGB level in the morning- if this is from volume status would suspect this to increase following diuresing. Will send iron studies as she is borderline microcytic. Patient COVID and Influenza tests: NEGATIVE on admission Admission Exam (Per Admitting) Constitutional WD/WN, vitals as above awake, alert, no apparent distress Eyes ERRLA, EOMI, no pharyngeal exudate, mucous membranes moist, conjunctiva are pale Neck trachea midline, no thyromegaly Respiratory equal rise and fall of the chest, no accessory muscle use, no heaves or thrills, scattered crackles throughout with decrease in the bases, on room air Cardiovascular RRR, no murmur, no edema irregular rate and rhythm, telemetry reviewed- AV paced, skin warm dry, cap refill <3 seconds, peripheral pulses +2 no JVD, no murmur, no edema Gastrointestinal (Abdomen) NABS x 4 quadrants, soft, nontender to palpation, no rebound, guarding or tenderness Musculoskeletal Normal inspection, no peripheral edema or erythema, calfs nontender to palpation Skin no rash or erythema Neurologic AAO x 3, speech clear and appropriate, strength intact bilaterally 5/5, sensation intact and equal all extremities and dermatomes, no pronator drift Psychiatric A+Ox3, euthymic affect Normal mood and affect Genitourinary Spontaneously voiding, no pain, no CVA tenderness History of Present Illness Constitutional WD/WN, vitals as above Neck trachea midline, no thyromegaly Cardiovascular RRR, no murmur, no edema Psychiatric A+Ox3, euthymic affect Constitutional + WD/WN, vitals as above Discharge Exam Constitutional WD/WN, vitals as above Neck trachea midline, no thyromegaly Respiratory mild inspiratory crackles bilaterally, normal breathing effort Cardiovascular RRR, no murmur, no edema Psychiatric A+Ox3, euthymic affect Discharge Data Consultations 10/04/21 17:17 ED Decision to Admit Stat 10/04/21 19:02 Consult Cardiology Routine Hospital Course (1) Hypervolemia: (2) Pleural effusion: (3) Polycythemia vera: (4) Pericardial effusion: (5) SOB (shortness of breath): (6) Anemia: (7) Hyponatremia with decreased serum osmolality: (8) Atrial flutter: (9) Hypothyroidism: (10) GERD (gastroesophageal reflux disease): (11) History of pacemaker: Alice is a 71 year old female w/ PmHx polycythemia vera s/p x1 dose Besremi (09/27), complete heart block s/p pacemaker, GERD admitted for concern for fluid overload and anemia. B/L Pleural Effusion/Dyspnea: - CT non-con chest 10/04: evidence of small to mod left and small right pleural effusion. - CXR 10/06: persistent pulmonary edema, slight increase to bilateral pleural effusions. - Echo 10/07: Normal EF, hyperdynamic LV, small pleural effusion; stable from previous echo on 10/03 - results of fluid overload/ ?Besremi side effect vs. undiagnosed HFpEF - Less likely hemothorax given slow decline in hgb, patient hemodynamically stable, occult stool blood negative (10/06) - Patient given Lasix 80 mg IV Lasix in ED, now Lasix 40 mg BID with good improvement of symptoms - Patient w/o supplemental O2 requirement upon d/c - patient to continue Lasix 40 mg PO daily Atrial Flutter: - EKG on admission w/ new onset A. Flutter. Repeat EKG with paced rhythm. - Trop I negative x2, BNP 779. - given metoprolol succinate ER 25mg daily - Cardiology following - Converted at this time, atrial sensing. - Pacemaker interrogation reveals began 10/04/21. - Possibly due to Besremi. - continue home metoprolol succinate ER 25mg daily - patient to start Eliquis - f/u with cardiology provider Pericardial Effusion: - Echo 10/03: evidence of small pericardial effusion <1cm. - Repeat echo 10/05: pericardial effusion appears slightly smaller, with repeat echo today showing stable size without tamponade physiology - CT non-con chest w/ streak artifact around ventricular lead, difficult to ascertain if perforation. - Likely not contributing to pulmonary symptoms, resolving Anemia: - Hgb 11.7 09/20, 8.7 on entry to hospital. - Iron 17 (low), TIBC 227 (low) - Stool occult blood screen negative 10/06. - Less likely bleed, more likely 2/2 Besremi. - Hgb 8.1 upon d/c - patient to initiate iron supplementation S/p placement of cardiac pacemaker: - Generator and wires changed due to lead malfunction - Difficult to determine ventricular lead location due to artifact on CT. - Rhythm paced. - Cardiology aware. Hyponatremia w/ decreased serum osmolality: - Na 127, serum osm 273, urine osm 535. - Patient hypervolemic w/ pleural effusions. - Na 129 upon d/c - see plan above Polycythemia Vera: - Hgb as above. - Patient s/p Besremi 09/27. - Patient spoke with her heme/onc office, they said they would not be continuing the Besremi given side effects. - f/u with heme/onc provider Hypothyroidism: - TSH 4.005 continue with synthroid GERD: - Continue Prilosec. HTN: - Patient systolic blood pressures in 90's-110's systolic. - Continue home metoprolol succinate ER 25mg daily, losartan 12.5mg daily. Discharge Plan Discharge Items Reason For Visit: IV DIURETIC ADMINISTRATION FOR CHF Condition on Discharge: Fair Follow-up/Referrals: Alesha Serrano M.D. [Outside Practitioners] - 10/10/21 11:15 am Medications and DC Order Prescriptions: No Action oxybutynin chloride 15 mg tablet extended release 24 hr 15 mg PO DAILY RF: 0 potassium chloride 10 mEq capsule, extended release 10 meq PO DAILY Qty: 30 RF: 1 Prilosec 10 mg susp,delayed release for recon 10 mg PO DAILY RF: 0 escitalopram oxalate 20 mg tablet 20 mg PO DAILY RF: 0 metoprolol succinate 25 mg tablet extended release 24 hr 25 mg PO DAILY RF: 0 lorazepam 0.5 mg tablet 0.5 mg PO DAILY PRN (Reason: Anxiety) RF: 0 multivitamin 1 tab PO DAILY RF: 0 flaxseed oil 1,000 mg capsule 1,000 mg PO DAILY RF: 0 magnesium 250 mg tablet 250 mg PO DAILY RF: 0 calcium 1 tab PO BID RF: 0 losartan 25 mg tablet 12.5 mg PO DAILY Qty: 90 RF: 0 aspirin 81 mg Tablet,Delayed Release (Dr/Ec) 81 mg PO DAILY RF: 0 furosemide 40 mg tablet 80 mg PO DAILY RF: 0 Krames/Other Patient Handouts: Exercise for a Healthier Heart, Coping with Heart Failure Admission Data Admit Date/Time: 10/04/21 18:02 Attending Provider: José Luis Paz Admit Provider: Vinay Ordonez Primary Care Provider: Maicol Salinas Other Providers: Vinay Ordonez ; Simon Rodríguez ; Andria Marks Supervising Attestation I personally examined the patient and verified all enciso points of history and e xam, discussed case, and agree with decision making with Dr West feels up to going home wants to go home. discussed discharge plan vitals noted nad breathing unlabored no accessory muscles good effort skin no rashes no pallor or icterus neuro no focal deficits walking w steady gait acute diastolic CHF - doesn't give much hx of sodium intake on diet hx; possibly/probably rhythm related and/or besremi related - for acute dCHF - improving. safe for home, med magemement aflutter - rates overall acceptable, start anticoagulation. outpt f/u otherwise as above
--- NOTE | 2021-10-08 15:30 | Billing Data ---
Date of Service October 08, 2021 Coding Level of Care Code D/C DAY MANAGEMENT <30 MINS
== END 2021-10-08 17:08 | disposition home or self-care (01) | DRG 308 ==
LOC: ED 15:01 → SUATTDRO 18:02 → 2N 18:02